=== PATIENT | male | born 1935 | race Caucasian/White ===

== ENCOUNTER 2020-06-08 16:15 | Emergency (ER) | payer MEDICARE, SELFPAY ==
--- NOTE | ~2020-06-08 | XR_ITS ---
EXAMINATION: XR chest 1V portable EXAM DATE: 06/08/2020 17:16 INDICATION: SOB, midsternal CP into right arm and neck . TECHNIQUE: Portable AP frontal chest x-ray was obtained. There is no prior study for comparison. FINDINGS: The lungs are clear. There are no pleural effusions. The cardiomediastinal silhouette is p rominent but magnified on this AP technique. Right shoulder replacement. 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 There is no pneumothorax suspected. The bones and soft tissues are unremarkable. IMPRESSION: No acute cardiopulmonary findings. Reviewed, dictated and finalized at location A. TRY BONER
--- NOTE | 2020-06-08 16:34 | ECG_ITS ---
Measurements Intervals [place] Rate: 69 P: 60 [place]: 290 QRS: 9 QRSD: 97 T: 59 QT: 429 QTc: 460 Interpretive Statements SINUS RHYTHM WITH FIRST DEGREE AV BLOCK VENTRICULAR PREMATURE COMPLEX CANNOT RULE OUT SEPTAL INFARCT, AGE INDETERMINATE BORDERLINE ST-T WAVE ABNORMALITY- HIGH LATERAL LEADS BASELINE WANDER- V4-V6 ABNORMAL ECG Electronically Signed On 06-09-2020 6:18:37 [employer] by Margarito Aviles D.O.
[2020-06-08 16:46] VITALS: BP 184/88; PULSE 68; RESP 18; TEMP 36.8; O2SAT 98
[2020-06-08 17:00] LABS: Basophils Absolute Auto 0.05 K/mm3 (0.00-0.10); Basophils Percent Auto 0.6 % (0.0-1.0); Eosinophils Absolute Auto 0.07 K/mm3 (0.02-0.50); Eosinophils Percent Auto 0.9 % (1.0-6.0); Hematocrit 43.9 % (37.0-46.0); Hemoglobin 13.8 g/dL (12.4-15.3); Immature Granulocyte Absolute 0.03 K/mm3 (0.00-0.00); Immature Granulocyte Percent A 0.4 % (0.0-0.0); Lymphocytes Absolute Auto 1.41 K/mm3 (1.10-4.50); Lymphocytes Percent Auto 17.9 % (18.0-42.0); Mean Corpuscular HGB Conc 31.4 g/dL (32.0-36.0); Mean Corpuscular Hemoglobin 28.9 pg (27.0-31.0); Mean Corpuscular Volume 91.8 fL (78.0-102.0); Mean Platelet Volume 9.4 fl (8.7-11.0); Monocytes Absolute Auto 0.86 K/mm3 (0.10-0.90); Monocytes Percent Auto 10.9 % (2.0-11.0); Neutrophils Absolute Auto 5.5 K/mm3 (1.7-7.2); Neutrophils Percent Auto 69.3 % (50.0-70.0); Platelet Count Result 306 K/mm3 (150-420); Red Blood Count 4.78 M/mm3 (4.70-6.10); Red Cell Distribution Width 12.8 % (11.6-14.4); White Blood Count 7.9 K/mm3 (4.8-10.8)
[2020-06-08 17:13] LABS: Prothrombin Time 10.9 Seconds (9.50-12.10)
[2020-06-08 17:22] LABS: BNP 45 pg/mL (0-100)
[2020-06-08 17:24] LABS: Alanine Aminotransferase 27 U/L (16-63); Albumin Level 3.7 g/dL (3.4-5.0); Alkaline Phosphatase 64 U/L (46-116); Anion Gap 7 mmol/L (8-16); Aspartate Amino Transferase 15 U/L (15-37); Bilirubin,Total 0.4 mg/dL (0.00-1.00); Blood Urea Nitrogen 17 mg/dL (7-18); Calcium 8.9 mg/dL (8.5-10.1); Carbon Dioxide 29 mmol/L (21-32); Chloride 103 mmol/L (98-108); Estimated CRCL calculation 45 ml/min; Estimated Glomerular Filt Rate 53; Glucose 112 mg/dL (70-99); Lipase 102 U/L (73-393); Osmolality Calculated 290 mOsm/kg (285-295); Potassium 3.5 mmol/L (3.5-5.1); Sodium 139 mmol/L (136-145); Total Protein 7.1 g/dL (6.4-8.2)
[2020-06-08 17:25] LABS: Troponin I 8.1 ng/L (0.00-60.4)
[2020-06-08] MEDS: ASPIRIN 81 MG CHEWABLE TABLET 324 MG PO (17:25)
[2020-06-08] MEDS: NITROGLYCERIN SL 0.4 MG TABLET SUBLINGUAL ×2 (17:25→17:50)
--- NOTE | 2020-06-08 18:38 | ED.GENADULT ---
HPI - General Adult General Chief complaint: Chest Pain Stated complaint: Pt said he thinks hes having a heart attack Source: patient and family Mode of arrival: ambulatory Limitations: no limitations History of Present Illness HPI narrative: Wong is an 84M with a PMH of HLD, HTN, and COPD that presented to the ED with chest pain. Earlier today he started to have some squeezing in his chest that went to his throat and had some SOB. No N/V, syncpe or near-syncope. He took a shot of Lexi and that made his throat burn more. He was concerned about these symptoms so he came to the emergency department. Related Data Home Medications Medication Instructions Recorded Confirmed allopurinol 100 mg tablet 100 mg PO DAILY 06/09/19 06/08/20 budesonide-formoterol HFA 160 2 inhalation INHALATION ONCE 06/09/19 06/08/20 mcg-4.5 mcg/actuation aerosol inhaler cholecalciferol (vitamin D3) 1,000 unit PO ONCE 06/09/19 06/08/20 finasteride 5 mg tablet 5 mg PO DAILY 06/09/19 06/08/20 hydrochlorothiazide 12.5 mg capsule 12.5 mg PO DAILY 06/09/19 06/08/20 loratadine 10 mg capsule 10 mg PO DAILY 06/09/19 06/08/20 losartan 25 mg tablet 25 mg PO DAILY 06/09/19 06/08/20 magnesium 250 mg tablet 250 mg PO DAILY 06/09/19 06/08/20 omeprazole 20 mg capsule,delayed 20 mg PO DAILY 06/09/19 06/08/20 release potassium chloride 20 mEq/15 mL 10 meq PO DAILY 06/09/19 06/08/20 oral liquid simvastatin 40 mg tablet 40 mg PO DAILY 06/09/19 06/08/20 tiotropium bromide 2.5 2 inhalation INHALATION DAILY 06/09/19 06/08/20 mcg/actuation mist for inhalation Allergies Allergy/AdvReac Type Severity Reaction Status Date / Time lisinopril Allergy Cough Verified 06/08/20 16:30 Review of Systems Constitutional: Constitutional: Denies chills, Denies fever(s) and Denies weakness Eyes: Eyes: Reports no additional eye complaints ENT: Reports system reviewed and no additional complaints, except as documented Cardiovascular: Cardiovascular: Reports as per HPI Respiratory: Respiratory: Reports as per HPI Gastrointestinal: Gastrointestinal: Reports no additional gastrointestinal complaints Genitourinary: Genitourinary: Reports no additional male genitourinary complaints Musculoskeletal: Musculoskeletal: Reports no additional musculoskeletal complaints Integumentary/Breasts: Skin/Breast: Reports system reviewed and no additional complaints, except as docu Neurologic: Reports system reviewed and no additional complaints, except as documented Psychiatric: Psychiatric: Reports no additional psychiatric complaints Endocrine: Endocrine: Reports no additional endocrine complaints Hematologic/Lymphatic: Hematologic/Lymphatic: Reports no additional hematologic/lymphatic complaints Allergic/Immunologic: Allergic/Immunologic: Reports no additional allergic/immunologic complaints [facility] Past Medical History Medical History (Updated 06/08/20 @ 21:13 by Alexander Bailey DO) Arthritis BMI 32.0-32.9,adult COPD (chronic obstructive pulmonary disease) Gout High cholesterol HTN (hypertension) Surgical History Surgical History 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
[2020-06-08] MEDS: MAG HYDROX/ALUMINUM HYD/SIMETH 30 ML, PHENobarb/HYOSCY/ATROPINE/SCOP 32.4 MG, LIDOCAINE... PO (19:14)
[2020-06-08 20:27] LABS: Troponin I 8.4 ng/L (0.00-60.4)
[2020-06-08 21:40] VITALS: BP 140/91; PULSE 82; RESP 18; TEMP 36.7; O2SAT 98
== END 2020-06-08 21:40 | disposition home or self-care (01) ==
PROVIDERS: Emergency Provider Family Medicine; PCP Internal Medicine
DX: R07.9 Chest pain, unspecified (principal); K21.9 Gastro-esophageal reflux disease without esophagitis; R06.02 Shortness of breath; E78.5 Hyperlipidemia, unspecified; I10 Essential (primary) hypertension; J44.9 Chronic obstructive pulmonary disease, unspecified; Z87.891 Personal history of nicotine dependence
CPT/HCPCS: 36415; 71045; 80053; 83690; 83880; 84484; 85025; 85610; 93005; 99283; 99284; A9270

== ENCOUNTER 2020-07-14 09:50 | Outpatient (CLI) | payer MEDICARE, SELFPAY | END 2020-07-14 09:51 | disposition home or self-care (01) | PROVIDERS: PCP Internal Medicine; Visit Provider Surgery | DX: Z01.812 Encounter for preprocedural laboratory examination (principal); K42.9 Umbilical hernia without obstruction or gangrene | CPT/HCPCS: 36415; 86850; 86900; 86901 ==

== ENCOUNTER 2020-07-16 01:09 | Outpatient (CLI) | payer MEDICARE, SELFPAY ==
[2020-07-17 17:16] LABS: SARS-CoV-2 RNA PCR Negative
== END 2020-07-16 01:10 | disposition home or self-care (01) ==
LOC: ANHCOVIDDT 01:09
PROVIDERS: PCP Internal Medicine; Visit Provider Surgery
DX: Z01.812 Encounter for preprocedural laboratory examination (principal); Z20.822 Contact with and (suspected) exposure to COVID-19
CPT/HCPCS: C9803; U0003; U0005

== ENCOUNTER 2020-07-20 00:35 | Day surgery (SDC) | payer MEDICARE, SELFPAY ==
[2020-07-08 12:31] VITALS: BMI 31.3
[2020-07-20] VITALS (9 sets, daily range): BP systolic 132–161; BP diastolic 50–95; PULSE 56–67; RESP 14–20; TEMP 36.1–36.7; O2SAT 94–99
[2020-07-20] MEDS: ACETAMINOPHEN 500 MG TABLET 1000 MG PO (08:39)
[2020-07-20] MEDS: LACTATED RINGERS 1,000 ML 30 ML IV CONT ×2 (08:48→11:51)
[2020-07-20] MEDS: KETOROLAC 15 MG/ML VIAL (*BKC) IV PUSH (08:50)
--- NOTE | 2020-07-20 09:29 | WPDHPUPDATE1 ---
History and Physical Update Update Date/Time: 07/20/20 09:29 History and Physical has been reviewed, including an updated exam of the patient. There are NO changes in the patient's condition. Risks, benefits, and alternatives have been discussed and questions answered. Patient agrees to proceed with procedure.
--- NOTE | 2020-07-20 09:36 | WPDANESEPPF ---
Anes - Initial Pre Proc Eval Procedure: Operation Date: 07/20/20 10:00 Proposed Procedures p Laparoscopic Umbilical Hernia Repair With Mesh, Davinci Assisted - German Augustin DO Date/Time: 07/20/20 09:36 Surgeon: German Augustin DO Pre Op Diagnosis: Umbilical Hernia Patient Data Age: 84 Gender: M Height: 5 ft 10 in Weight: 100.9 kg Last Vital Signs Temp 98.1 F 07/20/20 08:15 Pulse 63 07/20/20 08:15 Resp 14 07/20/20 08:15 BP 141/50 H 07/20/20 08:15 Pulse Ox 99 07/20/20 08:15 Allergies Allergy/AdvReac Type Severity Reaction Status Date / Time lisinopril Allergy Cough Verified 07/20/20 08:32 Home Medications Medication Instructions Recorded Confirmed Type allopurinol 100 mg tablet 100 mg PO DAILY 06/09/19 07/20/20 History budesonide-formoterol HFA 160 2 inhalation INHALATION BID 06/09/19 07/20/20 History mcg-4.5 mcg/actuation aerosol inhaler cholecalciferol (vitamin D3) 1,000 unit PO ONCE 06/09/19 07/20/20 History finasteride 5 mg tablet 5 mg PO DAILY 06/09/19 07/20/20 History hydrochlorothiazide 12.5 mg capsule 12.5 mg PO DAILY 06/09/19 07/20/20 History loratadine 10 mg capsule 10 mg PO DAILY 06/09/19 07/20/20 History losartan 25 mg tablet 25 mg PO DAILY 06/09/19 07/20/20 History magnesium 250 mg tablet 250 mg PO DAILY 06/09/19 07/20/20 History omeprazole 20 mg capsule,delayed 20 mg PO DAILY 06/09/19 07/20/20 History release potassium chloride 20 mEq/15 mL 20 meq PO DAILY 06/09/19 07/20/20 History oral liquid simvastatin 40 mg tablet 40 mg PO HS 06/09/19 07/20/20 History tiotropium bromide 2.5 2 inhalation INHALATION DAILY 06/09/19 07/20/20 History mcg/actuation mist for inhalation Patient hx anesthesia problems: none Family hx anesthesia problems: none PMFSH Past Medical History Medical History Arthritis BMI 32.0-32.9,adult COPD (chronic obstructive pulmonary disease) Gout High cholesterol HTN (hypertension) Surgical History Surgical History 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 Dr Brower Family History Family History Sibling Hypertension Mother Hypertension Diabetes mellitus Father Leukemia Social History Social History Smoking packs per day: 3 Smoking cigarettes per day: 60.0 Years smoked: 24 Smoking pack-years: 72.00 Smoking status: Former smoker Tobacco type: cigarettes Additional smoking assessment comments: QUIT 1981 Alcohol intake: current Drinks per week: 14 Substance use: never Substance use type: does not use Living arrangements: with family Gender identity (if verbalized by the patient): Male Spiritual care concerns: No Anes - Eval Final PreProcedure Day of Procedure 07/20/20 09:36 Patient weight: obese Heart: regular rate and rhythm Lungs: clear to auscultation Airway: Mallampati scale class III Neurological: alert and oriented Last oral intake: >/= 8 hours ASA classification: III Emergent: no Anesthetic plan: proceed Anesthesia type and monitoring: general ETT and standard monitoring Informed Consent: The patient's anesthetic plan and its attendant risks and benefits were discussed with the patient/family/POA. Questions were solicited and answers provided to the satisfaction of the patient/family/POA.
[2020-07-20] MEDS: ceFAZolin 2 GM/D5W 50 ML 2 GM/50 ML BAG IVPB (09:46)
--- NOTE | 2020-07-20 10:13 | SUR.PREOP ---
0930 pt taken to bathroom to void.
--- NOTE | 2020-07-20 11:42 | PM.PROC ---
Procedure Note - Detailed Date of procedure: 07/20/20 Pre-op diagnosis: Umbilical Hernia Post-op diagnosis: same Procedure performed: Laparoscopic umbilical hernia repair with Symbotex mesh, da Marcos assisted Description of procedure: Procedure as well as risks, benefits, and alternatives were discussed with the patient. Written consent was obtained and placed in chart prior to procedure. Patient was brought back to surgical suite. He was placed supine on operating table. Time-out was done to confirm patient and procedure. He was then intubated by the anesthesia department. A bump was placed under his left hip, and the bed was flexed slightly to extend the space between his costal margin and iliac crest. His abdomen was prepped and draped in sterile fashion using chlorhexidine prep. A 5 millimeter incision was made in the left upper quadrant, and a 5 millimeter Optiview trocar was advanced through the abdominal layers under direct visualization. Once inside the abdominal cavity, carbon dioxide insufflation was used to create a pneumoperitoneum. His abdomen was inspected. An 8 millimeter incision was made in the left lower quadrant, and an 8 millimeter robotic trocar was placed under direct visualization. Another 8 millimeter incision was made in the left lateral abdomen, and an 8 millimeter robotic trocar was placed under direct visualization. Exparel was infiltrated along the lateral abdominal scott to perform a transversus abdominis plane block bilaterally. The 5 millimeter port was removed, the incision was extended to 12 millimeters, and a 12 millimeter air seal port was placed under direct visualization. A Asif-Krueger cone was also used to place an 0-Vicryl simple interrupted suture at this trocar site. The robotic arms were brought up to the patient's bedside and secured to the ports. The camera and instruments were inserted, and I then moved over to the robotic console and took control of the camera and instruments. After careful thorough inspection of the abdominal cavity, I began my dissection at the hernia. A preperitoneal feeling was carefully dissected starting from the left upper quadrant and extending along the left lateral abdomen into the left lower quadrant. A carefully dissected within this preperitoneal plane and reduced the hernia sac and preperitoneal fat from within the hernia. I then also dissected far enough to the right lateral edge to allow for mesh placement. I then measured the hernia size. The hernia measured 2 cm x 2 cm. The fascia was closed using an 0-Stratafix running suture in a vertical fashion. A Symbotex 15cm by 10cm mesh was then placed within the preperitoneal pocket. This was oriented vertically with the mesh centered on the hernia defect. The mesh was then secured at the 4 corners using 3 0 Vicryl simple interrupted sutures. The mesh appeared to be centered on the hernia defect with wide overlap circumferentially. The peritoneum was then closed using 2 0 V lock running absorbable suture. The repair was inspected, and one final inspection was made around the abdominal cavity. The robotic instruments were then removed, and the robotic arms were disengaged from the trocars. The ports were then removed under direct visualization, the camera was removed, and the pneumoperitoneum was released. The 0 Vicryl transfascial suture was tied down. The skin of the incisions was then approximated using 4-0 Monocryl subcuticular suture. Exofin glue was then applied on top. The patient was then awakened from anesthesia, extubated, and transferred to recovery. Implants: Symbotex 15cm by 10cm mesh Anesthesia: GETA and local (Exparel) Surgeon: German Augustin DO Estimated blood loss (mL): 5 Drains: No Pathology: none sent Complications: No immediate complications Condition: stable Disposition: same day Findings: This is an 84-year-old man who presented with an umbilical bulge that had been present for the past 2 y
[2020-07-20] MEDS: fentaNYL CITRATE INJ (*CRX) 100 MCG/2 ML VIAL 25 MCG IV PUSH ×3 (12:18→12:31)
[2020-07-20] MEDS: oxyCODONE HCL (*CRX) 5 MG TAB IR PO (13:14)
== END 2020-07-20 13:55 | disposition home or self-care (01) ==
PROVIDERS: PCP Internal Medicine; Visit Provider Surgery
PROC: (CPT 49652; principal; 2020-07-20 10:00)
DX: K42.9 Umbilical hernia without obstruction or gangrene (principal); I10 Essential (primary) hypertension; E78.00 Pure hypercholesterolemia, unspecified; J44.9 Chronic obstructive pulmonary disease, unspecified; M10.9 Gout, unspecified; M19.90 Unspecified osteoarthritis, unspecified site; Z87.891 Personal history of nicotine dependence; E66.9 Obesity, unspecified; Z68.31 Body mass index [BMI] 31.0-31.9, adult
CPT/HCPCS: 49652; S2900; A9270; C1781; C9290; J0330; J0690; J1100; J1885; J2370; J2405; J2704; J2710; J3010; J7120

== ENCOUNTER 2021-04-17 07:47 | Outpatient (CLI) | payer MEDICARE, SELFPAY ==
[2021-04-17 09:24] LABS: Hematocrit 43.4 % (37.0-46.0); Hemoglobin 14.4 g/dL (12.4-15.3); Immature Platelet Fraction Pct 2.2 % (1.0-7.0); Mean Corpuscular HGB Conc 33.2 g/dL (32.0-36.0); Mean Corpuscular Hemoglobin 28.6 pg (27.0-31.0); Mean Corpuscular Volume 86.3 fL (78.0-102.0); Mean Platelet Volume 9.6 fl (8.7-11.0); Platelet Count Result 546 K/mm3 (150-420); Red Blood Count 5.03 M/mm3 (4.70-6.10); Red Cell Distribution Width 13.3 % (11.6-14.4); White Blood Count 6.1 K/mm3 (4.8-10.8)
[2021-04-17 09:27] LABS: Add Urine Microscopic? YES; Appearance Urine Clear (Clear); Bilirubin Urine Negative (Negative); Blood Urine Negative (Negative); Color Urine Yellow (Yellow); Glucose Urine UA Negative (Negative); Ketones Urine Negative (Negative); Leukocyte Esterase Ur Negative (Negative); Nitrate Urine Negative (Negative); Protein Urine Trace (Negative); Specific Grav Ur 1.015 (1.010-1.020); pH Urine 7.5 (5.0-8.0)
[2021-04-17 09:36] LABS: Bacteria Urine Trace /hpf; RBC Urine None seen /hpf (0-2); WBC Urine None seen /hpf (0-3)
[2021-04-17 09:56] LABS: Total Cells Counted 100
[2021-04-17 09:57] LABS: Band Neutrophils Percent 1 % (0-6); Basophils Absolute Manual 0.12 K/mm3 (0-0.1); Basophils Percent Manual 2 % (0-1); Eosinophils Percent Manual 0 % (1-6); Lymphocytes Absolute Manual 0.91 K/mm3 (1.1-4.5); Lymphocytes Percent Manual 15 % (18-44); Monocytes Absolute Manual 0.48 K/mm3 (0.1-0.90); Monocytes Percent Manual 8 % (3-9); Neutrophils Absolute Manual 4.57 K/mm3 (1.3-6.7); Neutrophils Percent Manual 74 % (46-73); Platelet Estimate Increased (Adequate)
[2021-04-17 10:04] LABS: SARS-CoV-2 RNA PCR Positive (Negative)
[2021-04-17 10:29] LABS: Alanine Aminotransferase 51 U/L (16-63); Albumin Level 2.9 g/dL (3.4-5.0); Alkaline Phosphatase 130 U/L (46-116); Anion Gap 10 mmol/L (8-16); Aspartate Amino Transferase 48 U/L (15-37); Bilirubin,Total 1.2 mg/dL (0.00-1.00); Blood Urea Nitrogen 17 mg/dL (7-18); Calcium 9.1 mg/dL (8.5-10.1); Carbon Dioxide 29 mmol/L (21-32); Chloride 97 mmol/L (98-108); Estimated Glomerular Filt Rate > 60; Glucose 105 mg/dL (70-99); Osmolality Calculated 283 mOsm/kg (285-295); Potassium 4.6 mmol/L (3.5-5.1); Sodium 136 mmol/L (136-145)
== END 2021-04-17 07:48 | disposition home or self-care (01) ==
PROVIDERS: PCP Internal Medicine; Visit Provider Nurse Practitioner Family
DX: U07.1 COVID-19 (principal); D75.839 Thrombocytosis, unspecified; E86.0 Dehydration; N39.0 Urinary tract infection, site not specified
CPT/HCPCS: 36415; 80053; 81001; 85025; 85055; 87086; C9803; U0003; U0005

== ENCOUNTER 2021-04-17 14:29 | Emergency (ER) | payer MEDICARE, SELFPAY ==
--- NOTE | ~2021-04-17 | XR_ITS ---
EXAMINATION: XR chest 1V portable DATE: 04/17/2021 15:32 INDICATION: Dyspnea. COVID-19 positive. TECHNIQUE: A single frontal view of the chest was obtained. COMPARISON: Chest single view 06/08/2020, CT abdomen and pelvis 03/30/2019 FINDINGS: There are patchy airspace opacities in the mid and lower lung zones with a peripheral predo minance. No pleural effusion or pneumothorax. The heart size is normal. There is a right shoulder art hroplasty. IMPRESSION: 1. Patchy airspace opacities in the mid and lower lung zones, consistent with COVID-19 pneumonia. Reviewed, dictated and finalized at location A. IMPRESSION: 1. Patchy airspace opacities in the mid and lower lung zones, consistent with C OVID-19 pneumonia.
[2021-04-17 14:50] VITALS: BP 125/91; PULSE 69; RESP 15; TEMP 37.3; O2SAT 96
--- NOTE | 2021-04-17 15:11 | ED.SOB ---
HPI - SOB/Dyspnea General Chief Complaint: Upper Respiratory Infection Stated Complaint: sent over by doctor Time Seen by Provider: 04/17/21 15:11 Source: patient Mode of arrival: ambulatory Limitations: no limitations History of Present Illness HPI Narrative: 85-year-old man with history of COPD, hypertension and dyslipidemia comes to emergency department for evaluation after he was seen at his primary care doctors today and diagnosed with COVID-19. He states he has had a little more shortness of breath his usual but is most pronounced symptom is his inability to taste food. He states that he has been drinking fluids well and has had no chest pain, vomiting, fever, cough, ankle swelling, abdominal pain or diarrhea. His was recently diagnosed with COVID-19 and treated at home. MD elicited complaint: shortness of breath Pertinent past history: COPD Onset (ago): day(s) Timing: constant Severity: mild Exacerbating factors: exertion Relieving factors: rest Known history of: COPD Associated symptoms: other ( [place]) Related Data Home oxygen amount: none Home Medications Medication Instructions Recorded Confirmed allopurinol 100 mg tablet 100 mg PO DAILY 06/09/19 04/17/21 budesonide-formoterol HFA 160 2 inhalation INHALATION BID 06/09/19 04/17/21 mcg-4.5 mcg/actuation aerosol inhaler cholecalciferol (vitamin D3) 1,000 unit PO ONCE 06/09/19 04/17/21 finasteride 5 mg tablet 5 mg PO DAILY 06/09/19 04/17/21 hydrochlorothiazide 12.5 mg capsule 12.5 mg PO DAILY 06/09/19 04/17/21 loratadine 10 mg capsule 10 mg PO DAILY 06/09/19 04/17/21 losartan 25 mg tablet 25 mg PO DAILY 06/09/19 04/17/21 magnesium 250 mg tablet 250 mg PO DAILY 06/09/19 04/17/21 omeprazole 20 mg capsule,delayed 20 mg PO DAILY 06/09/19 04/17/21 release potassium chloride 20 mEq/15 mL 20 meq PO DAILY 06/09/19 04/17/21 oral liquid simvastatin 40 mg tablet 40 mg PO HS 06/09/19 04/17/21 tiotropium bromide 2.5 2 inhalation INHALATION DAILY 06/09/19 04/17/21 mcg/actuation mist for inhalation Allergies Allergy/AdvReac Type Severity Reaction Status Date / Time lisinopril Allergy Cough Verified 09/22/20 09:33 Review of Systems Review of Systems: All systems reviewed & are unremarkable except as noted in HPI and below Constitutional: Constitutional: Denies chills and Denies fever(s) Eyes: Eyes: Denies change in vision and Denies photophobia ENT: Denies nasal congestion and Denies sore throat Cardiovascular: Cardiovascular: Denies chest pain and Denies radiating jaw, neck or arm pain Respiratory: Respiratory: Denies cough, Reports dyspnea and Denies wheezing Gastrointestinal: Gastrointestinal: Denies nausea and Denies vomiting Genitourinary: Genitourinary: Denies dysuria and Denies urinary frequency Musculoskeletal: Musculoskeletal: Denies arthralgias and Denies joint swelling Integumentary/Breasts: Skin/Breast: Denies pruritus, Denies erythema and Denies rash Neurologic: Denies vertigo, Reports dizziness and Denies syncope Hematologic/Lymphatic: Hematologic/Lymphatic: Denies easy bleeding and Denies easy bruising Allergic/Immunologic: Allergic/Immunologic: Denies lip swelling, Denies throat swelling and Denies tongue swelling PMFSH Past Medical History Medical History Arthritis BMI 32.0-32.9,adult COPD (chronic obstructive pulmonary disease) Gout High cholesterol HTN (hypertension) Surgical History Surgical History 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
[2021-04-17] MEDS: ALBUTEROL SULFATE (*SP) INHALER 4 PUFF INHALATION (15:25)
[2021-04-17] MEDS: DEXAMETHASONE 4 MG TABLET 8 MG PO (15:25)
[2021-04-17 15:55] VITALS: BP 115/78; PULSE 70; RESP 18; O2SAT 95
== END 2021-04-17 16:04 | disposition home or self-care (01) ==
PROVIDERS: Emergency Provider Emergency Medicine; PCP Internal Medicine
DX: U07.1 COVID-19 (principal); J44.0 Chronic obstructive pulmonary disease with (acute) lower respiratory infection; E78.00 Pure hypercholesterolemia, unspecified; I10 Essential (primary) hypertension; Z87.891 Personal history of nicotine dependence
CPT/HCPCS: 36415; 71045; 80053; 81001; 85025; 85055; 87086; 99283; A9270; C9803; J8540; U0003; U0005

== ENCOUNTER 2021-05-12 10:24 | Outpatient (CLI) | payer MEDICARE, SELFPAY ==
--- NOTE | ~2021-05-12 | XR_ITS ---
EXAMINATION: XR ribs RT 2V w CXR 2V DATE: 05/12/2021 11:11 INDICATION: Right chest pain. Fall. TECHNIQUE: Frontal and lateral views of the chest and 2 views on 3 radiographs of the right ribs were obtained. COMPARISON: Chest single view 04/17/2021 FINDINGS: CHEST TWO VIEWS: There are mild airspace opacities in the mid and lower lung zones. No pleural effusi on or pneumothorax. The heart size is normal. There is a right shoulder arthroplasty. RIGHT RIBS: There are fractures of right fifth, sixth, and seventh ribs. IMPRESSION: 1. Age-indeterminate fractures of right 5th-7th ribs. 2. Mild airspace opacities in the mid and lower lung zones, improved from 04/17/2021, consistent with atelectasis/scarring versus pneumonia. Reviewed, dictated and finalized at location A. HYSICS SCIENTIST IMPRESSION: 1. Age-indeterminate fractures of right 5th-7th ribs. 2. Mild airspace opacities in the mid and lower lung zones, improved from 04/17, consistent with atelectasis/scarring versus pneumonia.
--- NOTE | ~2021-05-12 | XR_ITS ---
EXAMINATION: XR hand RT min 3V, XR wrist RT min 3V EXAM DATE: 05/12/2021 11:12 (accession [id number]), 05/12/2021 11:13 (accession [id number]) INDICATION: R wrist pain and swelling after fall yesterday. Initial encounter. TECHNIQUE: Right hand frontal, lateral and oblique projections obtained and reviewed. Right wrist fro ntal, frontal with ulnar deviation, oblique and lateral projections obtained and reviewed. There is no prior study for comparison. FINDINGS: There is acute closed posttraumatic nondisplaced right radial styloid fracture, best identi fied on one of the hand projections. This finding has been indicated, marked on the examination for r wale, clinical correlation. No other acute fractures are identified. There is an old 5th metacarpal fracture. Right wrist scapho lunate joint space is maintained. Scattered polyarticular primary osteoarthritis. Chondral calcinosis . IMPRESSION: 1. Acute right radial styloid intra-articular fracture. 2. Chronic findings. Reviewed, dictated and finalized at location B. R IMPRESSION: 1. Acute right radial styloid intra-articular fracture. 2. Chronic findings.
== END 2021-05-12 10:25 | disposition home or self-care (01) ==
PROVIDERS: PCP Internal Medicine; Visit Provider Internal Medicine
DX: R07.89 Other chest pain (principal); M25.531 Pain in right wrist
CPT/HCPCS: 71046; 71100; 73110; 73130

== ENCOUNTER 2021-05-24 12:08 | Outpatient (CLI) | payer MEDICARE, SELFPAY ==
--- NOTE | ~2021-05-24 | US_ITS ---
EXAMINATION: US venous doppler [facility] EXAM DATE: 05/24/2021 12:29 INDICATION: Left lower extremity swelling. TECHNIQUE: Multiple grayscale, color flow and Doppler images of the left lower extremity deep venous system were obtained and reviewed. There is no prior study for comparison. FINDINGS: The left common femoral, femoral and profunda veins demonstrate normal color flow, respirat ory variation, augmentation and compressibility. Compressibility, color flow confirmed within the le ft popliteal, posterior tibial, peroneal, and greater saphenous veins. IMPRESSION: 1. No left lower extremity deep venous thrombosis. Reviewed, dictated and finalized at location A. ATE LAWYER
== END 2021-05-24 12:09 | disposition home or self-care (01) ==
LOC: CHSIMG 12:11
PROVIDERS: PCP Internal Medicine; Visit Provider Internal Medicine
DX: M79.89 Other specified soft tissue disorders (principal)
CPT/HCPCS: 93971

== ENCOUNTER 2021-07-03 11:59 | Outpatient (CLI) | payer MEDICARE, SELFPAY ==
--- NOTE | ~2021-07-03 | XR_ITS ---
EXAMINATION: XR wrist RT min 3V DATE: 07/03/2021 12:24 INDICATION: Right radial styloid fracture. Follow-up. TECHNIQUE: 4 views of right wrist were obtained. COMPARISON: Right wrist radiographs 05/12/2021 FINDINGS: There is a nondisplaced fracture of radial styloid with sclerosis at the fracture line, con sistent with healing. There is an old healed fracture of diaphysis of fifth metacarpal. There is mode rate osteoarthritis of radioscaphoid joint. There is severe osteoarthritis of scaphoid-capitate joint and triscaphe joint. There is mild osteoarthritis of first carpometacarpal joint. There is chondroca lcinosis involving triangular fibrocartilage. There are dystrophic calcifications about the wrist. IMPRESSION: 1. Healing radial styloid fracture. 2. Polyarticular osteoarthritis. Reviewed, dictated and finalized at location B. BARBER
== END 2021-07-03 12:00 | disposition home or self-care (01) ==
LOC: CHSIMG 12:03
PROVIDERS: PCP Internal Medicine; Visit Provider Internal Medicine
DX: S62.101D Fracture of unspecified carpal bone, right wrist, subsequent encounter for fracture with routine healing (principal)
CPT/HCPCS: 73110

== ENCOUNTER 2021-08-10 09:58 | Outpatient (CLI) | payer MEDICARE, SELFPAY ==
[2021-08-10 10:30] VITALS: PULSE 63; O2SAT 98
[2021-08-10 10:37] VITALS: PULSE 62; O2SAT 92
--- NOTE | 2021-08-10 10:50 | HOMEO2EVAL ---
Evaluation was performed at [facility] Home Oxygen Evaluation RC: Home Oxygen (O2) Evaluation Start: 08/10/21 10:47 Freq: Status: Active Protocol: RPE Activity Type Activity Date Activity User E-Sign Co-Sign Detail Recorded Client Recorded Date Recorded By Document 08/10/21 10:30 SJB [id number] 08/10/21 10:50 SJB Document 08/10/21 10:37 SJB [id number] 08/10/21 10:50 SJB 08/10/21 08/10/21 10:30 10:37 Home O2 Evaluation Test Phase Resting Exercise Oxygen Delivery Room Air Room Air Pulse Oximetry (90-100 %) 98 92 Pulse Rate (60-100 beats/min) 63 62 Activity Tolerance Excellent Rating of Perceived Dyspnea (PD) +1 Mild, Noticeable to the Participant but Not to an Observer Rate of Perceived Exertion (PE) 9 Very light Ambulation Distance (feet) 550 Ambulation Distance (meters) 167.63 Home Oxygen Evaluation Comments Will begin walk Pt walked on room air, approx 550 ft pushing on room air. wheelchair Sp02 remained at 92% and above. Educated on PLB . Treatment Charges O2 Evaluation - Outpatient
--- NOTE | 2021-08-14 12:01 | WPDSIXMINUTE ---
Six Minute Walk Procedure Procedure Performed Pulmonary Stress Test (6 min walk) Six Minute Walk Six Minute Walk: DOS: 08/10/2021 REQUESTING: Dr. Nic Abraham REASON FOR TESTING: Dyspnea SIX MINUTE WALK This study was conducted per ATS guidelines. The patient performed the study walking while breathing room air. The initial saturation was 98% and the pulse was 63. The patient walked for 6 minutes without stopping, completing a distance of 550 ft/ 167.6 meters. He had a decrease in his saturation to 92% which is not normal however this is not low enough to qualify for supplemental oxygen. He had mild shortness of breath. His pulse at the end of the walk was 62 with a saturation of 92%. A decreased of more than 5% with exertion is not normal. Clinical correlation advised. IMPRESSION: This patient does not require supplemental oxygen with exertion.
--- NOTE | 2021-08-14 12:02 | WPDPFTINT ---
PFT Procedure Performed PFT Procedure Performed Spirometry with Pre/Post Bronchodilator Plethysmography (Lung Vol) Diffusing Cap (DLCO) Flow Vol Loop PFT Interpretation DOS: 08/10/2021 REQUESTING: Dr. Nic Abraham REASON FOR TESTING: Dyspnea PULMONARY FUNCTION TESTS Results are reliable and reproducible. The patient reports rib injuries in Apr 2021 from a work injury and having COVID in April 2021. Spirometry: Pre-bronchodilator FVC is 94% predicted, 3.21 L. The pre bronchodilator FEV1 is 86% predicted, 2.21 L. The FEV1/FVC ratio is normal, no airflow obstruction is present. The UAZ80-68% is 46% predicted. There is no change after bronchodilator administration. Lung volumes: Total lung capacity is 85% predicted, normal. Residual volume is 74% predicted, normal. RV/TLC is normal. There is no air trapping or hyperinflation. Airway resistance 192%, increased. Diffusion: DLCO 90%, normal. Flow volume loop: Normal. IMPRESSION: Minimal obstructive ventilatory defect noted with a decrease in the FUV77-85% flows without response to bronchodilator. Normal lung volumes and diffusion. Lack of response to bronchodilator should not preclude use if clinically indicated. Xin Teran MD
== END 2021-08-10 09:59 | disposition home or self-care (01) ==
LOC: CHSCARD 10:00
PROVIDERS: PCP Internal Medicine; Visit Provider Internal Medicine Pulmonary Disease
DX: R06.00 Dyspnea, unspecified (principal); J40 Bronchitis, not specified as acute or chronic; Z72.0 Tobacco use
CPT/HCPCS: 94060; 94618; 94726; 94729

== ENCOUNTER 2022-02-27 09:40 | Outpatient (CLI) | payer MEDICARE, SELFPAY ==
--- NOTE | ~2022-02-27 | XR_ITS ---
EXAMINATION: XR knee RT 3V DATE: 02/27/2022 10:20 INDICATION: Right knee pain TECHNIQUE: Three views of the right knee were obtained. COMPARISON: 10/12/2021 FINDINGS: Alignment is normal. No fracture or osteochondral lesion. Joint spaces are normal with no e rosions. There is tricompartmental osteoarthritis, moderate in the medial compartment and medial pat ellofemoral compartment. Chondrocalcinosis is noted. Soft tissues are unremarkable. IMPRESSION: 1. Tricompartmental osteoarthritis, moderate in the medial and patellofemoral compartments. Reviewed, dictated and finalized at location B. IMPRESSION: 1. Tricompartmental osteoarthritis, moderate in the medial and patellofemoral c ompartments.
--- NOTE | ~2022-02-27 | XR_ITS ---
EXAMINATION: XR hand RT min 3V DATE: 02/27/2022 10:20 INDICATION: Right hand pain to the second digit. Arthritis. TECHNIQUE: Posteroanterior, oblique and lateral views of the right hand were obtained. COMPARISON: 05/12/2021 FINDINGS: Diffuse osteopenia. Alignment is normal. Interval healing of the previous right radial styloid fractu re. Additional old healed fracture deformity at the fifth metacarpal diaphysis. No acute fractures id entified. Polyarticular osteoarthritis, severe at the triscaphe, midcarpal and second and third metac arpophalangeal joints, moderate severity at the distal radioulnar, first carpal metacarpal, second an d third proximal interphalangeal and remaining second and third distal interphalangeal joints and mil d at the majority the remaining joints at the right hand and wrist. Reticular cystic changes at the s caphoid, proximal pole of the capitate and at the base of the third proximal phalanx. Chondrocalcinos is in the region of the triangular fibrocartilage complex. Periarticular soft tissue swelling about s everal of the interphalangeal joints most prominent in the second and third digits. IMPRESSION: 1. Moderate to severe polyarticular osteoarthritis Reviewed, dictated and finalized at location A.
== END 2022-02-27 09:41 | disposition home or self-care (01) ==
LOC: CHSIMG 09:44
PROVIDERS: PCP Internal Medicine; Visit Provider Internal Medicine
DX: M25.561 Pain in right knee (principal); M79.641 Pain in right hand
CPT/HCPCS: 73130; 73562

== ENCOUNTER 2022-04-09 14:12 | Outpatient (RCR) | payer MEDICARE, SELFPAY ==
--- NOTE | 2022-04-09 13:59 | PTOPEVAL1 ---
Assessment and note entered by Nic More Evaluation Information Assessment Status Evaluation Diagnosis right knee pain Onset 03/16/22 Subjective Information Pt. reports that he has been having on and off knee pain for several months. He reports that the worst pain is on the inside of the right knee. He reports that pain is worst with walking. He reports that he has had xray that revealed arthritis. Pt. reports that he is very active and cares for his own home. He states that pain limits his ability to stand and the right leg will feel as if it will give out every so often. Reported Pain Level Pain Score 4: Self Report Assessment PT Clinical Summary Pt. is an 86 year old male who enters the clinic with right knee pain secondary to OA. He presents with impaired ROM, impaired strength, impaired gait and pain. Continued treatment is recommended in order to improve these areas to allow the pt. improved comfort with all IADL's. Plan of Care Interventions Electrical Stimulation,Gait Training,Hot Pack/Cold Pack,Manual Therapy,Neuro Re-education, Therapeutic Activities,Therapeutic Exercise PT Services Indicated Yes Treatment Frequency and 3x/week x 9 visits Duration These treatments will address the objective and functional deficits as defined above. The patient will be advanced safely and appropriately in order for the patient to progress towards his/her prior level of function. Additional exercises will be introduced and as well as a comprehensive home exercise program upon discharge, if needed, ?to ensure carryover of functional gains achieved in the clinic. This treatment plan has been reviewed and agreement upon by the patient.
== END 2022-05-14 15:27 | disposition home or self-care (01) ==
LOC: CHSPT 14:12
PROVIDERS: PCP Internal Medicine; Visit Provider Internal Medicine
DX: M25.561 Pain in right knee (principal); M17.9 Osteoarthritis of knee, unspecified
CPT/HCPCS: 97014; 97110; 97161; G0283

== ENCOUNTER 2022-04-20 09:04 | Outpatient (CLI) | payer MEDICARE, SELFPAY ==
[2022-04-20 09:30] LABS: Basophils Absolute Auto 0.06 K/mm3 (0.00-0.10); Basophils Percent Auto 1.1 % (0.0-1.0); Eosinophils Absolute Auto 0.13 K/mm3 (0.02-0.50); Eosinophils Percent Auto 2.4 % (1.0-6.0); Hematocrit 43.8 % (37.0-46.0); Hemoglobin 14.3 g/dL (12.4-15.3); Immature Granulocyte Absolute 0.03 K/mm3 (0.00-0.00); Immature Granulocyte Percent A 0.6 % (0.0-0.0); Lymphocytes Percent Auto 31.3 % (18.0-42.0); Mean Corpuscular HGB Conc 32.6 g/dL (32.0-36.0); Mean Corpuscular Hemoglobin 29.1 pg (27.0-31.0); Mean Corpuscular Volume 89.2 fL (78.0-102.0); Mean Platelet Volume 9.4 fl (8.7-11.0); Monocytes Absolute Auto 0.66 K/mm3 (0.10-0.90); Monocytes Percent Auto 12.1 % (2.0-11.0); Neutrophils Absolute Auto 2.9 K/mm3 (1.7-7.2); Neutrophils Percent Auto 52.5 % (50.0-70.0); Platelet Count Result 422 K/mm3 (150-420); Red Blood Count 4.91 M/mm3 (4.70-6.10); Red Cell Distribution Width 13.6 % (11.6-14.4); White Blood Count 5.4 K/mm3 (4.8-10.8)
[2022-04-20 09:34] LABS: Appearance Urine Clear (Clear); Bilirubin Urine Negative (Negative); Blood Urine Negative (Negative); Glucose Urine UA Negative (Negative); Ketones Urine Negative (Negative); Leukocyte Esterase Ur Negative (Negative); Nitrate Urine Negative (Negative); Protein Urine Negative (Negative); Urobilinogen Urine 0.2 mg/dL (0.2-1.0)
[2022-04-20 09:48] LABS: Add Urine Microscopic? NO; Color Urine Light Yellow (Yellow)
[2022-04-20 10:09] LABS: Influenza A QL RT-PCR Negative (Negative); Influenza B QL RT-PCR Negative (Negative); SARS-CoV-2 RNA PCR Negative (Negative)
[2022-04-20 10:24] LABS: Alanine Aminotransferase 37 U/L (16-63); Alkaline Phosphatase 74 U/L (46-116); Anion Gap 5 mmol/L (8-16); Aspartate Amino Transferase 27 U/L (15-37); Bilirubin,Total 0.6 mg/dL (0.00-1.00); Blood Urea Nitrogen 14 mg/dL (7-18); Calcium 9.6 mg/dL (8.5-10.1); Carbon Dioxide 30 mmol/L (21-32); Chloride 104 mmol/L (98-108); Estimated Glomerular Filt Rate 48; Glucose 100 mg/dL (70-99); Osmolality Calculated 288 mOsm/kg (285-295); Potassium 5.1 mmol/L (3.5-5.1); Sodium 139 mmol/L (136-145); Thyroid Stimulating Hormone 2.27 uIU/mL (0.36-3.74); Total Protein 7.1 g/dL (6.4-8.2); Uric Acid 6.7 mg/dL (3.5-7.2)
[2022-04-20 10:25] LABS: CRP < 0.2 mg/dL (0.0-0.9)
== END 2022-04-20 09:05 | disposition home or self-care (01) ==
LOC: CHSLAB 09:07
PROVIDERS: PCP Internal Medicine; Visit Provider Internal Medicine
DX: R53.83 Other fatigue (principal); R05.9 Cough, unspecified; R10.9 Unspecified abdominal pain; M10.9 Gout, unspecified; Z20.822 Contact with and (suspected) exposure to COVID-19
CPT/HCPCS: 36415; 80053; 81003; 84443; 84550; 85025; 86140; 87502; U0003; U0005

== ENCOUNTER 2022-07-17 09:27 | Outpatient (CLI) | payer MEDICARE, SELFPAY ==
--- NOTE | ~2022-07-17 | XR_ITS ---
Clinical Indication: Chest pain PA and lateral views of the chest: Comparison: 05/12/2021 Findings: The lungs are clear, without evidence of focal consolidation or pleural effusion. Cardiome diastinal silhouette is stable. Right shoulder arthroplasty noted. Impression: Clear lungs. Reviewed, dictated and finalized at location . END JAVA DEVELOPER Impression: Clear lungs.
[2022-07-17 09:45] LABS: Basophils Absolute Auto 0.05 K/mm3 (0.00-0.10); Basophils Percent Auto 1.1 % (0.0-1.0); Eosinophils Absolute Auto 0.08 K/mm3 (0.02-0.50); Eosinophils Percent Auto 1.7 % (1.0-6.0); Hematocrit 45.6 % (37.0-46.0); Hemoglobin 14.6 g/dL (12.4-15.3); Immature Granulocyte Absolute 0.02 K/mm3 (0.00-0.00); Immature Granulocyte Percent A 0.4 % (0.0-0.0); Lymphocytes Absolute Auto 1.51 K/mm3 (1.10-4.50); Lymphocytes Percent Auto 31.7 % (18.0-42.0); Mean Corpuscular Hemoglobin 28.7 pg (27.0-31.0); Mean Corpuscular Volume 89.8 fL (78.0-102.0); Mean Platelet Volume 9.7 fl (8.7-11.0); Monocytes Absolute Auto 0.57 K/mm3 (0.10-0.90); Neutrophils Absolute Auto 2.5 K/mm3 (1.7-7.2); Neutrophils Percent Auto 53.1 % (50.0-70.0); Platelet Count Result 451 K/mm3 (150-420); Red Blood Count 5.08 M/mm3 (4.70-6.10); Red Cell Distribution Width 13.3 % (11.6-14.4); White Blood Count 4.8 K/mm3 (4.8-10.8)
--- NOTE | 2022-07-17 09:56 | ECG_ITS ---
Measurements Intervals [place] Rate: 61 P: 59 GA: 328 QRS: 37 QRSD: 100 T: 16 QT: 407 QTc: 411 Interpretive Statements SINUS RHYTHM WITH MARKED FIRST DEGREE AV BLOCK CANNOT RULE OUT SEPTAL INFARCT, AGE INDETERMINATE BORDERLINE ST-T WAVE ABNORMALITY- ANTEROLAT/INF LEADS BASELINE WANDER- II, III, AVF, V4-V6 ABNORMAL ECG NO PREVIOUS ECG AVAILABLE FOR COMPARISON Electronically Signed On 07-17-2022 12:19:23 SCALE INSTALLER by Margarito Aviles D.O.
[2022-07-17 10:15] LABS: Alanine Aminotransferase 49 U/L (16-63); Alkaline Phosphatase 79 U/L (46-116); Anion Gap 8 mmol/L (8-16); Aspartate Amino Transferase 34 U/L (15-37); Bilirubin,Total 0.5 mg/dL (0.00-1.00); Blood Urea Nitrogen 14 mg/dL (7-18); Calcium 9.3 mg/dL (8.5-10.1); Carbon Dioxide 30 mmol/L (21-32); Chloride 102 mmol/L (98-108); Cholesterol 142 mg/dL (0-200); Estimated Glomerular Filt Rate 48; Glucose 95 mg/dL (70-99); HDL Direct 35 mg/dL (40-60); LDL Cholesterol Calculated 80 mg/dL (<130); Osmolality Calculated 290 mOsm/kg (285-295); Potassium 4.9 mmol/L (3.5-5.1); Sodium 140 mmol/L (136-145); Total Protein 7.1 g/dL (6.4-8.2); Triglycerides 136 mg/dL (0-150)
[2022-07-17 10:21] LABS: CRP < 0.5 mg/dL (0.0-0.9)
[2022-07-19 09:51] LABS: Creatine Kinase 183 U/L (39-308); Troponin I 8.7 ng/L (0.00-60.4)
== END 2022-07-17 09:28 | disposition home or self-care (01) ==
LOC: CHSLAB 09:30
PROVIDERS: PCP Internal Medicine; Visit Provider Internal Medicine
DX: R51.9 Headache, unspecified (principal); R07.9 Chest pain, unspecified; R94.31 Abnormal electrocardiogram [ECG] [EKG]
CPT/HCPCS: 36415; 71046; 80053; 80061; 82550; 82553; 84484; 85025; 86140; 93005

== ENCOUNTER 2022-07-19 09:40 | Outpatient (CLI) | payer MEDICARE, SELFPAY ==
--- NOTE | ~2022-07-19 | MR_ITS ---
EXAMINATION: MR brain/brain stem wo con DATE: 07/19/2022 10:36 INDICATION: Headache. Vertigo. TECHNIQUE: Magnetic resonance imaging (MRI) of the brain and brainstem was performed without intraven ous contrast. COMPARISON: Brain MRI 10/01/2018 FINDINGS: There are scattered areas of nonspecific increased T2-weighted signal intensity in the cere bral white matter. There is no intracranial hemorrhage, acute infarction, or abnormal intracranial ma ss lesion. The ventricles are normal in size. There is mild mucosal thickening in left maxillary sinu s. The orbits are normal. The mastoid air cells are normal. IMPRESSION: 1. Stable mild nonspecific cerebral white matter disease, which likely represents chronic small vesse l ischemic disease. Reviewed, dictated and finalized at location A. BINNER IMPRESSION: 1. Stable mild nonspecific cerebral white matter disease, which likely represen ts chronic small vessel ischemic disease.
== END 2022-07-19 09:41 | disposition home or self-care (01) ==
LOC: CHSIMG 09:41
PROVIDERS: PCP Internal Medicine; Visit Provider Internal Medicine
DX: R07.9 Chest pain, unspecified (principal); R51.9 Headache, unspecified; R90.82 White matter disease, unspecified
CPT/HCPCS: 70551

== ENCOUNTER 2022-08-06 14:31 | Emergency (ER) | payer MEDICARE, SELFPAY ==
--- NOTE | ~2022-08-06 | XR_ITS ---
EXAMINATION: XR chest 1V portable DATE: 08/06/2022 15:00 INDICATION: Chest pain. TECHNIQUE: A single frontal view of the chest was obtained. COMPARISON: Chest 2 views 07/17/2022 FINDINGS: The chest demonstrates clear lungs without pneumonia, pleural effusion, or pneumothorax. Th e heart size is normal. There is a total right shoulder arthroplasty. IMPRESSION: 1. No acute cardiopulmonary disease. Reviewed, dictated and finalized at location A. S AND MARKETING REPRESENTATIVE
[2022-08-06 14:37] VITALS: BP 193/101; PULSE 60; RESP 20; TEMP 36.2; O2SAT 100
[2022-08-06 14:42] VITALS: O2SAT 100
--- NOTE | 2022-08-06 14:43 | ECG_ITS ---
Measurements Intervals [place] Rate: 53 P: 24 MT: 341 QRS: -18 QRSD: 99 T: 29 QT: 447 QTc: 421 Interpretive Statements SINUS BRADYCARDIA WITH FIRST DEGREE AV BLOCK MINIMAL ST DEPRESSION [0.025+ mV ST DEPRESSION] COMPARED TO ECG 07/17/2022 09:56:14 SINUS BRADYCARDIA NOW PRESENT ST (T WAVE) DEVIATION NOW PRESENT Electronically Signed On 08-07-2022 16:31:04 COORDINATE MEASURING MACHINE TECHNICIAN by Yolanda Almeida M.D.
--- NOTE | 2022-08-06 14:48 | ED.GENADULT ---
HPI - General Adult General Chief complaint: Chest Pain Stated complaint: chest pain Time Seen by Provider: 08/06/22 14:33 History of Present Illness HPI narrative: The patient is an 86 year old male patient with a history of hypertension, obesity, COPD, and hyperlipidemia. He has had dizziness since 06/24/2022, and has seen his PCP for this. He has been prescribed meclizine (doesn't think it helped), and had a brain MRI. He is now referred to a masonry inspector for further dizziness workup. He continued to have dizziness. This morning, in addition to dizziness, he had a 3 minute episode of chest discomfort that was in the left substernal area, and resolved spontaneously. His BP was checked at the time, highest was 180/89. He comes here for evaluation. Does have some pedal edema that has been there for some time. No chest pain now. No cough. No dyspnea. No nausea or emesis. No other complaints. Related Data Home Medications Medication Instructions Recorded Confirmed allopurinol 100 mg tablet 100 mg PO DAILY 06/09/19 08/06/22 cholecalciferol (vitamin D3) 25 1,000 unit PO ONCE 06/09/19 08/06/22 mcg/drop (1,000 unit/drop) oral drops finasteride 5 mg tablet 5 mg PO DAILY 06/09/19 08/06/22 hydrochlorothiazide 12.5 mg capsule 12.5 mg PO DAILY 06/09/19 08/06/22 loratadine 10 mg capsule 10 mg PO DAILY 06/09/19 08/06/22 losartan 25 mg tablet 25 mg PO DAILY 06/09/19 08/06/22 magnesium 250 mg tablet 250 mg PO DAILY 06/09/19 08/06/22 omeprazole 20 mg capsule,delayed 20 mg PO DAILY 06/09/19 08/06/22 release potassium chloride 20 mEq/15 mL 20 meq PO DAILY 06/09/19 08/06/22 oral liquid tiotropium bromide 2.5 2 inh inhalation QAM 10/12/21 08/06/22 mcg/actuation mist for inhalation (Spiriva Respimat) Allergies Allergy/AdvReac Type Severity Reaction Status Date / Time lisinopril Allergy Cough Verified 08/06/22 14:34 Review of Systems Review of Systems: All systems reviewed & are unremarkable except as noted in HPI and below Constitutional: Constitutional: Reports as per HPI, Reports no additional constitutional complaints, Denies chills, Denies fatigue and Denies fever(s) Eyes: Eyes: Reports as per HPI, Reports no additional eye complaints, Denies change in vision and Denies photophobia ENT: Reports system reviewed and no additional complaints, except as documented, Reports as per HPI, Denies dysphagia, Denies nasal congestion and Denies sore throat Cardiovascular: Cardiovascular: Reports as per HPI, Reports no additional cardiovascular complaints, Denies chest pain and Denies rapid heart rate Respiratory: Respiratory: Reports as per HPI, Reports no additional respiratory complaints, Denies chest congestion, Denies cough, Denies dyspnea and Denies wheezing Gastrointestinal: Gastrointestinal: Reports as per HPI, Reports no additional gastrointestinal complaints, Denies abdominal pain, Denies constipation, Denies diarrhea, Denies nausea and Denies vomiting Genitourinary: Genitourinary: Reports as per HPI, Denies hematuria, Denies oliguria, Denies dysuria, Denies urinary frequency, Denies urinary incontinence and Denies urinary urgency Musculoskeletal: Musculoskeletal: Reports no additional musculoskeletal complaints, Denies back pain, Denies myalgias, Denies arthralgias and Denies joint swelling Integumentary/Breasts: Skin/Breast: Reports system reviewed and no additional complaints, except as docu, Denies pruritus, Denies erythema, Denies rash and Denies skin ulcer Neurologic: Reports system reviewed and no additional complaints, except as documented, Reports as per HPI, Denies confusion, Denies vertigo, Denies dizziness, Denies syncope, Denies headache(s), Denies focal weakness, Denies numbness and Denies weakness Psychiatric: Psychiatric: Reports as per HPI, Denies anxiety, Denies depression, Denies homicidal ideation and Denies suicidal ideation Endocrine: Endocrine: Reports no additional endocrine complaints, Denies excessive swea
[2022-08-06 15:08] LABS: Basophils Absolute Auto 0.06 K/mm3 (0.00-0.10); Eosinophils Percent Auto 1.7 % (1.0-6.0); Hematocrit 44.4 % (37.0-46.0); Hemoglobin 14.4 g/dL (12.4-15.3); Immature Granulocyte Absolute 0.02 K/mm3 (0.00-0.00); Immature Granulocyte Percent A 0.3 % (0.0-0.0); Lymphocytes Absolute Auto 1.73 K/mm3 (1.10-4.50); Lymphocytes Percent Auto 29.3 % (18.0-42.0); Mean Corpuscular HGB Conc 32.4 g/dL (32.0-36.0); Mean Corpuscular Volume 89.3 fL (78.0-102.0); Mean Platelet Volume 9.6 fl (8.7-11.0); Monocytes Absolute Auto 0.61 K/mm3 (0.10-0.90); Monocytes Percent Auto 10.3 % (2.0-11.0); Neutrophils Absolute Auto 3.4 K/mm3 (1.7-7.2); Neutrophils Percent Auto 57.4 % (50.0-70.0); Platelet Count Result 435 K/mm3 (150-420); Red Blood Count 4.97 M/mm3 (4.70-6.10); Red Cell Distribution Width 13.2 % (11.6-14.4); White Blood Count 5.9 K/mm3 (4.8-10.8)
[2022-08-06] MEDS: MECLIZINE HCL 25 MG TABLET 50 MG PO (15:09)
[2022-08-06] MEDS: hydrALAZINE HCL 20 MG/ML VIAL IV PUSH (15:10)
[2022-08-06 15:22] LABS: Alanine Aminotransferase 48 U/L (16-63); Albumin Level 3.9 g/dL (3.4-5.0); Alkaline Phosphatase 74 U/L (46-116); Anion Gap 4 mmol/L (8-16); Aspartate Amino Transferase 34 U/L (15-37); Bilirubin,Total 0.5 mg/dL (0.00-1.00); Blood Urea Nitrogen 14 mg/dL (7-18); Calcium 9.5 mg/dL (8.5-10.1); Carbon Dioxide 32 mmol/L (21-32); Chloride 99 mmol/L (98-108); Estimated CRCL calculation 45 ml/min; Estimated Glomerular Filt Rate 53; Glucose 94 mg/dL (70-99); Osmolality Calculated 280 mOsm/kg (285-295); Potassium 3.6 mmol/L (3.5-5.1); Sodium 135 mmol/L (136-145); Total Protein 7.5 g/dL (6.4-8.2)
[2022-08-06 15:29] LABS: D Dimer 0.56 mg/L (0.19-0.50)
--- NOTE | 2022-08-06 15:29 | PC.NURSE ---
ddimer 0.56, erp is notified.
[2022-08-06 15:31] LABS: NT Pro B Type Natriuretic Pept 239 pg/mL (0-450); Troponin I 8.8 ng/L (0.00-60.4)
[2022-08-06 16:29] VITALS: BP 137/67; PULSE 64; RESP 16; O2SAT 97
--- NOTE | 2022-08-06 16:33 | PC.NURSE ---
On 08/06/22, the student, [alessandro perea ], provided care and completed [facility] documentation on this patient. I have reviewed the student's documentation and agree with the findings.
== END 2022-08-06 16:32 | disposition home or self-care (01) ==
PROVIDERS: Emergency Provider Emergency Medicine; PCP Internal Medicine
DX: I16.9 Hypertensive crisis, unspecified (principal); I11.0 Hypertensive heart disease with heart failure; I50.9 Heart failure, unspecified; R07.9 Chest pain, unspecified; R42 Dizziness and giddiness; J44.9 Chronic obstructive pulmonary disease, unspecified; E78.5 Hyperlipidemia, unspecified; Z87.891 Personal history of nicotine dependence
CPT/HCPCS: 36415; 71045; 80053; 83880; 84484; 85025; 85380; 93005; 96374; 99284; A9270; J0360

== ENCOUNTER 2022-10-11 10:52 | Outpatient (CLI) | payer MEDICARE, SELFPAY | END 2022-10-11 10:53 | disposition home or self-care (01) | LOC: ANHAUDIO 10:53 | PROVIDERS: PCP Internal Medicine; Visit Provider Otolaryngology | DX: H91.8X3 Other specified hearing loss, bilateral (principal) | CPT/HCPCS: 92557; 92567 ==

== ENCOUNTER 2023-01-15 15:02 | Emergency (ER) | payer MEDICARE, SELFPAY ==
[2023-01-15 15:03] VITALS: BP 151/83; PULSE 73; RESP 18; TEMP 36.4; O2SAT 98
--- NOTE | 2023-01-15 15:03 | ED.EPISTAXIS ---
HPI - Epistaxis General Chief complaint: Epistaxis Stated complaint: nose bleed Time Seen by Provider: 01/15/23 15:03 History of Present Illness HPI Narrative: Pt presents with nosebleed right nostril for 30 minutes. Pt had nosebleed yesterday and got it to stop. today pt blew nose and it started bleeding again and they could not get it stopped. Pt is not on blood thinners. Pt has no other complaints. Related Data Home Medications Medication Instructions Recorded Confirmed allopurinol 100 mg tablet 100 mg PO DAILY 06/09/19 01/15/23 cholecalciferol (vitamin D3) 25 1,000 unit PO ONCE 06/09/19 01/15/23 mcg/drop (1,000 unit/drop) oral drops finasteride 5 mg tablet 5 mg PO DAILY 06/09/19 01/15/23 hydrochlorothiazide 12.5 mg capsule 12.5 mg PO DAILY 06/09/19 01/15/23 loratadine 10 mg capsule 10 mg PO DAILY 06/09/19 01/15/23 losartan 25 mg tablet 25 mg PO DAILY 06/09/19 01/15/23 magnesium 250 mg tablet 250 mg PO DAILY 06/09/19 01/15/23 omeprazole 20 mg capsule,delayed 20 mg PO DAILY 06/09/19 01/15/23 release potassium chloride 20 mEq/15 mL 20 meq PO DAILY 06/09/19 01/15/23 oral liquid simvastatin 40 mg tablet 40 mg PO DAILY 08/16/22 01/15/23 tamsulosin 0.4 mg capsule 0.4 mg PO DAILY 01/04/23 01/15/23 tiotropium 2.5 mcg-olodaterol 2.5 2 puff inhalation Q24H 01/04/23 01/15/23 mcg/actuation mist for inhalation (Stiolto Respimat) Allergies Allergy/AdvReac Type Severity Reaction Status Date / Time lisinopril Allergy Cough Verified 01/15/23 15:03 Review of Systems Review of Systems: All systems reviewed & are unremarkable except as noted in HPI and below PMFSH Past Medical History Medical History Arthritis BMI 32.0-32.9,adult COPD (chronic obstructive pulmonary disease) Gout High cholesterol HTN (hypertension) Osteoarthritis of knee right knee Surgical History Surgical History 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 Dr rBower History of umbilical hernia repair 07/20/20 Laparoscopic umbilical hernia repair with Symbotex mesh, da Marcos assisted Family History Family History Sibling Hypertension Mother Hypertension Diabetes mellitus Father Leukemia Social History Social History Smoking packs per day: 3 Smoking cigarettes per day: 60.0 Years smoked: 24 Smoking pack-years: 72.00 Smoking status: Former smoker Tobacco type: cigarettes Additional smoking assessment comments: QUIT 1980 Alcohol intake: current Drinks per week: 14 Alcohol use details: Daily use Substance use: never Substance use type: does not use Lack of Transportation: No Lack of Food: Never True Current Housing: I Have Housing Concerned About Future Housing: No Difficulty Paying Gas/Electric Bills: No Difficulty Paying for Meds: No Currently Unemployed: No Education: Trade/Vocational Certificate Difficulty w/ Childcare or Family Care: No Living arrangements: with family Gender identity (if verbalized by the patient): Male Spiritual care concerns: No Exam Const: General: healthy appearing Nutritional Appearance: well nourished Orientation/consciousness: patient oriented x3 Limitations: no limitations HENMT: Face/Nose/Sinus: Epistaxis present on the right Face and sinus: sinuses nontender Mouth: Yes Normal oral and palatal mucosa present Throat: posterior oropharynx normal Resp: Effort & Inspection: normal respiratory effort Cardio: Rate: regular rate Rhythm: regular rhythm Skin: General skin exam: normal color Neuro: General: patient oriented x3, moves all extremities and no focal motor deficits Speech: normal speech Extrem: General: normal to inspection and no clubbing, cyanosis or edema Psych:
[2023-01-15] MEDS: OXYMETAZOLINE HCL 0.05% NAS 15 ML BTL (*BKC) 1 SPRAY NASAL (15:39)
[2023-01-15] MEDS: SILVER NITRATE (*SP) STICK 1 EACH TOPICAL (15:57)
--- NOTE | 2023-01-15 15:58 | PC.NURSE ---
PT HAS HAD CAUTERY TO RT NARE PER ERP, BLEEDING CONTROLLED AT THIS TIME. WILL CONTINUE TO MONITOR.
[2023-01-15 16:35] VITALS: BP 148/74; PULSE 60; RESP 16; O2SAT 98
== END 2023-01-15 16:35 | disposition home or self-care (01) ==
LOC: CHSED 16:32
PROVIDERS: Emergency Provider Emergency Medicine; PCP Internal Medicine
DX: R04.0 Epistaxis (principal); J44.9 Chronic obstructive pulmonary disease, unspecified; I10 Essential (primary) hypertension; Z87.891 Personal history of nicotine dependence
CPT/HCPCS: 30901; 99283; A9270

== ENCOUNTER 2023-01-24 08:35 | Outpatient (CLI) | payer MEDICARE, SELFPAY ==
[2023-01-24 08:49] LABS: Basophils Absolute Auto 0.05 K/mm3 (0.00-0.10); Eosinophils Percent Auto 1.9 % (1.0-6.0); Hematocrit 46.9 % (37.0-46.0); Immature Granulocyte Absolute 0.03 K/mm3 (0.00-0.00); Immature Granulocyte Percent A 0.6 % (0.0-0.0); Lymphocytes Absolute Auto 1.49 K/mm3 (1.10-4.50); Lymphocytes Percent Auto 28.5 % (18.0-42.0); Mean Corpuscular Hemoglobin 29.2 pg (27.0-31.0); Mean Corpuscular Volume 91.2 fL (78.0-102.0); Mean Platelet Volume 9.3 fl (8.7-11.0); Monocytes Absolute Auto 0.54 K/mm3 (0.10-0.90); Monocytes Percent Auto 10.3 % (2.0-11.0); Neutrophils Percent Auto 57.7 % (50.0-70.0); Platelet Count Result 622 K/mm3 (150-420); Red Blood Count 5.14 M/mm3 (4.70-6.10); Red Cell Distribution Width 13.8 % (11.6-14.4); White Blood Count 5.2 K/mm3 (4.8-10.8)
== END 2023-01-24 08:36 | disposition home or self-care (01) ==
LOC: CHSLAB 08:37
PROVIDERS: PCP Internal Medicine; Visit Provider Internal Medicine
DX: D75.839 Thrombocytosis, unspecified (principal)
CPT/HCPCS: 36415; 85025; 85055

== ENCOUNTER 2023-02-08 09:19 | Outpatient (CLI) | payer MEDICARE, SELFPAY ==
--- NOTE | ~2023-02-08 | XR_ITS ---
EXAMINATION: XR knee RT 3V DATE: 02/08/2023 09:40 INDICATION: Chronic right knee pain TECHNIQUE: Three views of the right knee were obtained. COMPARISON: 02/27/2022 FINDINGS: There is no fracture. There is tricompartmental osteoarthritis, moderate in the medial and patellofemoral compartments. Chondrocalcinosis is noted. There is a tiny knee joint effusion. Soft ti ssues are unremarkable. IMPRESSION: 1. Stable tricompartmental osteoarthritis without acute findings or significant interval change. Reviewed, dictated and finalized at location B.
== END 2023-02-08 09:20 | disposition home or self-care (01) ==
LOC: CHSIMG 09:22
PROVIDERS: PCP Internal Medicine; Visit Provider Internal Medicine
DX: M25.561 Pain in right knee (principal); M17.11 Unilateral primary osteoarthritis, right knee
CPT/HCPCS: 73562

== ENCOUNTER 2023-08-14 11:43 | Outpatient (CLI) | payer MEDICARE, SELFPAY ==
[2023-08-14 12:09] LABS: Basophils Absolute Auto 0.07 K/mm3 (0.00-0.10); Basophils Percent Auto 0.9 % (0.0-1.0); Eosinophils Absolute Auto 0.17 K/mm3 (0.02-0.50); Eosinophils Percent Auto 2.3 % (1.0-6.0); Hematocrit 44.1 % (37.0-46.0); Hemoglobin 14.2 g/dL (12.4-15.3); Immature Granulocyte Absolute 0.04 K/mm3 (0.00-0.00); Immature Granulocyte Percent A 0.5 % (0.0-0.0); Immature Platelet Fraction Pct 3.2 % (1.0-7.0); Lymphocytes Absolute Auto 1.69 K/mm3 (1.10-4.50); Lymphocytes Percent Auto 22.9 % (18.0-42.0); Mean Corpuscular HGB Conc 32.2 g/dL (32.0-36.0); Mean Corpuscular Hemoglobin 28.6 pg (27.0-31.0); Mean Corpuscular Volume 88.9 fL (78.0-102.0); Mean Platelet Volume 9.3 fl (8.7-11.0); Monocytes Absolute Auto 0.82 K/mm3 (0.10-0.90); Monocytes Percent Auto 11.1 % (2.0-11.0); Neutrophils Absolute Auto 4.6 K/mm3 (1.7-7.2); Neutrophils Percent Auto 62.3 % (50.0-70.0); Platelet Count Result 826 K/mm3 (150-420); Red Blood Count 4.96 M/mm3 (4.70-6.10); Red Cell Distribution Width 14.2 % (11.6-14.4); White Blood Count 7.4 K/mm3 (4.8-10.8)
[2023-08-14 13:03] LABS: Alanine Aminotransferase 51 U/L (16-63); Albumin Level 3.9 g/dL (3.4-5.0); Alkaline Phosphatase 75 U/L (46-116); Anion Gap 8 mmol/L (8-16); Aspartate Amino Transferase 36 U/L (15-37); Bilirubin,Total 0.8 mg/dL (0.00-1.00); Blood Urea Nitrogen 13 mg/dL (7-18); CRP 0.6 mg/dL (0.0-0.9); Calcium 9.7 mg/dL (8.5-10.1); Carbon Dioxide 30 mmol/L (21-32); Chloride 100 mmol/L (98-108); Estimated Glomerular Filt Rate 51; Ferritin 175 ng/mL (26-388); Glucose 96 mg/dL (70-99); Iron 89 ug/dL (65-175); Lactate Dehydrogenase 253 U/L (85-227); Osmolality Calculated 286 mOsm/kg (285-295); Percent Iron Saturation 28 % (12-57); Sodium 138 mmol/L (136-145); Total Protein 7.3 g/dL (6.4-8.2)
[2023-08-14 13:07] LABS: Erythrocyte Sedimentation Rate 15 mm/hr (0-30)
== END 2023-08-14 11:44 | disposition home or self-care (01) ==
LOC: CHSLAB 11:45
PROVIDERS: PCP Internal Medicine; Visit Provider Internal Medicine Hematology
DX: D69.6 Thrombocytopenia, unspecified (principal)
CPT/HCPCS: 36415; 80053; 82728; 83540; 83550; 83615; 85025; 85055; 85652; 86140

== ENCOUNTER 2023-08-20 09:55 | Outpatient (CLI) | payer MEDICARE, SELFPAY ==
--- NOTE | ~2023-08-20 | CT_ITS ---
CT of the Abdomen and Pelvis: Indication: Abnormal labs Technique: 2.5 mm axial scans were obtained through the abdomen and pelvis following intravenous adm inistration of 100 cc of Omnipaque 350. Dose reduction technique was used on this scan by utilizing a utomated exposure control and iterative reconstruction technique. The dose-length product (DLP) was 1 159.27 mGy-cm. Findings: Scans through the lung bases are unremarkable. The liver, spleen, pancreas, gallbladder, adrenals and kidneys are within normal limits. No evidence of aortic aneurysm. No lymphadenopathy. No bowel obstruction or bowel wall thickening. There is no evidence to suggest acute appendicitis. Images through the pelvis were performed. Additional cystitis. Prostate gland is significantly enlarg ed. Fat-containing bilateral inguinal hernias are present, left larger than right. No ascites. Extens tai degenerative spondylosis of lumbar spine. Impression: Possible cystitis. Correlate with urinalysis. Enlarged prostate gland. Bilateral fat-containing inguinal hernias, left larger than right. Reviewed, dictated and finalized at location . OR PATIENT ACCOUNT REPRESENTATIVE Impression: Possible cystitis. Correlate with urinalysis. Enlarged prostate gland. Bilateral fat-containing inguinal hernias, left larger than right.
== END 2023-08-20 09:56 | disposition home or self-care (01) ==
LOC: CHSIMG 09:57
PROVIDERS: PCP Internal Medicine; Visit Provider Internal Medicine Hematology
DX: R10.9 Unspecified abdominal pain (principal); N40.0 Benign prostatic hyperplasia without lower urinary tract symptoms; K40.20 Bilateral inguinal hernia, without obstruction or gangrene, not specified as recurrent
CPT/HCPCS: 74177; Q9967

== ENCOUNTER 2023-08-31 21:38 | Emergency (ER) | payer MEDICARE, SELFPAY ==
[2023-08-31] VITALS (10 sets, daily range): BP systolic 122–198; BP diastolic 65–99; PULSE 61–78; RESP 12–28; TEMP 36.4; O2SAT 95–99
--- NOTE | ~2023-08-31 | CT_ITS ---
EXAMINATION: CT chest abdomen pelvis w con DATE: 08/31/2023 23:28 INDICATION: Shortness of breath. Abdominal pain. TECHNIQUE: Computed tomography (CT) of the chest, abdomen, and pelvis was performed with 100 CC Omnip aque 350 intravenous contrast. Automated exposure control and iterative reconstruction technique were employed. Exam dose: 1448.23 mGy-cm total exam DLP. COMPARISON: August 20, 2023 CT abdomen pelvis August 06, 2022 portable AP chest FINDINGS: CHEST CT: Mild primarily dependent left upper lobe, lingular and bilateral lower lobe atelectasis, left greater than right. Cardiomegaly. There is thoracic aortic and great vessel calcification. No thoracic aortic aneurysm or dissection is detected. No hilar or mediastinal mass lesion or lymphadenopathy. No pericardial or pleural effusion. ABDOMEN/PELVIS CT: There is diffuse hepatic steatosis. There is enhancement of the gallbladder wall and mild pericholecystic fat stranding, suggesting acute cholecystitis. Consider gallbladder ultrasound, with radionuclide hepatobiliary scan if clinically a ppropriate. No bile duct or pancreatic duct dilatation. No pancreatic mass lesion or calcification. No adrenal mass lesion. No renal mass lesion other than left parapelvic renal cysts. There is prostate enlargement is moderate diffuse thickening of the right buttock, likely due to blad vika outlet obstruction. Differential diagnosis includes cystitis. There is calcification but normal caliber of the abdominal aorta. No intraperitoneal or retroperitone al or pelvic mass lesion or adenopathy or ascites. Bilateral fat-containing inguinal hernias. Normal appendix. There is a narrowed segment of ileum in the right lower quadrant, with proximal fecal-like content in some fluid distention of small bowel proximal to this area, with luminal diameter up to 2.8 cm. The findings suggest mild partial small bowel obstruction at this location. Diverticulosis of the colon; no CT evidence of diverticulitis. No pneumatosis or intraperitoneal free air. Right shoulder arthroplasty. Degenerative changes of the lower cervical, thoracic and lumbar spine. IMPRESSION: Short segment distal small bowel narrowing with proximal borderline small bowel dilatati on, fecal-like content and fluid, suggesting stricture or adhesion with partial small bowel obstructi on. Normal appendix Diverticulosis of the colon; no evidence of diverticulitis Enhancement of the gallbladder wall, mild pericholecystic fat stranding, suggesting possible acute ch olecystitis Dr. Calhoun telephoned the report to emergency room nurse Pooja on 09/01/2023 at 0740 hours, including poss ible acute cholecystitis in the suspected small bowel stricture. Reviewed, dictated and finalized at Location A. Reviewed, dictated and finalized at location A. IMPRESSION: Short segment distal small bowel narrowing with proximal borderlin e small bowel dilatation, fecal-like content and fluid, suggesting stricture or adhesion with partial small bowel obstruction. Normal appendix Diverticulosis of the colon; no evidence of diverticulitis Enhancement of the gallbladder wall, mild pericholecystic fat stranding, sugges ting possible acute cholecystitis Dr. Calhoun telephoned the report to emergency room nurse Pooja on 09/01/2023 at 0740 hours, including possible acute cholecystitis in the suspected small bowel str icture.
--- NOTE | 2023-08-31 22:03 | ECG_ITS ---
Measurements Intervals [place] Rate: 62 P: 42 VT: 338 QRS: -19 QRSD: 101 T: 31 QT: 423 QTc: 431 Interpretive Statements SINUS RHYTHM WITH MARKED FIRST DEGREE AV BLOCK AND NON-CONDUCTED ATRIAL PREMATURE COMPLEX CANNOT RULE OUT SEPTAL INFARCT, AGE INDETERMINATE CONSIDER INFERIOR INFARCT, AGE INDETERMINATE BASELINE ARTIFACT- I, II, III, AVR, AVL, AVF, V4-V6 ABNORMAL ECG COMPARED TO ECG 08/06/2022 14:43:54 SINUS RHYTHM NOW PRESENT NON-CONDUCTED ATRIAL PREMATURE COMPLEX NOW PRESENT Electronically Signed On 09-01-2023 10:00:34 CDT by Margarito Aviles D.O.
[2023-08-31] MEDS: ONDANSETRON INJ 4 MG/2 ML VIAL IV PUSH (22:08)
[2023-08-31] MEDS: KETOROLAC 30 MG/ML VIAL (*BKC) IV PUSH (22:10)
[2023-08-31] MEDS: PANTOPRAZOLE SODIUM IV 40 MG VIAL IV PUSH (22:11)
[2023-08-31] MEDS: SODIUM CHLORIDE 0.9% IV 500 ML 999 ML IV CONT (22:15)
[2023-08-31 22:36] LABS: Basophils Absolute Auto 0.04 K/mm3 (0.00-0.10); Basophils Percent Auto 0.8 % (0.0-1.0); Eosinophils Absolute Auto 0.02 K/mm3 (0.02-0.50); Eosinophils Percent Auto 0.4 % (1.0-6.0); Hematocrit 41.9 % (37.0-46.0); Immature Granulocyte Absolute 0.01 K/mm3 (0.00-0.00); Immature Granulocyte Percent A 0.2 % (0.0-0.0); Lymphocytes Absolute Auto 1.01 K/mm3 (1.10-4.50); Lymphocytes Percent Auto 19.1 % (18.0-42.0); Mean Corpuscular HGB Conc 33.4 g/dL (32.0-36.0); Mean Corpuscular Hemoglobin 30.1 pg (27.0-31.0); Mean Corpuscular Volume 90.1 fL (78.0-102.0); Mean Platelet Volume 9.1 fl (8.7-11.0); Monocytes Absolute Auto 0.27 K/mm3 (0.10-0.90); Monocytes Percent Auto 5.1 % (2.0-11.0); Neutrophils Absolute Auto 3.9 K/mm3 (1.7-7.2); Neutrophils Percent Auto 74.4 % (50.0-70.0); Platelet Count Result 450 K/mm3 (150-420); Red Blood Count 4.65 M/mm3 (4.70-6.10); Red Cell Distribution Width 15.9 % (11.6-14.4); White Blood Count 5.3 K/mm3 (4.8-10.8)
[2023-08-31 22:50] LABS: Prothrombin Time 10.9 Seconds (9.50-12.10)
[2023-08-31 22:57] LABS: Lactic Acid Reflex 1.8 mmol/L (0.4-2.0)
[2023-08-31 22:58] LABS: Alanine Aminotransferase 83 U/L (16-63); Albumin Level 3.6 g/dL (3.4-5.0); Alkaline Phosphatase 105 U/L (46-116); Anion Gap 5 mmol/L (8-16); Aspartate Amino Transferase 113 U/L (15-37); Bilirubin Direct 0.9 mg/dL (0-0.2); Bilirubin,Total 1.3 mg/dL (0.00-1.00); Blood Urea Nitrogen 17 mg/dL (7-18); Carbon Dioxide 30 mmol/L (21-32); Chloride 99 mmol/L (98-108); Estimated CRCL calculation 43 ml/min; Estimated Glomerular Filt Rate 53; Glucose 123 mg/dL (70-99); Lipase 48 U/L (16-77); NT Pro B Type Natriuretic Pept 243 pg/mL (0-450); Osmolality Calculated 280 mOsm/kg (285-295); Potassium 3.6 mmol/L (3.5-5.1); Sodium 134 mmol/L (136-145); Total Protein 7.5 g/dL (6.4-8.2); Troponin I 11.4 ng/L (0.00-60.4)
[2023-08-31 23:08] LABS: Appearance Urine Clear (Clear); Bilirubin Urine Negative (Negative); Blood Urine Trace-Intact (Negative); Color Urine Yellow (Yellow); Glucose Urine UA Negative (Negative); Ketones Urine Negative (Negative); Leukocyte Esterase Ur Negative LEU/UL (Negative); Nitrate Urine Negative (Negative); Protein Urine Negative (Negative); Specific Grav Ur 1.025 (1.010-1.020)
[2023-08-31 23:12] LABS: Add Urine Microscopic? YES
[2023-08-31 23:13] LABS: Amorphous Sediment Urine Few; Mucus Urine Moderate /lpf
[2023-09-01 00:18] VITALS: BP 118/58; PULSE 80; RESP 20; O2SAT 97
[2023-09-01 00:47] VITALS: BP 139/71; PULSE 66; RESP 20; O2SAT 97
--- NOTE | 2023-09-01 00:54 | ED.ABDPAIN ---
HPI - Abdominal Pain General Chief Complaint: Abdominal Pain Stated Complaint: High Bp Time Seen by Provider: 08/31/23 21:45 Source: patient Mode of arrival: ambulatory Limitations: no limitations History of Present Illness HPI narrative: this is an 88-year-old male that presents with some abdominal pain that started earlier this afternoon epigastric and right upper quadrant rates it about a 7/10 with some nausea had an episode of vomiting earlier in the day with no diarrhea or constipation no fever chills no chest pain no shortness of breath no flank pain no dysuria. MD elicited complaint: abdominal pain Onset (ago): hour(s) Pain Consistency: intermittent Location: epigastric and RUQ Severity: moderate Pain scale (0-10): 6 Quality: aching and fullness Related Data Home Medications Medication Instructions Recorded Confirmed allopurinol 100 mg tablet 100 mg PO DAILY 06/09/19 08/31/23 cholecalciferol (vitamin D3) 25 1,000 unit PO ONCE 06/09/19 08/31/23 mcg/drop (1,000 unit/drop) oral drops finasteride 5 mg tablet 5 mg PO QPM 06/09/19 08/31/23 hydrochlorothiazide 12.5 mg capsule 12.5 mg PO DAILY 06/09/19 08/31/23 loratadine 10 mg capsule 10 mg PO DAILY 06/09/19 08/31/23 losartan 25 mg tablet 25 mg PO DAILY 06/09/19 08/31/23 omeprazole 20 mg capsule,delayed 20 mg PO DAILY 06/09/19 08/31/23 release simvastatin 40 mg tablet 40 mg PO QPM 08/16/22 08/31/23 tamsulosin 0.4 mg capsule 0.4 mg PO DAILY 01/04/23 08/31/23 tiotropium 2.5 mcg-olodaterol 2.5 2 puff inhalation BID 01/04/23 08/31/23 mcg/actuation mist for inhalation (Stiolto Respimat) magnesium 250 mg tablet 250 mg PO DAILY 08/31/23 08/31/23 potassium chloride 20 mEq 20 meq PO DAILY 08/31/23 08/31/23 tablet,extended release Allergies Allergy/AdvReac Type Severity Reaction Status Date / Time lisinopril Allergy Cough Verified 08/31/23 21:51 Review of Systems Review of Systems: All systems reviewed & are unremarkable except as noted in HPI and below PMFSH Past Medical History Medical History Arthritis BMI 32.0-32.9,adult COPD (chronic obstructive pulmonary disease) Gout High cholesterol HTN (hypertension) Osteoarthritis of knee right knee Surgical History Surgical History 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cial History Smoking packs per day: 3 Smoking cigarettes per day: 60.0 Years smoked: 24 Smoking pack-years: 72.00 Smoking status: Former smoker Tobacco type: cigarettes Additional smoking assessment comments: QUIT 1980 Alcohol intake: current Drinks per week: 14 Alcohol use details: Daily use Substance use: never Substance use type: does not use Lack of Transportation: No Lack of Food: Never True Current Housing: I Have Housing Concerned About Future Housing: No Difficulty Paying Gas/Electric Bills: No Difficulty Paying for Meds: No Currently Unemployed: No Education: Trade/Vocational Certificate Difficulty w/ Childcare or Family Care: No Living arrangements: with family Gender identity (if verbalized by the patient): Male Spiritual care concerns: No Exam Const: General: healthy appearing and no acute distress Nutritional Appearance: obese Orientation/consciousness: patient oriented x3 Limitations: no limitations HENMT: Head: normal to inspection Neck: Neck: normal visual inspection Chest: Chest palpation & inspection: normal inspection of the ches
[2023-09-01 01:15] VITALS: BP 127/82; PULSE 68; RESP 20; TEMP 36.6; O2SAT 97
--- NOTE | 2023-09-01 07:56 | PC.NURSE ---
radiologist called with an addendum to abd ct done yesterday evening. small bowel stricture with obstruction reported. erp notified of new findings. recommended to be notified and instructed to return to this er or go to an er at a hospital with surgical services. pt contacted via phone. new ct information provided. pt and verbalized understanding and states they will be going to [facility] for further treatment. [facility]. er charge nurse, leonie, notified of pt case and immanent arrival.
== END 2023-09-01 01:15 | disposition home or self-care (01) ==
PROVIDERS: Emergency Provider Emergency Medicine; PCP Internal Medicine
DX: K82.8 Other specified diseases of gallbladder (principal); J44.9 Chronic obstructive pulmonary disease, unspecified; I10 Essential (primary) hypertension; Z79.899 Other long term (current) drug therapy; Z87.891 Personal history of nicotine dependence
CPT/HCPCS: 36415; 71260; 74177; 80048; 80076; 81001; 83605; 83690; 83880; 84484; 85025; 85610; 85730; 87040; 93005; 96361; 96374; 96375; 99284; C9113; J1885; J2405; J7040; Q9967

== ENCOUNTER 2023-09-01 09:10 | Inpatient (IN) | payer MEDICARE, SELFPAY ==
--- NOTE | ~2023-09-01 | US_ITS ---
EXAMINATION: US abdomen limited DATE: 09/01/2023 18:38 INDICATION: Right upper quadrant abdominal pain. TECHNIQUE: Multiple grayscale and Doppler ultrasound images of the abdomen were obtained. COMPARISON: CT abdomen and pelvis 08/31/2023 FINDINGS: The visualized portions of the head and body of the pancreas are normal. The liver demonstr ates diffuse steatosis. There is normal flow in main portal vein. The gallbladder is normal in size a nd contains gallstones. No gallbladder wall thickening or sonographic John sign. The common duct is normal and measures 4 mm. IMPRESSION: 1. Diffuse hepatic steatosis. 2. Cholelithiasis. No evidence of acute cholecystitis. Reviewed, dictated and finalized at location E.
--- NOTE | ~2023-09-01 | XR_ITS ---
EXAMINATION: XR sm bowel follow through WS DATE: 09/02/2023 12:03 INDICATION: Small bowel stricture. TECHNIQUE: Oral contrast was administered, and a time course of radiographs of the abdomen was obtain ed. Fluoroscopy of the small bowel was performed. Fluoroscopy exposure time was 0.1 minutes. The tota l number of images was 16. COMPARISON: CT abdomen and pelvis 08/31/2023 FINDINGS: There are mildly dilated loops of small bowel. No focal transition point identified. Transit time fro m the stomach to proximal colon was approximately 1.5 hours. IMPRESSION: 1. Mildly dilated small bowel, consistent with adynamic ileus versus partial small bowel obstruction. Reviewed, dictated and finalized at location A. IMPRESSION: 1. Mildly dilated small bowel, consistent with adynamic ileus versus partial sm all bowel obstruction.
--- NOTE | ~2023-09-01 | MR_ITS ---
MRI of the abdomen: Clinical indication: Hyperbilirubinemia, gallstones. Technique: Coronal SSFSE ARC, WATER:coronal LAVA-FLEX, Coronal 2D FIESTA FatSat, Axial SSFSE BH ARC, Axial 3D DualEcho BH, Axial SSFSE-IR, Axial DWI b=500, Axial 2D FIESTA FatSat, pre and dynamic postco ntrast Axial LAVA ARC, postcontrast Coronal In and Opposed phase LAVA FLEX. Following intravenous adm inistration of 20 cc MultiHance gadolinium, T1-weighted fat-sat imaging was performed in the axial an d coronal planes. COMPARISON: CT scan dated 08/31/2023 Findings: Multiple small layering gallstones are noted. The common bile duct is normal in course and caliber. No filling defects are seen within the CBD. No evidence of intrahepatic biliary ductal dila tation. The pancreatic duct is normal in size. There is diffuse signal drop off in the liver on out of phase images relative to in phase images, con sistent with diffuse fatty infiltration. Spleen, pancreas, adrenals, kidneys appear normal. The aorta and the paraaortic regions appear normal. Impression: Cholelithiasis. Diffuse fatty infiltration of liver. Reviewed, dictated and finalized at location M. Impression: Cholelithiasis. Diffuse fatty infiltration of liver.
[2023-09-01 09:17] VITALS: BP 141/75; PULSE 61; RESP 13; TEMP 36.4; O2SAT 98
--- NOTE | 2023-09-01 09:25 | ED.ABDPAIN ---
HPI - Abdominal Pain General Chief Complaint: Abdominal Pain Stated Complaint: abd pain Time Seen by Provider: 09/01/23 09:20 Source: patient Mode of arrival: ambulatory Limitations: no limitations History of Present Illness HPI narrative: Wong is a 88-year-old male patient presenting to the ER today with complaints of abdominal pain that started around 4:00 yesterday afternoon. He went to the [place] [facility] and had a EKG, blood work, and CT of the chest, abdomen, and pelvis performed. He was discharged from the ER last night and sent home. Patient reports that the ER called him this morning and told him to come to the ER here and be seen by a general surgeon as the patient has acute cholecystitis with a small-bowel stricture/obstruction. Patient is currently rating his pain a 4-5 out of 10 on the right side of his abdomen. He does feel bloated. Last bowel movement was prior to arrival. No blood in his stool. He denies any fever, chills, or body aches. Related Data Home Medications Medication Instructions Recorded Confirmed allopurinol 100 mg tablet mg 09/01/23 cholecalciferol (vitamin D3) 25 25 mcg PO DAILY 09/01/23 09/01/23 mcg/drop (1,000 unit/drop) oral drops finasteride 5 mg tablet mg 09/01/23 guaifenesin 400 mg tablet 400 mg PO Q4H PRN Cough 09/01/23 09/01/23 hydrochlorothiazide 12.5 mg capsule 12.5 mg PO DAILY 09/01/23 09/01/23 hydroxyurea 500 mg capsule 09/01/23 loratadine 10 mg capsule 10 mg PO DAILY 09/01/23 09/01/23 losartan 25 mg tablet 25 mg PO DAILY 09/01/23 09/01/23 magnesium 250 mg tablet 250 mg PO DAILY 09/01/23 09/01/23 omeprazole 20 mg capsule,delayed 20 mg PO DAILY 09/01/23 09/01/23 release potassium chloride 20 mEq/15 mL 20 meq PO DAILY 09/01/23 09/01/23 oral liquid simvastatin 40 mg tablet 40 mg PO DAILY 09/01/23 09/01/23 tamsulosin 0.4 mg capsule mg PO 09/01/23 tiotropium 2.5 mcg-olodaterol 2.5 inhalation 09/01/23 09/01/23 mcg/actuation mist for inhalation tiotropium 2.5 mcg-olodaterol 2.5 2 puff inhalation DAILY 09/01/23 09/01/23 mcg/actuation mist for inhalation (Stiolto Respimat) Allergies Allergy/AdvReac Type Severity Reaction Status Date / Time ibuprofen AdvReac Unknown Verified 09/01/23 11:22 Review of Systems Review of Systems: Pertinent positives per HPI. Patient denies any fever, chills, rash, headache, visual changes, dizziness, cough, runny nose, sore throat, shortness of breath, chest pain, palpitations, nausea, vomiting, diarrhea, constipation, or any urinary issues. PMFSH Comments At the time of my signature, I reviewed and agree with the nursing past medical, surgical, social, and family history. There is no relevant family history pertinent to the patient complaint. Exam Narrative: General: Well-developed, well nourished, in no apparent distress. Head: Normocephalic, atraumatic. Cardio: Regular rate and rhythm, s1 and s2 normal, no murmur appreciated. Resp: Clear to auscultation bilaterally, no rhonchi, rales, wheezing or rubs. Abdomen: Soft, distended, pliable, bowel sounds present in all quadrants, generalized abdomen tender to palpation but worse to the right upper and right lower abdomen, positive John sign, no organomegly, no CVAT tenderness. Course Course Emergency Course: Portions of this record may have been created with voice recognition software. Vital Signs Vital signs: Vital Signs Temperature 36.4 C L 09/01/23 09:17 Pulse Rate 61 09/01/23 09:17 Respiratory Rate 13 09/01/23 09:17 Blood Pressure 141/75 H 09/01/23 09:17 Pulse Oximetry 98 09/01/23 09:17 Oxygen Delivery Room Air 09/01/23 09:17 Temperature 36.4 C L 09/01/23 09:17 Pulse Rate 59 L 09/01/23 10:01 Respiratory Rate 18 09/01/23 10:01 Blood Pressure 140/73 09/01/23 10:01 Pulse Oximetry 96 09/01/23 10:01 Oxygen Delivery Room Air 09/01/23 09:17 Vital signs reviewed MDM - Abdominal Pain MDM Narrative Medical decision
[2023-09-01 09:50] LABS: Basophils Percent Auto 0.7 % (0.2-1.2); Eosinophils Percent Auto 1.1 % (0-4.4); Hematocrit 40.5 % (42.0-52.0); Hemoglobin 13.1 g/dL (14.0-18.0); Lymphocytes Absolute Auto 0.79 K/mm3 (0.9-3.2); Lymphocytes Percent Auto 27.9 % (18.3-44.2); Mean Corpuscular HGB Conc 32.3 g/dl (32-36); Mean Corpuscular Hemoglobin 29.9 pg (26-34); Mean Corpuscular Volume 92.5 fl (80-100); Mean Platelet Volume 9.5 fl (7.4-10.4); Monocytes Absolute Auto 0.3 K/mm3 (0.1-0.6); Monocytes Percent Auto 8.8 % (2.6-8.5); Neutrophils Absolute Auto 1.7 K/mm3 (1.3-6.7); Neutrophils Percent Auto 61.5 % (45.5-73.1); Platelet Count Result 431 k/mm3 (150-375); Red Blood Count 4.38 M/mm3 (4.6-6.20); White Blood Count 2.8 K/mm3 (4.5-10.0)
[2023-09-01] MEDS: SODIUM CHLORIDE 0.9% IV 1,000 ML 150 ML IV CONT (09:50)
[2023-09-01 09:55] VITALS: PULSE 59; RESP 21; O2SAT 98
[2023-09-01 10:00] VITALS: PULSE 57; RESP 15; O2SAT 99
[2023-09-01 10:00] LABS: Alanine Aminotransferase 174 U/L (6-50); Alkaline Phosphatase 106 U/L (38-126); Anion Gap 5 mmol/L (8-16); Aspartate Amino Transferase 243 U/L (17-59); Bilirubin,Total 2.1 mg/dL (0.2-1.3); Blood Urea Nitrogen 16 mg/dL (9-20); Calcium 9.5 mg/dL (8.4-10.2); Carbon Dioxide 29 mmol/L (22-30); Chloride 102 mmol/L (98-107); Estimated CRCL calculation 42 ml/min; Estimated Glomerular Filt Rate 52; Glucose 105 mg/dL (65-110); Lipase 87 U/L (23-300); Potassium 3.9 mmol/L (3.4-5.0); Sodium 136 mmol/L (137-145)
[2023-09-01 10:01] VITALS: BP 140/73; PULSE 59; RESP 18; O2SAT 96
[2023-09-01 10:09] LABS: Appearance Urine Clear (Clear); Bacteria Urine None Seen /hpf; Bilirubin Urine 2+ (Negative); Blood Urine Negative (Negative); Color Urine Dark Yellow (Yellow); Glucose Urine UA Negative (Negative); Ketones Urine Trace mg/dL (Negative); Leukocyte Esterase Ur Trace LEU/UL (Negative); Need Manual Microscopic Reviewed; Nitrate Urine Positive (Negative); Non Pathogenic Casts 0-2; Protein Urine 1+ mg/dL (Negative); Squamous Epithelial Cell Urine None seen /hpf (Few); WBC Urine 0-5 /hpf; pH Urine 6.5 (5.0-9.0)
[2023-09-01 10:10] LABS: Add Urine Microscopic? YES; Specific Grav Ur 1.068 (1.001-1.035)
[2023-09-01] MEDS: PIPERACILLN/TAZ 3.375GM/NS50ML 3.375 GM/50 ML BAG IVPB ×3 (11:10→23:50)
--- NOTE | 2023-09-01 13:20 | PC.NURSE ---
patient arrived to room 250, with at the bedside. VSS, Denies pain. patient ambulates without assistance. patient is alert and oriented x4 and currently sitting in the bed with side rails up and call light in hand. will continue to monitor and treat
[2023-09-01 13:31] VITALS: BP 147/74; PULSE 62; RESP 18; TEMP 36.3; O2SAT 100
[2023-09-01] MEDS: SODIUM CHLORIDE 0.9% IV 1,000 ML 125 ML IV CONT (13:50)
--- NOTE | 2023-09-01 13:55 | PM.IMHP ---
H&P: HPI History of Present Illness Date/Time: 09/01/23 13:55 Chief Complaint: Abdominal pain Narrative: This is an 88-year-old man with a past medical history of COPD not on oxygen, hyperlipidemia, BPH, hypertension, gout, and thrombocythemia. He initially presented to [place] emergency room yesterday with complaints of right-sided abdominal pain which traveled to his right shoulder as well as nausea. He was seen and worked up with EKG, blood work and CT of the chest abdomen and pelvis. He was discharged from the ER and sent home. The patient says that the ER called him this morning and told him to come to [facility] and be seen by general surgeon has his CT was concerning for acute cholecystitis with small-bowel stricture versus obstruction. He is seen resting in bed with his at bedside. He and his provide the medical history. He says that yesterday he started having 7 abdominal pain on his right upper quadrant and had travel to [facility]. He reports a small episode of vomiting but states that it was mostly phlegm. He was going to go to the hospital for the pain however he and his decided check his blood pressure and found it was elevated at 211/95. The pain when he initially presented to [place] [facility] was 10/10. He denies pain during my assessment but states the stomach feels ?woozy?. He reports that he did have a bowel movement this morning that he was constipated. He states that he had to try going 3 times. He normally takes daily fiber. He states the stool was brown in color. Denies black tarry or bloody stools. He denies fever, chills, headache, dizziness, chest pain, shortness a breath, abdominal pain, and diarrhea. He states that he is urinating without difficulty. ROS is positive for nausea and 1 episode of vomiting yesterday. He is being admitted for general surgery consult with a diagnosis of acute cholecystitis and possible small-bowel obstruction. I reviewed the plan of care with him and his who are agreeable. All questions answered to the best my ability. Review of Systems Review of Systems: All systems reviewed & are unremarkable except as noted in HPI and below PMFSH Past Medical History Medical History (Updated 09/01/23 @ 14:34 by Katie Bains APRN) COPD (chronic obstructive pulmonary disease) Hypertension Postoperative abdominal hernia Surgical History Surgical History (Updated 09/01/23 @ 14:16 by Katie Bains APRN) H/O shoulder surgery Total knee replacement status Social History Social History (Updated 09/01/23 @ 14:18 by Katie Bains APRN) Social History: Retired [employer]. Served in the [employer]. Smoking status: Former smoker Tobacco type: cigarettes Smoking end date: 07/27/81 Alcohol intake: current Drinks per week: 6 Alcohol use details: Drinks 6 mixed drinks of whiskey Substance use: never Substance use type: does not use Do You Feel Safe in your Home?: Yes Lack of Transportation: No Lack of Food: Never True Current Housing: I Have Housing Concerned About Future Housing: No Difficulty Paying Gas/Electric Bills: No Difficulty Paying for Meds: No Currently Unemployed: No Living arrangements: with family Occupation/Education: retired Gender identity (if verbalized by the patient): Male Meds Home Medications and Allergies Home Medications Medication Instructions Recorded Confirmed Type allopurinol 100 mg tablet mg 09/01/23 History cholecalciferol (vitamin D3) 25 25 mcg PO DAILY 09/01/23 09/01/23 History mcg/drop (1,000 unit/drop) oral drops finasteride 5 mg tablet mg 09/01/23 History guaifenesin 400 mg tablet 400 mg PO Q4H PRN Cough 09/01/23 09/01/23 History hydrochlorothiazide 12.5 mg capsule 12.5 mg PO DAILY 09/01/23 09/01/23 History hydroxyurea 500 mg capsule 09/01/23 History loratadine 10 mg capsule 10 mg PO DAILY 09/01/23 09/01/23 History losartan 25 mg tablet 25 mg PO DAILY 09/01/23 09/01/23
[2023-09-01 14:53] VITALS: BMI 33.7
[2023-09-01] MEDS: DEXTROSE 5%/0.9% SOD CHL 1,000 ML 100 ML IV CONT (16:40)
--- NOTE | 2023-09-01 17:30 | WPDCN ---
Assessment and Plan Assessment and plan (1) Acute cholecystitis: Code(s): K81.0 - Acute cholecystitis Status: Acute Assessment and Plan: By report the patient has acute inflammatory changes around the gallbladder suggestive of acute cholecystitis due to gallstones. The CT scan is not available for my personal review today. Abdominal ultrasound has been ordered but not been performed yet. Now has been started on IV antibiotics. Been kept NPO for now. However clinically he does not appear to have a severe acute cholecystitis that needs emergent decompression of gallbladder or cholecystectomy. (2) Partial obstruction of small intestine: Code(s): K56.600 - Partial intestinal obstruction, unspecified as to cause Status: Acute Assessment and Plan: Possible partial small-bowel obstruction seen on CT scan. Again the CT scan is not available for my review at the present time. Never had a bowel movement this morning and so surgical grade bowel obstruction is not likely. Continues supportive management. He is not nauseated is not having emesis so there is no need for a nasogastric tube at this time. Continue supportive management at this time. HPI Data of Consult Date/Time: 09/01/23 17:30 Requesting Physician: Beto Bruno DO Primary Care Provider: Vini Woods MD Consult Narrative Reason for consult: Abdominal pain, possible cholecystitis, possible partial small-bowel obst Narrative: Wong Sethi is a 88 year old male who presented [facility] Emergency Room yesterday complaining of some right upper quadrant abdominal pain which radiated to his right shoulder region. He stated that he felt a bit better around 2:00 a.m. he was discharged home. He was contacted by the emergency room this morning and was told to come to [facility] Emergency Room after the CT scan which was obtained in [place] was read and showed the patient possibly had acute cholecystitis and possible partial small-bowel obstruction secondary to a small bowel stricture. The patient was admitted to the hospital here and at this time states that he does feel somewhat bloated but he does not have a lot of right upper quadrant pain at this point. He is not nauseated. He did have a bowel movement this morning which was smaller than usual but was performed. He has a prior history of COPD and sleep apnea. Had a prior laparoscopic umbilical hernia repair urinalysis Hospital 3 years ago. Review of Systems Review of Systems: The remainder of the review of systems to include constitutional, HEENT, cardiovascular, respiratory, GI, , integumentary, musculoskeletal, endocrine, immunologic, hematologic, psychiatric, and neurologic are all negative except for which is mentioned above in the HPI. [facility] Past Medical History Medical History COPD (chronic obstructive pulmonary disease) Hypertension Postoperative abdominal hernia Surgical History Surgical History H/O shoulder surgery Total knee replacement status Social History Social History Social History: Retired [employer]. Served in the [employer]. Smoking status: Never smoker Tobacco type: cigarettes Second hand tobacco smoke exposure: No Smoking end date: 07/27/81 Alcohol intake: never Drinks per week: 6 Alcohol use details: Drinks 6 mixed drinks of whiskey Substance use: never Substance use type: does not use Do You Feel Safe in your Home?: Yes Lack of Transportation: No Lack of Food: Never True Current Housing: I Have Housing Concerned About Future Housing: No Difficulty Paying Gas/Electric Bills: No Difficulty Paying for Meds: No Currently Unemployed: No Education: High School Diploma/GED Difficulty w/ Childcare or Family Care: No Living
[2023-09-01 20:00] VITALS: BP 160/80; PULSE 59; RESP 20; TEMP 36.6; O2SAT 100
[2023-09-02 03:29] VITALS: BP 135/70; PULSE 60; RESP 20; TEMP 36.7; O2SAT 96
[2023-09-02] MEDS: PIPERACILLN/TAZ 3.375GM/NS50ML 3.375 GM/50 ML BAG IVPB (06:33)
[2023-09-02] MEDS: DEXTROSE 5%/0.9% SOD CHL 1,000 ML 100 ML IV CONT (06:39)
--- NOTE | 2023-09-02 08:02 | PM.IMPN ---
Progress Note: A&P Assessment and Plan (1) Acute cholecystitis: Code(s): K81.0 - Acute cholecystitis Status: Acute Assessment and Plan: CT at outside hospital concerning for acute cholecystitis -abdominal pain is resolved at this time but he is nauseous. -p.r.n. morphine for pain, Zofran for nausea -abdomen is round, soft, and distended -T bili 2.1, AST 243, ALT 174. -right upper quadrant ultrasound ordered. May need HIDA scan. -consult general surgery recommendations are appreciated -NPO for now -IV fluids with D5 NS at 100 per hour -continue Zosyn (2) Partial obstruction of small intestine: Code(s): K56.600 - Partial intestinal obstruction, unspecified as to cause Status: Acute Assessment and Plan: CT from outside hospital with concerns for partial small-bowel obstruction -patient had a bowel movement this morning and is passing gas -bowel sounds are present. No tingling or hyper active sounds noted on assessment. -NPO -IV fluids -IV antibiotics with Zosyn -daily BMP with electrolytes replacement as needed -may need small-bowel follow-through. -general surgery consulted and recommendations are appreciated. 3: RUQ ultrasound shows gall stones but no inflammation. White count is normal, patient is without abdominal pain, and no fevers. Will d/c antibiotics. Stopping IVF. Okay for clear liquid diet after MRCP (3) Elevated liver function tests: Code(s): R79.89 - Other specified abnormal findings of blood chemistry Status: Acute Assessment and Plan: T bili 2 point now, AST 243, ALT 174 -patient is a known drinker. Drinks 6 shots a week of with gave. -elevation likely due to inflammatory process versus alcohol use 09/01: Downtrending. MRCP ordered. (4) COPD (chronic obstructive pulmonary disease): Code(s): J44.9 - Chronic obstructive pulmonary disease, unspecified Status: Acute Assessment and Plan: History of COPD not on oxygen -continue home inhaler (5) Hypertension: Code(s): I10 - Essential (primary) hypertension Status: Acute Assessment and Plan: Blood pressure is currently 147/74 -holding home agents as patient is NPO -monitor blood pressures -p.r.n. hydralazine for systolic blood pressure greater than 180 mmHg 3: restarting home medications Plan Feeding: NPO, IV fluids with D5 NS Analgesia: Tylenol suppository for fever, IV morphine for pain Thromboembolic prophylaxis: SCDs Ulcer prophylaxis: IV Protonix Glycemic control: Bowel regimen: Lines: PIV Antibiotics: Zosyn Disposition: Await General surgery recommendations. Subjective Date/time seen: 09/02/23 08:02 Interval history: This is an 88-year-old man with a past medical history of COPD not on oxygen, hyperlipidemia, BPH, hypertension, gout, and thrombocythemia.? He initially presented to [facility] yesterday with complaints of right-sided abdominal pain which traveled to his right shoulder as well as nausea.? He was seen and worked up with EKG, blood work and CT of the chest abdomen and pelvis.? He was discharged from the ER and sent home.? The patient says that the ER called him this morning and told him to come to [facility] and be seen by general surgeon has his CT was concerning for acute cholecystitis with small-bowel stricture versus obstruction. He is seen resting in bed with his at bedside.? He and his provide the medical history.? He says that yesterday he started having 7 abdominal pain on his right upper quadrant and had travel to shoulder.? He reports a small episode of vomiting but states that it was mostly phlegm.? He was going to go to the hospital for the pain however he and his decided check his blood pressure and found it was elevated at 211/95.? The pain when he initially presented to [place] ER was 10/10.? He denies pain during my assessment but states the stomach feels ?woozy?.? He reports that he did
[2023-09-02 08:35] VITALS: O2SAT 95
[2023-09-02] MEDS: UMECLIDINIUM/VILANTEROL 62.5-25 MCG ELLIPTA 1 PUFF INHALATION (08:35)
[2023-09-02] MEDS: PANTOPRAZOLE SODIUM IV 40 MG VIAL IV PUSH (08:55)
--- NOTE | 2023-09-02 09:04 | PM.PNGS ---
Progress Note: A&P Assessment and Plan (1) Acute cholecystitis: Code(s): K81.0 - Acute cholecystitis Status: Acute Assessment and Plan: RUQ US showed cholelithiasis and hepatic steatosis, but no findings of cholecystitis. Zosyn was stopped after this morning's dose. Labs were pending when seeing the patient, but have since come back and showed his total bilirubin is up to 2.5 today. Will order an MRCP today if possible. (2) Partial obstruction of small intestine: Code(s): K56.600 - Partial intestinal obstruction, unspecified as to cause Status: Acute Assessment and Plan: By report the CT scan from [place] suggested possible partial SBO. Unable to review the CT scan. SBFT ordered by Hospitalist today. He is not having any abdominal pain, nausea, or vomiting this morning. No clinical evidence of a high-grade small bowel obstruction. I expect the contrast will go through on the SBFT, and if so then we could start advancing his diet. Plan I have discussed the patient's case and plan of care with Dr. Gatica. Subjective Subjective Date/Time Seen: 09/02/23 09:04 Patient reports: no new complaints, feels better, voiding w/o difficulty, no bowel movement and afebrile Interval history: This is an 88 year old admitted to the hospital for possible PSBO and possible acute calculous cholecystitis. Unable to review CT scan in electronic or paper chart from [place] ER two nights ago. RUQ US done here at our hospital showed cholelithiasis and hepatic steatosis. Chart reviewed. No labs to review this morning, but they are ordered. Patient denies any abdominal pain. He reports that his pain resolved in [place] ER two nights ago. He denies nausea, vomiting, or bloating. Last BM was yesterday morning and normal for him. He is NPO and has a SBFT ordered for this morning. Exam Const: General: comfortable and no acute distress GI: Inspection: obesity (large protuberant abdomen) GI Palp: Yes Soft to palpation, No Tenderness to palpation present (GI), No Guarding due to palpation present (GI), Yes No hepatosplenomegaly present and No Rebound tenderness present Auscultation: normal bowel sounds Objective Data Vital Signs Vital Signs: Vital Signs - 24 hr 09/01/23 09:17 09/01/23 09:55 09/01/23 10:00 Temperature 97.5 F L Pulse Rate 61 59 L 57 L Respiratory Rate 13 21 H 15 Blood Pressure 141/75 H Pulse Oximetry 98 98 99 Oxygen Delivery Room Air 09/01/23 10:01 09/01/23 13:31 09/01/23 20:00 Temperature 97.4 F L 97.9 F Pulse Rate 59 L 62 59 L Respiratory Rate 18 18 20 Blood Pressure 140/73 147/74 H 160/80 H Pulse Oximetry 96 100 100 Oxygen Delivery 09/01/23 20:00 09/02/23 03:29 09/02/23 08:35 Temperature 98.0 F Pulse Rate 60 Respiratory Rate 20 Blood Pressure 135/70 Pulse Oximetry 96 95 Oxygen Delivery Room Air Room Air Intake/Output Intake/Output: Intake & Output 08/30/23 08/31/23 09/01/23 09/02/23 22:59 22:59 23:59 23:59 Intake Total 1050 Balance 1050 Meds/Results Medications: Active Medications Generic Name Dose Route Start Last Admin Trade Name Freq PRN Reason Stop Dose Admin Acetaminophen 120 mg 09/01/23 14:09 Acetaminophen 120 Mg Suppository RECTAL Q4H PRN Mild Pain (1-3) or Fever Hydralazine HCl 10 mg 09/01/23 14:11 Hydralazine Hcl 20 Mg/Ml Vial IV PUSH Q6HR PRN Blood Pressure - High Dextrose/Sodium Chloride 1,000 mls @ 100 mls/hr 09/01/23 14:05 09/02/23 06:39 Dextrose 5% Sodium Chloride 0.9% IV CONT 100 mls/hr .Q10H CELE Administration Losartan Potassium 25 mg 09/02/23 09:00 Losartan Potassium 25 Mg Tablet PO DAILY CELE Morphine Sulfate 2 mg 09/01/23 14:08 Morphine Sulfate (*Crx) 2 Mg/Ml Inj IV PUSH Q4H PRN Pain Rated 7-10 Ondansetron HCl 4 mg 09/01/23 14:08 Ondansetron Inj 4 Mg/2 Ml Vial IV PUSH Q4H PRN Nausea And Vomiting Pantoprazole Sodium 40 mg
[2023-09-02 09:26] LABS: Basophils Percent Auto 0.9 % (0.2-1.2); Eosinophils Percent Auto 0.9 % (0-4.4); Hemoglobin 13.9 g/dL (14.0-18.0); Immature Granulocyte Absolute 0.02 K/mm3 (0.00-0.031); Immature Granulocyte Percent A 0.6 % (0-0.5); Lymphocytes Absolute Auto 0.78 K/mm3 (0.9-3.2); Lymphocytes Percent Auto 22.9 % (18.3-44.2); Mean Corpuscular HGB Conc 31.6 g/dl (32-36); Mean Corpuscular Hemoglobin 29.4 pg (26-34); Mean Platelet Volume 9.2 fl (7.4-10.4); Monocytes Absolute Auto 0.2 K/mm3 (0.1-0.6); Monocytes Percent Auto 5.9 % (2.6-8.5); Neutrophils Absolute Auto 2.4 K/mm3 (1.3-6.7); Neutrophils Percent Auto 68.8 % (45.5-73.1); Platelet Count Result 436 k/mm3 (150-375); Red Blood Count 4.73 M/mm3 (4.6-6.20); Red Cell Distribution Width 16.6 % (11.5-14.5); White Blood Count 3.4 K/mm3 (4.5-10.0)
[2023-09-02 09:33] LABS: Alanine Aminotransferase 178 U/L (6-50); Albumin Level 4.3 g/dL (3.5-5.1); Alkaline Phosphatase 114 U/L (38-126); Anion Gap 6 mmol/L (8-16); Aspartate Amino Transferase 148 U/L (17-59); Bilirubin,Total 2.5 mg/dL (0.2-1.3); Blood Urea Nitrogen 13 mg/dL (9-20); Calcium 9.7 mg/dL (8.4-10.2); Carbon Dioxide 29 mmol/L (22-30); Chloride 102 mmol/L (98-107); Estimated CRCL calculation 43 ml/min; Estimated Glomerular Filt Rate 52; Glucose 106 mg/dL (65-110); Magnesium 2.2 mg/dL (1.6-2.3); Sodium 137 mmol/L (137-145)
[2023-09-02 14:00] VITALS: BP 124/65; PULSE 62; RESP 19; TEMP 36.5; O2SAT 96
[2023-09-02] MEDS: HYDROXYUREA (*CHEMO) 500 MG CAPSULE PO (17:40)
[2023-09-02 20:55] VITALS: BP 150/78; PULSE 66; RESP 18; TEMP 36.7; O2SAT 98
[2023-09-03 05:31] VITALS: BP 135/82; PULSE 65; RESP 18; TEMP 36.7; O2SAT 95
[2023-09-03 05:33] LABS: Basophils Percent Auto 0.7 % (0.2-1.2); Eosinophils Absolute Auto 0.1 K/mm3 (0-0.3); Eosinophils Percent Auto 1.2 % (0-4.4); Hematocrit 45.8 % (42.0-52.0); Hemoglobin 14.9 g/dL (14.0-18.0); Immature Granulocyte Absolute 0.01 K/mm3 (0.00-0.031); Immature Granulocyte Percent A 0.2 % (0-0.5); Lymphocytes Absolute Auto 1.07 K/mm3 (0.9-3.2); Lymphocytes Percent Auto 25.4 % (18.3-44.2); Mean Corpuscular HGB Conc 32.5 g/dl (32-36); Mean Corpuscular Hemoglobin 30.2 pg (26-34); Mean Corpuscular Volume 92.7 fl (80-100); Mean Platelet Volume 9.3 fl (7.4-10.4); Monocytes Absolute Auto 0.4 K/mm3 (0.1-0.6); Monocytes Percent Auto 10.2 % (2.6-8.5); Neutrophils Absolute Auto 2.6 K/mm3 (1.3-6.7); Neutrophils Percent Auto 62.3 % (45.5-73.1); Platelet Count Result 485 k/mm3 (150-375); Red Blood Count 4.94 M/mm3 (4.6-6.20); Red Cell Distribution Width 17.2 % (11.5-14.5); White Blood Count 4.2 K/mm3 (4.5-10.0)
[2023-09-03 05:53] LABS: Alanine Aminotransferase 144 U/L (6-50); Albumin Level 4.7 g/dL (3.5-5.1); Alkaline Phosphatase 133 U/L (38-126); Anion Gap 9 mmol/L (8-16); Aspartate Amino Transferase 117 U/L (17-59); Bilirubin,Total 1.6 mg/dL (0.2-1.3); Blood Urea Nitrogen 16 mg/dL (9-20); Calcium 10.5 mg/dL (8.4-10.2); Carbon Dioxide 25 mmol/L (22-30); Chloride 105 mmol/L (98-107); Estimated CRCL calculation 43 ml/min; Estimated Glomerular Filt Rate 52; Glucose 105 mg/dL (65-110); Magnesium 2.4 mg/dL (1.6-2.3); Potassium 3.8 mmol/L (3.4-5.0); Sodium 139 mmol/L (137-145)
[2023-09-03] MEDS: UMECLIDINIUM/VILANTEROL 62.5-25 MCG ELLIPTA 1 PUFF INHALATION (08:46)
[2023-09-03 08:47] VITALS: PULSE 72; RESP 20; O2SAT 94
[2023-09-03] MEDS: SIMVASTATIN 20 MG TABLET 40 MG PO (09:12)
[2023-09-03] MEDS: MAGNESIUM OXIDE 200 MG TABLET PO (09:13)
[2023-09-03] MEDS: TAMSULOSIN HCL 0.4 MG CAPSULE PO (09:13)
[2023-09-03] MEDS: FINASTERIDE 5 MG TABLET PO (09:14)
[2023-09-03] MEDS: LORATADINE 10 MG TABLET PO (09:14)
[2023-09-03] MEDS: HYDROXYUREA (*CHEMO) 500 MG CAPSULE PO (09:14)
[2023-09-03] MEDS: hydroCHLOROthiazide 12.5 MG CAPSULE PO (09:14)
[2023-09-03] MEDS: PANTOPRAZOLE 40 MG TABLET PO (09:14)
[2023-09-03] MEDS: allopurinoL 100 MG TABLET PO (09:14)
[2023-09-03] MEDS: POTASSIUM CHLORIDE 20 MEQ PACKET (FOR LIQUID) PO (09:20)
--- NOTE | 2023-09-03 12:00 | PM.PNGS ---
Progress Note: A&P Assessment and Plan (1) Acute cholecystitis: Code(s): K81.0 - Acute cholecystitis Status: Acute Assessment and Plan: RUQ US showed cholelithiasis and hepatic steatosis, but no findings of cholecystitis. LFTs elevated with total bilirubin up yesterday prompting an MRCP that showed only cholelithiasis. No choledocholithiasis. LFTs trending down and bilirubin 1.6 today. He likely had biliary colic. He is not having any abdominal pain and there is no tenderness on exam as of today. Dr. Gatica will discuss options with the patient today for planning a laparoscopic cholecystectomy if he wishes to have surgery. (2) Partial obstruction of small intestine: Code(s): K56.600 - Partial intestinal obstruction, unspecified as to cause Status: Acute Assessment and Plan: Resolving. SBFT suggested ileus vs partial SBO with mildly dilated small bowel and transit time to the colon at 1.5 hours. He is now having multiple bowel movements. No evidence of a mechanical obstruction. Advance diet as tolerated. Plan I have discussed the patient's case and plan of care with Dr. Gatica. Subjective Subjective Date/Time Seen: 09/03/23 10:00 Patient reports: no new complaints and afebrile Interval history: Patient doing well today. His only complaint is some irritation from the diarrhea following the contrast study yesterday. No abdominal pain, nausea, or vomiting. Multiple bowel movements since yesterday. No other complaints at this time. Exam Const: General: comfortable and no acute distress GI: Inspection: obesity (large protuberant abdomen) GI Palp: Yes Soft to palpation, No Tenderness to palpation present (GI) and No Guarding due to palpation present (GI) Auscultation: normal bowel sounds Objective Data Vital Signs Vital Signs: Vital Signs - 24 hr 09/02/23 14:00 09/02/23 19:51 09/02/23 20:55 Temperature 97.7 F 98.0 F Pulse Rate 62 66 Respiratory Rate 19 18 Blood Pressure 124/65 150/78 H Pulse Oximetry 96 98 Oxygen Delivery Room Air 09/03/23 05:31 09/03/23 08:47 09/03/23 08:47 Temperature 98.1 F Pulse Rate 65 72 Respiratory Rate 18 20 Blood Pressure 135/82 Pulse Oximetry 95 94 Oxygen Delivery Room Air 09/03/23 09:14 Temperature Pulse Rate Respiratory Rate Blood Pressure Pulse Oximetry Oxygen Delivery Room Air Intake/Output Intake/Output: Intake & Output 08/31/23 09/01/23 09/02/23 09/03/23 22:59 23:59 23:59 23:59 Intake Total 1340 500 Balance 1340 500 Meds/Results Medications: Active Medications Generic Name Dose Route Start Last Admin Trade Name Freq PRN Reason Stop Dose Admin Acetaminophen 120 mg 09/01/23 14:09 Acetaminophen 120 Mg Suppository RECTAL Q4H PRN Mild Pain (1-3) or Fever Allopurinol 100 mg 09/03/23 08:00 09/03/23 09:14 Allopurinol 100 Mg Tablet PO 100 mg DAILY@0800 CELE Administration Finasteride 5 mg 09/03/23 09:00 09/03/23 09:14 Finasteride 5 Mg Tablet PO 5 mg QAM CELE Administration Guaifenesin 1,200 mg 09/02/23 15:17 Guaifenesin 12 Hr 600 Mg Tabcr PO Q12HR PRN Cough Hydralazine HCl 10 mg 09/01/23 14:11 Hydralazine Hcl 20 Mg/Ml Vial IV PUSH Q6HR PRN Blood Pressure - High Hydrochlorothiazide 12.5 mg 09/03/23 09:00 09/03/23 09:14 Hydrochlorothiazide 12.5 Mg Capsule PO 12.5 mg DAILY CELE Administration Hydroxyurea 500 mg 09/02/23 17:00 09/03/23 09:14 Hydroxyurea (*Chemo) 500 Mg Capsule PO 500 mg BID CELE Administration Loratadine 10 mg 09/03/23 09:00 09/03/23 09:14 Loratadine 10 Mg Tablet PO 10 mg DAILY CELE Administration Losartan Potassium 25 mg 09/02/23 09:00 Losartan Potassium 25 Mg Tablet PO DAILY CELE Magnesium Oxide 200 mg 09/03/23 09:00 09/03/23 09:13 Magnesium Oxide 200 Mg Tablet PO 200 mg DAILY CELE Administration Morphine Sulfate 2 mg 09/01/23 14:08 Morphine Sulfate (*C
--- NOTE | 2023-09-03 14:46 | PM.DS ---
DS: Admitting Diagnosis Discharge Date 09/03/2023 Admitting Diagnosis Abdominal pain DS: Discharge Diagnosis Discharge Diagnosis (1) Acute cholecystitis: Code(s): K81.0 - Acute cholecystitis Status: Acute Assessment and Plan: CT at outside hospital concerning for acute cholecystitis -abdominal pain is resolved at this time but he is nauseous. -p.r.n. morphine for pain, Zofran for nausea -abdomen is round, soft, and distended -T bili 2.1, AST 243, ALT 174. -right upper quadrant ultrasound ordered. May need HIDA scan. -consult general surgery recommendations are appreciated -NPO for now -IV fluids with D5 NS at 100 per hour -continue Zosyn (2) Partial obstruction of small intestine: Code(s): K56.600 - Partial intestinal obstruction, unspecified as to cause Status: Acute Assessment and Plan: CT from outside hospital with concerns for partial small-bowel obstruction -patient had a bowel movement this morning and is passing gas -bowel sounds are present. No tingling or hyper active sounds noted on assessment. -NPO -IV fluids -IV antibiotics with Zosyn -daily BMP with electrolytes replacement as needed -may need small-bowel follow-through. -general surgery consulted and recommendations are appreciated. 09/01: RUQ ultrasound shows gall stones but no inflammation. White count is normal, patient is without abdominal pain, and no fevers. Will d/c antibiotics. Stopping IVF. Okay for clear liquid diet after MRCP (3) Elevated liver function tests: Code(s): R79.89 - Other specified abnormal findings of blood chemistry Status: Acute Assessment and Plan: T bili 2 point now, AST 243, ALT 174 -patient is a known drinker. Drinks 6 shots a week of with gave. -elevation likely due to inflammatory process versus alcohol use 09/01: Downtrending. MRCP ordered. (4) COPD (chronic obstructive pulmonary disease): Code(s): J44.9 - Chronic obstructive pulmonary disease, unspecified Status: Acute Assessment and Plan: History of COPD not on oxygen -continue home inhaler (5) Hypertension: Code(s): I10 - Essential (primary) hypertension Status: Acute Assessment and Plan: Blood pressure is currently 147/74 -holding home agents as patient is NPO -monitor blood pressures -p.r.n. hydralazine for systolic blood pressure greater than 180 mmHg 09/01: restarting home medications Plan Feeding: NPO, IV fluids with D5 NS Analgesia: Tylenol suppository for fever, IV morphine for pain Thromboembolic prophylaxis: SCDs Ulcer prophylaxis: IV Protonix Glycemic control: Bowel regimen: Lines: PIV Antibiotics: Zosyn Disposition: Await General surgery recommendations. DS: Summary Hospital Course Reason for hospitalization: Abdominal pain Hospital Course: This is an 88-year-old man with a past medical history of COPD not on oxygen, hyperlipidemia, BPH, hypertension, gout, and thrombocythemia.? [facility] with complaints of right-sided abdominal pain which traveled to his right shoulder as well as nausea.? He was seen and worked up with EKG, blood work and CT of the chest abdomen and pelvis.? He was discharged from the ER and sent home.? The patient says that the ER called him this morning and told him to come to [facility] and be seen by general surgeon has his CT was concerning for acute cholecystitis with small-bowel stricture versus obstruction. He is seen resting in bed with his at bedside.? He and his provide the medical history.? He says that yesterday he started having 7 abdominal pain on his right upper quadrant and had travel to shoulder.? He reports a small episode of vomiting but states that it was mostly phlegm.? He was going to go to the hospital for the pain however he and his decided check his blood pressure and found it was elevated at 211/95.? The pain when he initially presented to S
== END 2023-09-03 14:30 | disposition home or self-care (01) | DRG 445 ==
LOC: ANHED 11:05 → ANH2MED 12:05
PROVIDERS: Nurse Practitioner Family; Admitting Provider Student in an Organized Health Care Education/Training Program; Emergency Provider Nurse Practitioner Family; PCP Internal Medicine; Visit Provider Nurse Practitioner Acute Care
DX: K80.00 Calculus of gallbladder with acute cholecystitis without obstruction (principal); K56.600 Partial intestinal obstruction, unspecified as to cause; J44.9 Chronic obstructive pulmonary disease, unspecified; K76.0 Fatty (change of) liver, not elsewhere classified; I10 Essential (primary) hypertension; E78.5 Hyperlipidemia, unspecified; N40.0 Benign prostatic hyperplasia without lower urinary tract symptoms; D75.839 Thrombocytosis, unspecified; M10.9 Gout, unspecified; Z87.891 Personal history of nicotine dependence
CPT/HCPCS: 36415; 74183; 74250; 76376; 76705; 80053; 81001; 83690; 83735; 85025; 94640; 99285; A9270; A9577; C9113; J2543; J7030; J7042

== ENCOUNTER 2023-09-19 16:35 | Emergency (ER) | payer MEDICARE, SELFPAY ==
[2023-09-19] VITALS (28 sets, daily range): BP systolic 67–186; BP diastolic 40–99; PULSE 14–113; RESP 16–74; TEMP 36.8–36.9; O2SAT 89–100
--- NOTE | ~2023-09-19 | CT_ITS ---
EXAMINATION: CT brain wo con DATE: 09/19/2023 17:14 INDICATION: head injury . TECHNIQUE: Computed tomography (CT) of the head was performed without intravenous contrast. The mA wa s adjusted according to patient size. Iterative reconstruction technique was employed. The dose-lengt h product was 681.00 mGy-cm. COMPARISON: MRI brain 09/19/2023. FINDINGS: No acute intracranial hemorrhage or extra-axial fluid collection. No hydrocephalus, mass, or herniation. No acute ischemic infarct. Unremarkable dural venous sinus attenuation. No acute calvarial abnormality. Large left frontal laceration and contusion. Moderate right frontal l aceration and contusion. Mild atrophy and chronic white matter change. Atherosclerotic intracranial calcification. Dural-based hemispheric partially calcified right convexity mass, likely meningioma. IMPRESSION: No acute intracranial process. Reviewed, dictated and finalized at location K.
--- NOTE | ~2023-09-19 | CT_ITS ---
EXAMINATION: CT facial & cervical spine wo DATE: 09/19/2023 17:14 INDICATION: neck and facial bone injury TECHNIQUE: Computed tomography (CT) of the maxillofacial region and cervical spine was performed with out intravenous contrast. Automated exposure control and iterative reconstruction technique were empl oyed. The dose-length product was 465.07 mGy-cm. COMPARISON: MRI C-spine 06/01/2008; CT maxillofacial 02/14/2005. FINDINGS: CERVICAL: Vertebral Body Alignment: 3 mm anterolisthesis at C3-4, increased since the prior study, likely secon fran to progressive degenerative change. Craniocervical and atlantoaxial alignment: Moderate degenerative change. Alignment intact. Osseous structures/fracture: No evidence of a lytic or blastic process in the visualized spine. Acut e oblique fracture of the dens in the coronal plane, fracture line involves a small portion of the po sterior aspect of the C2 vertebral body, 5 mm anterior and 3 mm leftward displacement of the distal p ortions of the cervical spine relative to C1 and the proximal odontoid fragment. Cervical soft tissues: Upper cervical paraspinal soft tissue swelling. Degenerative changes: Multilevel severe degenerative disc disease and facet arthropathy. Multilevel s evere neural foraminal narrowing secondary to degenerative changes. No severe central canal narrowing . FACE: Soft Tissues: Large left frontal and periorbital laceration/contusion. Moderate right frontal lacera tion and contusion. Facial bones: Left orbital floor fracture. No lytic or blastic process. Eyes: The globes are intact. Hemorrhage in the superior portion of the left orbit. Moderate left pro ptosis. There is partial herniation of the inferior rectus muscle on the left into the orbital floor defect. Paranasal Sinuses: Herniation of fat and hemorrhage into the superior portion of the left maxillary sinus. Right sphenoid mucosal thickening. The remaining aerated spaces are clear. Foreign Bodies: No radiopaque foreign bodies. Other Findings: Periodontal disease. IMPRESSION: Type III odontoid fracture with mild displacement of the distal portions of the cervical spine relati ve to C1 and the proximal odontoid fragment. No significant central canal stenosis. Left orbital floor fracture, with extraocular muscle entrapment, intraorbital hemorrhage, and proptos is. Reviewed, dictated and finalized at location K. IMPRESSION: Type III odontoid fracture with mild displacement of the distal portions of the cervical spine relative to C1 and the proximal odontoid fragment. No significa nt central canal stenosis. Left orbital floor fracture, with extraocular muscle entrapment, intraorbital h emorrhage, and proptosis.
--- NOTE | 2023-09-19 17:03 | ECG_ITS ---
Measurements Intervals Electra Rate: 67 P: SC: 0 QRS: -15 QRSD: 98 T: 46 QT: 403 QTc: 426 Interpretive Statements SINUS RHYTHM WITH MARKED FIRST DEGREE AV BLOCK CANNOT RULE OUT SEPTAL INFARCT, AGE INDETERMINATE BASELINE ARTIFACT- I, II, AVR, AVL, AVF, V5-V6 ABNORMAL ECG NO PREVIOUS ECG AVAILABLE FOR COMPARISON Electronically Signed On 09-19-2023 20:28:30 CDT by Margarito Aviles D.O.
[2023-09-19] MEDS: SODIUM CHLORIDE 0.9% IV 1,000 ML 999 ML IV CONT ×2 (17:16→18:20)
[2023-09-19 17:37] LABS: Basophils Absolute Auto 0.06 K/mm3 (0.00-0.10); Basophils Percent Auto 0.7 % (0.0-1.0); Eosinophils Absolute Auto 0.07 K/mm3 (0.02-0.50); Eosinophils Percent Auto 0.8 % (1.0-6.0); Hematocrit 37.5 % (37.0-46.0); Hemoglobin 12.3 g/dL (12.4-15.3); Immature Granulocyte Absolute 0.03 K/mm3 (0.00-0.00); Immature Granulocyte Percent A 0.3 % (0.0-0.0); Immature Platelet Fraction Pct 2.3 % (1.0-7.0); Lymphocytes Absolute Auto 1.41 K/mm3 (1.10-4.50); Lymphocytes Percent Auto 16.3 % (18.0-42.0); Mean Corpuscular HGB Conc 32.8 g/dL (32-36); Mean Corpuscular Hemoglobin 30.8 pg (27.0-31.0); Mean Platelet Volume 9.2 fl (8.7-11.0); Monocytes Absolute Auto 0.51 K/mm3 (0.10-0.90); Monocytes Percent Auto 5.9 % (2.0-11.0); Neutrophils Absolute Auto 6.56 K/mm3 (1.70-7.20); Platelet Count Result 620 K/mm3 (150-420); Red Blood Count 3.99 M/mm3 (4.70-6.10); Red Cell Distribution Width 18.5 % (11.6-14.4); White Blood Count 8.6 K/mm3 (4.8-10.8)
[2023-09-19 17:49] LABS: INR 1.1; Partial Thromboplastin Time 30.4 Sec (23.9-30.70); Prothrombin Time 11.5 Seconds (9.50-12.1)
[2023-09-19 18:04] LABS: Lactic Acid Reflex 1.3 mmol/L (0.4-2.0)
[2023-09-19] MEDS: LIDOCAINE HCL 1% LOCAL INJ 10 ML VIAL 20 ML (18:10)
[2023-09-19 18:15] LABS: Alanine Aminotransferase 26 U/L (16-63); Albumin Level 3.5 g/dL (3.4-5.0); Alkaline Phosphatase 87 U/L (46-116); Anion Gap 10 mmol/L (4-12); Aspartate Amino Transferase 25 U/L (15-37); Bilirubin,Total 0.5 mg/dL (0.00-1.00); Blood Urea Nitrogen 17 mg/dL (7-18); Calcium 9.3 mg/dL (8.5-10.1); Carbon Dioxide 27 mmol/L (21-32); Chloride 102 mmol/L (98-108); Estimated CRCL calculation 41 ml/min; Estimated Glomerular Filt Rate 51; Glucose 113 mg/dL (70-99); Osmolality Calculated 290 mOsm/kg (285-295); Potassium 3.5 mmol/L (3.5-5.1); Sodium 139 mmol/L (136-145); Total Protein 6.9 g/dL (6.4-8.2)
[2023-09-19] MEDS: DOPamine 400 MG/D5W 250 ML 400 MG/250 ML BAG 7.48 MG IV CONT (18:25)
--- NOTE | 2023-09-19 19:01 | ED.HEATRA ---
HPI - Head Injury General Chief complaint: Head Injury Stated complaint: fall, scalp lac Source: patient, family and EMS Mode of arrival: EMS Limitations: physical limitation History of Present Illness HPI Narrative: this is an 88-year-old male that had a ground level fall earlier this afternoon and hit his head on some rocks while he was outdoors patient did not lose consciousness but has a large laceration of the left-sided scalp and has swollen left orbit, and head injury. Patient arrived via EMS patient vitals have been stable no nausea vomiting does have some difficulty with movement of the left eye. MD Complaint: head injury and fall Onset (ago): hour(s) Arrival Conditions: C-spine immobilization present Mechanism of Injury: other Place: outdoors Loss of Consciousness: no Location of injury: frontal and face Severity: severe Severity scale (1-10): 10 Related Data Home Medications Medication Instructions Recorded Confirmed allopurinol 100 mg tablet 100 mg PO DAILY 09/01/23 09/19/23 cholecalciferol (vitamin D3) 25 25 mcg PO DAILY 09/01/23 09/19/23 mcg/drop (1,000 unit/drop) oral drops finasteride 5 mg tablet 5 mg PO DAILY 09/01/23 09/19/23 guaifenesin 400 mg tablet 400 mg PO Q4H PRN Cough 09/01/23 09/19/23 hydrochlorothiazide 12.5 mg capsule 12.5 mg PO DAILY 09/01/23 09/19/23 hydroxyurea 500 mg capsule 500 mg PO DAILY 09/01/23 09/19/23 loratadine 10 mg capsule 10 mg PO DAILY 09/01/23 09/19/23 losartan 25 mg tablet 25 mg PO DAILY 09/01/23 09/19/23 magnesium 250 mg tablet 250 mg PO DAILY 09/01/23 09/19/23 omeprazole 20 mg capsule,delayed 20 mg PO DAILY 09/01/23 09/19/23 release potassium chloride 20 mEq/15 mL 20 meq PO DAILY 09/01/23 09/19/23 oral liquid simvastatin 40 mg tablet 40 mg PO DAILY 09/01/23 09/19/23 tamsulosin 0.4 mg capsule 0.4 mg PO DAILY 09/01/23 09/19/23 tiotropium 2.5 mcg-olodaterol 2.5 1 puff inhalation DAILY 09/01/23 09/19/23 mcg/actuation mist for inhalation tiotropium 2.5 mcg-olodaterol 2.5 2 puff inhalation DAILY 09/01/23 09/19/23 mcg/actuation mist for inhalation (Stiolto Respimat) Allergies Allergy/AdvReac Type Severity Reaction Status Date / Time ibuprofen AdvReac Unknown Verified 09/19/23 17:25 Review of Systems Review of Systems: All systems reviewed & are unremarkable except as noted in HPI and below PMFSH Past Medical History Medical History COPD (chronic obstructive pulmonary disease) Hypertension Postoperative abdominal hernia Surgical History Surgical History H/O shoulder surgery Total knee replacement status Social History Social History Social History: Retired [employer]. Served in the [employer]. Smoking status: Never smoker Tobacco type: cigarettes Second hand tobacco smoke exposure: No Smoking end date: 07/27/81 Alcohol intake: never Drinks per week: 6 Alcohol use details: Drinks 6 mixed drinks of whiskey Substance use: never Substance use type: does not use Do You Feel Safe in your Home?: Yes Lack of Transportation: No Lack of Food: Never True Current Housing: I Have Housing Concerned About Future Housing: No Difficulty Paying Gas/Electric Bills: No Difficulty Paying for Meds: No Currently Unemployed: No Education: High School Diploma/GED Difficulty w/ Childcare or Family Care: No Living arrangements: with family Occupation/Education: retired Gender identity (if verbalized by the patient): Male Spiritual care concerns: No Exam Const: General: ill appearing Nutritional Appearance: obese Limitations: physical limitations HENMT: Other: Lacerations to the left thumb scalp and above the right eye and swollen left orbit with step-off at the 5th base of his left eye socket with contusions and hematomas. Eyes: Other: As ab
== END 2023-09-19 19:40 | disposition short-term general hospital (02) ==
PROVIDERS: Emergency Provider Emergency Medicine; PCP Internal Medicine
DX: S02.85XA Fracture of orbit, unspecified, initial encounter for closed fracture (principal); S12.120A Other displaced dens fracture, initial encounter for closed fracture; S01.01XA Laceration without foreign body of scalp, initial encounter; H05.20 Unspecified exophthalmos; W01.198A Fall on same level from slipping, tripping and stumbling with subsequent striking against other object, initial encounter; J44.9 Chronic obstructive pulmonary disease, unspecified; I10 Essential (primary) hypertension; Z79.51 Long term (current) use of inhaled steroids; Z87.891 Personal history of nicotine dependence
CPT/HCPCS: 12001; 36415; 70450; 70486; 72125; 80053; 83605; 85025; 85055; 85610; 85730; 93005; 96361; 96365; 99285; J1265; J7030; L0150

== ENCOUNTER 2023-12-25 14:57 | Outpatient (CLI) | payer MEDICARE, SELFPAY ==
[2023-12-25 15:17] LABS: Basophils Absolute Auto 0.05 K/mm3 (0.00-0.10); Basophils Percent Auto 0.9 % (0.0-1.0); Eosinophils Percent Auto 1.8 % (1.0-6.0); Hematocrit 40.5 % (37.0-46.0); Immature Granulocyte Absolute 0.02 K/mm3 (0.00-0.00); Immature Granulocyte Percent A 0.4 % (0.0-0.0); Lymphocytes Absolute Auto 1.36 K/mm3 (1.10-4.50); Lymphocytes Percent Auto 24.3 % (18.0-42.0); Mean Corpuscular HGB Conc 32.1 g/dL (32-36); Mean Corpuscular Hemoglobin 31.4 pg (27.0-31.0); Mean Corpuscular Volume 97.8 fL (78.0-102.0); Mean Platelet Volume 9.2 fl (8.7-11.0); Monocytes Absolute Auto 0.57 K/mm3 (0.10-0.90); Monocytes Percent Auto 10.2 % (2.0-11.0); Neutrophils Absolute Auto 3.49 K/mm3 (1.70-7.20); Neutrophils Percent Auto 62.4 % (50.0-70.0); Platelet Count Result 441 K/mm3 (150-420); Red Blood Count 4.14 M/mm3 (4.70-6.10); Red Cell Distribution Width 13.7 % (11.6-14.4); White Blood Count 5.6 K/mm3 (4.8-10.8)
[2023-12-25 15:47] LABS: Alanine Aminotransferase 23 U/L (16-63); Albumin Level 3.9 g/dL (3.4-5.0); Alkaline Phosphatase 81 U/L (46-116); Anion Gap 7 mmol/L (4-12); Aspartate Amino Transferase 26 U/L (15-37); Bilirubin,Total 0.5 mg/dL (0.00-1.00); Blood Urea Nitrogen 12 mg/dL (7-18); Calcium 9.6 mg/dL (8.5-10.1); Carbon Dioxide 30 mmol/L (21-32); Chloride 101 mmol/L (98-108); Estimated Glomerular Filt Rate 52; Glucose 100 mg/dL (70-99); Iron 52 ug/dL (65-175); Osmolality Calculated 285 mOsm/kg (285-295); Percent Iron Saturation 13 % (12-57); Sodium 138 mmol/L (136-145); Total Protein 7.4 g/dL (6.4-8.2)
[2024-01-01 19:08] LABS: Block/Specimen ID NG; Clinical Indication THROMBOCYTOPENIA; JAK2 V617F Mutation NOT DETECTED (NOT DETECTED); Specimen Source BLOOD
== END 2023-12-25 14:58 | disposition home or self-care (01) ==
LOC: CHSLAB 15:00
PROVIDERS: PCP Internal Medicine; Visit Provider Internal Medicine Hematology
DX: D47.3 Essential (hemorrhagic) thrombocythemia (principal)
CPT/HCPCS: 36415; 80053; 81270; 83540; 83550; 85025

== ENCOUNTER 2024-02-03 09:00 | Outpatient (CLI) | payer MEDICARE, SELFPAY ==
[2024-02-03 10:30] LABS: Basophils Absolute Auto 0.05 K/mm3 (0.00-0.10); Basophils Percent Auto 1.1 % (0.0-1.0); Eosinophils Absolute Auto 0.09 K/mm3 (0.02-0.50); Eosinophils Percent Auto 2.1 % (1.0-6.0); Hematocrit 41.2 % (37.0-46.0); Hemoglobin 13.2 g/dL (12.4-15.3); Immature Granulocyte Absolute 0.02 K/mm3 (0.00-0.00); Immature Granulocyte Percent A 0.5 % (0.0-0.0); Lymphocytes Absolute Auto 1.15 K/mm3 (1.10-4.50); Lymphocytes Percent Auto 26.3 % (18.0-42.0); Mean Corpuscular Hemoglobin 31.1 pg (27.0-31.0); Mean Corpuscular Volume 97.2 fL (78.0-102.0); Mean Platelet Volume 9.2 fl (8.7-11.0); Monocytes Absolute Auto 0.47 K/mm3 (0.10-0.90); Monocytes Percent Auto 10.7 % (2.0-11.0); Neutrophils Percent Auto 59.3 % (50.0-70.0); Platelet Count Result 497 K/mm3 (150-420); Red Blood Count 4.24 M/mm3 (4.70-6.10); Red Cell Distribution Width 15.5 % (11.6-14.4); White Blood Count 4.4 K/mm3 (4.8-10.8)
== END 2024-02-03 09:01 | disposition home or self-care (01) ==
LOC: CHSLAB 09:03
PROVIDERS: PCP Internal Medicine; Visit Provider Internal Medicine Hematology
DX: D69.6 Thrombocytopenia, unspecified (principal)
CPT/HCPCS: 36415; 85025

== ENCOUNTER 2024-03-26 09:40 | Outpatient (CLI) | payer MEDICARE, SELFPAY ==
[2024-03-26 09:54] LABS: Basophils Absolute Auto 0.05 K/mm3 (0.00-0.10); Basophils Percent Auto 0.7 % (0.0-1.0); Eosinophils Absolute Auto 0.14 K/mm3 (0.02-0.50); Eosinophils Percent Auto 1.9 % (1.0-6.0); Hematocrit 41.9 % (37.0-46.0); Hemoglobin 13.7 g/dL (12.4-15.3); Immature Granulocyte Absolute 0.03 K/mm3 (0.00-0.00); Immature Granulocyte Percent A 0.4 % (0.0-0.0); Immature Platelet Fraction Pct 2.7 % (1.0-7.0); Lymphocytes Absolute Auto 1.42 K/mm3 (1.10-4.50); Lymphocytes Percent Auto 18.9 % (18.0-42.0); Mean Corpuscular HGB Conc 32.7 g/dL (32-36); Mean Corpuscular Hemoglobin 32.1 pg (27.0-31.0); Mean Corpuscular Volume 98.1 fL (78.0-102.0); Mean Platelet Volume 9.1 fl (8.7-11.0); Monocytes Percent Auto 9.3 % (2.0-11.0); Neutrophils Absolute Auto 5.16 K/mm3 (1.70-7.20); Neutrophils Percent Auto 68.8 % (50.0-70.0); Platelet Count Result 746 K/mm3 (150-420); Red Blood Count 4.27 M/mm3 (4.70-6.10); Red Cell Distribution Width 14.9 % (11.6-14.4); White Blood Count 7.5 K/mm3 (4.8-10.8)
[2024-03-26 11:41] LABS: Ferritin 35 ng/mL (26-388); Iron 107 ug/dL (65-175); Percent Iron Saturation 27 % (12-57)
[2024-04-06 11:35] LABS: Reference Lab Test Name CALR MUTATION ANALYS
[2024-04-10 21:44] LABS: Reference Lab Test Name MPL MUTATION
== END 2024-03-26 09:41 | disposition home or self-care (01) ==
LOC: CHSLAB 09:42
PROVIDERS: PCP Internal Medicine; Visit Provider Internal Medicine Hematology
DX: D47.3 Essential (hemorrhagic) thrombocythemia (principal)
CPT/HCPCS: 36415; 81219; 81339; 82728; 83540; 83550; 85025; 85055

== ENCOUNTER 2024-04-27 09:42 | Outpatient (CLI) | payer MEDICARE, SELFPAY ==
[2024-04-27 10:11] LABS: Basophils Absolute Auto 0.03 K/mm3 (0.00-0.10); Basophils Percent Auto 0.6 % (0.0-1.0); Eosinophils Absolute Auto 0.06 K/mm3 (0.02-0.50); Eosinophils Percent Auto 1.2 % (1.0-6.0); Hemoglobin 13.6 g/dL (12.4-15.3); Immature Granulocyte Absolute 0.02 K/mm3 (0.00-0.00); Immature Granulocyte Percent A 0.4 % (0.0-0.0); Lymphocytes Percent Auto 22.2 % (18.0-42.0); Mean Corpuscular HGB Conc 33.2 g/dL (32-36); Mean Corpuscular Hemoglobin 33.5 pg (27.0-31.0); Mean Platelet Volume 9.2 fl (8.7-11.0); Monocytes Absolute Auto 0.45 K/mm3 (0.10-0.90); Monocytes Percent Auto 9.1 % (2.0-11.0); Neutrophils Percent Auto 66.5 % (50.0-70.0); Platelet Count Result 352 K/mm3 (150-420); Red Blood Count 4.06 M/mm3 (4.70-6.10); Red Cell Distribution Width 17.1 % (11.6-14.4)
[2024-05-02 21:53] LABS: Block/Specimen ID NG; Clinical Indication THROMBOCYTOPENIA; JAK2 V617F Mutation NOT DETECTED (NOT DETECTED); Specimen Source BLOOD
[2024-05-06 07:51] LABS: Reference Lab Test Name CALR MUTATION
[2024-05-06 07:55] LABS: Reference Lab Test Name MPL MUTATION
== END 2024-04-27 09:43 | disposition home or self-care (01) ==
LOC: CHSLAB 09:45
PROVIDERS: PCP Internal Medicine; Visit Provider Internal Medicine Hematology
DX: D47.3 Essential (hemorrhagic) thrombocythemia (principal)
CPT/HCPCS: 36415; 81219; 81270; 81339; 85025

== ENCOUNTER 2024-07-22 13:29 | Outpatient (CLI) | payer MEDICARE, SELFPAY ==
--- NOTE | 2024-07-22 13:33 | ECHO_ITS ---
Patient Info Name: Wong Sethi Age: 88 years : 1935 Gender: Male Ht: 70 in Wt: 260 lbs BSA: 2.46 m2 HR: 64 bpm BP: 153 / 90 mmHg Heart Rhythm: Atrial Fibrillation Technical Quality: Fair Exam Date: 07/22/2024 1:40 PM Exam Location: Echo Lab Patient Status: Outpatient Admit Date: 07/22/2024 Staff Ordering Physician: Margarito Aviles DO Bartenders: Joann Lee RDCS Attending Provider: Margarito Aviles DO Referring Physician: Stefan WADSWORTH; Exam Type: CA echo dop color flow w con Study Info Indications - ventricular tachycardia Complete two-dimensional, color flow and Doppler transthoracic echocardiogram is performed with contrast to opacify the left ventricle and to improve the deliniation of the left ventricle endocardial borders. Contrast/Agitated Saline Contrast/Ag. Saline: Definity Amount: 2.00 ml Administered By: Joann Lee RDCS Existing IV Access: Yes New IV Access: Left Site Condition: IV removed Summary 1. Definity contrast administered improved wall motion interpretation. 2. Left ventricular chamber dimension is normal. 3. Left ventricular systolic function is normal, estimated at 60-65%. 4. There is mild concentric increased left ventricular wall thickness. 5. The left ventricular diastolic function is normal. 6. E/e' 9 is minimally elevated. 7. Atrial fibrillation. 8. Left atrial chamber dimension is mildly enlarged. 9. Right atrial chamber dimension is mildly enlarged. 10. There is mild aortic valve sclerosis. 11. There is mild tricuspid valve regurgitation. 12. No pulmonary hypertension, estimated pulmonary arterial systolic pressure is 33 mmHg. Left Ventricle Atrial fibrillation. E/e' 9 is minimally elevated. Definity contrast administered improved wall motion interpretation. Left ventricular chamber dimension is normal. Left ventricular systolic function is normal, estimated at 60-65%. There is mild concentric increased left ventricular wall thickness. The left ventricular diastolic function is normal. Right Ventricle Right ventricular systolic function is normal and with normal TAPSE 2.0 cm. Right ventricular chamber dimension is normal. Left Atria Left atrial chamber dimension is mildly enlarged. Right Atria Right atrial chamber dimension is mildly enlarged. Aortic Valve The aortic valve is trileaflet. There is mild aortic valve sclerosis. There is no aortic valve stenosis. There is no aortic valve regurgitation. Pulmonic Valve There is no pulmonic regurgitation. Mitral Valve There is no mitral valve stenosis. There is no mitral valve regurgitation. Tricuspid Valve There is mild tricuspid valve regurgitation. No pulmonary hypertension, estimated pulmonary arterial systolic pressure is 33 mmHg. Pericardium/Pleural There is no pericardial effusion. Inferior Vena Cava Normal inferior vena cava with >50% collapse upon inspiration consistent with normal right atrial pressure, 5 mmHg. Aorta The aortic root size at the sinus of Valsalva is normal. Left Ventricular Outflow Tract Name Value Normal LVOT 2D LVOT Diameter 2.13 cm LVOT Doppler LVOT Peak Gradient 3 mmHg LVOT Mean Gradient 2 mmHg LVOT VTI 16.03 cm LVOT VTI/AV VTI Ratio 0.41 LVOT Stroke Volume 57.09 ml LVOT CO 4.30 l/min LVOT CI 1.75 L/min/m2 Pulmonic Valve Name Value Normal RVOT Doppler RVOT Peak Gradient 4 mmHg PV Doppler PV Peak Gradient 10 mmHg Mitral Valve Name Value Normal MV Doppler MV Peak Gradient 9 mmHg MV Mean Gradient 3 mmHg MV Decel Jackson 873.87 cm/s2 MV PHT 0 s MV Area (PHT) 4.45 cm2 4.00-5.00 MV Area (Cont Eq VTI) 2.03 cm2 MV Diastolic Function MV E Peak Velocity 148.86 cm/s MV A Peak Velocity 2.63 cm/s MV E/A 56.70 MV Decel Time 0 s MV Annular TDI MV E/e' (Septal) 9.45 <=8.00 MV E/e' (Lateral) 8.99 <=8.00 MV E/e' (Average) 9.22 Tricuspid Valve Name Value Normal TV Regurgitation Doppler TR Peak Velocity 265.94 cm/s TR Peak Gradient 27 mmHg Estimated PAP/RSVP RA Pressure 5 mmHg <=5 PA Systolic Pressure 33 mmHg <36 RV Systolic Pressure 33 mmHg <36 Aorta Name Value Normal Ascending Aorta Ao Root Diameter (MM) 3.05 cm Ao Root Diam Index (MM) 1.24 cm/m2 Aortic Valve Name Value Normal AV Doppler AV Peak Velocity 215.58 cm/s AV Peak Gradient 19 mmHg AV Mean Gradient 9 mmHg AV VTI 38.95 cm AV Area (Cont Eq VTI) 1.47 cm2 >=3.00 AV Area (Cont Eq Denton) 1.44 cm2 AV Regurgitation 2D LVOT Area 3.56 cm2 Ventricles Name Value Normal LV Dimensions 2D/MM IVS Diastolic Thickness (2D) 1.21 cm 0.60-1.00 LVID Diastole (2D) 5.79 cm 4.20-5.80 LVIW Diastolic Thickness (2D) 1.23 cm 0.60-1.00 LVID Systole (2D) 3.05 cm 2.50-4.00 LVOT Diameter 2.13 cm LV Mass (2D Cubed) 303.11 g 88.00-224.00 LV Mass Index (2D Cubed) 0.01 g/cm2 0.00-0.01 Relative Wall Thickness (2D) 0.43 LV Fractional Shortening/Ejection Fraction 2D/MM LV Fractional Shortening (2D) 47 % 25-43 LV EF (2D Teicholz) 78 % 52-72 LV Diastolic Volume (4C MOD) 65.26 ml LV EF (4C MOD) 77 % LV Diastolic Volume (2C MOD) 59.76 ml LV EF (2C MOD) 63 % LV Diastolic Volume (BP MOD) 62.33 ml 62.00-150.00 LV Diastolic Volume Index (BP MOD) 0.03 l/m2 0.03-0.07 LV Systolic Volume (BP MOD) 19.49 ml 21.00-61.00 LV Systolic Volume Index (BP MOD) 0.01 l/m2 0.01-0.03 LV EF (BP MOD) 69 % 52-72 LV Diastolic Length (4C) 7.92 cm LV Systolic Length (4C) 6.06 cm LV Stroke Volume (4C MOD) 50.06 ml Atria Name Value Normal LA Dimensions LA Dimension (MM) 4.52 cm 3.00-4.10 LA Volume (4C A-L) 46.36 ml LA Volume (BP A-L) 49.08 ml RA Dimensions RA Area (4C) 22.17 cm2 <=18.00 Report Signatures
--- OUTSIDE RECORDS SUMMARY | 2024-07-22 14:23 | XMS_ITS | Clinical Summary ---
Author Organization [facility] Address [address] [place] [address]. [place], [place] [id number] [place] [id number] Care Team Providers Care Nurse Infection Control Name Role Phone Unavailable Primary Care Provider Unavailabl e Social History Tobacco Use Types Packs/Day Years Used Date Smoking Tobacco: Never Assessed Sex and Gender Information Value Date Recorded Sex Assigned at Not on file Legal Sex Male 5:13 PM CDT Gender Identity Not on file Sexual Orientation Not on file Plan of Treatment Health Maintenance Due Date Last Done Comments DTaP, Tdap and Td Vaccines ( 1 - Tdap) 1954 Zoster Vaccines (1 of 2) 1985 Pneumococcal Vaccine: 65+ Ye ars (1 of 1 - PCV) 2000 RSV Immunization or 60+ Years (1 - 1-dose 75+ series) 2010 COVID-19 Vaccine (2023-2 5 season) 2024 Influenza Adult (#1) 2024 Meningococcal B Vaccine Aged Out No l onger eligible based on patient's age to complete this topic Meningococcal Vaccine Aged Out No abdulkadir kvng eligible based on patient's age to complete this topic RSV Immunizations Under 20 Months Aged Out No longer eligible based on patient's age to complete this topic
--- OUTSIDE RECORDS SUMMARY | 2024-07-22 14:23 | XMS_ITS | Continuity of Care Document ---
Author Organization [facility] Address [id number] [place] [address] [address] [place] [address] Phone Care Team Providers Care Campaign Marketing Specialist Name Role Phone Gonzalo Gonzales Unavailable [...] Providers Copied on Encounter Office/outpat ient Visit, [facility], [address], [place], [place], [id number], [place] tel:[phone] [facility] [place] No Information 0-201 0 Janet Sánchez. [address] [facility] [address], [place], [address], [place]. tel:[phone] Office/outpat ient Visit, [facility], [address], [place], [place], [id number], [place] tel:[phone] [facility] No Information Dec-0 6-201 0 Venice Hillman. [address], [place], [address], [place]. tel:[phone] [facility], [address], [place], [place], [id number], [place] tel:[phone] [facility] No Information King-3 0-201 0 Krishnasamy Gonzalo. [address] [facility] [address], [place], [address], [place]. tel:[phone] Office/outpat ient Visit, [facility], [address] [place] [address] [address], [place], [place], [id number], [place] tel:[phone] [facility] No Information King-1 5-201 0 Krishnasamy Gonzalo. [address] [address], [place], [place], [facility], [place]. tel:[phone] Office/outpat ient Visit, [facility], [address] [place] [address] [address], [place], [place], [id number], [place] tel:[phone] [facility] No Information King-0 9-201 0 Krishnasamy Gonzalo. [address] [facility] [address], [place], [address], [place]. tel:[phone] [facility], [address], [place], [place], [id number], [place] tel:[phone] [facility] No Information Apr-2 1-201 0 Krishnasamy Gonzalo. [address] [facility] [address], [place], [address], [place]. tel:[phone] [facility], [address], [place], [place], [id number], [place] tel:[phone] [facility] No Information Apr-0 8-200 9 Krishnasamy Gonzalo. [address], [place], [address], [place]. tel:[phone] [facility], [address] [facility] [address], [place], [place], [id number], [place] tel:[phone] [facility] No Information Mar-2 6-200 8 Janet Sánchez. [address] [facility] [address], [place], [address], [place]. tel:[phone] [facility], [address], [place], [place], [id number], [place] tel:[phone] [facility] No Information Mar-2 6-200 7 Wild Rios. [address] [facility], [address], [place], [place], [id number], [place]. tel:[phone] Family History Family Member Type Diagnosis Age At Onset No Information Payers Payer name Insurance type Covered democrat ID Authoriza [email or web address](s) [place] [id number] Social History Type Description Quantity Date Captured [...]
--- OUTSIDE RECORDS SUMMARY | 2024-07-22 14:23 | XMS_ITS | Clinical Summary ---
Author Organization [facility] Address [address] [place] [address] Care Team Providers Care Business Information Manager Name Role Phone Vini Woods MD Primary Care Provider Allergies Active Allergy Reactions Criticality Noted Date Comments Diltiazem Swelling Medium 01/19/2008 Felodipine Swelling Medium 12/08/2002 Lisinopril Cough Low 01/19/2008 Medications allopurinoL (ZYLOPRIM) 100 mg tablet Take 1 tablet (100 mg total) by mouth daily 07/03/2023 Active finasteride (PROSCAR) 5 mg tablet Take 1 tablet (5 mg total) by mouth daily 07/04/2023 Active hydroxyurea (HYDREA) 500 mg capsule Take 1 capsule (500 mg total) by mouth 2 (two) times a day 08/15/2023 Active tamsulosin (FLOMAX) 0.4 mg extended release capsule Take 1 capsule (0.4 mg total) by mouth nightly 07/03/2023 Active acetaminophen (TYLENOL) 325 mg tabletIndicatio ns:Pain Take 2 tablets (650 mg total) by mouth every 6 (six) hours as needed for pain 30 tablet 09/24/2023 Active methocarbamoL (ROBAXIN) 500 mg tablet Take 1 tablet (500 mg total) by mouth 3 (three) times a day as needed for muscle spasms 42 tablet 09/24/2023 Active simvastatin (ZOCOR) 40 mg tablet Take 1 tablet (40 mg total) by mouth daily 30 tablet 09/25/2023 Active magnesium oxide (MAG-OX) 415 mg (250 mg elemental) tablet Take by mouth 10/01/2023 Active cholecalciferol (VITAMIN D-3) 25 mcg (1,000 unit) tablet Take 1 tablet (1,000 Units total) by mouth daily 10/01/2023 Active loratadine (CLARITIN) 10 mg tablet Take 1 tablet (10 mg total) by mouth 04/06/2023 Active losartan (COZAAR) 50 mg tablet Take 0.5 tablets (25 mg total) by mouth 04/10/2023 Active hydroCHLOROthia zide (HYDRODIURIL) 25 mg tablet Take 0.5 tablets (12.5 mg total) by mouth 04/14/2023 Active guaiFENesin (ROBITUSSIN) 400 mg tablet Take 1 tablet (400 mg total) by mouth 11/02/2023 Active potassium chloride ER 20 mEq CR tablet Take 1 tablet (20 mEq total) by mouth daily 09/10/2023 Active tiotropium-olod ateroL (STIOLTO) 2.5-2.5 mcg/actuation inhaler Inhale 07/03/2023 Active Active Problems Problem Noted Date Diagnosed Date Essential (primary) hypertension 12/05/2023 Benign essential hypertension 12/05/2023 Gout 12/05/2023 Gastroesophageal reflux disease 12/05/2023 Chronic obstructive pulmonary disease 12/05/2023 Vitamin D deficiency 12/05/2023 Vertigo 12/05/2023 Thrombocytosis 12/05/2023 Stage 3a chronic kidney disease 12/05/2023 Right knee pain 12/05/2023 Prediabetes 12/05/2023 Low back pain 12/05/2023 Hypomagnesemia 12/05/2023 Hypokalemia 12/05/2023 Hypertensive chronic kidney disease with stage 1 through stage 4 chronic kidney disease, or unspecified chronic kidney disease 12/05/2023 Hyperlipidemia 12/05/2023 Hearing loss 12/05/2023 Acute traumatic pain 09/21/2023 Assessment & Plan (09/24/2023 12:24 PM CDT): - Tylenol 650mg q6h PRN - Robaxin 500mg TID PRN - Oxycodone 5mg q4h PRN Discharge planning issues 09/21/2023 Assessment & Plan (09/24/2023 12:24 PM CDT): - 09/20: awaiting PT/OT evaluation, likely need placement - 09/21: case management initial assessment completed - PT rec rehab, awaiting OT recs - 09/22: Medically stable for discharge - 09/23: Discharged home with outpatient PT/OT Fall, initial encounter 09/20/2023 Assessment & Plan (09/23/2023 2:13 PM CDT): MGLF, hitting head against rocks, no loss of consciousness, no syncope. Found to have left scalp laceration, C1 fracture, left orbital floor fracture with entrapment. GCS15. Secondary notable for 10cm laceration to L forehead, 4cm laceration to R forehead, L orbital entrapment. CXR stable. CT h/cspine/face with L frontal hematoma and laceration, left inferior orbital blowout fracture with c/f entrapment, Type III odontoid fracture. CTA H/N without evidence of arterial injury. CT CAP without injury. - NPO overnight hospital day 0 given aspiration risk, consider advancing in the morning - 09/22: Tolerating regular diet Fracture of orbit ([facility]) 09/20/2023 Assessment & Plan (09/24/2023 12:21 PM CDT): Patient endorses some mild blurriness in left eye. Left eye mobility restriction with abduction, presumably to chemosis and orbital swelling. - Seen by Ophtho c/s - No c/f entrapment - HOB elevation, open-mouth sneezing, no nose-blowing, cool compresses for comfort - Outpatient Ophthalmology follow-up in 2 weeks at [facility] - seen by ENT consult, plan to delay repair facial fractures pending cervical spine precautions, plan to follow-up in 1 week ENT facial plastics clinic Odontoid fracture ([facility]) 09/20/2023 Assessment & Plan (09/24/2023 12:21 PM CDT): - Ortho Spine consult - CTA Head/neck (09/19): Type III odontoid fracture with mild anterior subluxation of C2 with respect to C1, concerning for ligamentous injury. Possible associated epidural hematoma. Recommend further evaluation with cervical spine MRI. No evidence of acute arterial injury in the head and neck. - MRI C spine (09/19): Type III odontoid fracture with thin ventral and dorsal epidural hematomas extending from the craniocervical junction to C3-C4, normal spinal cord signal, advanced multilevel cervical spondylosis with [id number] neuroforaminal stenosis and no high-grade spinal canal stenosis. - C-spine precautions. C-collar at all times. HOB<30. Log roll - upright x-rays including odontoid view (09/20): No significant interval change in mildly displaced odontoid fracture with anterior subluxation of C2 on C1. Unchanged mild anterolisthesis of C3 on C4. Unchanged multilevel severe degenerative changes throughout the cervical spine, mild prevertebral soft tissue swelling - [place] cervical collar with occipital extension - non-operative management - Upright Cspine xr in brace (09/20): Interval improvement in the alignment of the known odontoid fracture. Severe lower cervical degenerative disc disease - Serial neuro checks - HOLD dvt ppx r/t epidural hematoma, continue mechanical ppx - PT/OT- cleared for home with assist - F/U in 2 weeks with Ortho Spine with repeat C-spine XRs Laceration of head 09/20/2023 Assessment & Plan (09/24/2023 12:22 PM CDT): Right vertical 3 cm forehead laceration and horizontal 6 cm forehead laceration on the left status post closure with ENT in the ED (closed with absorbable sutures) - nasal precautions, no nose blowing. Open mouth sneezing. - Wound care: bacitracin TID x 3 days followed by aquafor TID x 11 days - F/U in 1 weeks with ENT Facial Plastics Clinic Hypertension 09/20/2023 Assessment & Plan (09/24/2023 12:23 PM CDT): - Home meds: HCTZ 12.5mg, Losartan 25mg- resume on discharge - Further management per PCP Gout 09/20/2023 Assessment & Plan (09/20/2023 10:24 PM CDT): - Home meds: Allopurinol 100mg daily, hydroxyurea 500mg daily GERD (gastroesophageal reflux disease) Assessment & Plan (09/24/2023 12:24 PM CDT): - Home med: omeprazole 20mg daily - Further management per PCP COPD (chronic obstructive pulmonary disease) Assessment & Plan (09/20/2023 10:25 PM CDT): - Home med: tiotroprium 2.5mcg- olodaterol 2.5mcg daily Immunizations Name Administration Dates Next Due Tdap 09/20/2023 Medical History Medical History Date Comments Hypertension Gastric reflux Gout COPD (chronic obstructive pulmonary disease) (HC C) Social History Tobacco Use Types Packs/Day Years Used Date Smoking Tobacco: Former Cigarettes Smokeless Tobacco: Never Tobacco Cessation:Counseling Given: Not Answered Alcohol Use Standard Drinks/Week Comments Not Currently 0 (1 standard drink = 0.6 oz pur e alcohol) Personal Safety Answer Date Recorded Have you ever been in or are you currently in a harmful physical or emotional relationship or is someone making you feel afraid or unsafe? Denies 09/19/2023 Sex and Gender Information Value Date Recorded Sex Assigned at Not on file Legal Sex Male 7:23 PM [employer] Gender Identity Not on file Sexual Orientation Not on file Obstetrics History Last Filed Vital Signs Vital Sign Reading Time Taken Comments Blood Pressure 133/72 09/24/2023 11:30 AM CDT Pulse 73 09/24/2023 11:30 AM CDT Temperature 36.8 ??C (98.2 ??F) 09/24/2023 1 1:30 AM CDT Respiratory Rate 18 09/24/2023 11:3 0 AM CDT Oxygen Saturation 97% 09/24/2023 11: 30 AM CDT Inhaled Oxygen Concentration - - Weight 101.9 kg (224 lb 10.4 oz) 09/20/2023 8:07 PM CDT Height 177.8 cm (5' 10 ) 09/20/2023 8:07 PM CDT Body Mass Index 32.23 09/20/2023 8:07 PM CDT Plan of Treatment Health Maintenance Due Date Last Done Comments Depression Screening 1935 Hepatitis B Screening 1953 Well Visit 65+ 2000 Zoster Vaccine (2 of 2) 05/04/2020 03/09/2020, 02/27 Influenza Vaccine (#1) 2024 3, 02/22/2022, 03/24/2020, Additional history exists Fall Risk Assessment 09/23/2024 09/24/2023 DTaP/Tdap/Td Vaccine (3 - Td or Tdap) 09/19/2033 09/20/2023, 02/27/2019, 02/09/2009 Pneumococcal vaccine 65+ Completed 016, 11/22/2014, 04/24/2011, Additional history exists Insurance MEDICARE [facility] MEDICARE [facility] MEDICARE Advance Directives For more information, please contact: [phone] * Full Code (Latest Code Status on File) Date Activated Date Inactivated Comments 09/20/2023 7:54 PM 09/24/2023 5:56 PM Care Teams Business Information Manager Relationship Specialty Start Date End Date Vini Woods MD PCP - General 08/15/11
--- OUTSIDE RECORDS SUMMARY | 2024-07-22 14:23 | XMS_ITS | Referral Summary ---
Author Organization [facility] Address [address] [place] [address] Care Team Providers Care Wall Cleaner Name Role Phone Vini Woods MD Primary Care Provider [phone] Allergies Active Allergy Reactions Criticality Noted Date [...] 09/22: Tolerating regular diet Fracture of orbit ([facility]) 09/20/2023 Assessment & Plan (09/24/2023 12:21 PM CDT): Patient endorses some mild blurriness in left eye. Left eye mobility restriction with abduction, presumably to chemosis and orbital swelling. - Seen by Ophtho c/s - No c/f entrapment - HOB elevation, open-mouth sneezing, no nose-blowing, cool compresses for comfort - Outpatient Ophthalmology follow-up in 2 weeks at [facility] - seen by ENT consult, plan to delay repair facial fractures pending cervical spine precautions, plan to follow-up in 1 week ENT facial plastics clinic Odontoid fracture ([facility]) 09/20/2023 Assessment & Plan (09/24/2023 12:21 PM [...] cord signal, advanced multilevel cervical spondylosis with [id number] neuroforaminal stenosis and no high-grade spinal canal stenosis. - C-spine precautions. C-collar at all times. HOB<30. Log roll - upright x-rays including odontoid view (09/20): No significant interval change in mildly displaced odontoid fracture with anterior subluxation of C2 on C1. Unchanged mild anterolisthesis of C3 on C4. Unchanged multilevel severe degenerative changes throughout the cervical spine, mild prevertebral soft tissue swelling - [place] J cervical collar with occipital extension - [...] Name Administration Dates Next Due Tdap 09/20/2023 Social History Tobacco Use Types Packs/Day Years [...] on file Legal Sex Male 7:23 PM [employer] Gender Identity Not on file Sexual Orientation Not on file Last Filed Vital Signs Vital Sign Reading [...] 09/20/2023 8:07 PM CDT Plan of Treatment Not on file Insurance MEDICARE [facility] MEDICARE [facility]IC[facility] Advance Directives For more information, please contact: [phone] * Full Code (Latest Code Status on File) Date Activated Date Inactivated Comments 09/20/2023 7:54 PM 09/24/2023 5:56 PM Care Teams Wall Cleaner Relationship Specialty Start Date End Date Vini Woods MD PCP - General 08/15/11
--- OUTSIDE RECORDS SUMMARY | 2024-07-22 14:23 | XMS_ITS | Continuity of Care Document ---
Author Name [facility] Organization [facility] Care Team Providers Care Animal Therapist Name Role Phone [facility] Unavailable Unavailable Problems Combined list of problems from Department of Defense and [facility] Affairs facilities. It does not include entries that were removed or entered in error. Problem Status Onset Date Problem Type Date of Resolution Comments Source Allergic rhinitis Active Condition [facility] Benign essential hypertension Active Condition [facility] Benign prostatic hyperplasia Active Condition [facility] Chronic kidney disease stage 3A Active Condition [facility] Chronic obstructive lung disease (SNOMED CT 24743593) Active Condition [facility] Elevated PSA Active Condition [facility] Fracture of cervical spine Active Condition [facility] Gastroesophageal reflux disease Active Condition [facility] Gout (SNOMED CT 09410397) Active Condition [facility] Hearing loss Active Condition [facility] Hyperlipidemia Active Condition [facility] Hypokalemia Active Condition [facility] Hypomagnesemia Active Condition [facility] Liver function tests outside reference range Active Condition [facility] Low back pain Active Condition [facility] Prediabetes Active Condition [facility] Right knee pain Active Condition [facility] Thrombocytosis Active Condition [facility] Vertigo Active Condition [facility] Vitamin D deficiency Active Condition [facility] Actinic Keratosis Inactive Condition 04/14/2023 [facility] Diverticulosis, Colonic Inactive Condition 04/14/2023 [facility] Impotence of organic origin Inactive Condition 04/14/2023 [facility] Osteoarthritis Inactive Condition 04/14/2023 [facility] Sleep Apnea (ICD-9-CM 780.57) Inactive Condition 04/14/2023 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 Medications Combined list of outpatient medications from Department of Defense and Veterans Affairs facilities.Medications provided include 1) outpatient medications from the last 15 months, and 2) patient-reported medications. Medication Details Route Status Patient Instructions Prescription Expires Prescription Number Last Dispense Date Ordering Provider Order Date Order Qty Source ALLOPURINOL 100MG TAB TAKE ONE TABLET BY MOUTH ONCE A DAY ORAL ACTIVE MOHINI HOOVER R 2023 [facility] CHOLECALCIF LIONEL 25MCG (1,000UNIT) TAB TAKE ONE TABLET BY MOUTH ONCE A DAY ORAL ACTIVE MOHINI HOOVER R 2023 [facility] DICLOFENAC NA 1% GEL,TOP APPLY 4 GM TO AFFECTED AREA(S) FOUR TIMES A DAY NEEDED FOR PAIN/INF LAMMATIO N; NOT MORE THAN 16 GRAMS DAILY TO ANY LOWER EXTREMIT Y JOINT. NOT MORE THAN 8 GRAMS DAILY TO ANY UPPER EXTREMIT Y JOINT. MAX 32GM/DAY OVER ALL JOINTS. (MEASURE DOSE WITH RULER ATTACHED INSIDE BOX) TOPICA L ACTIVE 03/17/2025 [id number] 4 MOHINI HOOVER R 2023 100 [facility] DICLOFENAC NA 1% GEL,TOP APPLY 4 GM TO AFFECTED AREA(S) FOUR TIMES A DAY NEEDED FOR PAIN/INF LAMMATIO N; NOT MORE THAN 16 GRAMS DAILY TO ANY LOWER EXTREMIT Y JOINT. NOT MORE THAN 8 GRAMS DAILY TO ANY UPPER EXTREMIT Y JOINT. MAX 32GM/DAY OVER ALL JOINTS. (MEASURE DOSE WITH RULER ATTACHED INSIDE BOX) TOPICA L DISCONT INUED 10/01/2024 [id number] 4 MOHINI HOOVER R 2023 100 [facility] DICLOFENAC NA 1% GEL,TOP APPLY 4 GM TO AFFECTED AREA(S) FOUR TIMES A DAY NEEDED FOR PAIN/INF LAMMATIO N; NOT MORE THAN 16 GRAMS DAILY TO ANY LOWER EXTREMIT Y JOINT. NOT MORE THAN 8 GRAMS DAILY TO ANY UPPER EXTREMIT Y JOINT. MAX 32GM/DAY OVER ALL JOINTS. (MEASURE DOSE WITH RULER ATTACHED INSIDE BOX) LORENZO Crowder DISCONT INUED 04/08/2024 [id number] 4 ADDI PACE MD 2022 100 [facility] FINASTERIDE 5MG TAB TAKE ONE TABLET BY MOUTH ONCE A DAY ORAL ACTIVE ADDI PACE MD 2018 [facility] GUAIFENESIN 400MG TAB TAKE ONE TABLET BY MOUTH EVERY 6 HOURS NEEDED TO THIN MUCUS. TAKE WITH 8 OUNCE GLASS OF WATER. ORAL ACTIVE 03/28/2025 [id number] 4 MOHINI HOOVER R 2023 360 [facility] GUAIFENESIN 400MG TAB TAKE ONE TABLET BY MOUTH EVERY 6 HOURS NEEDED TO THIN MUCUS. TAKE WITH 8 OUNCE GLASS OF WATER. ORAL DISCONT INUED 11/04/2024 [id number] 4 MOHINI HOOVER R 2023 360 [facility] HYDROCHLORO THIAZIDE 25MG TAB TAKE ONE-HALF TABLET BY MOUTH EVERY MORNING ORAL ACTIVE 03/28/2025 [id number] 4 MOHINI HOOVERY R 2023 45 [facility] HYDROCHLORO THIAZIDE 25MG TAB TAKE ONE-HALF TABLET BY MOUTH EVERY MORNING ORAL DISCONT INUED 04/14/2024 [id number] 4 MOHINI HOOVER R 2022 45 [facility] HYDROXYUREA 500MG CAP TAKE 1 CAPSULE BY MOUTH TWICE A DAY ORAL ACTIVE MOHINI HOOVER R 2023 [facility] LORATADINE 10MG TAB TAKE ONE TABLET BY MOUTH ONCE A DAY ON EMPTY STOMACH FOR ALLERGIE S ORAL ACTIVE 03/28/2025 [id number] 4 MOHINI HOOVER R 2023 90 [facility] LORATADINE 10MG TAB TAKE ONE TABLET BY MOUTH ONCE A DAY ON EMPTY STOMACH FOR ALLERGIE S ORAL DISCONT INUED 04/08/2024 [id number] 4 ADDI PACE MD 2022 90 [facility] LOSARTAN 50MG TAB TAKE ONE-HALF TABLET BY MOUTH ONCE A DAY TO LOWER BLOOD PRESSURE ORAL ACTIVE 03/28/2025 [id number] 4 KIKO,MOHINI LOONEY R 2023 45 [facility] LOSARTAN 50MG TAB TAKE ONE-HALF TABLET BY MOUTH ONCE A DAY TO LOWER BLOOD PRESSURE ORAL DISCONT INUED 04/10/2024 [id number] 4 KIKO,MOHINI LOONEY R 2022 45 [facility] MAGNESIUM OXIDE TAB TAKE 250 MG BY MOUTH ONCE A DAY ORAL ACTIVE MOHINI HOOVER R 2023 [facility] OLODATEROL 2.5MCG/TIOT ROPIUM 2.5MCG/ACTU AT INHL,ORAL,6 0D,4GM INHALE 1 PUFF BY ORAL INHALATI ON TWICE A DAY ADMINIST ER AT SAME TIME EACH DAY FOR BREATHIN G RESPIR ATORY (INHAL ATION) ACTIVE 03/28/2025 [id number] 4 MOHINI HOOVER R 2023 3 [facility] OLODATEROL 2.5MCG/TIOT ROPIUM 2.5MCG/ACTU AT [facility],ORAL,6 0D,4GM INHALE 1 PUFF BY ORAL INHALATI ON TWICE A DAY ADMINIST ER AT SAME TIME EACH DAY FOR BREATHIN G RESPIR ATORY (INHAL ATION) DISCONT INUED 07/04/2024 [id number] 4 MOHINI HOOVER R 2023 3 [facility] OLODATEROL 2.5MCG/TIOT ROPIUM 2.5MCG/ACTU AT [facility],ORAL,6 0D,4GM INHALE 1 PUFF BY ORAL INHALATI ON TWICE A DAY ADMINIST ER AT SAME TIME EACH DAY FOR KAREN PAGAN (INHAL ATION) DISCONT INUED 12/04/2023 [id number] 3 KIKO,MOHINI LOONEY R 2022 3 [facility] OMEPRAZOLE 20MG CAP,EC TAKE ONE CAPSULE BY MOUTH EVERY MORNING BEFORE A MEAL ORAL ACTIVE 09/11/2024 [id number] 4 MOHINI HOOVER R 2023 90 [facility] OMEPRAZOLE 20MG CAP,EC TAKE ONE CAPSULE BY MOUTH EVERY MORNING BEFORE A MEAL ORAL DISCONT INUED 12/04/2023 [id number] 3 KIKO,MOHINI LOONEY R 2022 90 [facility] POTASSIUM CHLORIDE 20MEQ TAB,SA (DISPERSIBL E) TAKE ONE TABLET BY MOUTH ONCE A DAY ORAL SUSPEND ED 03/28/2025 [id number] 5 MOHINI HOOVER R 2023 90 [facility] POTASSIUM CHLORIDE 20MEQ TAB,SA (DISPERSIBL E) TAKE ONE TABLET BY MOUTH ONCE A DAY ORAL DISCONT INUED 09/11/2024 [id number] 4 KIKO,MOHINI LONOEY R 2023 90 [facility] POTASSIUM CHLORIDE 20MEQ TAB,SA (DISPERSIBL E) TAKE ONE TABLET BY MOUTH ONCE A DAY ORAL DISCONT INUED 12/04/2023 [id number] 3 MOHINI HOOVER R 2022 90 [facility] SIMVASTATIN 80MG TAB TAKE ONE-HALF TABLET BY MOUTH EVERY EVENING TO LOWER CHOLESTE ROL (REPORT ANY UNEXPLAI RUFINO MUSCLE PAIN, TENDERNE SS OR WEAKNESS TO YOUR PRIMARY CARE PROVIDER ) ORAL ACTIVE 03/28/2025 [id number] 5 KIKO,MOHINI LOONEY R 2023 45 [facility] SIMVASTATIN 80MG TAB TAKE ONE-HALF TABLET BY MOUTH EVERY EVENING TO LOWER CHOLESTE ROL (REPORT ANY UNEXPLAI RUFINO MUSCLE PAIN, TENDERNE SS OR WEAKNESS TO YOUR PRIMARY CARE PROVIDER ) ORAL DISCONT INUED 04/08/2024 [id number] 4 ADDI PACE MD 2022 45 [facility] TAMSULOSIN HCL 0.4MG CAP TAKE 1 CAPSULE BY MOUTH EVERY EVENING ORAL ACTIVE MOHINI HOOVER LBNadia R 2023 [facility] Allergies, Adverse Reactions, Alerts Combined list of allergies from Department of [facility] and Veterans Affairs facilities. It does not include entries that were removed or entered in error. Substance Category Reaction Severity Reaction type Status Date Reported Comments Source DILTIAZEM Propensity to adverse reactions to drug (finding) Swelling active 8 [facility] FELODIPINE Propensity to adverse reactions to drug (finding) SWELLING (NON-SPECI FIC) active 3 [facility] LISINOPRIL Propensity to adverse reactions to drug (finding) Cough active 8 [facility] Immunizations Combined list of available immunizations from the Department of [facility] and Veterans Affairs facilities. Immunization Series Date Given Administered By Site Reaction Lot Number CVX Code Drug Vp Organizational Development Status Comments Source INFLUENZA, HIGH-DOSE, TRIVALENT, PF 2023 FARZANA NUNEZ RIGHT DELTO ID [id number] 135 complet ed [facility] TDAP 2023 115 complet ed [facility] INFLUENZA, HIGH-DOSE, QUADRIVALENT 2022 GARTH AGUILAR A RIGHT DELTO ID [id number] A 197 complet ed [facility] INFLUENZA, UNSPECIFIED FORMULATION 2021 88 complet ed [facility] INFLUENZA, UNSPECIFIED FORMULATION 2019 88 complet ed [facility] ZOSTER RECOMBINANT 2 2019 187 complet [facility] INFLUENZA, INJECTABLE, QUADRIVALENT, PRESERVATIVE FREE 1 2018 150 complet ed [facility] INFLUENZA, UNSPECIFIED FORMULATION 2018 88 complet ed [facility] [facility] TDAP 2018 115 complet ed Left Deltoid [facility] ZOSTER RECOMBINANT 1 2018 187 complet ed [facility] ZOSTER, UNSPECIFIED FORMULATION 1 2018 188 complet ed [facility] INFLUENZA, INJECTABLE, QUADRIVALENT, PRESERVATIVE FREE 1 2017 150 complet ed [facility] INFLUENZA, INJECTABLE, QUADRIVALENT 1 2016 158 complet ed [facility] INFLUENZA, UNSPECIFIED FORMULATION 2016 88 complet ed [place] [facility] INFLUENZA, INJECTABLE, QUADRIVALENT 1 2015 158 complet ed [facility] INFLUENZA, UNSPECIFIED FORMULATION 2015 88 complet ed [facility] PNEUMOCOCCAL POLYSACCHARID E PPV23 2 2015 33 complet ed [facility] INFLUENZA, SEASONAL, INJECTABLE 1 2014 141 [facility]JUGATE PCV 13 2014 133 complet ed [facility] INFLUENZA, UNSPECIFIED FORMULATION 2014 88 complet ed [facility] INFLUENZA, UNSPECIFIED FORMULATION 2014 88 complet ed [place] [facility] INFLUENZA, INJECTABLE, QUADRIVALENT 1 2013 158 complet ed [facility] INFLUENZA, UNSPECIFIED FORMULATION 2013 88 complet ed [facility] INFLUENZA, UNSPECIFIED FORMULATION 2013 88 complet ed [facility] INFLUENZA, HIGH DOSE SEASONAL 1 2012 135 complet ed [facility] INFLUENZA, UNSPECIFIED FORMULATION 2012 88 complet ed [facility] INFLUENZA, UNSPECIFIED FORMULATION 2011 88 complet ed [facility] INFLUENZA, HIGH DOSE SEASONAL 1 2011 135 complet ed [facility] INFLUENZA, UNSPECIFIED FORMULATION 2011 88 complet ed [facility] PNEUMOCOCCAL POLYSACCHARID E PPV23 1 2010 33 complet ed [facility] PNEUMOCOCCAL, UNSPECIFIED FORMULATION 2010 109 complet ed [facility] INFLUENZA, UNSPECIFIED FORMULATION 2010 88 complet ed [facility] INFLUENZA, UNSPECIFIED FORMULATION 2010 88 complet ed [facility] TD(ADULT) UNSPECIFIED FORMULATION 2008 139 complet ed Left Deltoid [facility] INFLUENZA, UNSPECIFIED FORMULATION 2007 88 complet ed [facility] INFLUENZA, UNSPECIFIED FORMULATION 2007 88 complet ed per patient [facility] INFLUENZA, UNSPECIFIED FORMULATION 2005 88 complet ed [facility] INFLUENZA (HISTORICAL) 2002 88 complet ed [facility] PNEUMOCOCCAL, UNSPECIFIED FORMULATION 2001 109 complet ed [facility] INFLUENZA, UNSPECIFIED FORMULATION 1998 88 complet ed [facility] TETANUS TOXOID, UNSPECIFIED FORMULATION 1998 TOBIAS VIRGEN 112 complet ed [facility] Results Combined list of recent chemistry, hematology and other laboratory results from Department of Defense and Veterans Affairs, ranging from 15 months to all on record, depending upon the facility. Order Name Results Value Reference Range Date Interpretation Specimen Comments Source TSH (MA-PB-STL) THYROTROPIN [UNITS/VOLUM E] IN SERUM OR PLASMA 2.128 u[IU]/ mL 0.47 - 5 12/19 Specimen Type: SERUM No comment entered. Ordering Provider: NADER HOOVER Report Released Date/Time: Dec 03, 2022 01:16 PM Reporting Lab: [facility] [address] [place] [address] Performing Lab: [facility] [address] [place] [phone] [facility] HGA1C HEMOGLOBIN A1C/HEMOGLOB IN.TOTAL IN BLOOD 5.7 4.0 - 6.0 12/19 Specimen Type: BLOOD No comment entered. Ordering Provider: NADER HOOVER Report Released Date/Time: Dec 03, 2022 01:16 PM Reporting Lab: [facility] [address] [place] [phone] Performing Lab: [facility] [address] [place] [phone] [facility] VITAMIN D, 25-HYDROXY 25-HYDROXYVI TAMIN D3 [MASS/VOLUME ] IN SERUM OR PLASMA 73.4 ng/mL 30 - 96 12/19 Specimen Type: SERUM No comment entered. Ordering Provider: NADER HOOVER Report Released Date/Time: Dec 03, 2022 01:16 PM Reporting Lab: [address] [phone] Performing Lab: [address] [phone] [place] [address] LIPID PANEL (STL) CHOLESTEROL [MASS/VOLUME ] IN SERUM OR PLASMA 143 mg/dL 0 - 200 12/19 Specimen Type: PLASMA Comment: No hemolysis noted. Ordering Provider: NADER HOOVER Report Released Date/Time: Dec 03, 2022 01:16 PM Reporting Lab: [facility] [address] [place] [phone] Performing Lab: [address] [address] [facility] LIPID PANEL (STL) TRIGLYCERIDE [MASS/VOLUME ] IN SERUM OR PLASMA 116 mg/dL 0 - 150 12/19 Specimen Type: PLASMA Comment: No hemolysis noted. Ordering Provider: NADER HOOVER Report Released Date/Time: Dec 03, 2022 01:16 PM Reporting Lab: [facility] [address] [place] [phone] Performing Lab: [address] [address] [facility] LIPID PANEL (STL) CHOLESTEROL IN LDL [MASS/VOLUME ] IN SERUM OR PLASMA BY CALCULATION 82 mg/dL 12/19 Specimen Type: PLASMA Comment: No hemolysis noted. Ordering Provider: NADER HOOVER Report Released Date/Time: Dec 03, 2022 01:16 PM Reporting Lab: [facility] [address] [place] [phone] Performing Lab: [facility] [address] [place] [phone] [facility] LIPID PANEL (STL) CHOLESTEROL IN HDL [MASS/VOLUME ] IN SERUM OR PLASMA 38 mg/dL 12/19 L Specimen Type: PLASMA Comment: No hemolysis noted. Ordering Provider: NADER HOOVER Report Released Date/Time: Dec 03, 2022 01:16 PM Reporting Lab: [facility] [address] [place] [phone] Performing Lab: [facility] [address] [place] [phone] [facility] COMPREHENSI VE METABOLIC PANEL CREATININE [MASS/VOLUME ] IN SERUM OR PLASMA 1.27 mg/dL 0.7 - 1.3 12/19 Specimen Type: PLASMA Comment: No hemolysis noted. Ordering Provider: NADER HOOVER Report Released Date/Time: Dec 03, 2022 01:16 PM Reporting Lab: [facility] [address] [place] [phone] Performing Lab: [facility] [address] [place] [phone] [facility] COMPREHENSI VE METABOLIC PANEL UREA NITROGEN [MASS/VOLUME ] IN SERUM OR PLASMA 11 mg/dL 9 - 25 12/19 Specimen Type: PLASMA Comment: No hemolysis noted. Ordering Provider: NADER HOOVER Report Released Date/Time: Dec 03, 2022 01:16 PM Reporting Lab: [facility] [address] [place] [phone] Performing Lab: [facility] [address] [place] [phone] [facility] COMPREHENSI VE METABOLIC PANEL GLUCOSE [MASS/VOLUME ] IN SERUM OR PLASMA 95 mg/dL 72 - 99 12/19 Specimen Type: PLASMA Comment: No hemolysis noted. Ordering Provider: NADER HOOVER Report Released Date/Time: Dec 03, 2022 01:16 PM Reporting Lab: [facility] [address] [place] [phone] Performing Lab: [facility] [address] [place] [phone] [place] [address] COMPREHENSI VE METABOLIC PANEL SODIUM [MOLES/VOLUM E] IN SERUM OR PLASMA 137 meq/L 136 - 145 12/19 Specimen Type: PLASMA Comment: No hemolysis noted. Ordering Provider: NADER HOOVER Report Released Date/Time: Dec 03, 2022 01:16 PM Reporting Lab: [facility] [address] [place], [place] [phone] Performing Lab: [address] [phone] [place] [address] COMPREHENSI VE METABOLIC PANEL POTASSIUM [MOLES/VOLUM E] IN SERUM OR PLASMA 4.3 meq/L 3.5 - 5 12/19 Specimen Type: PLASMA Comment: No hemolysis noted. Ordering Provider: NADER HOOVER Report Released Date/Time: Dec 03, 2022 01:16 PM Reporting Lab: [facility] [address] [place] [phone] Performing Lab: [address] [phone] [place] [address] COMPREHENSI VE METABOLIC PANEL CHLORIDE [MOLES/VOLUM E] IN SERUM OR PLASMA 101 meq/L 98 - 107 12/19 Specimen Type: PLASMA Comment: No hemolysis noted. Ordering Provider: NADER HOOVER Report Released Date/Time: Dec 03, 2022 01:16 PM Reporting Lab: [facility] [address] [place] [phone] Performing Lab: [facility] [address] [place] [phone] [facility] COMPREHENSI VE METABOLIC PANEL CARBON DIOXIDE, TOTAL [MOLES/VOLUM E] IN SERUM OR PLASMA 26 meq/L 22 - 31 12/19 Specimen Type: PLASMA Comment: No hemolysis noted. Ordering Provider: NADER HOOVER Report Released Date/Time: Dec 03, 2022 01:16 PM Reporting Lab: [facility] [address] [facility] [address] Performing Lab: [facility] [address] [facility] [phone] [facility] COMPREHENSI VE METABOLIC PANEL CALCIUM [MASS/VOLUME ] IN SERUM OR PLASMA 10.2 mg/dL 8.4 - 10.4 12/19 Specimen Type: PLASMA Comment: No hemolysis noted. Ordering Provider: NADER HOOVER Report Released Date/Time: Dec 03, 2022 01:16 PM Reporting Lab: [facility] [address] [place] [phone] Performing Lab: [facility] [address] [place] [phone] [facility] COMPREHENSI VE METABOLIC PANEL PROTEIN [MASS/VOLUME ] IN SERUM OR PLASMA 7.6 g/dL 6 - 8.6 12/19 Specimen Type: PLASMA Comment: No hemolysis noted. Ordering Provider: NADER HOOVER Report Released Date/Time: Dec 03, 2022 01:16 PM Reporting Lab: [facility] [address] [place] [phone] Performing Lab: [facility] [address] [place] [phone] [facility] COMPREHENSI VE METABOLIC PANEL ALBUMIN [MASS/VOLUME ] IN SERUM OR PLASMA 4.5 g/dL 3.4 - 5 12/19 Specimen Type: PLASMA Comment: No hemolysis noted. Ordering Provider: NADER HOOVER Report Released Date/Time: Dec 03, 2022 01:16 PM Reporting Lab: [facility] [address] [place] [phone] Performing Lab: [facility] [address] [place] [phone] [facility] COMPREHENSI VE METABOLIC PANEL BILIRUBIN.TO ANISHA [MASS/VOLUME ] IN SERUM OR PLASMA 0.8 mg/dL 0.2 - 1.2 12/19 Specimen Type: PLASMA Comment: No hemolysis noted. Ordering Provider: NADER HOOVER Report Released Date/Time: Dec 03, 2022 01:16 PM Reporting Lab: [address] [phone] Performing Lab: [address] [phone] [place] [address] COMPREHENSI VE METABOLIC PANEL ALKALINE PHOSPHATASE [ENZYMATIC ACTIVITY/VOL UME] IN SERUM OR PLASMA 73 U/L 40 - 150 12/19 Specimen Type: PLASMA Comment: No hemolysis noted. Ordering Provider: NADER HOOVER Report Released Date/Time: Dec 03, 2022 01:16 PM Reporting Lab: [address] [phone] Performing Lab: [address] [phone] [facility] COMPREHENSI VE METABOLIC PANEL ASPARTATE AMINOTRANSFE RASE [ENZYMATIC ACTIVITY/VOL UME] IN SERUM OR PLASMA 42 U/L 5 - 34 12/19 H Specimen Type: PLASMA Comment: No hemolysis noted. Ordering Provider: NADER HOOVER Report Released Date/Time: Dec 03, 2022 01:16 PM Reporting Lab: [address] [address] Performing Lab: [address] [phone] [facility] COMPREHENSI VE METABOLIC PANEL ALANINE AMINOTRANSFE RASE [ENZYMATIC ACTIVITY/VOL UME] IN SERUM OR PLASMA 42 U/L 8 - 40 12/19 H Specimen Type: PLASMA Comment: No hemolysis noted. Ordering Provider: NADER HOOVER Report Released Date/Time: Dec 03, 2022 01:16 PM Reporting Lab: [address] [phone] Performing Lab: [address] [place] [address] [facility] COMPREHENSI VE METABOLIC PANEL GLOMERULAR FILTRATION RATE/1.73 SQ M.PREDICTED [VOLUME RATE/AREA] IN SERUM, PLASMA OR BLOOD BY CREATININE-B ASED FORMULA (CKD-EPI 2020) 54.7 12/19 Specimen Type: PLASMA Comment: No hemolysis noted. Ordering Provider: NADER HOOVER Report Released Date/Time: Dec 03, 2022 01:16 PM Reporting Lab: [address] [address] Performing Lab: [address] [address] [facility] CBC LEUKOCYTES [#/VOLUME] IN BLOOD BY AUTOMATED COUNT 5.0 10*3/u L 3.6 - 11.2 12/19 Specimen Type: BLOOD No comment entered. Ordering Provider: NADER HOOVER Report Released Date/Time: Dec 03, 2022 01:16 PM Reporting Lab: [address] [address] Performing Lab: [address] [address] [facility] CBC ERYTHROCYTES [#/VOLUME] IN BLOOD BY AUTOMATED COUNT 4.98 10*6/u L 4.10 - 5.70 12/19 Specimen Type: BLOOD No comment entered. Ordering Provider: NADER HOOVER Report Released Date/Time: Dec 03, 2022 01:16 PM Reporting Lab: [facility] [address] [place] [id number] Performing Lab: [address] [address] [facility] CBC HEMOGLOBIN [MASS/VOLUME ] IN BLOOD 14.8 g/dL 13.1 - 16.8 12/19 Specimen Type: BLOOD No comment entered. Ordering Provider: NADER HOOVER Report Released Date/Time: Dec 03, 2022 01:16 PM Reporting Lab: [address] [address] Performing Lab: [facility] [address] [facility] [address] [facility] CBC HEMATOCRIT [VOLUME FRACTION] OF BLOOD 45.8 38.2 - 48.4 12/19 Specimen Type: BLOOD No comment entered. Ordering Provider: NADER HOOVER BY R Report Released Date/Time: Dec 03, 2022 01:16 PM Reporting Lab: [facility] [address] [place] [phone] Performing Lab: [facility] [address] [place] [phone] [facility] CBC MCV [ENTITIC VOLUME] BY AUTOMATED COUNT 92.0 fL 80.0 - 100.0 12/19 Specimen Type: BLOOD No comment entered. Ordering Provider: NADER HOOVER BY R Report Released Date/Time: Dec 03, 2022 01:16 PM Reporting Lab: [address] [address] Performing Lab: [address] [address] [facility] CBC MCH [ENTITIC MASS] BY AUTOMATED COUNT 29.7 pg 27.0 - 34.0 12/19 Specimen Type: BLOOD No comment entered. Ordering Provider: NADER HOOVER BY R Report Released Date/Time: Dec 03, 2022 01:16 PM Reporting Lab: [facility] [address] [place] [phone] Performing Lab: [address] [address] [facility] CBC MCHC [MASS/VOLUME ] BY AUTOMATED COUNT 32.3 g/dL 33.0 - 36.0 12/19 L Specimen Type: BLOOD No comment entered. Ordering Provider: NADER HOOVER BY R Report Released Date/Time: Dec 03, 2022 01:16 PM Reporting Lab: [facility] [address] [place] [phone] Performing Lab: [facility] [place] [address] [address] [facility] CBC PLATELETS [#/VOLUME] IN BLOOD BY AUTOMATED COUNT 555 10*3/u L 150 - 400 12/19 H Specimen Type: BLOOD No comment entered. Ordering Provider: NADER HOOVER R Report Released Date/Time: Dec 03, 2022 01:16 PM Reporting Lab: [address] [address] Performing Lab: [address] [phone] [place] [address] CBC PLATELET MEAN VOLUME [ENTITIC VOLUME] IN BLOOD BY AUTOMATED COUNT 10.2 fL 7.5 - 11.2 12/19 Specimen Type: BLOOD No comment entered. Ordering Provider: NADER HOOVER BY R Report Released Date/Time: Dec 03, 2022 01:16 PM Reporting Lab: [address] [address] Performing Lab: [address] [address] [facility] CBC ERYTHROCYTE DISTRIBUTION WIDTH [RATIO] BY AUTOMATED COUNT 14.0 11.8 - 15.1 12/19 Specimen Type: BLOOD No comment entered. Ordering Provider: NADER HOOVER BY Teresa Report Released Date/Time: Dec 03, 2022 01:16 PM Reporting Lab: [address] [address] Performing Lab: [address] [address] [facility] CBC LYMPHOCYTES/ 100 LEUKOCYTES IN BLOOD BY AUTOMATED COUNT 33 12/19 Specimen Type: BLOOD No comment entered. Ordering Provider: NADER HOOVER BY Teresa Report Released Date/Time: Dec 03, 2022 01:16 PM Reporting Lab: [address] [address] Performing Lab: [address] [address] [facility] CBC MONOCYTES/10 0 LEUKOCYTES IN BLOOD BY AUTOMATED COUNT 12 12/19 Specimen Type: BLOOD No comment entered. Ordering Provider: NADER HOOVER BY R Report Released Date/Time: Dec 03, 2022 01:16 PM Reporting Lab: [facility] [address] [place] [address] Performing Lab: [facility] [address] [place] [phone] [facility] CBC NEUTROPHILS/ 100 LEUKOCYTES IN BLOOD BY AUTOMATED COUNT 52 12/19 Specimen Type: BLOOD No comment entered. Ordering Provider: NADER HOOVER BY R Report Released Date/Time: Dec 03, 2022 01:16 PM Reporting Lab: [facility] [address] [place] [address] Performing Lab: [facility] [address] [place] [phone] [place] [address] CBC EOSINOPHILS/ 100 LEUKOCYTES IN BLOOD BY AUTOMATED COUNT 1 12/19 Specimen Type: BLOOD No comment entered. Ordering Provider: NADER HOOVER BY R Report Released Date/Time: Dec 03, 2022 01:16 PM Reporting Lab: [facility] [address] [place] [address] Performing Lab: [facility] [address] [place] [phone] [facility] CBC BASOPHILS/10 0 LEUKOCYTES IN BLOOD BY AUTOMATED COUNT 1 12/19 Specimen Type: BLOOD No comment entered. Ordering Provider: NADER HOOVER BY R Report Released Date/Time: Dec 03, 2022 01:16 PM Reporting Lab: [facility] [address] [place] [address] Performing Lab: [facility] [address] [place] [phone] CBC LYMPHOCYTES [#/VOLUME] IN BLOOD BY AUTOMATED COUNT 1.65 10*3/u L 0.77 - 4.50 12/19 Specimen Type: BLOOD No comment entered. Ordering Provider: NADER HOOVER BY R Report Released Date/Time: Dec 03, 2022 01:16 PM Reporting Lab: [facility] [address] [place] [phone] Performing Lab: [facility] [address] [place] [phone] [place] [address] CBC MONOCYTES [#/VOLUME] IN BLOOD BY AUTOMATED COUNT 0.58 10*3/u L 0.19 - 1.50 12/19 Specimen Type: BLOOD No comment entered. Ordering Provider: NADER HOOVER BY R Report Released Date/Time: Dec 03, 2022 01:16 PM Reporting Lab: [facility] [address] [place] [address] Performing Lab: [address] [phone] [place] [address] CBC NEUTROPHILS [#/VOLUME] IN BLOOD BY AUTOMATED COUNT 2.56 10*3/u L 2.10 - 8.00 12/19 Specimen Type: BLOOD No comment entered. Ordering Provider: NADER HOOVER BY R Report Released Date/Time: Dec 03, 2022 01:16 PM Reporting Lab: [facility] [address] [place] [phone] Performing Lab: [facility] [address] [place] [phone] [place] [address] CBC EOSINOPHILS [#/VOLUME] IN BLOOD BY AUTOMATED COUNT 0.07 10*3/u L 0.00 - 0.60 12/19 Specimen Type: BLOOD No comment entered. Ordering Provider: ANDER HOOVER BY R Report Released Date/Time: Dec 03, 2022 01:16 PM Reporting Lab: [facility] [address] [place] [phone] Performing Lab: [facility] [address] [place] [phone] [facility] CBC BASOPHILS [#/VOLUME] IN BLOOD BY AUTOMATED COUNT 0.05 10*3/u L 0.00 - 0.20 12/19 Specimen Type: BLOOD No comment entered. Ordering Provider: NADER HOOVER BY R Report Released Date/Time: Dec 03, 2022 01:16 PM Reporting Lab: [facility] [address] [facility] [address] Performing Lab: [facility] [address] [place] [address] [facility] Vital Signs Combined list of inpatient and outpatient Vital Signs from Department of Defense and Veterans Affairs, ranging from 12 months to all on record, depending upon the facility. Vital Sign Value Date Comments Source SYSTOLIC BLOOD PRESSURE 158 03/27/2024 10:30:38 [facility] DIASTOLIC BLOOD PRESSURE 59 03/27/2024 10:30:38 [facility] PULSE OXIMETRY 93 03/27/2024 10:30:38 [facility] WEIGHT 226.4 03/27/2024 10:30:[address] [facility] BMI 33kg/m2 03/27/2024 10:30:38 [facility] PAIN 0 03/27/2024 10:30:38 [facility] TEMPERATURE 97.6 03/27/2024 10:30:38 [facility] PULSE 55 03/27/2024 10:30:38 [facility] RESPIRATION 20 03/27/2024 10:30:38 [facility] SYSTOLIC BLOOD PRESSURE 148 10/01/2023 14:13:33 [facility] DIASTOLIC BLOOD PRESSURE 82 10/01/2023 14:13:33 [facility] PULSE OXIMETRY 98 10/01/2023 14:13:33 [facility] WEIGHT 218.8 10/01/2023 14:13:33 [facility] BMI 31kg/m2 10/01/2023 14:13:33 [facility] PAIN 4 10/01/2023 14:13:33 [facility] TEMPERATURE 97.7 10/01/2023 14:13:33 [facility] PULSE 54 10/01/2023 14:13:33 [facility] RESPIRATION 20 10/01/2023 14:13:33 [facility] Encounters Combined list of: 1) Encounters from Department of [facility] Affairs facilities going back up to thelast 18 months. 2) Encounters from the Department of [facility] facilities going back up to 280 months. Location Location Details Encounter Type Encounter Number Reason For Visit Attending Provider ADM Date DC Date Status Disposition Source [facility] Outpatient Encounter [id number] 01/[address] [facility] Outpatient Encounter [id number] 02/[address] 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
NADER HOOVER BY Teresa 04/12 [facility] GAIT TRAIN[facility] THER[facility] [id number] Diagnos is: ICD-10- CM M25.561 Pain in right knee
PORFIRIO HAMILTON NN Ovi 05/02 [facility] Outpatient Encounter [id number] NADER HOOVER BY Teresa 05/02 [facility] Outpatient Encounter [id number] 05/[address] [facility] Outpatient Encounter [id number] 06/19 [facility] N [facility] Outpatient Encounter [id number] 08/[address] [facility] Outpatient Encounter [id number] LORRAINE FORD A 09/[address] [facility] Outpatient Encounter [id number] 09/[address] [facility] Outpatient Encounter [id number] 09/19 [facility] OFFICE O/P EST MOD 30 MIN [id number] Diagnos is: ICD-10- CM I10 Essenti al (primar y) hyperte nsion<b r/> NADER HOOVER R 09/30 [facility] Outpatient Encounter [id number] 10/[address] [facility] Outpatient Encounter [id number] NICOLÁS MILNER R 11/[address] [facility] Outpatient Encounter [id number] 03/[address] [facility] Outpatient Encounter [id number] EMA NUNEZ C 03/26 [facility] OFFICE O/P EST MOD 30 MIN [id number] Diagnos is: ICD-10- CM I10 Essenti al (primar y) hyperte nsion<b r/> NADER HOOVER BY R 03/27 [facility] Outpatient Encounter [id number] SARAH HARPER Jane L 03/30 [facility] Outpatient Encounter [id number] 03/31 [facility] Outpatient Encounter [id number] 04/14 [facility] Social History Combined list of available smoking, tobacco, and other social history from Department of Defense and Veterans Affairs facilities. Social History Type Response Date Comment Source Tobacco smoking status PRIS PR-TOBACCO FORMER USER 10/01/2023 [facility] History of tobacco use PR-TOBACCO QUIT 15 YRS OR MORE 10/01/2023 [facility] History of tobacco use PR-TOBACCO QUIT 15 YRS OR MORE 10/12/2022 [facility] History of tobacco use PR-TOBACCO FORMER USER 09/27/2020 [facility] History of tobacco use PR-TOBACCO QUIT 15 YRS OR MORE 08/23/2018 [facility] History of tobacco use LIFETIME NON-USER OF TOBACCO 02/05/2017 [facility] History of tobacco use QUIT TOBACCO >7 YEARS AGO 01/05/2016 [facility] History of tobacco use QUIT TOBACCO >7 YEARS AGO 11/22/2014 [facility] History of tobacco use LIFETIME NON-USER OF TOBACCO 12/30/2013 [facility] History of tobacco use QUIT TOBACCO >7 YEARS AGO 10/28/2012 [facility] History of tobacco use QUIT TOBACCO >7 YEARS AGO 06/19/2006 [facility] History of tobacco use CURRENT NON-TOBACCO USER-HX OF USE 12/11/2005 [facility] History of tobacco use CURRENT NON-TOBACCO USER-HX OF USE 06/20/2005 [facility] History of tobacco use CURRENT NON-TOBACCO USER-HX OF USE 01/16/2005 [facility] History of tobacco use CURRENT NON-TOBACCO USER-HX OF USE 03/28/2004 [facility] History of tobacco use CURRENT NON-TOBACCO USER-HX OF USE 06/23/2003 [facility] History of tobacco use CURRENT NON-TOBACCO USER-HX OF USE 09/22/2002 [facility] History of tobacco use LIFETIME NON-TOBACCO USER 11/11/2001 [facility] History of tobacco use CURRENT NON-TOBACCO USER-HX OF USE 12/02/2000 stopped over 20 yrs ago [facility] History of tobacco use CURRENT NON-TOBACCO USER-HX OF USE 08/22/2000 [facility] History of tobacco use CURRENT NON-TOBACCO USER-HX OF USE 05/22/2000 stopped 18 yrs ago [facility] History of tobacco use CURRENT NON-TOBACCO USER-HX OF USE 01/18/2000 quit 15 years agpo [facility] Plan of Care List of future care activities from Department of [facility] Affairs facilities. Additional future care activities may be listed in the Assessment and Plan section. Date/Time Care Activity Care Activity Detail Facili ty 07/30/2024 AMBULATORY - SURGERY AMBULATORY - SURGERY [facility] 09/25/2024 AMBULATORY - MEDICINE AMBULATORY - MEDICI NE [facility]
[2024-07-22] MEDS: PERFLUTREN LIPID MICROSPHERES 1.5 ML VIAL DILUTED TO 10 ML TOTAL VOLUME IV PUSH (14:40)
--- NOTE | 2024-07-22 14:54 | IVDEFINITY ---
Prior to administration of IV Definity the patient was educated on the risks and benefits of the imaging enhancing agent including potential adverse side effects. The patient verbalized understanding. Allergies were verified. No exclusion criteria were identified and at least one of the following inclusion criteria were met: 1) physician request, 2) patient technically difficult to image (per the [place] [employer] Echocardi[employer] guidelines of two or more segments not discernable within the apical view), or 3) questionable left ventricular function. ?
== END 2024-07-22 13:30 | disposition home or self-care (01) ==
PROVIDERS: PCP Internal Medicine; Visit Provider Internal Medicine Cardiovascular Disease
DX: I47.20 Ventricular tachycardia, unspecified (principal); I48.91 Unspecified atrial fibrillation; I08.2 Rheumatic disorders of both aortic and tricuspid valves; I42.1 Obstructive hypertrophic cardiomyopathy
CPT/HCPCS: C8929; Q9957

== ENCOUNTER 2024-09-09 16:17 | Inpatient (IN) | payer MEDICARE, SELFPAY ==
[2024-09-08 11:19] VITALS: BMI 32.3
[2024-09-09] VITALS (19 sets, daily range): BP systolic 123–147; BP diastolic 59–83; PULSE 60–77; RESP 14–21; TEMP 36.4–36.9; O2SAT 94–100; BMI 32.4
--- NOTE | ~2024-09-09 | XR_ITS ---
XR chest 1V portable Ordering provider: Nic Singh MD History: 89 years Male with . pacemaker insertion . Comparison: August 06, 2022 FINDINGS: MEDIASTINUM: The cardiac silhouette is slightly enlarged. Congestive jhonny. Left bipolar pacemaker. LUNGS: No effusions or pneumothorax. Interstitial changes in the right and left lung base which may indicate bronchitis versus pneumonitis . Follow-up advised. OTHER: No free air under the diaphragm. Right shoulder arthroplasty. IMPRESSION: Status post placement of left bipolar pacemaker. Minimal interstitial changes in the lower lobes which may indicate pneumonitis. Follow-up advised. Reviewed, dictated and finalized at location A.
--- NOTE | ~2024-09-09 | XR_ITS ---
XR chest 2V Ordering provider: Nic Singh MD History: 89 years Male with . 24 hours post pacemaker insertion . Comparison: September 09, 2024 FINDINGS: MEDIASTINUM: The cardiac silhouette is not enlarged. Left bipolar pacemaker. LUNGS: No infiltrates, effusions or pneumothorax. OTHER: No free air under the diaphragm. Right shoulder arthroplasty. Degenerative the spine. Dextrosc oliosis. IMPRESSION: No acute cardiopulmonary pathology. Reviewed, dictated and finalized at location A.
--- OUTSIDE RECORDS SUMMARY | 2024-09-09 00:46 | XMS_ITS | Continuity of Care Document ---
Author Organization [facility] Address [id number] [place] [address] [address] [place] [address] Phone Care Team Providers Care Fitness Technician Name Role Phone Gonzalo Gonzales Unavailable Unavailable [...] Providers Copied on Encounter Office/outpat ient Visit, [facility] [place] [address], [place], [place], [address], [place] tel:[phone] [facility] [address] No Information 0-201 0 Janet Sánchez. [address], [place], [address], [place]. tel:[phone] Office/outpat ient Visit, [facility] [place] [address], [place], [place], [address], [place] tel:[phone] [facility] No Information Dec-0 6-201 0 Venice Hillman. [address], [place], [address], [place]. tel:[phone] [facility], [address], [place], [place], [address], [place] tel:[phone] [facility] No Information King-3 0-201 0 Krishnasamy Gonzalo. [address], [place], [address], [place]. tel:[phone] Office/outpat ient Visit, [facility], [address] [place] [address] [address], [place], [place], [address], [place] tel:[phone] SEC [facility] No Information King-1 5-201 0 Krishnasamy Gonzalo. [address] [address], [place], [place], [facility] [place], [place]. tel:[phone] Office/outpat ient Visit, [facility], [address] [place] [address] [address], [place], [place], [address], [place] tel:[phone] [facility] No Information King-0 9-201 0 Krishnasamy Gonzalo. [address] [facility] [address], [place], [address], [place]. tel:[phone] [facility], [address], [place], [place], [address], [place] tel:[phone] [facility] No Information Apr-2 1-201 0 Krishnasamy Gonzalo. [address], [place], [address], [place]. tel:[phone] [facility], [address], [place], [place], [address], [place] tel:[phone] [facility] No Information Apr-0 8-200 9 Krishnasamy Gonzalo. [address], [place], [address], [place]. tel:[phone] [facility], [address] [facility] [address], [place], [place], [address], [place] tel:[phone] [facility] No Information Mar-2 6-200 8 Janet Sánchez. [address] [facility] [address], [place], [address], [place]. tel:[phone] [facility], [address], [place], [place], [address], [place] tel:[phone] [facility] No Information Mar-2 6-200 7 Wild Rios. [address] [facility], [place], [place], [address], [place]. tel:[phone] Family History Family Member Type Diagnosis Age At Onset No Information Payers Payer name Insurance type Covered alliance party ID Authoriza tisampson(s) [place] [id number] Social History Type Description Quantity Date Captured [...]
--- OUTSIDE RECORDS SUMMARY | 2024-09-09 00:46 | XMS_ITS | Encounter Summary ---
Author Name [facility] [place] [facility] [place] [facility] [place] Address [address] [place] [address] Care Team Providers Care Signalling And Communications Engineer Name Role Phone WHITNEY HOOVER Primary Care [...] MEDIC ARE SUPPL EMENT October 22, 2020 [id number] [phone] DELFINABE RNARD PATIENT ANTHEM [place] MEDICARE SUPPLEMEN ANISHA MEDIC ARE SUPPL EMENT October 22, 2020 [id number] [phone] CATHERINENIG,BE RNARD PATIENT ANTHEM [place] MED[place] SUPPLEMEN ANISHA MEDIC ARE SUPPL EMENT October 22, 2020 [id number] [phone] MANUEL MATHIS JR PATIENT [place] MED[place]ARE SUPPLEMEN ANISHA MEDIC ARE SUPPL EMENT October 22, 2020 [id number] [phone] DELFINA,BE RNARD PATIENT MEDICARE (WNR) MEDICARE (M) PART B Jul 25, 2000 PART B [id number] 70A MANUEL MATHIS JR D PATIENT MEDICARE (WNR) MEDICARE (M) PART A Jul 25, 2000 PART A [id number] MANUEL MATHIS JR PATIENT MEDICARE (WNR) MEDICARE (M) PART A Jul 25, 2000 PART A [id number] MANUEL MATHIS JR PATIENT MEDICARE (WNR) MEDICARE (M) PART B Jul 25, 2000 PART B [id number] MANUEL MATHIS JR Darrick PATIENT Selected Encounter This section includes the information on record at [place] for the Encounter. Date/Time Encounter Type Encounter Description Reason Provider Source Mar 30, 2024 01:37 PM Outpatient Encounter COMMUNITY CARE CONSULT EDGARD HARPER Encounter Template Text not used by [place] Plan of Treatment: Future Appointments (+ 6 months) and Future Tests (+/- 45 days) The Plan of Treatment section includes future care activities for the patient from all [place] treatmentfacilities. This section includes future appointments and future orders which are active, pending or scheduled. Future Appointments This section includes appointments that were scheduled to occur 6 months from the date of the Encounter, up to a maximum of 20 appointments. The data comes from all [place] treatment facilities. Appointment Date/Time Appointment Type Appointme nt Facility Name Jul 30, 2024 10:30 AM AMBULATORY - SURGERY [facility] Aug 27, 2024 02:00 PM AMBULATORY - SURGERY [facility] Sep 25, 2024 11:00 AM AMBULATORY - MEDICINE [facility] Social History: Smoking Status (Most current) and Tobacco Use (All prior to encounter date) This section includes the most current, and the historical, smoking and tobacco- related health factors from the [place] facility where the Encounter took place. Current Smoking Status This section includes the most current smoking, or tobacco-related health factor, from the [place] facility where the Encounter took place. Date/Time Current Smoking Status Comment Candy quijano Aug 22, 2000 12:34 PM CURRENT NON-TOBACC O USER-HX OF USE [facility] Encounter Notes: All associated encounter notes This section contains the clinical notes associated to the Encounter. Date/Time Encounter Note(s) Provider Source Mar 30, 2024 01:37 PM NONVA NOTE: LOCAL TITLE: COMMUNITY CARE-CARE COORDINATION PLAN NOTE [address] STANDARD TITLE: NONVA NOTE DATE OF NOTE: MAR 30, 2024@13:37 ENTRY DATE: MAR 30, 2024@13:38:01 AUTHOR: EDGARD HARPER EXP COSIGNER: URGENCY: STATUS: COMPLETED COMMUNITY CARE-CARE COORDINATION PLAN NOTE [address] Has ADDENDA Community Care Consult: HEM/ONC Consult No: [id number] HSRM Referral #: pending DOA approval Chief Complaint: Patient requesting renewal of CITC hematology consult Thrombocythemia: -Chronic. -Medication: Hydroxyurea. Patient Admitted? No Level of Care Coordination Moderate Care Coordination was determined from: Chart Review Facility Community Care Office Contact Care Coordination Point of Contact: Edgard Harper Services: Basic Care Coordination Services Monitoring and coordination of Rehab/PT Services Direct communication to referring provider Care management, if appropriate Plan: CiTC will proceed after DOA decision. /es/ EDGARD HARPER MSN RN REGISTERED NURSE Signed: 03/30/2024 13:39 03/31/2024 ADDENDUM STATUS: COMPLETED Care Coordination Follow Up Level of Care Coordination Moderate Care Coordination was determined from: Chart Review, Phone call to /Family/Caregiver Services: Basic Care Coordination Services Monitoring and coordination of Rehab/PT Services Direct communication to referring provider Care management, if appropriate Plan: [facility] [address] [place], [id number] Provider Name (if known): GINGER GOLDEN [facility] Provider Provider Provider seen at [place], [place] Satellite Office Referral Number [id number] Informed 's (Cindy) that referral has been approved for six months. Reviewed CC Provider location. No transportation issues reported. Will coordinate care with and VA/Community providers throughout [place]. CC staff will call post first appointment and throughout [place] as warranted. Appointment Management: Appointment 1 Other: hem/onc Appointment Location: Community Provider Appointment Date: Mar 1000 Reason for Appointment: f/u care Appointment 2 Other: hem/onc Appointment Location: Community Provider Appointment Date: unknown at this time Reason for Appointment: lab work s/p med changes from 03/25/24 visit Appointment 3 Other: hem/onc Appointment Location: Community Provider Appointment Date: date/time unknown at this time Reason for Appointment: 6 month f/u care CONTACT [place] contacted on Mar to discuss referral/auth status and above appts instructions. No issues reported at time of call. Action Needed? No PROVIDER CONTACT CC Provider's office (Marie) contacted on Mar to discuss confirmation of 03/25/24 visit; notes to be faxed to [facility]. Action Needed? No /ramon/ EDGARD LOMELI RN REGISTERED NURSE Signed: 03/31/2024 12:49 04/04/2024 ADDENDUM STATUS: COMPLETED Care Coordination Follow Up Level of Care Coordination Complex/Chronic Care Coordination was determined from: Chart Review Services: Moderate Care Coordination Services Case Management, if appropriate Direct communications with interdisciplinary team Plan: Thrombocytopenia. One month lab testing. RTC September 2024 for f/u. /chidi HARPER MSN RN REGISTERED NURSE Signed: 04/04/2024 07:59 EDGARD HARPER [facility]
--- OUTSIDE RECORDS SUMMARY | 2024-09-09 00:46 | XMS_ITS | Encounter Summary ---
Author Organization [facility] Address [address] [place] [address] Care Team Providers Care Biostatistics Manager Name Role Phone Vini Woods MD Primary Care Provider [phone] Encounter Details Date Type Department Care Team (Late st Contact Info) Description 09/08/2024 Telephone [facility] Cardiology [address] [place] [id number] Nic Singh MD [address] [place], [place] [id number] Social History Tobacco Use Types Packs/Day Years Used Date Smoking Tobacco: Former Cigarettes Smokeless Tobacco: Never Alcohol Use Standard Drinks/Week Comments Not Currently [...] on file 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 She verbalizes understanding. * Telephone Encounter - Isabel Krueger - 09/08/2024 9:37 AM CDT Pt spouse states pt is scheduled for a pacer implant tomorrow. Wants to know if pt will be staying over night. If so, does that mean he should pack his pajamas, cpap machine, and meds. Please advise,thank you. Contact:[phone] documented in this encounter Plan of Treatment Not on file documented as of this encounter Visit Diagnoses Not on filedocumented in this encounter Care Teams Biostatistics Manager Relationship Specialty Start Date End Date Vini Woods MD PCP - General 08/15/11 documented as of this encounter
--- OUTSIDE RECORDS SUMMARY | 2024-09-09 00:46 | XMS_ITS | Referral Summary ---
Author Organization [facility] Address [address] [place] [address] Care Team Providers Care Outside Rigger Name Role Phone Vini Woods MD Primary Care Provider [phone] Encounters Date Type Department Care Team Description 09/08/2024 Telephone [facility] Medical [facility] Cardiology [address] [place] [address] Nic Singh MD 08/07/2024 Telephone [facility] Cardiology [address] [place] [address] Nic Singh MD 08/07/2024 10:00 AM RECREATIONAL VEHICLE RESORT MANAGER Office Visit [facility] Medical Group Cardiology at [address] [place] [phone] Nic Singh MD 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) from Last 3 Months Allergies Active Allergy Reactions Criticality Noted Date [...] needed for pain 30 tablet 09/24/2023 Active simvastatin (ZOCOR) 40 mg [...] (STIOLTO) 2.5-2.5 mcg/actuation inhaler Inhale 07/03/2023 Active omeprazole (PriLOSEC) 20 mg capsule Take 1 capsule (20 mg total) by mouth daily Active Active Problems Problem Noted Date Diagnosed Date Mobitz type 2 second degree AV block 08/07/2024 Essential (primary) hypertension 12/05/2023 Benign essential hypertension [...] 09/22: Tolerating regular diet Fracture of orbit 09/20/2023 Assessment & Plan (09/24/2023 12:21 PM CDT): Patient endorses some mild blurriness in left eye. Left eye mobility restriction with abduction, presumably to chemosis and orbital swelling. - Seen by Ophtho c/s - No c/f entrapment - HOB elevation, open-mouth sneezing, no nose-blowing, cool compresses for comfort - Outpatient Ophthalmology follow-up in 2 weeks at [facility] - seen by ENT consult, plan to delay repair facial fractures pending cervical spine precautions, plan to follow-up in 1 week ENT facial plastics clinic Odontoid fracture 09/20/2023 Assessment & Plan (09/24/2023 12:21 PM [...] cord signal, advanced multilevel cervical spondylosis with [id number] neuroforaminal stenosis and no high-grade spinal canal stenosis. - C-spine precautions. C-collar at all times. HOB<30. Log roll - upright x-rays including odontoid view (09/20): No significant interval change in mildly displaced odontoid fracture with anterior subluxation of C2 on C1. Unchanged mild anterolisthesis of C3 on C4. 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 Gender Identity Not on file Sexual Orientation Not on file Last Filed Vital Signs Vital Sign Reading Time Taken Comments Blood Pressure 128/72 08/07/2024 9:58 AM RECREATIONAL VEHICLE RESORT MANAGER Pulse 80 08/07/2024 9:58 AM RECREATIONAL VEHICLE RESORT MANAGER Temperature 36.8 C (98.2 F) 09/24/2023 11:30 AM CDT Respiratory Rate 18 09/24/2023 11:30 AM CDT Oxygen Saturation 96% 08/07/2024 9:58 AM RECREATIONAL VEHICLE RESORT MANAGER Inhaled Oxygen Concentration - - Weight 104.3 kg (230 lb) 08/07/2024 9:58 AM RECREATIONAL VEHICLE RESORT MANAGER Height 177.8 cm (5' 10 ) 08/07/2024 9:58 AM RECREATIONAL VEHICLE RESORT MANAGER Body Mass Index 33 08/07/2024 9:58 AM RECREATIONAL VEHICLE RESORT MANAGER Plan of Treatment Not on file Procedures Procedure Name Priority Date/Time Associated Diagnosis Comments ELECTROCARDIOGRAM REPORT Routine 025 11:47 AM RECREATIONAL VEHICLE RESORT MANAGER Mobitz type 2 second degree AV block from Last 3 Months Results * Electrocardiogram Report (08/07/2024 11:47 AM RECREATIONAL VEHICLE RESORT MANAGER) us Nic Singh MD ECG ORDERABLES Edited R esult - Final from Last 3 Months Insurance MEDICARE [facility] MEDICARE SUPPLEMENT MEDICARE [facility] MEDICARE Advance Directives For more information, please contact: [phone] * Full Code (Latest Code Status on File) Date Activated Date Inactivated Comments 09/20/2023 7:54 PM 09/24/2023 5:56 PM Care Teams Outside Rigger Relationship Specialty Start Date End Date Vini Woods MD PCP - General 08/15/11
--- OUTSIDE RECORDS SUMMARY | 2024-09-09 00:46 | XMS_ITS | Encounter Summary ---
Author Name [facility] [facility] [place] Address [address] [place] [address] Care Team Providers Care Distillery Worker General Name Role Phone WHITNEY HOOVER Primary Care [...] MEDIC ARE SUPPL EMENT October 22, 2020 [id number] [phone] DELFINABE RNARD PATIENT ANTHEM BCBS [place] MEDICARE SUPPLEMEN ANISHA MEDIC ARE SUPPL EMENT October 22, 2020 [id number] [phone] CATHERINENIEzio,BE RNARD PATIENT ANTHEM BCBS [place] MEDICARE SUPPLEMEN ANISHA MEDIC ARE SUPPL EMENT October 22, 2020 [id number] [phone] MANUEL MATHIS JR PATIENT BCBS [place] MEDICARE SUPPLEMEN ANISHA MEDIC ARE SUPPL EMENT October 22, 2020 [id number] [phone] DELFINA,BE RNARD PATIENT MEDICARE (WNR) MEDICARE (M) PART B Jul 25, 2000 PART B [id number] MANUEL MATHIS JR D PATIENT MEDICARE (WNR) MEDICARE (M) PART A Jul 25, 2000 PART A [id number] [phone] MANUEL MATHIS JR PATIENT MEDICARE (WNR) MEDICARE (M) PART A Jul 25, 2000 PART A [id number] MANUEL MATHIS JR PATIENT MEDICARE (WNR) MEDICARE (M) PART B Jul 25, 2000 PART B [id number] MANUEL MATHIS JR Darrick PATIENT Selected Encounter This section includes the information on record at [place] for the Encounter. Date/Time Encounter Type Encounter Description Reason Pro vider Source October 31, 2023 07:29 AM Outpatient Encounter GENERAL INTERNAL MEDICINE IHE Encounter Template Text not used by [place] Plan of Treatment: Future Appointments (+ 6 months) and Future Tests (+/- 45 days) The Plan of Treatment section includes future care activities for the patient from all [place] treatmentfacilities. This section includes future appointments and future orders which are active, pending or scheduled. Future Appointments This section includes appointments that were scheduled to occur 6 months from the date of the Encounter, up to a maximum of 20 appointments. The data comes from all [place] treatment facilities. Appointment Date/Time Appointment Type Appointme nt Facility Name Mar 25, 2024 10:00 AM AMBULATORY - NONE [facility] Mar 27, 2024 11:00 AM AM[facility]ULATORY - MEDICINE [facility] Social History: Smoking Status (Most current) and Tobacco Use (All prior to encounter date) This section includes the most current, and the historical, smoking and tobacco- related health factors from the [facility] facility where the Encounter took place. Current Smoking Status This section includes the most current smoking, or tobacco-related health factor, from the [place] facility where the Encounter took place. Date/Time Current Smoking Status Joanne quijano Aug 22, 2000 12:34 PM CURRENT NON-TOBACC O USER-HX OF USE [facility] Encounter Notes: All associated encounter notes This section contains the clinical notes associated to the Encounter. Date/Time Encounter Note(s) Provider Source Sep 03, 2023 07:29 AM SCANNED NOTE: LOCAL TITLE: NON [facility] STANDARD TITLE: SCANNED NOTE DATE OF NOTE: SEP 03, 2023@07:29 ENTRY DATE: OCTOBER 31, 2023@07:29:19 AUTHOR: PEG MOHAN EXP COSIGNER: URGENCY: STATUS: COMPLETED Attached to this note is a scanned copy of [place] medical record consisting of the following document(s): Emergency Department Summary DOS: 08/31/2023 to 09/03/2023 From: [facility] To view the scanned document: 1) You must be logged into [facility] 2) Click on Toolbar 3) Sign on to Dionicio Lamar /es/ PEG MOHAN Electronic Assembler Group Leader (Scanning) Signed: 10/31/2023 07:34 PEG MOHAN [facility]
--- OUTSIDE RECORDS SUMMARY | 2024-09-09 00:46 | XMS_ITS ---
Author Name [facility] [place] [facility] [place] Address [address] [place] [address] Care Team Providers Care Director [facility] Name Role Phone WHITNEY HOOVER Primary Care [...] MEDIC ARE SUPPL EMENT October 22, 2020 [id number] [phone] LORRAINE MATHIS RNARD PATIENT ANTHEM [place] MEDICARE SUPPLEMEN ANISHA MEDIC ARE SUPPL EMENT October 22, 2020 [id number] [phone] LORRAINE MTAHIS RNARD PATIENT ANTHEM BCBS [place] MEDICARE SUPPLEMEN ANISHA MEDIC ARE SUPPL EMENT October 22, 2020 [id number] [phone] MANUEL MATHIS JR PATIENT BCBS [place] MEDICARE SUPPLEMEN ANISHA MEDIC ARE SUPPL EMENT October 22, 2020 [id number] [phone] LORRAINE MATHIS RNARD PATIENT MEDICARE (WNR) MEDICARE (M) PART A Jul 25, 2000 PART A [id number] MANUEL MATHIS JR PATIENT MEDICARE (WNR) MEDICARE (M) PART B Jul 25, 2000 PART B [id number] MANUEL MATHIS JR PATIENT MEDICARE (WNR) MEDICARE (M) PART A Jul 25, 2000 PART A [id number] MANUEL MATHIS JR PATIENT MEDICARE (WNR) MEDICARE (M) PART B Jul 25, 2000 PART B [id number] MANUEL MATHIS JR PATIENT Selected Encounter This section includes the information on record at [place] for the Encounter. Date/Time Encounter Type Encounter Description Reason Pro vider Source Aug 12, 2024 01:08 PM Outpatient Encounter ADMIN PAT ACTIVTIES (MASNONCT) IHE Encounter Template Text not used by [place] Plan of Treatment: Future Appointments (+ 6 months) and Future Tests (+/- 45 days) The Plan of Treatment section includes future care activities for the patient from all [place] treatmentfacilities. This section includes future appointments and future orders which are active, pending or scheduled. Future Appointments This section includes appointments that were scheduled to occur 6 months from the date of the Encounter, up to a maximum of 20 appointments. The data comes from all [place] treatment facilities. Appointment Date/Time Appointment Type Appointme nt Facility Name Aug 27, 2024 02:00 PM AMBULATORY - SURGERY [facility] Sep 25, 2024 11:00 AM AMBULATORY - MEDICINE [facility] Encounter Notes: All associated encounter notes This [...] on [facility] and the transition process to [email or web address] and [email or web address]. [place] did not answer. Voicemail and call back number is placed. /ramon/ NERISSA SERRA TELEHEALTH ADMISSIONS SUPERVISOR Signed: 08/12/2024 13:09 NERISSA SERRA [facility]
--- OUTSIDE RECORDS SUMMARY | 2024-09-09 00:46 | XMS_ITS | Encounter Summary ---
Author Name [facility] Organization [facility] Address [address] [place] [address] Care Team Providers Care Capacitor Inspector Name Role Phone JULISA HOOVER Primary Care Provider Unavailabl e Insurance [...] MEDIC ARE SUPPL EMENT October 22, 2020 [id number] [phone] LORRAINE MATHIS RNARD PATIENT ANTHEM [place] MEDICARE SUPPLEMEN ANISHA MEDIC ARE SUPPL EMENT October 22, 2020 [id number] [phone] LORRAINE MATHIS RNARD PATIENT ANTHEM [place] MEDICARE SUPPLEMEN ANISHA MEDIC ARE SUPPL EMENT October 22, 2020 [id number] MANUEL MATHIS JR PATIENT [place] MED[place]ARE SUPPLEMEN ANISHA MEDIC ARE SUPPL EMENT October 22, 2020 [id number] [phone] LORRAINE MATHIS RNARD PATIENT MEDICARE (WNR) MEDICARE (M) PART A Jul 25, 2000 PART A [id number] MANUEL MATHIS JR PATIENT MEDICARE (WNR) MEDICARE (M) PART B Jul 25, 2000 PART B [id number] GIUSEPPEEzio WOODSONKELLIFLEX [place] PATIENT MEDICARE (WNR) MEDICARE (M) PART A Jul 25, 2000 PART A [id number] [phone] MANUEL MATHIS JR Darrick PATIENT MEDICARE (WNR) MEDICARE (M) PART B Jul 25, 2000 PART B [id number] MANUEL MATHIS JR Darrick PATIENT Selected Encounter This section includes the information on record at MD for the Encounter. Date/Time Encounter Type Encounter Description Reason Provider Source Mar 27, 2024 11:00 AM OFFICE O/P EST MOD 30 MIN PRIMARY CARE/MEDICINE ICD-10-CM I10 Essential (primary) hypertension JULISA HOOVER Ayana Encounter Template Text not used by MD Assessments - Encounter Diagnoses This section includes the primary and secondary diagnoses documented for the Encounter. Date/Time Primary/Secondary Diagnosis Diagnosis Name Provider Source Mar 27, 2024 11:30 AM PRIMARY Essential (primary) hypertension JULISA HOOVER [facility] Mar 27, 2024 11:30 AM SECONDARY Abnormal results of liver function studies JULISA HOOVER [facility] Mar 27, 2024 11:30 AM SECONDARY Allergic rhinitis, unspecified JULISA HOOVER [facility] Mar 27, 2024 11:30 AM SECONDARY Benign prostatic hyperplasia without lower urinry tract symp JULISA HOOVER [facility] Mar 27, 2024 11:30 AM SECONDARY Chronic kidney disease, stage 3a JULISA HOOVER [facility] Mar 27, 2024 11:30 AM SECONDARY Chronic obstructive pulmonary disease, unspecified JULISA HOOVER [facility] Mar 27, 2024 11:30 AM SECONDARY Collapsed vertebra, NEC, cervical region, sqla JULISA HOOVER [facility] Mar 27, 2024 11:30 AM SECONDARY Dizziness and giddiness JULISA HOOVER [facility] Mar 27, 2024 11:30 AM SECONDARY Elevated prostate specific antigen [PSA] JULISA HOOVER [facility] Mar 27, 2024 11:30 AM SECONDARY Encounter for immunization JENNY NUNEZ Sydney [facility] Mar 27, 2024 11:30 AM SECONDARY Gastro-esophageal reflux disease without esophagitis JULISA HOOVER [facility] Mar 27, 2024 11:30 AM SECONDARY Gout, unspecified JULISA HOOVER [facility] Mar 27, 2024 11:30 AM SECONDARY Hyperlipidemia, unspecified JULISA HOOVER [facility] Mar 27, 2024 11:30 AM SECONDARY Hypokalemia JULISA HOOVER [facility] Mar 27, 2024 11:30 AM SECONDARY Low back pain, unspecified JULISA HOOVER [facility] Mar 27, 2024 11:30 AM SECONDARY Magnesium deficiency JULISA HOOVER [facility] Mar 27, 2024 11:30 AM SECONDARY Pain in right knee JULISA HOOVER [facility] Mar 27, 2024 11:30 AM SECONDARY Prediabetes JULISA HOOVER [facility] Mar 27, 2024 11:30 AM SECONDARY Thrombocytosis, unspecified JULISA HOOVER [facility] Mar 27, 2024 11:30 AM SECONDARY Unspecified hearing loss, unspecified ear JULISA HOOVER [facility] Mar 27, 2024 11:30 AM SECONDARY Vitamin D deficiency, unspecified KIKOJULISA R [facility] Plan of Treatment: Future Appointments (+ 6 months) and Future Tests (+/- 45 days) The Plan of Treatment section includes future care activities for the patient [facility] This section includes future appointments and future orders which are active, pending or scheduled. Future Appointments This section includes appointments that were scheduled to occur 6 months from the date of the Encounter, up to a maximum of 20 appointments. The data comes from all [facility] facilities. Appointment Date/Time Appointment Type Appointme nt Facility Name Jul 30, 2024 10:30 AM AMBULATORY - SURGERY [facility] Aug 27, 2024 02:00 PM AMBULATORY - SURGERY [facility] Sep 25, 2024 11:00 AM AMBULATORY - MEDICINE [facility] Vital Signs: All taken on the encounter date This section contains inpatient and outpatient Vital Signs collected on the date of the Encounter. Date/Time Temperature Pulse Blood Pressure Respiratory Rate SP02 Pain Height Weight Body Mass Index Source Mar 27, 2024 11:19 AM 130/70 [facility] Mar 27, 2024 10:30 AM 147/72 [facility] Mar 27, 2024 10:30 AM 97.6 55 158/59 20 93 0 226.4 33 [facility] Immunizations: All administered on the encounter date This section contains immunizations associated to the Encounter. Immunization Series Date Issued Reaction Comments INFLUENZA, HIGH-DOSE, TRIVALENT, PF Mar 27 Social History: Smoking Status (Most current) and Tobacco Use (All prior to encounter date) This section includes the most current, and the historical, smoking and tobacco- related health factors from the MD facility where the Encounter took place. Current Smoking Status This section includes the most current smoking, or tobacco-related health factor, from the MD facility where the Encounter took place. Date/Time Current Smoking Status Comment Facil ity Oct 01, 2023 02:30 PM VA-TOBACCO FORMER USER [facility] Tobacco Use History This section includes a history of the smoking, or tobacco-related health factors, that were collected on or before the date of the Encounter. The data comes from the MD facility where the Encounter took place. Date/Time Smoking Status/Tobacco Use Comment F acility Oct 01, 2023 02:30 PM VA-TOBACCO QUIT 15 YRS OR MORE [facility] Oct 12, 2022 01:30 PM VA-TOBACCO FORMER USER [facility] Oct 12, 2022 01:30 PM VA-TOBACCO QUIT 15 YRS OR MORE [facility] Sep 27, 2020 10:30 AM VA-TOBACCO FORMER USER [facility] Sep 27, 2020 10:30 AM VA-TOBACCO QUIT 15 YRS OR MORE [facility] Aug 23, 2018 11:07 AM VA-TOBACCO FORMER USER [facility] Aug 23, 2018 11:07 AM MD-TOBACCO QUIT 15 YRS OR MORE [facility] Feb 05, 2017 10:22 AM LIFETIME NON-USER OF TOBACCO [facility] Jan 05, 2016 10:51 AM QUIT TOBACCO >7 YEARS AGO [facility] Nov 22, 2014 09:44 AM QUIT TOBACCO >7 YEARS AGO [facility] Dec 30, 2013 10:35 AM LIFETIME NON-USER OF TOBACCO [facility] October 28, 2012 09:58 AM QUIT TOBACCO >7 YEARS AGO [facility] Jun 19, 2006 08:59 AM QUIT TOBACCO >7 YEARS AGO [facility] Dec 11, 2005 02:24 PM CURRENT NON-TOBACC O USER-HX OF USE [facility] Dec 11, 2005 02:24 PM TOBACCO TERMINATION STAGE [facility] Jun 20, 2005 08:36 AM CURRENT NON-TOBACC O USER-HX OF USE [facility] Jun 20, 2005 08:36 AM TOBACCO TERMINATION STAGE [facility] Jan 16, 2005 02:56 PM CURRENT NON-TOBACC O USER-HX OF USE [facility] Jan 16, 2005 02:56 PM TOBACCO TERMINATION STAGE [facility] Mar 28, 2004 03:04 PM CURRENT NON-TOBACC O USER-HX OF USE [facility] Mar 28, 2004 03:04 PM TOBACCO TERMINATION STAGE [facility] Jun 23, 2003 01:01 PM CURRENT NON-TOBACC O USER-HX OF USE [facility] Jun 23, 2003 01:01 PM TOBACCO TERMINATION STAGE [facility] Sep 22, 2002 01:52 PM CURRENT NON-TOBACC O USER-HX OF USE [facility] November 11, 2001 02:51 PM LIFETIME NON-TOBACCO USER [facility] Dec 02, 2000 03:06 PM CURRENT NON-TOBACC O USER-HX OF USE stopped over 20 yrs ago [facility] May 22, 2000 03:27 PM CURRENT NON-TOBACC O USER-HX OF USE stopped 18 yrs ago [facility] Jan 18, 2000 03:26 PM CURRENT NON-TOBACC O USER-HX OF USE quit 15 years agpo [facility] Encounter Notes: All associated encounter notes This section contains the clinical notes associated to the Encounter. Date/Time Encounter Note(s) Provider Source Mar 27, 2024 10:59 AM PRIMARY CARE NOTE: LOCAL TITLE: PRIMARY CARE PROVIDER [facility] STAND[facility] TITLE: PRIMARY CARE NOTE DATE OF NOTE: MAR 27, 2024@10:59 ENTRY DATE: MAR 27, 2024@10:59:52 AUTHOR: JULISA HOOVER EXP COSIGNER: URGENCY: STATUS: COMPLETED REASON FOR VISIT/CHIEF COMPLAINT: Evaluation and management of chronic medical conditions/ My scheduled visit HPI: Patient is a 88 year old WHITE MALE who presents to the clinic for evaluation and management of chronic medical conditions. Patient denies any recent ED visits or hospitalizations. Patient goes by Ashley. Patient is accompanied by his Cindy whom he states it is acceptable to discuss his healthcare with. Patient reports his private provider manage his primary care and [facility] Private providers: -Dr. Vini Woods private PCP in [place], [place]. -Dr. Henrique Parekh private ENT in [place], [place]. -Dr. Cates private academic specialist. -Dr. Nawaf Giles private urologist. -Dr. Abraham private arc and gas welder. -Dr. Aden private orthopedics. -Dr. Lacey Fernandez private orthopedics in ophthalmology. #HTN: -Medications: Losartan and HCTZ. -Reports compliance to medication regimen. -Reports having blood pressure machine at home. -Blood pressure readings at home: <130/80. -Denies CP, SOB, heart palpitations, headaches, blurred vision, dizziness/lightheadedness. #HLD: -Medication: Simvastatin. -Reports compliance with medication regimen. -Denies any new onset of myalgias. #Prediabetes: -HGA1C 5.7 % 12/19/2022. -Diet: Regular. -Exercise: Denies. #CKD stage 3A: CREATININE 1.27 mg/dL 12/19/2022 09:37 EGFR (CKD-EPI 2020) 54.7 12/19/2022 09:37 #JERRY: -Reports nightly CPAP use. #Thrombocythemia: -Chronic. -Medication: Hydroxyurea. #GERD: -Medication: Omeprazole. -Reports compliance with medication regimen. -Denies concerns today. #Vertigo: -Improved per patient. -Patient reports being evaluated by private academic specialist for cardiac conditions. that could cause vertigo was ruled out. -Patient seen by private repairer art objects in 2022. -Patient completed a balance test historically. 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 -Medication: Diclofenac gel. -Patient reports he was told he needed a right knee replacement but he does not wish to pursue this. -Patient has knee sleeve. -Denies pain in the clinic today. -Patient has cane. #Allergic rhinitis: -Medication: Loratadine. -Controlled per patient. #Hypokalemia: -Patient reports compliance with potassium supplementation. #COPD: -Controlled per patient. -Medications: OLODATEROL/TIOTROP 2.5MCG/ACTUAT and Mucinex. -Denies increased SOB, coughing, wheezing, mucus production or hemoptysis. #Gout: -Medication: Allopurinol. -Reports compliance with medication regimen. -Denies any recent gout attacks. #BPH: -Medications: Tamsulosin and Finasteride. -Denies frequency, hesitancy, urgency, burning with urination or hematuria. #Elevated PSA: -Stable per patient. -This is managed per private urology. #[place]: -Chronic. Has associated tinnitus. -Has bilateral hearing aids. -Denies dizziness or fluid in the ear. #Chronic LBP: -Stable. -Denies pain in the clinic today. -Denies bowel or bladder incontinence and saddle anesthesia. #Umbilical hernia (without gangrene): -S/p repair Jun 2020. -Denies concerns today. -Patient seen by non-[facility] surgery clinic historically. #Elevated LFTS: -Patient states his private PCP told him this was not something to worry about. -Patient denies alcoholic use. -Patient reports trying to increase his water intake. -Patient had cholecystitis 09/01/23 and was hospitalized at [facility]. Patient denies concerns today. Patient reports eating a low fat diet with improvement of his symptoms. #Vitamin D deficiency: -Reports compliance with supplementation. #Hypomagnesium: -Reports compliance with supplementation. #Fracture of cervical spine: -Patient fell 09/19/23 and developed an injury of neck fracture. -Patient was hospitalized at [facility] for this from 09/19/23-09/24/23. -Patient completed PT for this in 2023. -Patient has 10/16/23 has an appointment with private URG. -Patient had to have 30 stitches that were located right above the eye (these were removed September 2023). -Denies concerns today. SOURCE(S) OF HISTORY: Patient PAST MEDICAL HISTORY: 1) Benign essential hypertension 2) Gastroesophageal reflux disease 3) Hyperlipidemia 4) Low back pain 5) Chronic obstructive lung disease (SNOMED CT 54436904) 6) Hypokalemia 7) Allergic rhinitis 8) Elevated PSA 9) Gout (SNOMED CT [id number]) 10) Benign prostatic hyperplasia 11) Prediabetes 12) Vertigo 13) Right knee pain 14) Hearing loss 15) Chronic kidney disease stage 3A 16) Liver function tests outside reference range 17) Thrombocytosis 18) Vitamin D deficiency 19) Hypomagnesemia 20) Fracture of cervical spine SOCIAL HISTORY: Tobacco: Former smoker. Quit smoking in 1980 smoked from [id number] 3 PPD. Alcohol: Denies. Illicit: Denies. ALLERGIES: FELODIPINE, LISINOPRIL, DILTIAZEM ALLERGY REVIEW: Allergy list reviewed and remains current. MEDICATIONS: Active and Recently Outpatient Medications (excluding Supplies): Active Outpatient Medications Status 1) DICLOFENAC NA 1% TOP GEL APPLY 4 GM TO AFFECTED ACTIVE AREA(S) FOUR TIMES A DAY NEEDED FOR PAIN/INFLAMMATION; NOT MORE THAN 16 GRAMS DAILY TO ANY LOWER EXTREMITY JOINT. NOT MORE THAN 8 GRAMS DAILY TO ANY UPPER EXTREMITY JOINT. MAX 32GM/DAY OVER ALL JOINTS. (MEASURE DOSE WITH RULER ATTACHED INSIDE BOX) 2) GUAIFENESIN 400MG TAB TAKE ONE TABLET BY MOUTH EVERY ACTIVE 6 HOURS NEEDED TO THIN MUCUS. TAKE WITH 8 OUNCE GLASS OF WATER. 3) HYDROCHLOROTHIAZIDE 25MG TAB TAKE ONE-HALF TABLET BY ACTIVE MOUTH EVERY MORNING 4) LORATADINE 10MG TAB TAKE ONE TABLET BY MOUTH ONCE A ACTIVE DAY ON EMPTY STOMACH FOR ALLERGIES 5) LOSARTAN 50MG TAB TAKE ONE-HALF TABLET BY MOUTH ONCE ACTIVE A DAY TO LOWER BLOOD PRESSURE 6) OLODATEROL/TIOTROP 2.5MCG/ACTUAT 60D INH INHALE 1 ACTIVE PUFF BY ORAL INHALATION TWICE A DAY ADMINISTER AT SAME TIME EACH DAY FOR BREATHING 7) OMEPRAZOLE 20MG EC CAP TAKE ONE CAPSULE BY MOUTH ACTIVE EVERY MORNING BEFORE A MEAL 8) POTASSIUM CL 20MEQ SA TAB (DISPERSIBLE) TAKE ONE ACTIVE TABLET BY MOUTH ONCE A DAY 9) SIMVASTATIN 80MG TAB TAKE ONE-HALF TABLET BY MOUTH ACTIVE EVERY EVENING TO LOWER CHOLESTEROL (REPORT ANY UNEXPLAINED MUSCLE PAIN, TENDERNESS OR WEAKNESS TO YOUR PRIMARY CARE PROVIDER) Active Non-VA Medications Status 1) Non-VA ALLOPURINOL 100MG TAB 100MG BY MOUTH ONCE A ACTIVE DAY 2) Non-VA ASPIRIN 81MG EC TAB 81MG BY MOUTH ONCE A DAY ACTIVE 3) Non-VA CHOLECALCIF 25MCG (D3-1,000UNIT) TAB 25MCG BY ACTIVE MOUTH ONCE A DAY 4) Non-VA FINASTERIDE 5MG TAB 5MG BY MOUTH ONCE A DAY ACTIVE 5) Non-VA HYDROXYUREA 500MG CAP 500MG BY MOUTH TWICE A ACTIVE DAY 6) Non-VA MAGNESIUM OXIDE TAB 250 MG BY MOUTH ONCE A DAY ACTIVE 7) Non-VA TAMSULOSIN HCL 0.4MG CAP 0.4MG BY MOUTH EVERY ACTIVE EVENING 16 Total Medications REVIEW OF SYSTEMS: Constitutional: Denies weight loss, fever, chills. Ears, Nose, Mouth, Throat: Denies nasal drainage or sore throat. Denies dizziness. Endocrinology: Denies heat or cold intolerance, polydipsia, polyuria, or polyphagia. Cardiovascular: Denies chest pain, palpitations, or dizziness. Respiratory: Denies cough or shortness of breath. ABD/GI: Denies abdominal pain, nausea, vomiting, constipation, diarrhea or incontinence. Musculoskeletal/Extremities: Denies edema. Denies pain. 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 Psychology: Denies insomnia or SI/HI. Denies anxiety or depression. Neurology: Denies RODRIGUEZ, tremors, neuropathy, or seizures. Skin: Denies rashes, skin lesions. PHYSICAL EXAMINATION: VITALS (most recent, as listed in the electronic record): Temperature: 97.6 F [36.4 C] (03/27/2024 10:30) BP: 130/70 (03/27/2024 11:19) Pulse: 55 (03/27/2024 10:30) Resp: 20 (03/27/2024 10:30) PulsOx: 93% (03/27/2024 10:30) Pain: 0 (03/27/2024 10:30) Weight: Measurement DT WEIGHT LB(KG)[BMI] 03/27/2024 10:30 226.4(102.69)[33*] 10/01/2023 14:13 218.8(99.25)[31*] 04/12/2023 13:15 231.8(105.14)[33*] HEENT: EOMI, PERRLA, Moist mucous membranes. No Scleral icterus or cervical lymphadenopathy. Lungs: Clear to auscultation bilaterally. No accessory muscle use. Cardiovascular: Regular rate and rhythm. No murmur. No JVD. Abdomen: Soft, nontender and non-distended. No palpable masses. Positive bowel sounds in all four quadrants. Extremities: No edema. Nontender. Full ROM to all joints. Gait steady. : Deferred. Neurologic: No focal neurological deficits. Psychiatric: Appropriate mood and affect. Skin: Skin warm, dry and intact. No lesions or rashes noted. DATA REVIEW: HGA1C 5.7 % 12/19/2022 09:37 Lipid Panel: TRIGLYCERIDE 116 mg/dL 12/19/2022 09:37 CHOLESTEROL 143 mg/dL 12/19/2022 09:37 HDL(New) 38 L mg/dL 12/19/2022 09:37 CALCULATED LDL 82 mg/dL 12/19/2022 09:37 ======== CMP: SODIUM 137 mEq/L 12/19/2022 09:37 POTASSIUM 4.3 mEq/L 12/19/2022 09:37 CHLORIDE 101 mEq/L 12/19/2022 09:37 UREA NITROGEN 11 mg/dL 12/19/2022 09:37 CREATININE 1.27 mg/dL 12/19/2022 09:37 CALCIUM 10.2 mg/dL 12/19/2022 09:37 PROTEIN 7.6 g/dL 12/19/2022 09:37 ALBUMIN 4.5 g/dL 12/19/2022 09:37 ALKALINE PHOSPHATASE 73 U/L 12/19/2022 09:37 ALT/SGPT 42 H U/L 12/19/2022 09:37 AST/SGOT 42 H U/L 12/19/2022 09:37 TOTAL BILIRUBIN 0.8 mg/dL 12/19/2022 09:37 CARBON DIOXIDE 26 mEq/L 12/19/2022 09:37 GLUCOSE 95 mg/dL 12/19/2022 09:37 EGFR (CKD-EPI 2020) 54.7 12/19/2022 09:37 ========= CBC: WBC 5.0 10*3/uL 12/19/2022 09:37 RBC 4.98 10*6/uL 12/19/2022 09:37 HGB 14.8 g/dL 12/19/2022 09:37 HCT 45.8 % 12/19/2022 09:37 MCV 92.0 fL 12/19/2022 09:37 MCH 29.7 pg 12/19/2022 09:37 MCHC 32.3 L g/dL 12/19/2022 09:37 RDW 14.0 % 12/19/2022 09:37 PLT 555 H 10*3/uL 12/19/2022 09:37 MPV 10.2 fL 12/19/2022 09:37 NEUTROPHILS, AUTO % 52 % 12/19/2022 09:37 LYMPHOCYTES, AUTO % 33 % 12/19/2022 09:37 MONOCYTES, AUTO % 12 % 12/19/2022 09:37 EOSINOPHILS, AUTO % 1 % 12/19/2022 09:37 BASOPHILS, AUTO % 1 % 12/19/2022 09:37 NEUTROPHILS, ABSOLUTE 2.56 10*3/uL 12/19/2022 09:37 LYMPHOCYTES, ABSOLUTE 1.65 10*3/uL 12/19/2022 09:37 MONOCYTES, ABSOLUTE 0.58 10*3/uL 12/19/2022 09:37 EOSINOPHILS, ABSOLUTE 0.07 10*3/uL 12/19/2022 09:37 BASOPHILS, ABSOLUTE 0.05 10*3/uL 12/19/2022 09:37 PSA: No PSA EO data found Result: Acceptable Health maintenance: -Influenza today. Immunization Series Date Facility Reaction Info INFLUENZA, HIGH-DOSE, QUADRIVALE* C 04/12/2023 [facility] PNEUMOCOCCAL CONJUGATE PCV 13 11/22/2014 [facility] PNEUMOCOCCAL POLYSACCHARIDE PPV23 2 11/23/2015 [facility] PNEUMOCOCCAL POLYSACCHARIDE PPV23 1 04/24/2011 [facility] PNEUMOCOCCAL, UNSPECIFIED FORMUL* 03/09/2011 [facility] PNEUMOCOCCAL, UNSPECIFIED FORMUL* 03/23/2002 [facility]* TD(ADULT) UNSPECIFIED FORMULATION 02/09/2009 [facility] <C> TDAP 2 09/20/2023 [facility] TDAP 09/20/2023 [facility] TDAP 02/27/2019 [facility] <C> TETANUS TOXOID, UNSPECIFIED FORM* 04/04/1999 [facility]* ZOSTER RECOMBINANT 2 03/09/2020 [facility]* ZOSTER RECOMBINANT 1 02/27/2019 [facility]* ZOSTER, UNSPECIFIED FORMULATION 1 02/27/2019 [facility] -Denies obtaining covid-19 immunizations. Declines today. Colonoscopy: No longer recommended d/t age. PSA: Evaluation and management per private urologist. LDCT: No longer recommended d/t age. AAA screening: No longer recommended d/t age. Eye exam: Eye clinic contact information given. Obtains labs in the private sector. Per [facility] 08/31/23: Potassium 3.6 Creatinine 1.29 eGFR 53 AST 113 ALT 83 ASSESSMENT/PLAN: HTN: -Continue prescribed regimen. -Instructed patient to check BP daily 1-2 hours after medications. -Discussed importance of regular exercise and/or physical activity in the control of blood pressure. -Discussed low sodium diet w/ <2 g daily. -Discussed avoidance of caffeine. -Discussed appropriate sleep hygiene and quality with >6 hours of uninterrupted sleep. -Self-monitor BP at home and report readings consistently above goal of <130/80. -Evaluation and management per private PCP. HLD: -Continue medication regimen. -Reviewed lifestyle modifications including participating in a low fat/low cholesterol diet. -Dietitian contact information given. -Evaluation and management per private PCP. Prediabetes: -Reviewed lifestyle modifications. -Dietitian contact information given. -Evaluation and management per private PCP. CKD stage 3A: -Recommended to stay hydrated and to avoid NSAIDs. -Reviewed lifestyle modifications. -Rotary Dump Operator contact information given. -Evaluation and management per private PCP. JERRY: -Continue using CPAP machine nightly. -Clean machine daily and replace filters q6m. -The patient has been advised that using CPAP regularly can decrease cardiac strain and help to control blood pressure. -Evaluation and management per private pulmonary. Thrombocythemia: -Continue medication regimen. -Evaluation and management per [facility] hematology. This consult was renewed today. -Evaluation and management per private PCP. GERD: -Continue medication regimen. -Reviewed lifestyle modifications. -Educated to avoid triggering foods such as alcohol, caffeinated drinks, chocolate, coffee, spicy foods, citrus foods, tomatoes etc. -Evaluation and management per private PCP. Vertigo: -Stable. -Evaluation and management per private ENT. -Evaluation and management per private academic specialist. Right knee pain/Right leg sharif's cyst: -Continue medication regimen. -Evaluation and management per private orthopedics. Allergic rhinitis: -Continue medication regimen. -Educated to limit exposures to allergens, wash bedding in hot water weekly, decrease humidity in the home, and to avoid firsthand or secondhand smoke. -Evaluation and management per private PCP. Hypokalemia: -Continue medication regimen. -Evaluation and management per private PCP. COPD: -Continue medication regimen. -Reviewed lifestyle modifications. -Evaluation and management per private arc and gas welder. Gout: -Continue current medication regimen. -Educated to avoid alcohol, seafood and organ meats. -Evaluation and management per private PCP. BPH: -Continue medication regimen. -Educated to limit fluid intake to frequent smaller amounts and decrease after evening meal, urinate frequently during the day, reduce or avoid caffeine and alcohol, and to avoid medications that can cause urinary retention or frequency when possible. -Evaluation and management per private urologist. Elevated PSA: -Stable. -Evaluation and management per private urologist. [place]: -Audiology contact information given. -Educated to avoid loud noises, avoid cotton swabs and to keep ears dry. -Evaluation and management per private PCP. Chronic LBP: -Controlled. -Whole health contact information given. -Evaluation and management per private PCP. Umbilical hernia (without gangrene): -S/p removal. Denies concerns today. -Evaluation and management per private PCP. Elevated LFTS: -Lifestyle modifications reviewed. -Patient declines further evaluation and/or management today. -Evaluation and management per private PCP. Vitamin D Deficiency: -Continue medication regimen. -Reviewed foods high in vitamin D including: Milk, orange juice, yogurt, salmon, canned tuna fish, cod liver oil and cereals with vitamin D added. -Evaluation and management per private PCP. Hypomagnesium: -Continue medication regimen. -Evaluation and management per private PCP. Fracture of cervical spine: -Whole health contact information given. -Evaluation and management per private PCP. RETURN TO CLINIC: 6 months or earlier as needed. SUMMARY STATEMENT: Plan of care has been discussed with including expected therapeutic benefits and potential side effects of prescribed medication and treatments. verbalizes understanding and is in agreement with the plan of care. Patient was instructed to keep all scheduled appointments and contact founder / ceo for any additional problems. 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 Handwritten corrections, additions and/or deletions were made to the list, as appropriate. Corrected Outpatient Medication List was provided to the patient/caregiver. /ramon/ Julisa Hoover DNP, MAINTENANCE WORKER [employer], LEAD CARGO MOVER-C Primary Care Nurse Practitioner Signed: 03/27/2024 11:30 JULISA HOOVER [facility] Mar 27, 2024 10:48 AM NURSING NOTE: LOCAL TITLE: V15 PACT FACE TO FACE NOTE STL STANDARD TITLE: NURSING NOTE DATE OF NOTE: MAR 27, 2024@10:48 ENTRY DATE: MAR 27, 2024@10:48:23 AUTHOR: JENNY NUNEZ EXP COSIGNER: URGENCY: STATUS: COMPLETED Provider Visit: Patient Identifiers : Full Name Date of Reason for visit: Established Follow-Up Mode of Arrival: Assistive Device: cane Allergy Review: FELODIPINE, LISINOPRIL, DILTIAZEM Allergy list reviewed and remains current. Recent Vital Signs: Temperature: 97.6 F [36.4 C] (03/27/2024 10:30) Pulse: 55 (03/27/2024 10:30) Respiration: 20 (03/27/2024 10:30) B/P: 147/72 (03/27/2024 10:30) Pain: 0 (03/27/2024 10:30) Wt: 226.4 lb [102.69 kg] (03/27/2024 10:30) Ht: 70 in [177.8 cm] (04/12/2023 13:15) BMI: 32.6 POX: 93% (03/27/2024 10:30) Would you like to discuss any personal problem, family problem, alcohol use, drug use, or a mental or emotional illness? No My [facility] ([facility]), please select appointment type: [facility] ([facility]VC) - Are you registered for [facility]? Yes - done Contact provided Primary Care phone number and encouraged to call if any questions or concerns. Review that after hours nurse line [phone] and emergency room are available 14/01 for patient use. Contact verbalized good understanding. Homelessness/Food Insecurity Screen: In the past 2 months, have you been living in stable housing that you own, rent, or stay in as part of a household? Yes - Living in stable housing. Are you worried or concerned that in the next 2 months you may NOT have stable housing that you own, rent, or stay in as part of a household? No - Not worried about housing near future The reports the following: Within the past 12 months, you worried whether your food would run out before you got money to buy more. Never true Within the past 12 months, the food you bought just didn't last and you didn't have money to get more. Never true Influenza Immunization: Influenza, High-Dose, Trivalent, Preservative Free (Fluzone-Syringe) Administered: INFLUENZA, HIGH-DOSE, TRIVALENT, PF Date Administered: Mar 27, 2024 10:50 Pilot Teacher: SANOFI PASTEUR Lot: [id number] Exp Date: Dec 21, 2024 [facility]: [phone] Admin Route/Site: INTRAMUSCULAR/RIGHT DELTOID Dosage: 0.5mL Vaccine Information Statement(s): INFLUENZA(FLU) VACC(INACTIVATED OR RECOMBINANT)VIS Jan 27, 2021 ([facility]ENGALI) Order By: Julisa Hoover Administered By: Jenny Nunez The Influenza Vaccine Information Statement (VIS) was reviewed with the patient/caregiver which lists the benefits and risks of the vaccine and the risks of not receiving the Influenza vaccine. The patient/caregiver denied any prior severe reaction to this vaccine or its components or a severe allergic reaction, such as anaphylaxis, to any vaccine or any injectable therapy. The patient/caregiver gave verbal consent to receive the vaccine. COVID-19 Immunization: Refused Pfizer Monovalent COVID-19 vaccine Immunization: COVID-19 (PFIZER), MRNA, LNP-S, PF, ADE-SUCROSE, 30 MCG/0.3 ML (AGES 12+ YEARS) Refusal Reason: PATIENT DECISION Patient refuses all immunization(s) in the COVID-19 group Date Documented: 03/27/24 10:50 /ramon/ JENNY NUNEZ LPN LICENSED PRACITCAL NURSE Signed: 03/27/2024 10:51 JENNY NUNEZ [facility]
--- OUTSIDE RECORDS SUMMARY | 2024-09-09 00:46 | XMS_ITS | Encounter Summary ---
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 Name Role Phone WHITNEY HOOVER Primary Care [...] MEDIC ARE SUPPL EMENT October 22, 2020 [id number] [phone] LORRAINE MATHIS RNARD PATIENT ANTHEM BCBS [place] MEDICARE SUPPLEMEN ANISHA MEDIC ARE SUPPL EMENT October 22, 2020 [id number] [phone] LORRAINE MATHIS RNARD PATIENT ANTHEM BCBS [place] MEDICARE SUPPLEMEN ANISHA MEDIC ARE SUPPL EMENT October 22, 2020 [id number] [phone] MANUEL MATHIS JR PATIENT BCBS [place] MEDICARE SUPPLEMEN ANISHA MEDIC ARE SUPPL EMENT October 22, 2020 [id number] [phone] LORRAINE MATHIS RNARD PATIENT MEDICARE (WNR) MEDICARE (M) PART A Jul 25, 2000 PART A [id number] MANUEL MATHIS JR PATIENT MEDICARE (WNR) MEDICARE (M) PART B Jul 25, 2000 PART B [id number] MANUEL MATHIS JR PATIENT MEDICARE (WNR) MEDICARE (M) PART A Jul 25, 2000 PART A [id number] MANUEL MATHIS JR PATIENT MEDICARE (WNR) MEDICARE (M) PART B Jul 25, 2000 PART B [id number] MANUEL MATHIS JR PATIENT Selected Encounter This section includes the information on record at [place] for the Encounter. Date/Time Encounter Type Encounter Description Reason Provider Source Jul 30, 2024 10:30 AM HEARING AID XM&SLCTN BINAURL AUDIOLOGY ICD-10-CM H90.3 Sensorineural hearing loss, bilateral VEST,SUZE A IHE Encounter Template Text not used by [place] Assessments - Encounter Diagnoses This section includes the primary and secondary diagnoses documented for the Encounter. Date/Time Primary/Secondary Diagnosis Diagnosis Name Provider Source Jul 30, 2024 10:55 AM PRIMARY Sensorineural hearing loss, bilateral VEST,SUZE A [facility] Plan of Treatment: Future Appointments (+ 6 months) and Future Tests (+/- 45 days) The Plan of Treatment section includes future care activities for the patient from all [place] treatmentfacilities. This section includes future appointments and future orders which are active, pending or scheduled. Future Appointments This section includes appointments that were scheduled to occur 6 months from the date of the Encounter, up to a maximum of 20 appointments. The data comes from all [place] treatment facilities. Appointment Date/Time Appointment Type Appointme nt Facility Name Aug 27, 2024 02:00 PM AMBULATORY - SURGERY [facility] Sep 25, 2024 11:00 AM AMBULATORY - MEDICINE [facility] Encounter Notes: All associated encounter notes This section contains the clinical notes associated to the Encounter. Date/Time Encounter Note(s) Provider Source Jul 30, 2024 10:39 AM AUDIOLOGY E & M NO TE: LOCAL TITLE: AUDIO EVALS ST STANDARD TITLE: AUDIOLOGY E & M NOTE DATE OF NOTE: JUL 30, 2024@10:39 ENTRY DATE: JUL 30, 2024@10:39:25 AUTHOR: SUZE SCHROEDER COSIGNER: URGENCY: STATUS: COMPLETED SUBJECT: Audio Purpose of appt: Hearing loss [x] patient initiated visit [] provider initiated visit via consult Case history: Initial audio. Pt here with his . He reports bilateral hearing loss and feels like it just keeps getting worse. He states he hears his talking; however he doesn't understand her. He purchased some hearing aids through [employer]; however doesn't feel they help very [...] aids and is a candidate through the [facility]. Hearing Aid Exam performed today: [] Monaural [...] After discussion, pt and clinician chose: Justen Edge AI ITC R for both ears. Disclaimer for hearing aid selection: The [employer] does not support or endorse one private entity over another. rec: 1. MIGDLAIA means. /ramon/ Joe HOBBS Staff Wwe WrestlerHelga, Surgery Service Signed: 07/30/2024 11:21 SUZE SCHROEDER [facility]
--- OUTSIDE RECORDS SUMMARY | 2024-09-09 00:46 | XMS_ITS ---
Author Name [facility] [place] [facility] [place] [facility] [place] Address [address] [place] [address] Care Team Providers Care Car Knocker Name Role Phone WHITNEY HOOVER Primary Care [...] MEDIC ARE SUPPL EMENT October 22, 2020 [id number] [phone] LORRAINE MATHIS RNARD PATIENT ANTHEM [place] MEDICARE SUPPLEMEN ANISHA MEDIC ARE SUPPL EMENT October 22, 2020 [id number] [phone] LORRAINE MATHIS RNARD PATIENT ANTHEM [place] MEDICARE SUPPLEMEN ANISHA MEDIC ARE SUPPL EMENT October 22, 2020 [id number] [phone] MANUEL MATHIS JR PATIENT BCBS [place] MEDICARE SUPPLEMEN ANISHA MEDIC ARE SUPPL EMENT October 22, 2020 [id number] [phone] LORRAINE MATHIS RNARD PATIENT MEDICARE (WNR) MEDICARE (M) PART B Jul 25, 2000 PART B [id number] MANUEL MATHIS JR PATIENT MEDICARE (WNR) MEDICARE (M) PART A Jul 25, 2000 PART A [id number] MANUEL MATHIS JR PATIENT MEDICARE (WNR) MEDICARE (M) PART A Jul 25, 2000 PART A [id number] MANUEL MATHIS JR PATIENT MEDICARE (WNR) MEDICARE (M) PART B Jul 25, 2000 PART B [id number] [phone] MANUEL MATHIS JR PATIENT Selected Encounter This section includes the information on record at [place] for the Encounter. Date/Time Encounter Type Encounter Description Reason Provider Source Aug 27, 2024 02:00 PM HEARING AID SUP/ACCESS/DEV AUDIOLOGY ICD-10-CM H90.3 Sensorineural hearing loss, bilateral SUZE SCHROEDER IHAyana Encounter Template Text not used by [place] Assessments - Encounter Diagnoses This section includes the primary and secondary diagnoses documented for the Encounter. Date/Time Primary/Secondary Diagnosis Diagnosis Name Provider Source Aug 27, 2024 03:34 PM PRIMARY Sensorineural hearing loss, bilateral SUZE SCHOREDER [facility] Plan of Treatment: Future Appointments (+ 6 months) and Future Tests (+/- 45 days) The Plan of Treatment section includes future care activities for the patient from all [place] treatmentfacilities. This section includes future appointments and future orders which are active, pending or scheduled. Future Appointments This section includes appointments that were scheduled to occur 6 months from the date of the Encounter, up to a maximum of 20 appointments. The data comes from all [place] treatment facilities. Appointment Date/Time Appointment Type Appointme nt Facility Name Sep 25, 2024 11:00 AM AMBULATORY - MEDICINE [facility] Encounter Notes: All associated encounter notes This section contains the clinical notes associated to the Encounter. Date/Time Encounter Note(s) Provider Source Aug 27, 2024 03:28 PM AUDIOLOGY OPERATING ROOM AIDE NOTE: LOCAL TITLE: HEARING AIDS STL STANDARD TITLE: AUDIOLOGY OPERATING ROOM AIDE NOTE DATE OF NOTE: AUG 27, 2024@15:28 ENTRY DATE: AUG 27, 2024@15:28:21 AUTHOR: SUZE SCHROEDER EXP COSIGNER: URGENCY: STATUS: COMPLETED SUBJECT: Audio Pt [...] Ear aids Today, pt was fit with Sighter Edge AI ITC R for both ears. The aids are programmed as: auto, MB=VC, no BT. right:[id number] left: [id number] trial period: 01-31-2025 The following standardized education was provided and the pt was able to demonstrate understanding after the education: o Introduction to aids (red/blue, right/left) o Parts of the aid o Batteries and insulation cupola charger, if applicable o Insertion/removal of aids. o Volume control, if applicable o Realistic expectations of aids. o Cleaning/maint of aids. Wax filters. [place]. o Review of the items: soft case, [...] adjustment to amplification. 2. Contact Audiology Clinic [phone] or [phone] for repairs and/or adjustments as needed. 3. VVC appts currently unavailable. Pt to return completed IOI survey in 30 days. Time for appt: 45 min /ramon/ Joe HOBBS Staff High Speed Warper TenderHelga, Surgery Service Signed: 08/27/2024 15:34 SUZE SCHROEDER [facility]
--- OUTSIDE RECORDS SUMMARY | 2024-09-09 00:46 | XMS_ITS | Clinical Summary ---
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 - C-spine precautions. C-collar at all times. HOB<30. Log roll - upright x-rays including odontoid view (09/20): No significant interval change in mildly displaced odontoid fracture with anterior subluxation of C2 on C1. Unchanged mild anterolisthesis of C3 on C4. Unchanged multilevel severe degenerative changes throughout the cervical spine, mild prevertebral soft tissue swelling - [place] cervical collar with occipital extension - [...] Home med: tiotroprium 2.5mcg- olodaterol 2.5mcg daily Encounters Date Type Department Care Team Description 09/08/2024 Telephone [facility] Medical Group Cardiology [address] [place] [address] Nic Singh MD 08/07/2024 10:00 AM SERVICE DELIVERY SUPERVISOR Office Visit [facility] Medical Group Cardiology at [address] [place] [id number] Nic Singh MD 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) 08/07/2024 Telephone [facility] Medical [facility] Cardiology [address] [place] [address] Nic Singh MD from Last 3 Months Immunizations Immunization Administration Dates Next Due Tdap 09/20/2023 Medical [...] on file Legal Sex Male 7:23 PM SERVICE DELIVERY SUPERVISOR Gender Identity Not on file Sexual Orientation Not on file Obstetrics History Last Filed Vital Signs Vital Sign Reading Time Taken Comments Blood Pressure 128/72 08/07/2024 9:58 AM SERVICE DELIVERY SUPERVISOR Pulse 80 08/07/2024 9:58 AM SERVICE DELIVERY SUPERVISOR Temperature 36.8 C (98.2 F) 09/24/2023 11:30 AM CDT Respiratory Rate 18 09/24/2023 11:30 AM CDT Oxygen Saturation 96% 08/07/2024 9:58 AM SERVICE DELIVERY SUPERVISOR Inhaled Oxygen Concentration - - Weight 104.3 kg (230 lb) 08/07/2024 9:58 AM SERVICE DELIVERY SUPERVISOR Height 177.8 cm (5' 10 ) 08/07/2024 9:58 AM SERVICE DELIVERY SUPERVISOR Body Mass Index 33 08/07/2024 9:58 AM SERVICE DELIVERY SUPERVISOR Plan of Treatment Health Maintenance Due Date Last Done Comments Depression Screening 1935 Hepatitis B Screening 1953 Well Visit 65+ 2000 Zoster Vaccine (2 of 2) 05/04/2020 03/09/2020, 02/27 Fall Risk Assessment 09/23/2024 09/24/2023 DTaP/Tdap/Td Vaccine (3 - Td or Tdap) 09/19/2033 09/20/2023, 02/27/2019, 02/09/2009 Pneumococcal vaccine 65+ Completed 016, 11/22/2014, 04/24/2011, Additional history exists Influenza Vaccine Completed 03/27/2024, , 02/22/2022, Additional history exists Procedures Procedure Name Priority Date/Time Associated Diagnosis Comments ELECTROCARDIOGRAM REPORT Routine 025 11:47 AM SERVICE DELIVERY SUPERVISOR Mobitz type 2 second degree AV block from Last 3 Months Results * Electrocardiogram Report (08/07/2024 11:47 AM SERVICE DELIVERY SUPERVISOR) Nic Singh MD ECG ORDERABLES Edited R esult - Final from Last 3 Months Insurance MEDICARE BLUE CROSS MEDICARE SUPPLEMENT MEDICARE [facility] MEDICARE Advance Directives For more information, please contact: [phone] * Full Code (Latest Code Status on File) Date Activated Date Inactivated Comments 09/20/2023 7:54 PM 09/24/2023 5:56 PM Care Teams Spray Painting Machine Operator Relationship Specialty Start Date End Date Vini Woods MD PCP - General 08/15/11
--- OUTSIDE RECORDS SUMMARY | 2024-09-09 00:46 | XMS_ITS | Continuity of Care Document ---
Author Name [facility] Organization [facility] Care Team Providers Care Brief Writer Name Role Phone [facility] Unavailable Unavailable Problems Combined list of problems from Department of Defense and [facility] Affairs facilities. It does not include entries that were removed or entered in error. Problem Status Onset Date Problem Type Date of Resolution Comments Source Allergic rhinitis Active Condition [facility] Benign essential hypertension Active Condition [facility] Benign prostatic hyperplasia Active Condition [facility] Chronic kidney disease stage 3A Active Condition [facility] Chronic obstructive lung disease (SNOMED CT 17219157) Active Condition [facility] Elevated PSA Active Condition [facility] Fracture of cervical spine Active Condition [facility] Gastroesophageal reflux disease Active Condition [facility] Gout (SNOMED CT 14648620) Active Condition [facility] Hearing loss Active Condition [facility] Hyperlipidemia Active Condition [facility] Hypokalemia Active Condition [facility] Hypomagnesemia Active Condition [facility] Liver function tests outside reference range Active Condition [facility] Low back pain Active Condition [facility] Prediabetes Active Condition [facility] Right knee pain Active Condition [facility] Thrombocytosis Active Condition [facility] Vertigo Active Condition [facility] Vitamin D deficiency Active Condition [facility] Actinic Keratosis Inactive Condition 04/14/2023 [facility] Diverticulosis, Colonic Inactive Condition 04/14/2023 [facility] Impotence of organic origin Inactive Condition 04/14/2023 [facility] Osteoarthritis Inactive Condition 04/14/2023 [facility] Sleep Apnea (ICD-9-CM 780.57) Inactive Condition 04/14/2023 [facility] Vertigo Inactive Condition 04/14/2023 [facility] Diagnosis: ICD-10-CM H90.3 Sensorineural hearing loss, bilateral Active Diagnosis [facility] Diagnosis: ICD-10-CM I10 Essential (primary) hypertension Active Diagnosis [facility] Diagnosis: ICD-10-CM M25.561 Pain in right knee Active Diagnosis [facility] Diagnosis: ICD-10-CM I12.9 Hypertensive chronic kidney disease w stg 1-4/unsp chr kdny Active Diagnosis [facility] Medications Combined list of outpatient medications from [...] DAY ORAL ACTIVE MOHINI HOOVER R 2023 [facility] CHOLECALCIF LIONEL 25MCG (1,000UNIT) TAB TAKE ONE TABLET BY MOUTH ONCE A DAY ORAL ACTIVE MOHINI HOOVER R 2023 [facility] DICLOFENAC NA 1% GEL,TOP APPLY 4 GM TO AFFECTED AREA(S) FOUR TIMES A DAY NEEDED FOR PAIN/INF LAMMATIO N; NOT MORE THAN 16 GRAMS DAILY TO ANY LOWER EXTREMIT Y JOINT. NOT MORE THAN 8 GRAMS DAILY TO ANY UPPER EXTREMIT Y JOINT. MAX 32GM/DAY OVER ALL JOINTS. (MEASURE DOSE WITH RULER ATTACHED INSIDE BOX) TOPICA L ACTIVE 03/17/2025 [id number] MOHINI HOOVER R 2023 100 [facility] DICLOFENAC NA 1% GEL,TOP APPLY 4 GM TO AFFECTED AREA(S) FOUR TIMES A DAY NEEDED FOR PAIN/INF LAMMATIO N; NOT MORE THAN 16 GRAMS DAILY TO ANY LOWER EXTREMIT Y JOINT. NOT MORE THAN 8 GRAMS DAILY TO ANY UPPER EXTREMIT Y JOINT. MAX 32GM/DAY OVER ALL JOINTS. (MEASURE DOSE WITH RULER ATTACHED INSIDE BOX) TOPICA L DISCONT INUED 10/01/2024 [id number] MOHINI HOOVER R 2023 100 [facility] DICLOFENAC NA 1% GEL,TOP APPLY 4 GM TO AFFECTED AREA(S) FOUR TIMES A DAY NEEDED FOR PAIN/INF LAMMATIO N; NOT MORE THAN 16 GRAMS DAILY TO ANY LOWER EXTREMIT Y JOINT. NOT MORE THAN 8 GRAMS DAILY TO ANY UPPER EXTREMIT Y JOINT. MAX 32GM/DAY OVER ALL JOINTS. (MEASURE DOSE WITH RULER ATTACHED INSIDE BOX) TOPICA L DISCONT INUED 04/08/2024 [id number] ADDI PACE MD 2022 100 [facility] FINASTERIDE 5MG TAB TAKE ONE TABLET BY MOUTH ONCE A DAY ORAL ACTIVE ADDI PACE MD 2018 [facility] GUAIFENESIN 400MG TAB TAKE ONE TABLET BY MOUTH EVERY 6 HOURS NEEDED TO THIN MUCUS. TAKE WITH 8 OUNCE GLASS OF WATER. ORAL ACTIVE 03/28/2025 [id number] 4 MOHINI HOOVER AAYUSH R 2023 360 [facility] GUAIFENESIN 400MG TAB TAKE ONE TABLET BY MOUTH EVERY 6 HOURS NEEDED TO THIN MUCUS. TAKE WITH 8 OUNCE GLASS OF WATER. ORAL DISCONT INUED 11/04/2024 [id number] 4 MOHINI HOOVER AAYUSH R 2023 360 [facility] HYDROCHLORO THIAZIDE 25MG TAB TAKE ONE-HALF TABLET BY MOUTH EVERY MORNING ORAL ACTIVE 03/28/2025 [id number] 5 MOHINI HOOVER AAYUSH R 2023 45 [facility] HYDROCHLORO THIAZIDE 25MG TAB TAKE ONE-HALF TABLET BY MOUTH EVERY MORNING ORAL DISCONT INUED 04/14/2024 [id number] 4 MOHINI HOOVER AAYUSH R 2022 45 [facility] HYDROXYUREA 500MG CAP TAKE 1 CAPSULE BY MOUTH TWICE A DAY ORAL ACTIVE MOHINI HOOVERY R 2023 [facility] LORATADINE 10MG TAB TAKE ONE TABLET BY MOUTH ONCE A DAY ON EMPTY STOMACH FOR ALLERGIE S ORAL ACTIVE 03/28/2025 [id number] 5 KIKO,MOHINI RUTLEDGEY R 2023 90 [facility] LORATADINE 10MG TAB TAKE ONE TABLET BY MOUTH ONCE A DAY ON EMPTY STOMACH FOR ALLERGIE S ORAL DISCONT INUED 04/08/2024 [id number] ADDI PACE MD 2022 90 [facility] LOSARTAN 50MG TAB TAKE ONE-HALF TABLET BY MOUTH ONCE A DAY TO LOWER BLOOD PRESSURE ORAL ACTIVE 03/28/2025 [id number] 4 KIKO,MOHINI RUTLEDGEY R 2023 45 [facility] LOSARTAN 50MG TAB TAKE ONE-HALF TABLET BY MOUTH ONCE A DAY TO LOWER BLOOD PRESSURE ORAL DISCONT INUED 04/10/2024 [id number] 4 KIKO,MOHINI LBY R 2022 45 [facility] MAGNESIUM OXIDE TAB TAKE 250 MG BY MOUTH ONCE A DAY ORAL ACTIVE MOHINI HOOVER R 2023 [facility] OLODATEROL 2.5MCG/TIOT ROPIUM 2.5MCG/ACTU AT [facility],ORAL,6 0D,4GM INHALE 1 PUFF BY ORAL INHALATI ON TWICE A DAY ADMINIST ER AT SAME TIME EACH DAY FOR BREATHIN G RESPIR ATORY (INHAL ATION) ACTIVE 03/28/2025 [id number] 5 MOHINI HOOVER R 2023 3 [facility] OLODATEROL 2.5MCG/TIOT ROPIUM 2.5MCG/ACTU AT [facility],ORAL,6 0D,4GM INHALE 1 PUFF BY ORAL INHALATI ON TWICE A DAY ADMINIST ER AT SAME TIME EACH DAY FOR BREATHIN G RESPIR ATORY (INHAL ATION) DISCONT INUED 07/04/2024 [id number] 4 MOHINI HOOVERY R 2023 3 [facility] OMEPRAZOLE 20MG CAP,EC TAKE ONE CAPSULE BY MOUTH EVERY MORNING BEFORE A MEAL ORAL ACTIVE 09/11/2024 [id number] 4 MOHINI HOOVER R 2023 90 [facility] OMEPRAZOLE 20MG CAP,EC TAKE ONE CAPSULE BY MOUTH EVERY MORNING BEFORE A MEAL ORAL DISCONT INUED 12/04/2023 [id number] 3 MOHINI HOOVER R 2022 90 [facility] POTASSIUM CHLORIDE 20MEQ TAB,SA (DISPERSIBL E) TAKE ONE TABLET BY MOUTH ONCE A DAY ORAL ACTIVE 03/28/2025 [id number] 5 MOHINI HOOVER R 2023 90 [facility] POTASSIUM CHLORIDE 20MEQ TAB,SA (DISPERSIBL E) TAKE ONE TABLET BY MOUTH ONCE A DAY ORAL DISCONT INUED 09/11/2024 [id number] 4 MOHINI HOOVER R 2023 90 [facility] POTASSIUM CHLORIDE 20MEQ TAB,SA (DISPERSIBL E) TAKE ONE TABLET BY MOUTH ONCE A DAY ORAL DISCONT INUED 12/04/2023 [id number] 3 MOHINI HOOVER R 2022 90 [facility] SIMVASTATIN 80MG TAB TAKE ONE-HALF TABLET BY MOUTH EVERY EVENING TO LOWER CHOLESTE ROL (REPORT ANY UNEXPLAI RUFINO MUSCLE PAIN, TENDERNE SS OR WEAKNESS TO YOUR PRIMARY CARE PROVIDER ) ORAL ACTIVE 03/28/2025 [id number] 5 MOHINI HOOVER R 2023 45 [facility] SIMVASTATIN 80MG TAB TAKE ONE-HALF TABLET BY MOUTH EVERY EVENING TO LOWER CHOLESTE ROL (REPORT ANY UNEXPLAI RUFINO MUSCLE PAIN, TENDERNE SS OR WEAKNESS TO YOUR PRIMARY CARE PROVIDER ) ORAL DISCONT INUED 04/08/2024 [id number] 4 ADDI PACE MD 2022 45 [facility] TAMSULOSIN HCL 0.4MG CAP TAKE 1 CAPSULE BY MOUTH EVERY EVENING ORAL ACTIVE MOHINI HOOVER R 2023 [facility] Allergies, Adverse Reactions, Alerts Combined list of allergies from Department of Defense and Veterans Affairs facilities. It does not include entries that were removed or entered in error. Substance Category Reaction Severity Reaction type Status Date Reported Comments Source DILTIAZEM Propensity to adverse reactions to drug (finding) Swelling active 8 [facility] FELODIPINE Propensity to adverse reactions to drug (finding) SWELLING (NON-SPECI FIC) active 3 [facility] LISINOPRIL Propensity to adverse reactions to drug (finding) Cough active 8 [facility] Immunizations Combined list of available immunizations from the Department of Defense and Veterans Affairs facilities. Immunization Series Date Given Administered By Site Reaction Lot Number CVX Code Drug Dynamometer Tuner Status Comments Source INFLUENZA, HIGH-DOSE, TRIVALENT, PF 2023 FARZANA NUNEZ RIGHT DELTO ID [id number] 135 complet ed [facility] TDAP 2 2023 115 complet ed [facility] INFLUENZA, HIGH-DOSE, QUADRIVALENT 2022 GARTH AGUILAR A RIGHT DELTO ID [id number] A 197 complet ed [facility] INFLUENZA, UNSPECIFIED FORMULATION 2021 88 complet ed [facility] INFLUENZA, UNSPECIFIED FORMULATION 2019 88 complet ed [facility] ZOSTER RECOMBINANT 2 2019 187 complet ed [facility] INFLUENZA, INJECTABLE, QUADRIVALENT, PRESERVATIVE FREE 1 2018 150 complet ed [facility] INFLUENZA, UNSPECIFIED FORMULATION 2018 88 complet ed [place] [facility] TDAP 2018 115 complet ed Left Deltoid [facility] ZOSTER RECOMBINANT 1 2018 187 complet [facility] ZOSTER, UNSPECIFIED FORMULATION 1 2018 188 complet ed [facility] INFLUENZA, INJECTABLE, QUADRIVALENT, PRESERVATIVE FREE 1 2017 150 complet ed [facility] INFLUENZA, INJECTABLE, QUADRIVALENT 1 2016 158 complet ed [facility] INFLUENZA, UNSPECIFIED FORMULATION 2016 88 complet ed [place] INFLUENZA, INJECTABLE, QUADRIVALENT 1 2015 158 complet ed [facility] INFLUENZA, UNSPECIFIED FORMULATION 2015 88 complet ed [facility] PNEUMOCOCCAL POLYSACCHARID E PPV23 2 2015 33 complet ed [facility] INFLUENZA, SEASONAL, INJECTABLE 1 2014 141 complet [facility] PNEUMOCOCC[facility] CONJUGATE PCV 13 2014 133 complet ed [facility] INFLUENZA, UNSPECIFIED FORMULATION 2014 88 complet ed [facility] INFLUENZA, UNSPECIFIED FORMULATION 2014 88 complet ed [place] INFLUENZA, INJECTABLE, QUADRIVALENT 1 2013 158 complet ed [facility] INFLUENZA, UNSPECIFIED FORMULATION 2013 88 complet ed [facility] INFLUENZA, UNSPECIFIED FORMULATION 2013 88 complet ed [facility] INFLUENZA, HIGH DOSE SEASONAL 1 2012 135 complet ed [facility] INFLUENZA, UNSPECIFIED FORMULATION 2012 88 complet ed [facility] INFLUENZA, UNSPECIFIED FORMULATION 2011 88 complet ed [facility] INFLUENZA, HIGH DOSE SEASONAL 1 2011 135 complet ed [facility] INFLUENZA, UNSPECIFIED FORMULATION 2011 88 complet ed [facility] PNEUMOCOCCAL POLYSACCHARID E PPV23 1 2010 33 complet ed [facility] PNEUMOCOCCAL, UNSPECIFIED FORMULATION 2010 109 complet ed [facility] INFLUENZA, UNSPECIFIED FORMULATION 2010 88 complet ed [facility] INFLUENZA, UNSPECIFIED FORMULATION 2010 88 complet ed [facility] TD(ADULT) UNSPECIFIED FORMULATION 2008 139 complet ed Left Deltoid [facility] INFLUENZA, UNSPECIFIED FORMULATION 2007 88 complet ed [facility] INFLUENZA, UNSPECIFIED FORMULATION 2007 88 complet ed per patient [facility] INFLUENZA, UNSPECIFIED FORMULATION 2005 88 complet ed [facility] INFLUENZA (HISTORICAL) 2002 88 complet ed [facility] PNEUMOCOCCAL, UNSPECIFIED FORMULATION 2001 109 complet ed [facility] INFLUENZA, UNSPECIFIED FORMULATION 1998 88 complet ed [facility] TETANUS TOXOID, UNSPECIFIED FORMULATION 1998 TOBIAS VIRGEN 112 complet ed [facility] Results Combined list of recent chemistry, [...] Dec 03, 2022 01:16 PM Reporting Lab: [facility] [address] [place] [phone] Performing Lab: [facility] [address] [place] [address] [facility] HGA1C HEMOGLOBIN A1C/HEMOGLOB IN.TOTAL IN BLOOD 5.7 4.0 - 6.0 12/19 Specimen Type: BLOOD No comment entered. Ordering Provider: NADER HOOVER Report Released Date/Time: Dec 03, 2022 01:16 PM Reporting Lab: [facility] [address] [place] [phone] Performing Lab: [facility] [address] [place] [phone] [facility] VITAMIN D, 25-HYDROXY 25-HYDROXYVI TAMIN D3 [MASS/VOLUME ] IN SERUM OR PLASMA 73.4 ng/mL 30 - 96 12/19 Specimen Type: SERUM No comment entered. Ordering Provider: NADER HOOVER Report Released Date/Time: Dec 03, 2022 01:16 PM Reporting Lab: [address] [address] Performing Lab: [facility] [address] [place] [phone] [facility] LIPID PANEL (STL) CHOLESTEROL [MASS/VOLUME ] IN SERUM OR PLASMA 143 mg/dL 0 - 200 12/19 Specimen Type: PLASMA Comment: No hemolysis noted. Ordering Provider: NADER HOOVER Report Released Date/Time: Dec 03, 2022 01:16 PM Reporting Lab: [address] [address] Performing Lab: [facility] [address] [place] [phone] [facility] LIPID PANEL (STL) TRIGLYCERIDE [MASS/VOLUME ] IN SERUM OR PLASMA 116 mg/dL 0 - 150 12/19 Specimen Type: PLASMA Comment: No hemolysis noted. Ordering Provider: NADER HOOVER Report Released Date/Time: Dec 03, 2022 01:16 PM Reporting Lab: [address] [address] Performing Lab: [address] [address] [facility] LIPID PANEL (STL) CHOLESTEROL IN LDL [MASS/VOLUME ] IN SERUM OR PLASMA BY CALCULATION 82 mg/dL 12/19 Specimen Type: PLASMA Comment: No hemolysis noted. Ordering Provider: NADER HOOVER Report Released Date/Time: Dec 03, 2022 01:16 PM Reporting Lab: [address] [address] Performing Lab: [address] [address] [facility] LIPID PANEL (STL) CHOLESTEROL IN HDL [MASS/VOLUME ] IN SERUM OR PLASMA 38 mg/dL 12/19 L Specimen Type: PLASMA Comment: No hemolysis noted. Ordering Provider: NADER HOOVER Report Released Date/Time: Dec 03, 2022 01:16 PM Reporting Lab: [facility] [address] [facility] [phone] Performing Lab: [facility] [address] [facility] [address] [facility] COMPREHENSI VE METABOLIC PANEL CREATININE [MASS/VOLUME ] IN SERUM OR PLASMA 1.27 mg/dL 0.7 - 1.3 12/19 Specimen Type: PLASMA Comment: No hemolysis noted. Ordering Provider: NADER HOOVER Report Released Date/Time: Dec 03, 2022 01:16 PM Reporting Lab: [facility] [address] [facility] [address] Performing Lab: [facility] [address] [facility] [address] [facility] COMPREHENSI VE METABOLIC PANEL UREA NITROGEN [MASS/VOLUME ] IN SERUM OR PLASMA 11 mg/dL 9 - 25 12/19 Specimen Type: PLASMA Comment: No hemolysis noted. Ordering Provider: NADER HOOVER Report Released Date/Time: Dec 03, 2022 01:16 PM Reporting Lab: [facility] [address] [facility] [address] Performing Lab: [facility] [address] [facility] [address] [facility] COMPREHENSI VE METABOLIC PANEL GLUCOSE [MASS/VOLUME ] IN SERUM OR PLASMA 95 mg/dL 72 - 99 12/19 Specimen Type: PLASMA Comment: No hemolysis noted. Ordering Provider: NADER HOOVER Report Released Date/Time: Dec 03, 2022 01:16 PM Reporting Lab: [facility] [address] [facility] [address] Performing Lab: [facility] [address] [place] [address] [facility] COMPREHENSI VE METABOLIC PANEL SODIUM [MOLES/VOLUM E] IN SERUM OR PLASMA 137 meq/L 136 - 145 12/19 Specimen Type: PLASMA Comment: No hemolysis noted. Ordering Provider: NADER HOOVER Report Released Date/Time: Dec 03, 2022 01:16 PM Reporting Lab: [address] [address] Performing Lab: [address] [address] [facility] COMPREHENSI VE METABOLIC PANEL POTASSIUM [MOLES/VOLUM E] IN SERUM OR PLASMA 4.3 meq/L 3.5 - 5 12/19 Specimen Type: PLASMA Comment: No hemolysis noted. Ordering Provider: NADER HOOVER Report Released Date/Time: Dec 03, 2022 01:16 PM Reporting Lab: [address] [address] Performing Lab: [address] [address] [facility] COMPREHENSI VE METABOLIC PANEL CHLORIDE [MOLES/VOLUM E] IN SERUM OR PLASMA 101 meq/L 98 - 107 12/19 Specimen Type: PLASMA Comment: No hemolysis noted. Ordering Provider: NADER HOOVER Report Released Date/Time: Dec 03, 2022 01:16 PM Reporting Lab: [address] [address] Performing Lab: [address] [address] [facility] COMPREHENSI VE METABOLIC PANEL CARBON DIOXIDE, TOTAL [MOLES/VOLUM E] IN SERUM OR PLASMA 26 meq/L 22 - 31 12/19 Specimen Type: PLASMA Comment: No hemolysis noted. Ordering Provider: NADER HOOVER Report Released Date/Time: Dec 03, 2022 01:16 PM Reporting Lab: [address] [address] Performing Lab: [facility] [address] [facility] [address] [facility] COMPREHENSI VE METABOLIC PANEL CALCIUM [MASS/VOLUME ] IN SERUM OR PLASMA 10.2 mg/dL 8.4 - 10.4 12/19 Specimen Type: PLASMA Comment: No hemolysis noted. Ordering Provider: NADER HOOVER Report Released Date/Time: Dec 03, 2022 01:16 PM Reporting Lab: [address] [address] Performing Lab: [address] [address] [facility] COMPREHENSI VE METABOLIC PANEL PROTEIN [MASS/VOLUME ] IN SERUM OR PLASMA 7.6 g/dL 6 - 8.6 12/19 Specimen Type: PLASMA Comment: No hemolysis noted. Ordering Provider: NADER HOOVER Report Released Date/Time: Dec 03, 2022 01:16 PM Reporting Lab: [address] [address] Performing Lab: [address] [address] [facility] COMPREHENSI VE METABOLIC PANEL ALBUMIN [MASS/VOLUME ] IN SERUM OR PLASMA 4.5 g/dL 3.4 - 5 12/19 Specimen Type: PLASMA Comment: No hemolysis noted. Ordering Provider: NADER HOOVER Report Released Date/Time: Dec 03, 2022 01:16 PM Reporting Lab: [facility] [address] [place] [phone] Performing Lab: [address] [address] [facility] COMPREHENSI VE METABOLIC PANEL BILIRUBIN.TO ANISHA [MASS/VOLUME ] IN SERUM OR PLASMA 0.8 mg/dL 0.2 - 1.2 12/19 Specimen Type: PLASMA Comment: No hemolysis noted. Ordering Provider: NADER HOOVER Report Released Date/Time: Dec 03, 2022 01:16 PM Reporting Lab: [facility] [address] [place] [address] Performing Lab: [facility] [address] [facility] [address] [facility] COMPREHENSI VE METABOLIC PANEL ALKALINE PHOSPHATASE [ENZYMATIC ACTIVITY/VOL UME] IN SERUM OR PLASMA 73 U/L 40 - 150 12/19 Specimen Type: PLASMA Comment: No hemolysis noted. Ordering Provider: NADER HOOVER Report Released Date/Time: Dec 03, 2022 01:16 PM Reporting Lab: [facility] [address] [place] [address] Performing Lab: [address] [address] [facility] COMPREHENSI VE METABOLIC PANEL ASPARTATE AMINOTRANSFE RASE [ENZYMATIC ACTIVITY/VOL UME] IN SERUM OR PLASMA 42 U/L 5 - 34 12/19 H Specimen Type: PLASMA Comment: No hemolysis noted. Ordering Provider: NADER HOOVER Report Released Date/Time: Dec 03, 2022 01:16 PM Reporting Lab: [facility] [address] [place] [address] Performing Lab: [address] [address] [facility] COMPREHENSI VE METABOLIC PANEL ALANINE AMINOTRANSFE RASE [ENZYMATIC ACTIVITY/VOL UME] IN SERUM OR PLASMA 42 U/L 8 - 40 12/19 H Specimen Type: PLASMA Comment: No hemolysis noted. Ordering Provider: NADER HOOVER Report Released Date/Time: Dec 03, 2022 01:16 PM Reporting Lab: [address] [address] Performing Lab: [address] [address] [facility] COMPREHENSI VE METABOLIC PANEL GLOMERULAR FILTRATION RATE/1.73 SQ M.PREDICTED [VOLUME RATE/AREA] IN SERUM, PLASMA OR BLOOD BY CREATININE-B ASED FORMULA (CKD-EPI 2020) 54.7 12/19 Specimen Type: PLASMA Comment: No hemolysis noted. Ordering Provider: NADER HOOVER BY R Report Released Date/Time: Dec 03, 2022 01:16 PM Reporting Lab: [facility] [address] [place] [address] Performing Lab: [address] [phone] [place] [address] CBC LEUKOCYTES [#/VOLUME] IN BLOOD BY AUTOMATED COUNT 5.0 10*3/u L 3.6 - 11.2 12/19 Specimen Type: BLOOD No comment entered. Ordering Provider: NADER HOOVER BY R Report Released Date/Time: Dec 03, 2022 01:16 PM Reporting Lab: [place] [address] Performing Lab: [address] CBC ERYTHROCYTES [#/VOLUME] IN BLOOD BY AUTOMATED COUNT 4.98 10*6/u L 4.10 - 5.70 12/19 Specimen Type: BLOOD No comment entered. Ordering Provider: NADER HOOVER BY Teresa Report Released Date/Time: Dec 03, 2022 01:16 PM Reporting Lab: [facility] [address] [place] [address] Performing Lab: [address] [phone] [place] [address] CBC HEMOGLOBIN [MASS/VOLUME ] IN BLOOD 14.8 g/dL 13.1 - 16.8 12/19 Specimen Type: BLOOD No comment entered. Ordering Provider: NADER HOOVER BY R Report Released Date/Time: Dec 03, 2022 01:16 PM Reporting Lab: [place] [id number] Performing Lab: [phone] [place] [address] CBC HEMATOCRIT [VOLUME FRACTION] OF BLOOD 45.8 38.2 - 48.4 12/19 Specimen Type: BLOOD No comment entered. Ordering Provider: HOOVER,NADER BY R Report Released Date/Time: Dec 03, 2022 01:16 PM Reporting Lab: [facility] [address] [place], [place] [phone] Performing Lab: [facility] [address] [place] [phone] [place] [address] CBC MCV [ENTITIC VOLUME] BY AUTOMATED COUNT 92.0 fL 80.0 - 100.0 12/19 Specimen Type: BLOOD No comment entered. Ordering Provider: NADER HOOVER BY R Report Released Date/Time: Dec 03, 2022 01:16 PM Reporting Lab: [place] [phone] Performing Lab: [place] [phone] CBC MCH [ENTITIC MASS] BY AUTOMATED COUNT 29.7 pg 27.0 - 34.0 12/19 Specimen Type: BLOOD No comment entered. Ordering Provider: NADER HOOVER BY R Report Released Date/Time: Dec 03, 2022 01:16 PM Reporting Lab: [facility] [address] [place] [phone] Performing Lab: [facility] [address] [place] [phone] [place] [address] CBC MCHC [MASS/VOLUME ] BY AUTOMATED COUNT 32.3 g/dL 33.0 - 36.0 12/19 L Specimen Type: BLOOD No comment entered. Ordering Provider: NADER HOOVER BY R Report Released Date/Time: Dec 03, 2022 01:16 PM Reporting Lab: [facility] [address] [place] [phone] Performing Lab: [phone] [place] [address] CBC PLATELETS [#/VOLUME] IN BLOOD BY AUTOMATED COUNT 555 10*3/u L 150 - 400 12/19 H Specimen Type: BLOOD No comment entered. Ordering Provider: NADER HOOVER BY R Report Released Date/Time: Dec 03, 2022 01:16 PM Reporting Lab: [facility] [address] [facility] [address] Performing Lab: [facility] [address] [place] [address] [facility] CBC PLATELET MEAN VOLUME [ENTITIC VOLUME] IN BLOOD BY AUTOMATED COUNT 10.2 fL 7.5 - 11.2 12/19 Specimen Type: BLOOD No comment entered. Ordering Provider: NADER HOOVER BY R Report Released Date/Time: Dec 03, 2022 01:16 PM Reporting Lab: [facility] [address] [place] [address] Performing Lab: [address] [phone] [place] [address] CBC ERYTHROCYTE DISTRIBUTION WIDTH [RATIO] BY AUTOMATED COUNT 14.0 11.8 - 15.1 12/19 Specimen Type: BLOOD No comment entered. Ordering Provider: NADER HOOVER BY R Report Released Date/Time: Dec 03, 2022 01:16 PM Reporting Lab: [facility] [address] [place] [address] Performing Lab: [address] [address] [facility] CBC LYMPHOCYTES/ 100 LEUKOCYTES IN BLOOD BY AUTOMATED COUNT 33 12/19 Specimen Type: BLOOD No comment entered. Ordering Provider: NADER HOOVER BY R Report Released Date/Time: Dec 03, 2022 01:16 PM Reporting Lab: [facility] [address] [facility] [address] Performing Lab: [facility] [address] [facility] [address] [facility] CBC MONOCYTES/10 0 LEUKOCYTES IN BLOOD BY AUTOMATED COUNT 12 12/19 Specimen Type: BLOOD No comment entered. Ordering Provider: NADER HOOVER BY R Report Released Date/Time: Dec 03, 2022 01:16 PM Reporting Lab: [facility] [address] [place] [address] Performing Lab: [facility] [address] [place] [address] [facility] CBC NEUTROPHILS/ 100 LEUKOCYTES IN BLOOD BY AUTOMATED COUNT 52 12/19 Specimen Type: BLOOD No comment entered. Ordering Provider: NADER HOOVER Report Released Date/Time: Dec 03, 2022 01:16 PM Reporting Lab: [address] [address] Performing Lab: [phone] [place] [address] CBC EOSINOPHILS/ 100 LEUKOCYTES IN BLOOD BY AUTOMATED COUNT 1 12/19 Specimen Type: BLOOD No comment entered. Ordering Provider: NADER HOOVER Report Released Date/Time: Dec 03, 2022 01:16 PM Reporting Lab: [address] [address] Performing Lab: [place] [id number] CBC BASOPHILS/10 0 LEUKOCYTES IN BLOOD BY AUTOMATED COUNT 1 12/19 Specimen Type: BLOOD No comment entered. Ordering Provider: NADER HOOVER Report Released Date/Time: Dec 03, 2022 01:16 PM Reporting Lab: [address] [address] Performing Lab: [address] [phone] [place] [address] CBC LYMPHOCYTES [#/VOLUME] IN BLOOD BY AUTOMATED COUNT 1.65 10*3/u L 0.77 - 4.50 12/19 Specimen Type: BLOOD No comment entered. Ordering Provider: NADER HOOVER Report Released Date/Time: Dec 03, 2022 01:16 PM Reporting Lab: [address] [address] Performing Lab: [address] [address] [facility] CBC MONOCYTES [#/VOLUME] IN BLOOD BY AUTOMATED COUNT 0.58 10*3/u L 0.19 - 1.50 12/19 Specimen Type: BLOOD No comment entered. Ordering Provider: NADER HOOVER Report Released Date/Time: Dec 03, 2022 01:16 PM Reporting Lab: [address] [address] Performing Lab: [address] [phone] [place] [address] CBC NEUTROPHILS [#/VOLUME] IN BLOOD BY AUTOMATED COUNT 2.56 10*3/u L 2.10 - 8.00 12/19 Specimen Type: BLOOD No comment entered. Ordering Provider: NADER HOOVER Report Released Date/Time: Dec 03, 2022 01:16 PM Reporting Lab: [address] [address] Performing Lab: [address] CBC EOSINOPHILS [#/VOLUME] IN BLOOD BY AUTOMATED COUNT 0.07 10*3/u L 0.00 - 0.60 12/19 Specimen Type: BLOOD No comment entered. Ordering Provider: NADER HOOVER Report Released Date/Time: Dec 03, 2022 01:16 PM Reporting Lab: [address] [address] Performing Lab: [address] [phone] [place] [address] CBC BASOPHILS [#/VOLUME] IN BLOOD BY AUTOMATED COUNT 0.05 10*3/u L 0.00 - 0.20 12/19 Specimen Type: BLOOD No comment entered. Ordering Provider: NADER HOOVER Report Released Date/Time: Dec 03, 2022 01:16 PM Reporting Lab: [address] [address] Performing Lab: [address] [address] [facility] Vital Signs Combined list of inpatient and outpatient Vital Signs from Department of Defense and Veterans Affairs, ranging from 12 months to all on record, depending upon the facility. Vital Sign Value Date Comments Source SYSTOLIC BLOOD PRESSURE 158 03/27/2024 10:30:38 [facility] DIASTOLIC BLOOD PRESSURE 59 03/27/2024 10:30:38 [facility] PULSE OXIMETRY 93 03/27/2024 10:30:38 [facility] WEIGHT 226.4 03[facility]27/2024 10:30:[facility] BMI 33 kg/m2 03/27/2024 10:30:38 [facility] PAIN 0 03/27/2024 10:30:38 [facility] TEMPERATURE 97.6 03/27/2024 10:30:38 [facility] PULSE 55 03/27/2024 10:30:38 [facility] RESPIRATION 20 03/27/2024 10:30:38 [facility] SYSTOLIC BLOOD PRESSURE 148 10/01/2023 14:13:33 [facility] DIASTOLIC BLOOD PRESSURE 82 10/01/2023 14:13:33 [facility] PULSE OXIMETRY 98 10/01/2023 14:13:33 [facility] WEIGHT 218.8 10/01/2023 14:13:33 [facility] BMI 31 kg/m2 10/01/2023 14:13:33 [facility] PAIN 4 10/01/2023 14:13:33 [facility] TEMPERATURE 97.7 10/01/2023 14:13:33 [facility] PULSE 54 10/01/2023 14:13:33 [facility] RESPIRATION 20 10/01/2023 14:13:33 [facility] Encounters Combined list of: 1) Encounters from Department of Veterans Affairs facilities going backup to the last 18 months, not all VA inpatient encounters are included; 2) Encounters from the Department of Defense facilities going backup to 280 months. 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 NADER Henry BY R 04/12 [facility] GAIT TRAINING THERAPY [id number] Diagnos is: ICD-10- CM M25.561 Pain in right knee PORFIRIO HAMILTON 05/02 [facility] Outpatient Encounter [id number] NADER HOOVER BY Teresa 05/02 [facility] Outpatient Encounter [id number] 05/21 [facility] Outpatient Encounter [id number] 06/19 [facility] Outpatient Encounter [id number] 08/14 [facility] Outpatient Encounter [id number] LORRAINE FORD 09/18 [facility] Outpatient Encounter [id number] 09/19 [facility] Outpatient Encounter [id number] 09/19 [facility] OFFICE O/P EST MOD 30 MIN [id number] Diagnos is: ICD-10- CM I10 Essenti al (primar y) hyperte NADER Henry BY R 09/30 [facility] Outpatient Encounter [id number] 10/30 [facility] Outpatient Encounter [id number] NICOLÁS MILNER R 11/10 [facility] Outpatient Encounter [id number] 03/25 [facility] Outpatient Encounter [id number] EMA NUNEZ C 03/26 [facility] OFFICE O/P EST MOD 30 MIN [id number] Diagnos is: ICD-10- CM I10 Essenti al (primar y) hyperte NADER Henry BY R 03/27 [facility] Outpatient Encounter [id number] SARAH HARPER 03/30 [facility] Outpatient Encounter [id number] 03/31 [facility] En[facility] [id number] 04/14 [facility] HEARING AID XM&SLCTN BINAURL [id number] Diagnos is: 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, bilater al VEST,SUZE A 07/30 [facility] Outpatient Encounter [id number] 08/12 [facility] SUP/ACCESS /DEV [id number] Diagnos is: 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, bilater al VEST,SUZE A 08/27 [facility] Social History Combined list of available smoking, tobacco, and other social history from Department of Defense and Veterans Affairs facilities. Social History Type Response Date Comment Source Tobacco smoking status TXIS VA-TOBACCO QUIT 15 YRS OR MORE 10/01/2023 [facility] History of tobacco use VA-TOBACCO FORMER USER 10/01/2023 [facility] History of tobacco use VA-TOBACCO FORMER USER 10/12/2022 [facility] History of tobacco use VA-TOBACCO FORMER USER 09/27/[facility] History of tobacco use VA-TOBACCO QUIT 15 YRS OR MORE 08/23/2018 [facility] History of tobacco use LIFETIME NON-USER OF TOBACCO 02/05/2017 [facility] History of tobacco use QUIT TOBACCO >7 YEARS AGO 01/05/2016 [facility] History of tobacco use QUIT TOBACCO >7 YEARS AGO 11/22/2014 [facility] History of tobacco use LIFETIME NON-USER OF TOBACCO 12/30/2013 [facility] History of tobacco use QUIT TOBACCO >7 YEARS AGO 10/28/2012 [facility] History of tobacco use QUIT TOBACCO >7 YEARS AGO 06/19/2006 [facility] History of tobacco use CURRENT NON-TOBACCO USER-HX OF USE 12/11/2005 [facility] History of tobacco use CURRENT NON-TOBACCO USER-HX OF USE 06/20/2005 [facility] History of tobacco use CURRENT NON-TOBACCO USER-HX OF USE 01/16/2005 [facility] History of tobacco use CURRENT NON-TOBACCO USER-HX OF USE 03/28/2004 [facility] History of tobacco use CURRENT NON-TOBACCO USER-HX OF USE 06/23/2003 [facility] History of tobacco use CURRENT NON-TOBACCO USER-HX OF USE 09/22/2002 [facility] History of tobacco use LIFETIME NON-TOBACCO USER 11/11/2001 [facility] History of tobacco use CURRENT NON-TOBACCO USER-HX OF USE 12/02/2000 stopped over 20 yrs ago [facility] History of tobacco use CURRENT NON-TOBACCO USER-HX OF USE 08/22/2000 [facility] History of tobacco use CURRENT NON-TOBACCO USER-HX OF USE 05/22/2000 stopped 18 yrs ago [facility] History of tobacco use CURRENT NON-TOBACCO USER-HX OF USE 01/18/2000 quit 15 years agpo [facility] Plan of Care List of future care activities from Department of Veterans Affairs facilities. Additional future care activities may be listed in the Assessment and Plan section. Date/Time Care Activity Care Activity Detail Facili ty 09/25/2024 AMBULATORY - MEDICINE AMBULATORY - MEDICI NE [facility]
--- OUTSIDE RECORDS SUMMARY | 2024-09-09 00:46 | XMS_ITS | Clinical Summary ---
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
--- NOTE | 2024-09-09 08:30 | ECG_ITS ---
Test Date: 2024-09-09 10:05:15 Measurements Intervals [place] Rate: 57 P: -34 HI: 327 QRS: -24 QRSD: 98 T: -1 QT: 423 QTc: 414 Interpretive Statements SINUS BRADYCARDIA WITH FIRST DEGREE AV BLOCK BORDERLINE LEFT AXIS DEVIATION [QRS AXIS < -20] MODERATE VOLTAGE CRITERIA FOR LVH, CONSIDER NORMAL VARIANT [MEETS CRITERIA IN ONE OF: R(aVL), S(V1), R(V5), R(V5/V6)+S(V1)] NONSPECIFIC ST & T-WAVE ABNORMALITY ABNORMAL ECG Electronically Signed On 09-09-2024 12:52:37 CDT by Willie Saleh M.D.
--- OUTSIDE RECORDS SUMMARY | 2024-09-09 09:27 | XMS_ITS | Clinical Summary ---
Author Organization [facility] Address [address] [place] [address] Care Team Providers Care Material Loader Name Role Phone Unavailable Primary Care Provider [...]
--- OUTSIDE RECORDS SUMMARY | 2024-09-09 09:27 | XMS_ITS | Encounter Summary ---
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 Please advise,thank you. Contact:[phone] documented in this encounter Plan of Treatment Not on file documented as of this encounter Visit Diagnoses Not on filedocumented in this encounter Care Teams Pole Incisor Operator Relationship Specialty Start Date End Date Vini Woods MD PCP - General 08/15/11 documented as of this encounter
--- OUTSIDE RECORDS SUMMARY | 2024-09-09 09:27 | XMS_ITS | Continuity of Care Document ---
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 It does not include entries that were removed or entered in error. Problem Status Onset Date Problem Type Date of Resolution Comments Source Allergic rhinitis Active Condition [facility] Benign essential hypertension Active Condition [facility] Benign prostatic hyperplasia Active Condition [facility] Chronic kidney disease stage 3A Active Condition [facility] Chronic obstructive lung disease (SNOMED CT 89258229) Active Condition [facility] Elevated PSA Active Condition [facility] Fracture of cervical spine Active Condition [facility] Gastroesophageal reflux disease Active Condition [facility] Gout (SNOMED CT 83215606) Active Condition [facility] Hearing loss Active Condition [facility] Hyperlipidemia Active Condition [facility] Hypokalemia Active Condition [facility] Hypomagnesemia Active Condition [facility] Liver function tests outside reference range Active Condition [facility] Low back pain Active Condition [facility] Prediabetes Active Condition [facility] Right knee pain Active Condition [facility] Thrombocytosis Active Condition [facility] Vertigo Active Condition [facility] Vitamin D deficiency Active Condition [facility] Actinic Keratosis Inactive Condition 04/14/2023 [facility] Diverticulosis, Colonic Inactive Condition 04/14/2023 [facility] Impotence of organic origin Inactive Condition 04/14/2023 [facility] Osteoarthritis Inactive Condition 04/14/2023 [facility] Sleep Apnea (ICD-9-CM 780.57) Inactive Condition 04/14/2023 [facility] Vertigo Inactive Condition 04/14/2023 [facility] Diagnosis: ICD-10-CM H90.3 Sensorineural hearing loss, bilateral Active Diagnosis [facility] Diagnosis: ICD-10-CM I10 Essential (primary) hypertension Active Diagnosis [facility] Diagnosis: ICD-10-CM M25.561 Pain in right knee Active Diagnosis [facility] Diagnosis: ICD-10-CM I12.9 Hypertensive chronic kidney disease w stg 1-4/unsp chr kdny Active Diagnosis [facility] Medications Combined list of outpatient medications [...] DAY ORAL ACTIVE MOHINI HOOVER R [address]23 [facility] CHOLECALCIF LIONEL 25MCG (1,000UNIT) TAB TAKE ONE TABLET BY MOUTH ONCE A DAY ORAL ACTIVE MOHINI HOOVER R [address] [facility] DICLOFENAC NA 1% GEL,TOP APPLY 4 GM TO AFFECTED AREA(S) FOUR TIMES A DAY NEEDED FOR PAIN/INF LAMMATIO N; NOT MORE THAN 16 GRAMS DAILY TO ANY LOWER EXTREMIT Y JOINT. NOT MORE THAN 8 GRAMS DAILY TO ANY UPPER EXTREMIT Y JOINT. MAX 32GM/DAY OVER ALL JOINTS. (MEASURE DOSE WITH RULER ATTACHED INSIDE BOX) TOPICA L ACTIVE 03/17/2025 [id number] MHOINI HOOVER R [address] [facility] DICLOFENAC NA 1% GEL,TOP APPLY 4 GM TO AFFECTED AREA(S) FOUR TIMES A DAY NEEDED FOR PAIN/INF LAMMATIO N; NOT MORE THAN 16 GRAMS DAILY TO ANY LOWER EXTREMIT Y JOINT. NOT MORE THAN 8 GRAMS DAILY TO ANY UPPER EXTREMIT Y JOINT. MAX 32GM/DAY OVER ALL JOINTS. (MEASURE DOSE WITH RULER ATTACHED INSIDE BOX) TOPICA L DISCONT INUED 10/01/2024 [id number] 4 MOHINI HOOVER R [address] [facility] DICLOFENAC NA 1% GEL,TOP APPLY 4 GM TO AFFECTED AREA(S) FOUR TIMES A DAY NEEDED FOR PAIN/INF LAMMATIO N; NOT MORE THAN 16 GRAMS DAILY TO ANY LOWER EXTREMIT Y JOINT. NOT MORE THAN 8 GRAMS DAILY TO ANY UPPER EXTREMIT Y JOINT. MAX 32GM/DAY OVER ALL JOINTS. (MEASURE DOSE WITH RULER ATTACHED INSIDE BOX) TOPICA L DISCONT INUED 04/08/2024 [id number] ADDI PACE MD [address] [facility] FINASTERIDE 5MG TAB TAKE ONE TABLET BY MOUTH ONCE A DAY ORAL ACTIVE ADDI PACE MD 2018 [facility] GUAIFENESIN 400MG TAB TAKE ONE TABLET BY MOUTH EVERY 6 HOURS NEEDED TO THIN MUCUS. TAKE WITH 8 OUNCE GLASS OF WATER. ORAL ACTIVE 03/28/2025 [id number] 4 MOHINI HOOVER AAYUSH R [address] [facility] GUAIFENESIN 400MG TAB TAKE ONE TABLET BY MOUTH EVERY 6 HOURS NEEDED TO THIN MUCUS. TAKE WITH 8 OUNCE GLASS OF WATER. ORAL DISCONT INUED 11/04/2024 [id number] 4 MOHINI HOOVER AAYUSH R [address] [facility] HYDROCHLORO THIAZIDE 25MG TAB TAKE ONE-HALF TABLET BY MOUTH EVERY MORNING ORAL ACTIVE 03/28/2025 [id number] 5 MOHINI HOOVER AAYUSH R [address] [facility] HYDROCHLORO THIAZIDE 25MG TAB TAKE ONE-HALF TABLET BY MOUTH EVERY MORNING ORAL DISCONT INUED 04/14/2024 [id number] 4 MOHINI HOOVER AAYUSH R [address] [facility] HYDROXYUREA 500MG CAP TAKE 1 CAPSULE BY MOUTH TWICE A DAY ORAL ACTIVE MOHINI HOOVERY R [address] [facility] LORATADINE 10MG TAB TAKE ONE TABLET BY MOUTH ONCE A DAY ON EMPTY STOMACH FOR ALLERGIE S ORAL ACTIVE 03/28/2025 [id number] 5 KIKO,MOHINI RUTLEDGEY R [address] [facility] LORATADINE 10MG TAB TAKE ONE TABLET BY MOUTH ONCE A DAY ON EMPTY STOMACH FOR ALLERGIE S ORAL DISCONT INUED 04/08/2024 [id number] 4 ADDI PACE MD [address] [facility] LOSARTAN 50MG TAB TAKE ONE-HALF TABLET BY MOUTH ONCE A DAY TO LOWER BLOOD PRESSURE ORAL ACTIVE 03/28/2025 [id number] 4 KIKO,MOHINI RUTLEDGEY R [address] [facility] LOSARTAN 50MG TAB TAKE ONE-HALF TABLET BY MOUTH ONCE A DAY TO LOWER BLOOD PRESSURE ORAL DISCONT INUED 04/10/2024 [id number] 4 KIKO,MOHINI LBY R [address] [facility] MAGNESIUM OXIDE TAB TAKE 250 MG BY MOUTH ONCE A DAY ORAL ACTIVE MOHINI HOOVER R [address] [facility] OLODATEROL 2.5MCG/TIOT ROPIUM 2.5MCG/ACTU AT [facility],ORAL,6 0D,4GM INHALE 1 PUFF BY ORAL INHALATI ON TWICE A DAY ADMINIST ER AT SAME TIME EACH DAY FOR BREATHIN G RESPIR ATORY (INHAL ATION) ACTIVE 03/28/2025 [id number] 5 MOHINI HOOVER R [address] [facility] OLODATEROL 2.5MCG/TIOT ROPIUM 2.5MCG/ACTU AT [facility],ORAL,6 0D,4GM INHALE 1 PUFF BY ORAL INHALATI ON TWICE A DAY ADMINIST ER AT SAME TIME EACH DAY FOR BREATHIN G RESPIR ATORY (INHAL ATION) DISCONT INUED 07/04/2024 [id number] 4 MOHINI HOOVERY R [address] [facility] OMEPRAZOLE 20MG CAP,EC TAKE ONE CAPSULE BY MOUTH EVERY MORNING BEFORE A MEAL ORAL ACTIVE 09/11/2024 [id number] 4 MOHINI HOOVER R [address] [facility] OMEPRAZOLE 20MG CAP,EC TAKE ONE CAPSULE BY MOUTH EVERY MORNING BEFORE A MEAL ORAL DISCONT INUED 12/04/2023 [id number] 3 MOHINI HOOVER R [address] [facility] POTASSIUM CHLORIDE 20MEQ TAB,SA (DISPERSIBL E) TAKE ONE TABLET BY MOUTH ONCE A DAY ORAL ACTIVE 03/28/2025 [id number] 5 MOIHNI HOOVER R [address] [facility] POTASSIUM CHLORIDE 20MEQ TAB,SA (DISPERSIBL E) TAKE ONE TABLET BY MOUTH ONCE A DAY ORAL DISCONT INUED 09/11/2024 [id number] 4 MOHINI HOOVER R [address] [facility] POTASSIUM CHLORIDE 20MEQ TAB,SA (DISPERSIBL E) TAKE ONE TABLET BY MOUTH ONCE A DAY ORAL DISCONT INUED 12/04/2023 [id number] 3 MOHINI HOOVER R [address] [facility] SIMVASTATIN 80MG TAB TAKE ONE-HALF TABLET BY MOUTH EVERY EVENING TO LOWER CHOLESTE ROL (REPORT ANY UNEXPLAI RUFINO MUSCLE PAIN, TENDERNE SS OR WEAKNESS TO YOUR PRIMARY CARE PROVIDER ) ORAL ACTIVE 03/28/2025 [id number] 5 MOHINI HOOVER R [address] [facility] SIMVASTATIN 80MG TAB TAKE ONE-HALF TABLET BY MOUTH EVERY EVENING TO LOWER CHOLESTE ROL (REPORT ANY UNEXPLAI RUFINO MUSCLE PAIN, TENDERNE SS OR WEAKNESS TO YOUR PRIMARY CARE PROVIDER ) ORAL DISCONT INUED 04/08/2024 [id number] ADDI PACE MD [address] [facility] TAMSULOSIN HCL 0.4MG CAP TAKE 1 CAPSULE BY MOUTH EVERY EVENING ORAL ACTIVE MOHINI HOOVER R [address] [facility] Allergies, Adverse Reactions, Alerts Combined list of allergies from Department of Defense and Veterans Affairs facilities. It does not include entries that were removed or entered in error. Substance Category Reaction Severity Reaction type Status Date Reported Comments Source DILTIAZEM Propensity to adverse reactions to drug (finding) Swelling active 8 [facility] FELODIPINE Propensity to adverse reactions to drug (finding) SWELLING (NON-SPECI FIC) active 3 [facility] LISINOPRIL Propensity to adverse reactions to drug (finding) Cough active 8 [facility] Immunizations Combined list of available immunizations from the Department of Defense and Veterans Affairs facilities. 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 TDAP 2 2023 115 complet ed [facility] INFLUENZA, HIGH-DOSE, QUADRIVALENT 2022 GARTH AGUILAR A RIGHT DELTO ID [id number] [address] [facility] INFLUENZA, UNSPECIFIED FORMULATION 2021 88 complet ed [facility] INFLUENZA, UNSPECIFIED FORMULATION 2019 88 complet ed [facility] ZOSTER RECOMBINANT [address] [facility] INFLUENZA, INJECTABLE, QUADRIVALENT, PRESERVATIVE FREE 1 2018 150 complet ed [facility] INFLUENZA, UNSPECIFIED FORMULATION 2018 88 complet ed [place] [facility] TDAP 2018 [address] Left Deltoid [facility] ZOSTER RECOMBINANT 1 2018 187 complet [facility] ZOSTER, UNSPECIFIED FORMULATION 1 2018 188 complet ed [facility] INFLUENZA, INJECTABLE, QUADRIVALENT, PRESERVATIVE FREE 1 2017 150 complet ed [facility] INFLUENZA, INJECTABLE, QUADRIVALENT 1 2016 158 complet ed [facility] INFLUENZA, UNSPECIFIED FORMULATION 2016 88 complet ed [place] INFLUENZA, INJECTABLE, QUADRIVALENT 1 2015 158 complet ed [facility] INFLUENZA, UNSPECIFIED FORMULATION 2015 88 complet ed [facility] PNEUMOCOCCAL POLYSACCHARID E PPV23 2 2015 33 complet ed [facility] INFLUENZA, SEASONAL, INJECTABLE 1 2014 141 [facility] PNEUM[facility]JUGATE PCV [address] [facility] INFLUENZA, UNSPECIFIED FORMULATION 2014 88 complet ed [facility] INFLUENZA, UNSPECIFIED FORMULATION 2014 88 complet ed [place] [facility] INFLUENZA, INJECTABLE, QUADRIVALENT 1 2013 158 complet ed [facility] INFLUENZA, UNSPECIFIED FORMULATION 2013 88 complet ed [facility] INFLUENZA, UNSPECIFIED FORMULATION 2013 88 complet ed [facility] INFLUENZA, HIGH DOSE SEASONAL 1 2012 135 complet ed [facility] INFLUENZA, UNSPECIFIED FORMULATION 2012 88 complet ed [facility] INFLUENZA, UNSPECIFIED FORMULATION 2011 88 complet ed [facility] INFLUENZA, HIGH DOSE SEASONAL 1 2011 135 complet ed [facility] INFLUENZA, UNSPECIFIED FORMULATION 2011 88 complet ed [facility] PNEUMOCOCCAL POLYSACCHARID E PPV23 1 2010 33 complet ed [facility] PNEUMOCOCCAL, UNSPECIFIED FORMULATION 2010 109 complet ed [facility] INFLUENZA, UNSPECIFIED FORMULATION [address] [facility] INFLUENZA, UNSPECIFIED FORMULATION [address] [facility] TD(ADULT) UNSPECIFIED FORMULATION 2008 139 [address] Left Deltoid [facility] INFLUENZA, UNSPECIFIED FORMULATION 2007 88 complet ed [facility] INFLUENZA, UNSPECIFIED FORMULATION 2007 88 complet ed per patient [facility] INFLUENZA, UNSPECIFIED FORMULATION [address] [facility] INFLUENZA (HISTORICAL) [address] [facility] PNEUMOCOCCAL, UNSPECIFIED FORMULATION [address] [facility] INFLUENZA, UNSPECIFIED FORMULATION [address] [facility] TETANUS TOXOID, UNSPECIFIED FORMULATION 1998 TOBIAS VIRGEN [address] [facility] Results Combined list of recent chemistry, hematology and other laboratory results from Department of Defense and Veterans Affairs, ranging from 15 months to all on record, depending upon the facility. Order Name Results Value Reference Range Date Interpretation Specimen Comments Source CBC LEUKOCYTES [#/VOLUME] IN BLOOD BY AUTOMATED COUNT 5.0 10*3/u L 3.6 - 11.2 12/19 Specimen Type: BLOOD No comment entered. Ordering Provider: NADER HOOVER Report Released Date/Time: Dec 03, 2022 01:16 PM Reporting Lab: [facility] [address] [place] [phone] Performing Lab: [facility] [address] [place] [phone] [facility] CBC ERYTHROCYTES [#/VOLUME] IN BLOOD BY AUTOMATED COUNT 4.98 10*6/u L 4.10 - 5.70 12/19 Specimen Type: BLOOD No comment entered. Ordering Provider: NADER HOOVER Report Released Date/Time: Dec 03, 2022 01:16 PM Reporting Lab: [facility] [address] [place] [phone] Performing Lab: [address] [address] [facility] CBC HEMOGLOBIN [MASS/VOLUME ] IN BLOOD 14.8 g/dL 13.1 - 16.8 12/19 Specimen Type: BLOOD No comment entered. Ordering Provider: NADER HOOVER Report Released Date/Time: Dec 03, 2022 01:16 PM Reporting Lab: [address] [address] Performing Lab: [address] [phone] [place] [address] CBC HEMATOCRIT [VOLUME FRACTION] OF BLOOD 45.8 38.2 - 48.4 12/19 Specimen Type: BLOOD No comment entered. Ordering Provider: NADER HOOVER Report Released Date/Time: Dec 03, 2022 01:16 PM Reporting Lab: [address] [address] Performing Lab: [address] [phone] [place] [address] CBC MCV [ENTITIC VOLUME] BY AUTOMATED COUNT 92.0 fL 80.0 - 100.0 12/19 Specimen Type: BLOOD No comment entered. Ordering Provider: NADER HOOVER Report Released Date/Time: Dec 03, 2022 01:16 PM Reporting Lab: [address] [phone] Performing Lab: [address] [phone] [place] [address] CBC MCH [ENTITIC MASS] BY AUTOMATED COUNT 29.7 pg 27.0 - 34.0 12/19 Specimen Type: BLOOD No comment entered. Ordering Provider: NADER HOOVER Report Released Date/Time: Dec 03, 2022 01:16 PM Reporting Lab: [address] [phone] Performing Lab: [address] [phone] [address] CBC MCHC [MASS/VOLUME ] BY AUTOMATED COUNT 32.3 g/dL 33.0 - 36.0 12/19 L Specimen Type: BLOOD No comment entered. Ordering Provider: NADER HOOVER BY R Report Released Date/Time: Dec 03, 2022 01:16 PM Reporting Lab: [facility] [address] [facility] [address] Performing Lab: [facility] [address] [place] [phone] [facility] CBC PLATELETS [#/VOLUME] IN BLOOD BY AUTOMATED COUNT 555 10*3/u L 150 - 400 12/19 H Specimen Type: BLOOD No comment entered. Ordering Provider: NADER HOOVER BY R Report Released Date/Time: Dec 03, 2022 01:16 PM Reporting Lab: [facility] [address] [place] [phone] Performing Lab: [phone] [place] [address] CBC PLATELET MEAN VOLUME [ENTITIC VOLUME] IN BLOOD BY AUTOMATED COUNT 10.2 fL 7.5 - 11.2 12/19 Specimen Type: BLOOD No comment entered. Ordering Provider: NADER HOOVER BY R Report Released Date/Time: Dec 03, 2022 01:16 PM Reporting Lab: [facility] [address] [place] [phone] Performing Lab: [address] [phone] [facility] CBC ERYTHROCYTE DISTRIBUTION WIDTH [RATIO] BY AUTOMATED COUNT 14.0 11.8 - 15.1 12/19 Specimen Type: BLOOD No comment entered. Ordering Provider: NADER HOOVER BY R Report Released Date/Time: Dec 03, 2022 01:16 PM Reporting Lab: [facility] [address] [place] [phone] Performing Lab: [facility] [address] [place] [phone] [facility] CBC LYMPHOCYTES/ 100 LEUKOCYTES IN BLOOD BY AUTOMATED COUNT 33 12/19 Specimen Type: BLOOD No comment entered. Ordering Provider: NADER HOOVER BY R Report Released Date/Time: Dec 03, 2022 01:16 PM Reporting Lab: [facility] [address] [phone] Performing Lab: [facility] [address] [facility] [address] [facility] CBC MONOCYTES/10 0 LEUKOCYTES IN BLOOD BY AUTOMATED COUNT 12 12/19 Specimen Type: BLOOD No comment entered. Ordering Provider: NADER HOOVER BY R Report Released Date/Time: Dec 03, 2022 01:16 PM Reporting Lab: [facility] [address] [facility] [phone] Performing Lab: [facility] [address] [facility] [address] [facility] CBC NEUTROPHILS/ 100 LEUKOCYTES IN BLOOD BY AUTOMATED COUNT 52 12/19 Specimen Type: BLOOD No comment entered. Ordering Provider: NADER HOOVER BY R Report Released Date/Time: Dec 03, 2022 01:16 PM Reporting Lab: [facility] [address] [facility] [phone] Performing Lab: [facility] [address] [facility] [address] [facility] CBC EOSINOPHILS/ 100 LEUKOCYTES IN BLOOD BY AUTOMATED COUNT 1 12/19 Specimen Type: BLOOD No comment entered. Ordering Provider: NADER HOOVER BY R Report Released Date/Time: Dec 03, 2022 01:16 PM Reporting Lab: [facility] [address] [facility] [address] Performing Lab: [facility] [address] [facility] [address] [facility] CBC BASOPHILS/10 0 LEUKOCYTES IN BLOOD BY AUTOMATED COUNT 1 12/19 Specimen Type: BLOOD No comment entered. Ordering Provider: NADER HOOVER BY R Report Released Date/Time: Dec 03, 2022 01:16 PM Reporting Lab: [facility] [address] [facility] [phone] Performing Lab: [facility] [address] [place] [phone] [facility] CBC LYMPHOCYTES [#/VOLUME] IN BLOOD BY AUTOMATED COUNT 1.65 10*3/u L 0.77 - 4.50 12/19 Specimen Type: BLOOD No comment entered. Ordering Provider: NADER HOOVER BY R Report Released Date/Time: Dec 03, 2022 01:16 PM Reporting Lab: [address] [phone] Performing Lab: [address] [address] [facility] CBC MONOCYTES [#/VOLUME] IN BLOOD BY AUTOMATED COUNT 0.58 10*3/u L 0.19 - 1.50 12/19 Specimen Type: BLOOD No comment entered. Ordering Provider: NADER HOOVER BY R Report Released Date/Time: Dec 03, 2022 01:16 PM Reporting Lab: [address] [phone] Performing Lab: [address] [address] [facility] CBC NEUTROPHILS [#/VOLUME] IN BLOOD BY AUTOMATED COUNT 2.56 10*3/u L 2.10 - 8.00 12/19 Specimen Type: BLOOD No comment entered. Ordering Provider: NADER HOOVER BY Teresa Report Released Date/Time: Dec 03, 2022 01:16 PM Reporting Lab: [address] [address] Performing Lab: [address] [address] [facility] CBC EOSINOPHILS [#/VOLUME] IN BLOOD BY AUTOMATED COUNT 0.07 10*3/u L 0.00 - 0.60 12/19 Specimen Type: BLOOD No comment entered. Ordering Provider: NADER HOOVER BY R Report Released Date/Time: Dec 03, 2022 01:16 PM Reporting Lab: [address] [address] Performing Lab: [facility] [address] [facility] [address] [facility] CBC BASOPHILS [#/VOLUME] IN BLOOD BY AUTOMATED COUNT 0.05 10*3/u L 0.00 - 0.20 12/19 Specimen Type: BLOOD No comment entered. Ordering Provider: NADER HOOVER Report Released Date/Time: Dec 03, 2022 01:16 PM Reporting Lab: [facility] [address] [facility] [address] Performing Lab: [facility] [address] [facility] [address] [facility] COMPREHENSI VE METABOLIC PANEL CREATININE [MASS/VOLUME ] IN SERUM OR PLASMA 1.27 mg/dL 0.7 - 1.3 12/19 Specimen Type: PLASMA Comment: No hemolysis noted. Ordering Provider: NADER HOOVER Report Released Date/Time: Dec 03, 2022 01:16 PM Reporting Lab: [facility] [address] [facility] [address] Performing Lab: [facility] [address] [place] [phone] [facility] COMPREHENSI VE METABOLIC PANEL UREA NITROGEN [MASS/VOLUME ] IN SERUM OR PLASMA 11 mg/dL 9 - 25 12/19 Specimen Type: PLASMA Comment: No hemolysis noted. Ordering Provider: NADER HOOVER Report Released Date/Time: Dec 03, 2022 01:16 PM Reporting Lab: [facility] [address] [facility] [address] Performing Lab: [facility] [address] [facility] [address] [facility] COMPREHENSI VE METABOLIC PANEL GLUCOSE [MASS/VOLUME ] IN SERUM OR PLASMA 95 mg/dL 72 - 99 12/19 Specimen Type: PLASMA Comment: No hemolysis noted. Ordering Provider: NADER HOOVER Report Released Date/Time: Dec 03, 2022 01:16 PM Reporting Lab: [facility] [address] [facility] [address] Performing Lab: [facility] [address] [facility] [address] [facility] COMPREHENSI VE METABOLIC PANEL SODIUM [MOLES/VOLUM E] IN SERUM OR PLASMA 137 meq/L 136 - 145 12/19 Specimen Type: PLASMA Comment: No hemolysis noted. Ordering Provider: NADER HOOVER Report Released Date/Time: Dec 03, 2022 01:16 PM Reporting Lab: [facility] [address] [place] [phone] Performing Lab: [address] [phone] [facility] COMPREHENSI VE METABOLIC PANEL POTASSIUM [MOLES/VOLUM E] IN SERUM OR PLASMA 4.3 meq/L 3.5 - 5 12/19 Specimen Type: PLASMA Comment: No hemolysis noted. Ordering Provider: NADER HOOVER Report Released Date/Time: Dec 03, 2022 01:16 PM Reporting Lab: [facility] [address] [place] [phone] Performing Lab: [facility] [address] [place] [phone] [facility] COMPREHENSI VE METABOLIC PANEL CHLORIDE [MOLES/VOLUM E] IN SERUM OR PLASMA 101 meq/L 98 - 107 12/19 Specimen Type: PLASMA Comment: No hemolysis noted. Ordering Provider: NADER HOOVER Report Released Date/Time: Dec 03, 2022 01:16 PM Reporting Lab: [facility] [address] [place] [phone] Performing Lab: [address] [phone] [facility] [facility] MET[facility]OLIC PANEL CARBON DIOXIDE, TOTAL [MOLES/VOLUM E] IN SERUM OR PLASMA 26 meq/L 22 - 31 12/19 Specimen Type: PLASMA Comment: No hemolysis noted. Ordering Provider: NADER HOOVER Report Released Date/Time: Dec 03, 2022 01:16 PM Reporting Lab: [facility] [address] [facility] [address] Performing Lab: [facility] [address] [facility] [address] [facility] COMPREHENSI VE METABOLIC PANEL CALCIUM [MASS/VOLUME ] IN SERUM OR PLASMA 10.2 mg/dL 8.4 - 10.4 12/19 Specimen Type: PLASMA Comment: No hemolysis noted. Ordering Provider: NADER HOOVER Report Released Date/Time: Dec 03, 2022 01:16 PM Reporting Lab: [facility] [address] [facility] [address] Performing Lab: [facility] [address] [place] [address] [facility] COMPREHENSI VE METABOLIC PANEL PROTEIN [MASS/VOLUME ] IN SERUM OR PLASMA 7.6 g/dL 6 - 8.6 12/19 Specimen Type: PLASMA Comment: No hemolysis noted. Ordering Provider: NADER HOOVER Report Released Date/Time: Dec 03, 2022 01:16 PM Reporting Lab: [facility] [address] [facility] [address] Performing Lab: [facility] [address] [place] [address] [facility] COMPREHENSI VE METABOLIC PANEL ALBUMIN [MASS/VOLUME ] IN SERUM OR PLASMA 4.5 g/dL 3.4 - 5 12/19 Specimen Type: PLASMA Comment: No hemolysis noted. Ordering Provider: NADER HOOVER Report Released Date/Time: Dec 03, 2022 01:16 PM Reporting Lab: [facility] [address] [place] [address] Performing Lab: [facility] [address] [place] [address] [facility] COMPREHENSI VE METABOLIC PANEL BILIRUBIN.TO ANISHA [MASS/VOLUME ] IN SERUM OR PLASMA 0.8 mg/dL 0.2 - 1.2 12/19 Specimen Type: PLASMA Comment: No hemolysis noted. Ordering Provider: HOOVER,NADER BY R Report Released Date/Time: Dec 03, 2022 01:16 PM Reporting Lab: [facility] [address] [place] [phone] Performing Lab: [facility] [address] [place] [address] [facility] COMPREHENSI VE METABOLIC PANEL ALKALINE PHOSPHATASE [ENZYMATIC ACTIVITY/VOL UME] IN SERUM OR PLASMA 73 U/L 40 - 150 12/19 Specimen Type: PLASMA Comment: No hemolysis noted. Ordering Provider: NADER HOOVER Report Released Date/Time: Dec 03, 2022 01:16 PM Reporting Lab: [address] [address] Performing Lab: [address] [address] [facility] COMPREHENSI VE METABOLIC PANEL ASPARTATE AMINOTRANSFE RASE [ENZYMATIC ACTIVITY/VOL UME] IN SERUM OR PLASMA 42 U/L 5 - 34 12/19 H Specimen Type: PLASMA Comment: No hemolysis noted. Ordering Provider: NADER HOOVER Report Released Date/Time: Dec 03, 2022 01:16 PM Reporting Lab: [address] [address] Performing Lab: [address] [address] [facility] COMPREHENSI VE METABOLIC PANEL ALANINE AMINOTRANSFE RASE [ENZYMATIC ACTIVITY/VOL UME] IN SERUM OR PLASMA 42 U/L 8 - 40 12/19 H Specimen Type: PLASMA Comment: No hemolysis noted. Ordering Provider: NADER HOOVER Report Released Date/Time: Dec 03, 2022 01:16 PM Reporting Lab: [address] [address] Performing Lab: [address] [address] [facility] COMPREHENSI VE METABOLIC PANEL GLOMERULAR FILTRATION RATE/1.73 SQ M.PREDICTED [VOLUME RATE/AREA] IN SERUM, PLASMA OR BLOOD BY CREATININE-B ASED FORMULA (CKD-EPI 2020) 54.7 12/19 Specimen Type: PLASMA Comment: No hemolysis noted. Ordering Provider: NADER HOOVER Report Released Date/Time: Dec 03, 2022 01:16 PM Reporting Lab: [facility] [address] [facility] [address] Performing Lab: [facility] [address] [place] [address] [facility] HGA1C HEMOGLOBIN A1C/HEMOGLOB IN.TOTAL IN BLOOD 5.7 4.0 - 6.0 12/19 Specimen Type: BLOOD No comment entered. Ordering Provider: NADER HOOVER Report Released Date/Time: Dec 03, 2022 01:16 PM Reporting Lab: [facility] [address] [place] [address] Performing Lab: [facility] [address] [place] [address] [facility] LIPID PANEL (STL) CHOLESTEROL [MASS/VOLUME ] IN SERUM OR PLASMA 143 mg/dL 0 - 200 12/19 Specimen Type: PLASMA Comment: No hemolysis noted. Ordering Provider: NADER HOOVER Report Released Date/Time: Dec 03, 2022 01:16 PM Reporting Lab: [facility] [address] [place] [address] Performing Lab: [facility] [address] [place] [address] [facility] LIPID PANEL (STL) TRIGLYCERIDE [MASS/VOLUME ] IN SERUM OR PLASMA 116 mg/dL 0 - 150 12/19 Specimen Type: PLASMA Comment: No hemolysis noted. Ordering Provider: NADER HOOVER Report Released Date/Time: Dec 03, 2022 01:16 PM Reporting Lab: [facility] [address] [place] [address] Performing Lab: [facility] [address] [place] [address] [facility] LIPID PANEL (STL) CHOLESTEROL IN LDL [MASS/VOLUME ] IN SERUM OR PLASMA BY CALCULATION 82 mg/dL 12/19 Specimen Type: PLASMA Comment: No hemolysis noted. Ordering Provider: NADER HOOVER Report Released Date/Time: Dec 03, 2022 01:16 PM Reporting Lab: [facility] [address] [place] [phone] Performing Lab: [facility] [address] [place] [address] [facility] LIPID PANEL (STL) CHOLESTEROL IN HDL [MASS/VOLUME ] IN SERUM OR PLASMA 38 mg/dL 12/19 L Specimen Type: PLASMA Comment: No hemolysis noted. Ordering Provider: NADER HOOVER Report Released Date/Time: Dec 03, 2022 01:16 PM Reporting Lab: [address] [address] Performing Lab: [address] [address] [facility] TSH (MA-PB-STL) THYROTROPIN [UNITS/VOLUM E] IN SERUM OR PLASMA 2.128 u[IU]/ mL 0.47 - 5 12/19 Specimen Type: SERUM No comment entered. Ordering Provider: NADER HOOVER Report Released Date/Time: Dec 03, 2022 01:16 PM Reporting Lab: [address] [address] Performing Lab: [address] [address] [facility] VITAMIN D, 25-HYDROXY 25-HYDROXYVI TAMIN D3 [MASS/VOLUME ] IN SERUM OR PLASMA 73.4 ng/mL 30 - 96 12/19 Specimen Type: SERUM No comment entered. Ordering Provider: NADER HOOVER Report Released Date/Time: Dec 03, 2022 01:16 PM Reporting Lab: [facility] [address] [place] [address] Performing Lab: [address] [address] [facility] Vital Signs Combined list of inpatient and outpatient Vital Signs from Department of Defense and Veterans Affairs, ranging from 12 months to all on record, depending upon the facility. Vital Sign Value Date Comments Source SYSTOLIC BLOOD PRESSURE 158 03/27/2024 10:30:38 [facility] DIASTOLIC BLOOD PRESSURE 59 03/27/2024 10:30:38 [facility] PULSE OXIMETRY 93 03/27/2024 10:30:38 [facility] WEIGHT 226.4 03/27/2024 10:30:38 [facility] BMI 33 kg/m2 03/27/2024 10:30:38 [facility] PAIN 0 03/27/2024 10:30:38 [facility] TEMPERATURE 97.6 03/27/2024 10:30:38 [facility] PULSE 55 03/27/2024 10[facility]30[facility] RESP[facility]ATION 20 03/27/2024 10:30:38 [facility] SYSTOLIC BLOOD PRESSURE 148 10/01/2023 14:13:33 [facility] DIASTOLIC BLOOD PRESSURE 82 10/01/2023 14:13:33 [facility] PULSE OXIMETRY 98 10/01/2023 14:13:33 [facility] WEIGHT 218.8 10/01/2023 14:13:33 [facility] BMI 31 kg/m2 10/01/2023 14:13:33 [facility] PAIN 4 10/01/2023 14:13:33 [facility] TEMPERATURE 97.7 10/01/2023 14:13:33 [facility] PULSE 54 10/01/2023 14:13:33 [facility] RESPIRATION 20 10/01/2023 14:13:33 [facility] Encounters Combined list of: 1) Encounters from Department of Veterans Affairs facilities going backup to the last 18 months, not all VA inpatient encounters are included; 2) Encounters from the Department of Defense facilities going backup to 280 months. 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-4/uns p chr NADER Henry BY R 04/12 [facility] GAIT TRAINING THERAPY [id number] Diagnos is: ICD-10- CM M25.561 Pain in right knee PORFIRIO HAMILTON 05/02 [facility] Outpatient Encounter [id number] NADER HOOVER BY Teresa 05/02 [facility] Outpatient Encounter [id number] 05/21 [facility] Outpatient Encounter [id number] 06/19 [facility] Outpatient Encounter [id number] 08/14 [facility] Outpatient Encounter [id number] LORRAINE FORD 09/18 [facility] Outpatient Encounter [id number] 09/19 [facility] Outpatient Encounter [id number] 09/19 [facility] O/P EST MOD 30 MIN [id number] Diagnos is: ICD-10- CM I10 Essenti al (primar y) hyperte NADER Henry BY R 09/30 [facility] Outpatient Encounter [id number] 10/30 [facility] Outpatient Encounter [id number] NICOLÁS MILNER R 11/10 [facility] Outpatient Encounter [id number] 03/25 [facility] Outpatient Encounter [id number] EMA NUNEZ C 03/26 [facility] O/P EST MOD 30 MIN [id number] Diagnos is: ICD-10- CM I10 Essenti al (primar y) hyperte NADER Henry BY R 03/27 [facility] Outpatient Encounter [id number] SARAH HARPER 03/30 [facility] Outpatient Encounter [id number] 03/31 [facility] En[facility] [id number] 04/14 [facility] HEARING AID XM&SLCTN BINAURL [id number] Diagnos is: 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, bilater al VEST,SUZE A 07/30 [facility] Outpatient Encounter [id number] 08/12 [facility] HEAR[facility] SUP/ACCESS /DEV [id number] Diagnos is: 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, bilater al VEST,SUZE A 08/27 [facility] Social History Combined list of available smoking, tobacco, and other social history from Department of Defense and Veterans Affairs facilities. Social History Type Response Date Comment Source Tobacco smoking status UTIS VA-TOBACCO QUIT 15 YRS OR MORE 10/01/2023 [facility] History of tobacco use VA-TOBACCO FORMER USER 10/01/2023 [facility] History of tobacco use VA-TOBACCO FORMER USER 10/12/2022 [facility] History of tobacco use VA-TOBACCO FORMER USER 09/27[facility] History of tobacco use VA-TOBACCO QUIT 15 YRS OR MORE 08/23/2018 [facility] History of tobacco use LIFETIME NON-USER OF TOBACCO 02/05/2017 [facility] History of tobacco use QUIT TOBACCO >7 YEARS AGO 01/05/2016 [facility] History of tobacco use QUIT TOBACCO >7 YEARS AGO 11/22/2014 [facility] History of tobacco use LIFETIME NON-USER OF TOBACCO 12/30/2013 [facility] History of tobacco use QUIT TOBACCO >7 YEARS AGO 10/28/2012 [facility] History of tobacco use QUIT TOBACCO >7 YEARS AGO 06/19/2006 [facility] History of tobacco use CURRENT NON-TOBACCO USER-HX OF USE 12/11/2005 [facility] History of tobacco use CURRENT NON-TOBACCO USER-HX OF USE 06/20/2005 [facility] History of tobacco use CURRENT NON-TOBACCO USER-HX OF USE 01/16/2005 [facility] History of tobacco use CURRENT NON-TOBACCO USER-HX OF USE 03/28/2004 [facility] History of tobacco use CURRENT NON-TOBACCO USER-HX OF USE 06/23/2003 [facility] History of tobacco use CURRENT NON-TOBACCO USER-HX OF USE 09/22/2002 [facility] History of tobacco use LIFETIME NON-TOBACCO USER 11/11/2001 [facility] History of tobacco use CURRENT NON-TOBACCO USER-HX OF USE 12/02/2000 stopped over [address] [facility] History of tobacco use CURRENT NON-TOBACCO USER-HX OF USE 08/22/2000 [facility] History of tobacco use CURRENT NON-TOBACCO USER-HX OF USE 05/22/[address] [facility] History of tobacco use CURRENT NON-TOBACCO USER-HX OF USE 01/18/[address] [facility] Plan of Care List of future care activities from Department of Veterans Affairs facilities. Additional future care activities may be listed in the Assessment and Plan section. Date/Time Care Activity Care Activity Detail Facili ty 09/25/2024 AMBULATORY - MEDICINE AMBULATORY - MEDICI NE [facility]
--- OUTSIDE RECORDS SUMMARY | 2024-09-09 09:27 | XMS_ITS | Continuity of Care Document ---
Author Organization [facility] Address [address] [place] [address] [address] [place] [address] Phone Care Team Providers Care Trouble Dispatcher Name Role Phone Gonzalo Gonzales Unavailable Unavailable [...] Providers Copied on Encounter Office/outpat ient Visit, [facility], [address], [place], [place], [id number], [place] tel:[phone] [facility] Corporate [place] No Information 0-201 0 Janet Sánchez. [address] [facility] [place] [address], [place], [address], [place]. tel:[phone] Office/outpat ient Visit, [facility], [address], [place], [place], [id number], [place] tel:[phone] [facility] No Information Dec-0 6-201 0 Venice Hillman. [address], [place], [address], [place]. tel:[phone] [facility], [address], [place], [place], [id number], [place] tel:[phone] [facility] No Information King-3 0-201 0 Krishnasamy Gonzalo. [address] [facility] [address], [place], [address], [place]. tel:[phone] Office/outpat ient Visit, [facility], [address] [place] [address] [address], [place], [place], [id number], [place] tel:[phone] [facility] No Information King-1 5-201 0 Krishnasamy Gonzalo. [address] [address], [place], [place], [facility], [place]. tel:[phone] Office/outpat ient Visit, [facility], [address] [place] [address] [address], [place], [place], [id number], [place] tel:[phone] [facility] No Information King-0 9-201 0 Krishnasamy Gonzalo. [address] [facility] [address], [place], [address], [place]. tel:[phone] [facility], [address], [place], [place], [id number], [place] tel:[phone] [facility] No Information Apr-2 1-201 0 Krishnasamy Gonzalo. [address] [facility] [place] [address], [place], [address], [place]. tel:[phone] [facility], [address], [place], [place], [id number], [place] tel:[phone] [facility] No Information Apr-0 8-200 9 Krishnasamy Gonzalo. [address], [place], [address], [place]. tel:[phone] [facility], [address] [facility] [address], [place], [place], [id number], [place] tel:[phone] [facility] No Information Mar-2 6-200 8 Janet Sánchez. [address] [facility] [address], [place], [address], [place]. tel:[phone] [facility], [address], [place], [place], [id number], [place] tel:[phone] [facility] No Information Mar-2 6-200 7 Wild Rios. [address] [facility], [address], [place], [place], [id number], [place]. tel:[phone] Family History Family Member Type Diagnosis Age At Onset No Information Payers Payer name Insurance type Covered libertarian ID Authoriza [email or web address](s) [place] [id number] Social History Type Description Quantity Date Captured [...]
--- OUTSIDE RECORDS SUMMARY | 2024-09-09 09:27 | XMS_ITS | Referral Summary ---
Author Organization [facility] Address [address] [place] [address] Care Team Providers Care Prep Cook Name Role Phone Vini Woods MD Primary Care Provider [phone] Encounters Date Type Department Care Team Description 09/08/2024 Telephone [facility]iology [address] [place] [address] Nic Singh MD 08/07/2024 Telephone [facility] Cardiology [address] [place] [address] Nic Singh MD 08/07/2024 10:00 AM SLUMBER ROOM ATTENDANT Office Visit [facility] Medical Group Cardiology at [address] [place] [phone] Nic Singh MD Mobitz type 2 second [...] Outpatient Ophthalmology follow-up in 2 weeks at [facility] - seen by ENT consult, plan [...] cord signal, advanced multilevel cervical spondylosis with [id number] neuroforaminal stenosis and no high-grade spinal canal stenosis. - C-spine precautions. C-collar at all times. HOB<30. Log roll - upright x-rays including odontoid view (09/20): No significant interval change in mildly displaced odontoid fracture with anterior subluxation of C2 on C1. Unchanged mild anterolisthesis of C3 on C4. Unchanged multilevel severe degenerative changes throughout the cervical spine, mild prevertebral soft tissue swelling - [place] J cervical collar with occipital extension - [...] on file Legal Sex Male 7:23 PM SLUMBER ROOM ATTENDANT Gender Identity Not on file Sexual Orientation Not on file Last Filed Vital Signs Vital Sign Reading Time Taken Comments Blood Pressure 128/72 08/07/2024 9:58 AM SLUMBER ROOM ATTENDANT Pulse 80 08/07/2024 9:58 AM SLUMBER ROOM ATTENDANT Temperature 36.8 C (98.2 F) 09/24/2023 11:30 AM CDT Respiratory Rate 18 09/24/2023 11:30 AM CDT Oxygen Saturation 96% 08/07/2024 9:58 AM SLUMBER ROOM ATTENDANT Inhaled Oxygen Concentration - - Weight 104.3 kg (230 lb) 08/07/2024 9:58 AM SLUMBER ROOM ATTENDANT Height 177.8 cm (5' 10 ) 08/07/2024 9:58 AM SLUMBER ROOM ATTENDANT Body Mass Index 33 08/07/2024 9:58 AM SLUMBER ROOM ATTENDANT Plan of Treatment Not on file Procedures Procedure Name Priority Date/Time Associated Diagnosis Comments ELECTROCARDIOGRAM REPORT Routine 025 11:47 AM SLUMBER ROOM ATTENDANT Mobitz type 2 second degree AV block from Last 3 Months Results * Electrocardiogram Report (08/07/2024 11:47 AM SLUMBER ROOM ATTENDANT) us Nic Singh MD ECG ORDERABLES Edited R esult - Final from Last 3 Months Insurance MEDICARE [facility] MEDICARE SUPPLEMENT MEDICARE [facility] MEDICARE Advance Directives For more information, please contact: [phone] * Full Code (Latest Code Status on File) Date Activated Date Inactivated Comments 09/20/2023 7:54 PM 09/24/2023 5:56 PM Care Teams Prep Cook Relationship Specialty Start Date End Date Vini Woods MD PCP - General 08/15/11
--- OUTSIDE RECORDS SUMMARY | 2024-09-09 09:27 | XMS_ITS | Clinical Summary ---
Author Organization [facility] Address [address] [place] [address] Care Team Providers Care Stock [employer] Name Role Phone Vini Woods MD Primary Care Provider [phone] Allergies Active Allergy Reactions Criticality Noted Date [...] Outpatient Ophthalmology follow-up in 2 weeks at [facility] - seen by ENT consult, plan to [...] cord signal, advanced multilevel cervical spondylosis with [id number] neuroforaminal stenosis and no high-grade spinal canal stenosis. - C-spine precautions. C-collar at all times. HOB<30. Log roll - upright x-rays including odontoid view (09/20): No significant interval change in mildly displaced odontoid fracture with anterior subluxation of C2 on C1. Unchanged mild anterolisthesis of C3 on C4. Unchanged multilevel severe degenerative changes throughout the cervical spine, mild prevertebral soft tissue swelling - Morongo J cervical collar with occipital extension - [...] Type Department Care Team Description 09/08/2024 Telephone [facility] Cardiology [address] [place] [address] Nic Singh MD 08/07/2024 10:00 AM REPEAT CHIEF Office Visit [facility] Cardiology at [address] [place] [id number] Nic Singh MD 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) 08/07/2024 Telephone [facility] Medical [facility] Cardiology [address] [place] [address] Nic Singh MD from Last 3 Months [...] on file Legal Sex Male 7:23 PM REPEAT CHIEF Gender Identity Not on file Sexual Orientation Not on file Obstetrics History Last Filed Vital Signs Vital Sign Reading Time Taken Comments Blood Pressure 128/72 08/07/2024 9:58 AM REPEAT CHIEF Pulse 80 08/07/2024 9:58 AM REPEAT CHIEF Temperature 36.8 C (98.2 F) 09/24/2023 11:30 AM CDT Respiratory Rate 18 09/24/2023 11:30 AM CDT Oxygen Saturation 96% 08/07/2024 9:58 AM REPEAT CHIEF Inhaled Oxygen Concentration - - Weight 104.3 kg (230 lb) 08/07/2024 9:58 AM REPEAT CHIEF Height 177.8 cm (5' 10 ) 08/07/2024 9:58 AM REPEAT CHIEF Body Mass Index 33 08/07/2024 9:58 AM REPEAT CHIEF Plan of Treatment Health Maintenance Due Date [...] Comments ELECTROCARDIOGRAM REPORT Routine 025 11:47 AM REPEAT CHIEF Mobitz type 2 second degree AV block from Last 3 Months Results * Electrocardiogram Report (08/07/2024 11:47 AM REPEAT CHIEF) Nic Singh MD ECG ORDERABLES Edited R esult - Final from Last 3 Months Insurance MEDICARE BLUE CROSS MEDICARE SUPPLEMENT MEDICARE [facility] MEDICARE Advance Directives For more information, please contact: [phone] * Full Code (Latest Code Status on File) Date Activated Date Inactivated Comments 09/20/2023 7:54 PM 09/24/2023 5:56 PM Care Teams [employer] Relationship Specialty Start Date End Date Vini Woods MD PCP - General 08/15/11
[2024-09-09 09:34] LABS: Basophils Percent Auto 0.6 % (0.2-1.2); Eosinophils Absolute Auto 0.1 K/mm3 (0-0.3); Eosinophils Percent Auto 2.2 % (0-4.4); Hematocrit 36.8 % (42.0-52.0); Hemoglobin 12.7 g/dL (14.0-18.0); Immature Granulocyte Absolute 0.03 K/mm3 (0.00-0.031); Immature Granulocyte Percent A 0.8 % (0-0.5); Lymphocytes Absolute Auto 0.86 K/mm3 (0.9-3.2); Mean Corpuscular HGB Conc 34.5 g/dl (32-36); Mean Corpuscular Hemoglobin 41.4 pg (26-34); Mean Corpuscular Volume 119.9 fl (80-100); Mean Platelet Volume 9.2 fl (7.4-10.4); Monocytes Absolute Auto 0.3 K/mm3 (0.1-0.6); Monocytes Percent Auto 8.6 % (2.6-8.5); Neutrophils Absolute Auto 2.3 K/mm3 (1.3-6.7); Neutrophils Percent Auto 63.8 % (45.5-73.1); Platelet Count Result 225 k/mm3 (150-375); Red Blood Count 3.07 M/mm3 (4.6-6.20); Red Cell Distribution Width 13.2 % (11.5-14.5); White Blood Count 3.6 K/mm3 (4.5-10.0)
[2024-09-09 09:48] LABS: Anisocytosis 1+; Platelet Estimate Adequate (Adequate)
[2024-09-09 09:49] LABS: Schistocytes None Seen; Stomatocytes 1+
[2024-09-09 09:50] LABS: Anion Gap 10 mmol/L (4-12); Blood Urea Nitrogen 15 mg/dL (9-20); Calcium 9.5 mg/dL (8.4-10.2); Carbon Dioxide 26 mmol/L (22-30); Chloride 101 mmol/L (98-107); Estimated CRCL calculation 49 ml/min; Estimated Glomerular Filt Rate > 60; Glucose 99 mg/dL (65-110); Potassium 4.4 mmol/L (3.4-5.0); Sodium 137 mmol/L (137-145)
--- NOTE | 2024-09-09 11:11 | P.SEDATION_ITS ---
Moderate Sedation Note-Pt Data Patient Data Diagnosis: High-grade AV block with variable degrees of AV dysfunction including Mobitz type 2 second-degree AV block Present Complaint: No complaints Procedure to be performed/Plan: Pacemaker implantation Allergies Allergy/AdvReac Type Severity Reaction Status Date / Time lisinopril Allergy Cough Verified 09/09/24 09:32 ibuprofen AdvReac Unknown Verified 09/09/24 09:32 Home Medications ?Medication ?Instructions ?Recorded ?Confirmed ?Type allopurinol 100 mg tablet 100 mg PO DAILY 06/09/19 09/09/24 History cholecalciferol (vitamin D3) 25 1,000 unit PO ONCE 06/09/19 09/09/24 History mcg/drop (1,000 unit/drop) oral drops finasteride 5 mg tablet 5 mg PO QPM 06/09/19 09/08/24 History hydrochlorothiazide 12.5 mg capsule 12.5 mg PO DAILY 06/09/19 09/08/24 History loratadine 10 mg capsule 10 mg PO DAILY 06/09/19 09/09/24 History losartan 25 mg tablet 25 mg PO DAILY 06/09/19 09/09/24 History omeprazole 20 mg capsule,delayed 20 mg PO DAILY 06/09/19 09/09/24 History release simvastatin 40 mg tablet 40 mg PO QPM 08/16/22 09/08/24 History tamsulosin 0.4 mg capsule 0.4 mg PO DAILY 01/04/23 09/08/24 History magnesium 250 mg tablet 250 mg PO DAILY 08/31/23 09/08/24 History potassium chloride 20 mEq 20 meq PO DAILY 08/31/23 09/09/24 History tablet,extended release guaifenesin 400 mg tablet 400 mg PO Q4H PRN Cough 09/01/23 09/08/24 History hydroxyurea 500 mg capsule 500 mg PO Q12H 09/01/23 09/08/24 History tiotropium 2.5 mcg-olodaterol 2.5 1 puff inhalation BID 01/03/24 09/09/24 History mcg/actuation mist for inhalation (Stiolto Respimat) prednisone 10 mg tablet 10 mg PO BID PRN knee pain 09/08/24 09/08/24 History Sedation/Anesthesia: No previous sedation/anesthesia problems (including family history). [facility] Past Medical History Medical History Hypertension Postoperative abdominal hernia COPD (chronic obstructive pulmonary disease) BMI 32.0-32.9,adult HTN (hypertension) High cholesterol Osteoarthritis of knee right knee Gout Arthritis COPD (chronic obstructive pulmonary disease) Surgical History Surgical History H/O shoulder surgery Total knee replacement status History of umbilical hernia repair 07/20/20 Laparoscopic umbilical hernia repair with Symbotex mesh, da Marcos assisted 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 Dr Brower Family History Family History Sibling Hypertension Mother Hypertension Diabetes mellitus Father Leukemia Social History Social History Social History: Retired [employer]. Served in the [employer] Smoking packs per day: 3 Smoking cigarettes per day: 60.0 Years smoked: 24 Smoking pack-years: 72.00 Smoking status: Former smoker Tobacco type: cigarettes Second hand tobacco smoke exposure: No Smoking end date: 07/27/81 Additional smoking assessment comments: QUIT 1981 Alcohol intake: never Drinks per week: 6 Alcohol use details: Drinks 6 mixed drinks of whiskey Substance use: never Substance use type: does not use Current Housing: Decline to Answer Concerned About Future Housing: Decline to Answer Difficulty Paying Gas/Electric Bills: Decline to Answer Difficulty Paying for Meds: Decline to Answer Currently Unemployed: Decline to Answer Education: Decline to Answer Difficulty w/ Childcare or Family Care: Decline to Answer Living arrangements: with family Occupation/Education: retired Gender identity (if verbalized by the patient): Male Spiritual care concerns: No Mod Sed Physical Exam Physical Exam Pre Procedural Exam: Normal: Appearance, Throat, Airway, Lungs, Heart Size, Heart Rate, Heart Rhythm (Sinus with first-degree AV block), Neuro Exam and Extremities Hours since solid foods: 12 Hours since liquid intake: 12 Mallampati Classification: class II Internal Medicine - PN: Obj Da Vital Signs Vital Signs: Vital Signs - 24 hr 09/09/24 09:33 Temperature 36.9 C Pulse Rate 69 Respiratory Rate 16 Blood Pressure 138/72 Pulse Oximetry 99 Oxygen Delivery Room Air Labs 09/09/24 09:22 09/09/24 09:22 Labs: Laboratory Results - last 24 hr 09/09/24 09:22 WBC 3.6 L RBC 3.07 L Hgb 12.7 L Hct 36.8 L MCV 119.9 H MCH 41.4 H MCHC 34.5 RDW 13.2 Plt Count 225 D MPV 9.2 Immature Gran % (Auto) 0.8 H Neut % (Auto) 63.8 Lymph % (Auto) 24.0 Preston % (Auto) 8.6 H Eos % (Auto) 2.2 Baso % (Auto) 0.6 Lymph # (Auto) 0.86 L Preston # (Auto) 0.3 Eos # (Auto) 0.1 Baso # (Auto) 0.0 Abs Immat Gran (auto) 0.03 Absolute Neuts (auto) 2.3 Absolute Nucleated RBC 0.000 Band Neutrophils % Not Reportable Nucleated RBC % 0.0 Platelet Estimate Adequate Anisocytosis 1+ Stomatocytes 1+ Schistocytes None seen Sodium 137 Potassium 4.4 Chloride 101 Carbon Dioxide 26 Anion Gap 10 BUN 15 Creatinine 1.09 Estim Creat Clear Calc 49 Estimated GFR > 60 Glucose 99 Calcium 9.5 ASA Classification/Sedation ASA Classification/Sedation ASA Class: III Emergent: No Risks: Risks, benefits and alternatives explained and patient/family accepted plan for sedation. Patient re-evaluated immediately prior to sedation.
--- NOTE | 2024-09-09 12:37 | P.PCNCC_ITS ---
Cardiac Cath Procedure Note Date of procedure:: 09/09/24 Performing physician:: Nic Singh MD Indication:: Symptomatic second-degree AV block Brief clinical history:: This is an 89-year-old man reporting fatigue and dyspnea found to have second- degree AV block Mobitz type 1 and 2. For this pacemaker implantation has been recommended and scheduled for today Procedure Procedure performed:: Implantation of permanent dual-chamber pacemaker Sedation/Medication given:: Fentanyl 50 mg Versed 2 mg Case started at 11:40 a.m. Case ending 1227 p.m. Sedation provided by Migdalia Curiel RN, trained observer Access site:: Of subclavian vein Estimated blood loss:: 10 cc Procedure note:: Patient was brought to the cardiac catheterization lab in the postabsorptive state where the left anterior chest wall was prepped and draped fashion. Anesthesia was then provided with 20 cc of lidocaine injected inferior to the clavicle. An incision was then made 1 in below the clavicle from the midclavicular line to the deltopectoral groove. Sharp and blunt dissections separate the subcutaneous tissue to the level of the prepectoral fascia. Electrocautery was used for cutaneous hemostasis. Using blunt dissection a pacemaker pocket was created along the fascial plane inferior to the incision this was then packed with antibiotic soaked 4 x 4. After this attention was turned to venous access. Using 2 6 [place]i SafeSheath kits the subclavian vein was punctured twice and J wires were advanced to the level of the right atrium. The Safe sheath were used to advance the been pacemaker leads into the venous circulation to the level of right atrium. Attention was then turned to the ventricular lead positioning. The stylet was were withdrawn and fashioned into a J-tip stylet using 3 cc syringe and this was used to steer the lead through the right ventricle up to the pulmonary artery position. A straight stylet was placed into the lead it was then withdrawn and placed into the right ventricular apical position. The fixation screw was deployed at the analyzer was used to check sensing pacing which were both nominal. A 10 volts stimulation showed no evidence of extracardiac stimulation. Following this attention was turned to position the atrial the straight stylet was withdrawn a preformed atrial J was used to make steer the lead into the right atrial appendage. The fixation screw was deployed upon withdrawal of the stylet the lead tip was fixed into position. This lead tested using the analyzer with good say sensing pacing performance and once again to control stimulus demonstrated no evidence of extracardiac stimulation. The leads were then sutured to the base of the pocket using the suture sleeves and 2-0 silk ties. The retained sponge was removed from the pocket and was then irrigated with antibiotic infused saline. The pacemaker generator was connected to the leads using the torque wrench and the entire assembly was placed into the newly created pocket. This was then closed in layers using 3-0 fashion the subcutaneous tissue and 4-0 Vicryl in a running subcuticular fashion for the skin. An Aquacel dressing was placed over this and the patient was then taken from the table back to his room stable condition the procedure was uncomplicated well tolerated. Findings:: The patient received a Biotronik dual-chamber pacemaker model Amvia Edge [id number]. Serial number [id number]. Device is programmed in the DDD mode lower rate limit 60 upper rate limit 130. The atrial lead is a Biotronik bipolar screw-in lead model Solia S [id number]. Serial number [id number]. The P-waves are sensed at 3.3 mV the threshold is 0.7 volts at 0.4 milliseconds impedance 488 Ohms. Ventricular lead is Biotronik bipolar screw-in lead model Solia S 60 [id number]. Serial number [id number]. The R-waves are sensed at 7.1 mV threshold 0.5 volts at 0.4 milliseconds impedance 664 Ohms. Conclusion:: 1. Successful uncomplicated implantation of permanent Biotronik dual-chamber pacing system for treatment of high-grade AV block in this 89-year-old man. Nic Singh MD [facility]
--- NOTE | 2024-09-09 16:26 | ADMGEN ---
This patient, Wong Sethi Jr., was admitted to IMU Room 213-01. Patient/family oriented to hospital policies and general routines including ID bracelet, bed and alarms, visiting hours, pain management, procedures, bathroom and other care routines, personal items, smoking policy, room service/diet, and visiting hours. Information on how to activate the Rapid Response Team has been discussed. Patient/Family are encouraged to report perceived risks to care and to ask questions if they do not understand what they are told or what they should do.
[2024-09-09] MEDS: SODIUM CHLORIDE 0.9% IV 1,000 ML 50 ML IV CONT (17:16)
[2024-09-09] MEDS: SIMVASTATIN 20 MG TABLET 40 MG PO (17:17)
[2024-09-09] MEDS: FINASTERIDE 5 MG TABLET PO (17:17)
[2024-09-09] MEDS: ceFAZolin 1 GM/NS 50 ML 1 GM/50 ML BAG IVPB (18:02)
--- NOTE | 2024-09-09 19:51 | PC.NURSE ---
1615- received pt to room 213 from chest pain center post pacemaker insertion-- pt a/o - dressing to left upper shoulder area CDI- sling in use - monitor SR 1st degree AV
[2024-09-09] MEDS: HYDROXYUREA (*CHEMO) 500 MG CAPSULE PO (20:32)
[2024-09-10] VITALS (11 sets, daily range): BP systolic 152–161; BP diastolic 67–85; PULSE 58–65; RESP 16–24; TEMP 36.5–36.9; O2SAT 96–100
[2024-09-10] MEDS: ceFAZolin 1 GM/NS 50 ML 1 GM/50 ML BAG IVPB (04:46)
[2024-09-10] MEDS: UMECLIDINIUM/VILANTEROL 62.5-25 MCG ELLIPTA 1 PUFF INHALATION (08:40)
[2024-09-10] MEDS: CHOLECALCIFEROL 1,000 UNITS TABLET 1000 UNITS PO (08:56)
[2024-09-10] MEDS: allopurinoL 100 MG TABLET PO (08:56)
[2024-09-10] MEDS: POTASSIUM CHLORIDE 20 MEQ ER TABLET PO (08:56)
[2024-09-10] MEDS: TAMSULOSIN HCL 0.4 MG CAPSULE PO (08:56)
[2024-09-10] MEDS: LORATADINE 10 MG TABLET PO (08:56)
[2024-09-10] MEDS: hydroCHLOROthiazide 12.5 MG CAPSULE PO (08:56)
[2024-09-10] MEDS: MAGNESIUM OXIDE 200 MG TABLET PO (08:56)
[2024-09-10] MEDS: LOSARTAN POTASSIUM 25 MG TABLET PO (08:57)
[2024-09-10] MEDS: HYDROXYUREA (*CHEMO) 500 MG CAPSULE PO (09:00)
[2024-09-10 12:02] LABS: Glucose Point of Care 97 mg/dl (65-105)
--- NOTE | 2024-09-10 13:15 | P.DS_ITS ---
DS: Admitting Diagnosis Discharge Date 09/10/2024 Admitting Diagnosis Second-degree AV block type 2, bradycardia DS: Summary Hospital Course Hospital Course: Patient admitted overnight after elective permanent pacemaker implantation. No procedural complications and he is feeling well today. Follow up chest X ray did not show any pneumothorax. Pacemaker restrictions reviewed with patient and family at the bedside. Device was interrogated this morning and is functioning normally. Time Spent with Patient Time attestation: Total time spent providing and/or coordinating discharge services: Exam Const: General: comfortable, no acute distress, alert and awake Orientation/consciousness: patient oriented x3 HENMT: Head: normal to inspection Eyes: General: appearance normal, both eyes and all related structures Pupils: Equal, round and reactive pupils present Neck: Neck: normal visual inspection, supple and no JVD Carotids: normal carotid upstroke Resp: Effort & Inspection: normal respiratory effort Auscultation: clear to auscultation bilaterally Cardio: Rate: regular rate Rhythm: regular rhythm Heart sounds: S1 normal heart sound present, S2 normal heart sound present and no murmurs Other: Left pectoral pacemaker dressing clean, dry, intact. No hematoma. Pressure dressing removed. GI: Auscultation: normal bowel sounds Skin: General skin exam: normal color Neuro: General: patient oriented x3 Cranial nerves: Yes Equal, round and reactive pupils present Extrem: General: normal to inspection Psych: Appearance: grossly normal Mental Status: mental status grossly normal DS: Data Data Completed and Pending Labs on day of discharge: Labs from last 24 hours 09/10/24 12:00 POC Capillary Glucose 97 Discharge Plan Discharge Discharging Clinician: Lisy Dotson Patient Disposition: Home, Self-Care Activity: other - see discharge instructions Diet: heart healthy Wound Care Instructions: other - see discharge instructions Discharge Instructions: [facility] [address] [place] [address] DISCHARGE INSTRUCTIONS - POST PACEMAKER Activity 1. No driving until you are seen in the office for your incision check. 2. No lifting, pushing or pulling more than 5 pounds with affected arm for 1 MONTH 3. No lifting affected arm above shoulder height for 1 MONTH 4. Wear immobilizer/sling only if you are unable to remember the above activity restrictions. Recommend that it be worn at night. 5. You may shower AFTER you are seen for incision check but no tub baths, swimming pool or hot tub for 1MONTH Wound Care 1. Do not attempt to remove the Aquacel dressing. Leave dressing undisturbed until incision check at the office visit. Keep dressing dry. 2. When you are able to shower AFTER you are seen for your incision check in the office do not rub or scrub the incision. Pat dry after shower. NO lotions, powders, creams or ointments are to be applied to the incision 3. A small amount of tenderness, puffiness and bruising around the site is normal. Call if any significant pain, drainage, swelling, or redness around the site *For any other questions please call the office at [phone]. Office hours are 8AM 4:30PM Saturday through Saturday. Patient Instructions: Antibiotic Form, Pacemaker Generator Change (GEN) Patient Language: Romanian Stand Alone Forms: General Discharge Information Follow-up/Referrals: Nic Singh MD [Physician] - (09/17/24 at 11:00. Arrive at 10:45.) Discharge Medications: Continued magnesium 250 mg Tablet 250 mg PO DAILY potassium chloride 20 mEq Tablet Extended Release 20 meq PO DAILY losartan 25 mg tablet 25 mg PO DAILY allopurinol 100 mg tablet 100 mg PO DAILY hydrochlorothiazide 12.5 mg capsule 12.5 mg PO DAILY loratadine 10 mg capsule 10 mg PO DAILY omeprazole 20 mg capsule,delayed release(DR/EC) 20 mg PO DAILY cholecalciferol (vitamin D3) 1,000 unit/drop drops 1,000 unit PO ONCE finasteride 5 mg tablet 5 mg PO QPM tamsulosin 0.4 mg capsule 0.4 mg PO DAILY simvastatin 40 mg tablet 40 mg PO QPM Stiolto Respimat 2.5-2.5 mcg/actuation mist 1 puff inhalation BID hydroxyurea 500 mg capsule 500 mg PO Q12H guaifenesin 400 mg Tablet 400 mg PO Q4H PRN (Reason: Cough) prednisone 10 mg tablet 10 mg PO BID PRN (Reason: knee pain) Date of admission: 09/09/24 16:17 Primary Care Provider: Vini Woods Admitting Provider: Nic Singh Attending physician on admission: Nic Singh Condition: Stable
== END 2024-09-10 14:40 | disposition home or self-care (01) | DRG 244 ==
LOC: ANHIMU 16:21
PROVIDERS: Admitting Provider Specialist; PCP Internal Medicine; Visit Provider Specialist
PROC: 0JH606Z Insertion of Pacemaker, Dual Chamber into Chest Subcutaneous Tissue and Fascia, Open Approach (ICD-10-PCS; CPT 33208; principal; 2024-09-09 10:00)
DX: I44.1 Atrioventricular block, second degree (principal); I10 Essential (primary) hypertension; J44.9 Chronic obstructive pulmonary disease, unspecified; E78.00 Pure hypercholesterolemia, unspecified; M10.9 Gout, unspecified; Z96.651 Presence of right artificial knee joint; Z96.611 Presence of right artificial shoulder joint; Z87.891 Personal history of nicotine dependence
CPT/HCPCS: 33208; 36415; 71045; 71046; 80048; 82948; 85025; 93005; 94640; A9270; C1779; C1785; J0690; J2003; J2250; J3010; J7030; J7040

== ENCOUNTER 2024-11-04 08:59 | Outpatient (CLI) | payer MEDICARE, SELFPAY ==
--- OUTSIDE RECORDS SUMMARY | 2024-11-04 09:08 | XMS_ITS | Encounter Summary ---
Author Name [facility] [place] Organization [facility] [place] Address [address] [place] [address] Care Team Providers Care Medical Billing Manager Name Role Phone JULISA HOOVER Primary [...] MEDIC ARE SUPPL EMENT October 22, 2020 [id number] [phone] DELFINABE RNARD PATIENT AN[place] MEDICARE SUPPLEMEN ANISHA MEDIC ARE SUPPL EMENT October 22, 2020 [id number] [phone] CATHERINENIEzio,BE RNARD PATIENT AN[place] SUPPLEMEN ANISHA MEDIC ARE SUPPL EMENT October 22, 2020 [id number] [phone] MANUEL MATHIS JR PATIENT [place]BS [place] MEDICARE SUPPLEMEN ANISHA MEDIC ARE SUPPL EMENT October 22, 2020 [id number] [phone] DELFINA,BE RNARD PATIENT MEDICARE (WNR) MEDICARE (M) PART A Jul 25, 2000 PART A [id number] 70A [phone] MANUEL MATHIS JR D PATIENT MEDICARE (WNR) MEDICARE (M) PART B Jul 25, 2000 PART B [id number] [phone] MANUEL MATHIS JR PATIENT MEDICARE (WNR) MEDICARE (M) PART A Jul 25, 2000 PART A [id number] MANUEL MATHIS JR PATIENT MEDICARE (WNR) MEDICARE (M) PART B Jul 25, 2000 PART B [id number] MANUEL MATHIS JR Darrick PATIENT Selected Encounter This section includes the information on record at [place] for the Encounter. Date/Time Encounter Type Encounter Description Reason Pro vider Source Oct 09, 2024 07:24 AM Outpatient Encounter COMMUNITY CARE CONSULT IHE Encounter Template Text not used by [place] Plan of Treatment: Future Appointments (+ 6 months) and Future Tests (+/- 45 days) The Plan of Treatment section includes future care activities for the patient from all [place] treatmentfacilities. This section includes future appointments and future orders which are active, pending or scheduled. Future Appointments This section includes appointments that were scheduled to occur 6 months from the date of the Encounter, up to a maximum of 20 appointments. The data comes from all [place] treatment facilities. Appointment Date/Time Appointment Type Appointme nt Facility Name November 06, 2024 01:45 PM AMBULATORY - SURGERY [facility] Mar 30, 2025 11:30 AM AMBULATORY - MEDICINE [facility] Social History: Smoking Status (Most current) [...] PM CURRENT NON-TOBACC O USER-HX OF USE [facility] Encounter Notes: All associated encounter notes [...] Services (RFS) documentation has been scanned to [facility] Community Care Consult: COMMUNITY CARE-Oncology Consult No: [id number] Date scanned: Sep A Request for Service (RFS) form [id number] has been received which includes the following: Care Requested: 's previous CC Hem/Onc consult has . CC Provider sent request for new referral/auth for continuity of care. copy of RFS/notes sent to [facility]. Alerting MD PCP, Oncology and [facility]CI nurse for review and disposition. ICD-10 Dx code: D69.6 Date VA received request: Sep Date service required: Sep Requesting Community Provider Information: Name of Ordering Provider: Dr. Sai Gaffney Office:[facility] Address, [facility] State: [address] [place] [address] /ramon/ ALIYA HARPER MSN RN REGISTERED NURSE Signed: 10/09/2024 07:28 Receipt Acknowledged By: 10/13/2024 10:00 /ramon/ GALEN EMERSON REGULATED PROGRAM MANAGER CCDS REFERRAL COORDINATION TRIAGE NURSE 10/12/2024 16:01 /ramon/ Julisa Hoover DNP, HOMER, REFERENCE ASSISTANT-C Primary Care Nurse Practitioner 10/09/2024 08:48 /es/ Jose David Dunbar MD Staff Physician 10/20/2024 06:43 /es/ KYARA SANDOVAL REGULATED PROGRAM MANAGER REGISTERED NURSE 10/12/2024 ADDENDUM STATUS: COMPLETED [facility] hematology[facility]oncology consult placed 09/25/24. requested to cancel the consult as he chooses to use his private insurance to receive care in the community. Thank you! /chidi Hoover DNP, HOMER, REFERENCE ASSISTANT-C Primary Care Nurse Practitioner Signed: 10/12/2024 16:02 ALIYA HARPER [facility]
--- OUTSIDE RECORDS SUMMARY | 2024-11-04 09:08 | XMS_ITS | Continuity of Care Document ---
Author Organization [facility] Address [id number] [place] [address] [address] [place] [address] Phone Care Team Providers Care Customer Service Representative Teacher Name Role Phone Gonzalo Gonzales Unavailable Unavailable [...] Providers Copied on Encounter Office/outpat ient Visit, [facility], [address], [place], [place], [id number], [place] tel:[phone] [facility] [place] No Information 0-201 0 Janet Sánchez. [address] [facility] [address], [place], [address], [place]. tel:[phone] Office/outpat ient Visit, [facility], [address], [place], [place], [address], [place] tel:[phone] [facility] No Information Dec-0 6-201 0 Venice Hillman. [address], [place], [address], [place]. tel:[phone] [facility], [address], [place], [place], [id number], [place] tel:[phone] [facility] No Information King-3 0-201 0 Krishnasamy Gonzalo. [address] [facility] [address], [place], [address], [place]. tel:[phone] Office/outpat ient Visit, [facility], [address] [place] [address] [address], [place], [place], [address], [place] tel:[phone] SEC [facility] No Information King-1 5-201 0 Krishnasamy Gonzalo. [address] [address], [place], [place], [facility], [place]. tel:[phone] Office/outpat ient Visit, [facility], [address] [place] [address] [address], [place], [place], [address], [place] tel:[phone] [facility] No Information King-0 9-201 0 Krishnasamy Gonzalo. [address] [facility] [address], [place], [address], [place]. tel:[phone] [facility], [address], [place], [place], [address], [place] tel:[phone] [facility] No Information Apr-2 1-201 0 Krishnasamy Gonzalo. [address] [facility] [address], [place], [address], [place]. tel:[phone] [facility], [address], [place], [place], [address], [place] tel:[phone] [facility] No Information Apr-0 8-200 9 Krishnasamy Gonzalo. [address], [place], [address], [place]. tel:[phone] [facility], [address] [facility] [address], [place], [place], [address], [place] tel:[phone] [facility] No Information Mar-2 6-200 8 Janet Sánchez. [address] [facility] [address], [place], [address], [place]. tel:[phone] [facility], [address], [place], [place], [address], [place] tel:[phone] [facility] No Information Mar-2 6-200 7 Wild Rios. [address] [facility], [address], [place], [place], [address], [place]. tel:[phone] Family History Family Member Type Diagnosis Age At Onset No Information Payers Payer name Insurance type Covered libertarian ID Authoriza [id number](s) [place] [id number] Social History Type Description Quantity Date Captured [...]
--- OUTSIDE RECORDS SUMMARY | 2024-11-04 09:09 | XMS_ITS | Clinical Summary ---
Author Organization [facility] Address Pending sale to [facility] [place] [address] Care Team Providers Care Rod Puller And Coiler Name Role Phone Unavailable Primary Care Provider [...] Td Vaccines ( 1 - Tdap) 1954 Pneumococcal Vaccine: 50+ Ye ars (1 of 1 - PCV) 1985 Zoster Vaccines (1 of 2) 1985 RSV Immunization or 60+ Years (1 - 1-dose 75+ series) 2010 COVID-19 Vaccine ( - 2023-2 5 season) 2024 Meningococcal B Vaccine Aged Out No l onger eligible based on patient's age to complete this topic Meningococcal Vaccine Aged Out No abdulkadir kvng eligible based on patient's age to complete this topic RSV Immunizations Under 20 Months Aged Out No longer eligible based on patient's age to complete this topic
--- OUTSIDE RECORDS SUMMARY | 2024-11-04 09:09 | XMS_ITS | Continuity of Care Document ---
Author Name [facility] Organization [facility] Care Team Providers Care Beamer Hand Name Role Phone [facility] Unavailable Unavailable Problems Combined list of problems from Department of Defense and [facility] Affairs facilities. It does not include entries that were removed or entered in error. Problem Status Onset Date Problem Type Date of Resolution Comments Source Cardiac pacemaker in situ Active 5 Condition [facility] Allergic rhinitis Active Condition [facility] Benign essential hypertension Active Condition [facility] Benign prostatic hyperplasia Active Condition [facility] Chronic kidney disease stage 3A Active Condition [facility] Chronic obstructive lung disease (SNOMED CT 13856442) Active Condition [facility] Elevated PSA Active Condition [facility] Fracture of cervical spine Active Condition [facility] Gastroesophageal reflux disease Active Condition [facility] Gout (SNOMED CT 76971421) Active Condition [facility] Hearing loss Active Condition [facility] Hyperlipidemia Active Condition [facility] Hypokalemia Active Condition [facility] Hypomagnesemia Active Condition [facility] Liver function tests outside reference range Active Condition [facility] Low back pain Active Condition [facility] Prediabetes Active Condition [facility] Right knee pain Active Condition [facility] Rosacea Active Condition [facility] Thrombocytosis Active Condition [facility] Vertigo Active Condition [facility] Vitamin D deficiency Active Condition [facility] Actinic Keratosis Inactive Condition 04/14/2023 [facility] Diverticulosis, Colonic Inactive Condition 04/14/2023 [facility] Impotence of organic origin Inactive Condition 04/14/2023 [facility] Osteoarthritis Inactive Condition 04/14/2023 [facility] Sleep Apnea (ICD-9-CM 780.57) Inactive Condition 04/14/2023 [facility] Vertigo Inactive Condition 04/14/2023 [facility] Diagnosis: ICD-10-CM Z46.1 Encounter for fitting and adjustment of hearing aid Active Diagnosis [facility] Diagnosis: ICD-10-CM Z95.0 Presence of cardiac pacemaker Active Diagnosis [facility] Diagnosis: ICD-10-CM Z13.9 Encounter for screening, unspecified Active Diagnosis [facility] Diagnosis: ICD-10-CM Z13.5 Encounter for screening for eye and ear disorders Active Diagnosis [facility] Diagnosis: ICD-10-CM H90.3 Sensorineural hearing loss, bilateral Active Diagnosis [facility] Diagnosis: ICD-10-CM I10 Essential (primary) hypertension Active Diagnosis [facility] Medications Combined list of outpatient medications from Department of Defense and [facility] Affairs facilities.Medications provided include 1) outpatient medications from the last 15 months, and 2) patient-reported medications. Medication Details Route Status Patient Instructions Prescription Expires Prescription Number Last Dispense Date Ordering Provider Order Date Order Qty Source ALLOPURINOL 100MG TAB TAKE ONE TABLET BY MOUTH ONCE A DAY ORAL ACTIVE MOHINI HOOVER AAYUSH R 2023 [facility] DICLOFENAC NA 1% GEL,TOP APPLY 4 GM TO AFFECTED AREA(S) FOUR TIMES A DAY NEEDED FOR PAIN/INF LAMMATIO N; NOT MORE THAN 16 GRAMS DAILY TO ANY LOWER EXTREMIT Y JOINT. NOT MORE THAN 8 GRAMS DAILY TO ANY UPPER EXTREMIT Y JOINT. MAX 32GM/DAY OVER ALL JOINTS. (MEASURE DOSE WITH RULER ATTACHED INSIDE BOX) TOPICA L ACTIVE 09/23/2025 [id number] MOHINI HOOVER AAYUSH R 2024 300 [facility] DICLOFENAC NA 1% GEL,TOP APPLY 4 GM TO AFFECTED AREA(S) FOUR TIMES A DAY NEEDED FOR PAIN/INF LAMMATIO N; NOT MORE THAN 16 GRAMS DAILY TO ANY LOWER EXTREMIT Y JOINT. NOT MORE THAN 8 GRAMS DAILY TO ANY UPPER EXTREMIT Y JOINT. MAX 32GM/DAY OVER ALL JOINTS. (MEASURE DOSE WITH RULER ATTACHED INSIDE BOX) TOPICA L DISCONT INUED 03/17/2025 [id number] 5 MOHINI HOOVER R 2023 100 [facility] DICLOFENAC NA 1% GEL,TOP APPLY 4 GM TO AFFECTED AREA(S) FOUR TIMES A DAY NEEDED FOR PAIN/INF LAMMATIO N; NOT MORE THAN 16 GRAMS DAILY TO ANY LOWER EXTREMIT Y JOINT. NOT MORE THAN 8 GRAMS DAILY TO ANY UPPER EXTREMIT Y JOINT. MAX 32GM/DAY OVER ALL JOINTS. (MEASURE DOSE WITH RULER ATTACHED INSIDE BOX) TOPICA L DISCONT INUED 10/01/2024 [id number] MOHINI HOOVER R 2023 100 [facility] DICLOFENAC NA 1% GEL,TOP APPLY 4 GM TO AFFECTED AREA(S) FOUR TIMES A DAY NEEDED FOR PAIN/INF LAMMATIO N; NOT MORE THAN 16 GRAMS DAILY TO ANY LOWER EXTREMIT Y JOINT. NOT MORE THAN 8 GRAMS DAILY TO ANY UPPER EXTREMIT Y JOINT. MAX 32GM/DAY OVER ALL JOINTS. (MEASURE DOSE WITH RULER ATTACHED INSIDE BOX) TOPICA L DISCONT INUED 04/08/2024 [id number] ADDI PACE MD 2022 100 [facility] FINASTERIDE 5MG TAB TAKE ONE TABLET BY MOUTH ONCE A DAY ORAL ACTIVE ADDI PACE MD 2018 [facility] GUAIFENESIN 400MG TAB TAKE ONE TABLET BY MOUTH EVERY 6 HOURS NEEDED TO THIN MUCUS. TAKE WITH 8 OUNCE GLASS OF WATER. ORAL ACTIVE 03/28/2025 [id number] 4 MOHINI HOOVER R 2023 360 [facility] GUAIFENESIN 400MG TAB TAKE ONE TABLET BY MOUTH EVERY 6 HOURS NEEDED TO THIN MUCUS. TAKE WITH 8 OUNCE GLASS OF WATER. ORAL DISCONT INUED 11/04/2024 [id number] 4 MOHINI HOOVER LBY R 2023 360 [facility] HYDROCHLORO THIAZIDE 25MG TAB TAKE ONE-HALF TABLET BY MOUTH EVERY MORNING ORAL ACTIVE 03/28/2025 [id number] 5 KIKO,MOHINI LBY R 2023 45 [facility] HYDROCHLORO THIAZIDE 25MG TAB TAKE ONE-HALF TABLET BY MOUTH EVERY MORNING ORAL DISCONT INUED 04/14/2024 [id number] 4 MOHINI HOOVER LBY R 2022 45 [facility] HYDROXYUREA 500MG CAP TAKE 1 CAPSULE BY MOUTH TWICE A DAY ORAL ACTIVE MOHINI HOOVER LBY R 2023 [facility] LORATADINE 10MG TAB TAKE ONE TABLET BY MOUTH ONCE A DAY ON EMPTY STOMACH FOR ALLERGIE S ORAL ACTIVE 03/28/2025 [id number] 5 MOHINI HOOVER LBY R 2023 90 [facility] LORATADINE 10MG TAB TAKE ONE TABLET BY MOUTH ONCE A DAY ON EMPTY STOMACH FOR ALLERGIE S ORAL DISCONT INUED 04/08/2024 [id number] ADDI PACE MD 2022 90 [facility] LOSARTAN 50MG TAB TAKE ONE-HALF TABLET BY MOUTH ONCE A DAY TO LOWER BLOOD PRESSURE ORAL ACTIVE 03/28/2025 [id number] 5 MOHINI HOOVERY R 2023 45 [facility] LOSARTAN 50MG TAB TAKE ONE-HALF TABLET BY MOUTH ONCE A DAY TO LOWER BLOOD PRESSURE ORAL DISCONT INUED 04/10/2024 [id number] 4 MOHINI HOOVERY R 2022 45 [facility] MAGNESIUM OXIDE TAB TAKE 250 MG BY MOUTH ONCE A DAY ORAL ACTIVE MOHINI HOOVER LBY R 2023 [facility] METRONIDAZO LE 1% GEL,TOP APPLY THIN FILM TO AFFECTED AREA(S) ONCE A DAY TOPICA L ACTIVE MOHINI HOOVERY R 2024 [facility] OLODATEROL 2.5MCG/TIOT ROPIUM 2.5MCG/ACTU AT [facility],ORAL,6 0D,4GM INHALE 1 PUFF BY ORAL INHALATI ON TWICE A DAY ADMINIST ER AT SAME TIME EACH DAY FOR BREATHIN G RESPIR ATORY (INHAL ATION) ACTIVE 03/28/2025 [id number] 5 MOHINI HOOVER R 2023 3 [facility] OLODATEROL 2.5MCG/TIOT ROPIUM 2.5MCG/ACTU AT [facility],ORAL,6 0D,4GM INHALE 1 PUFF BY ORAL INHALATI ON TWICE A DAY ADMINIST ER AT SAME TIME EACH DAY FOR BREATHIN G RESPIR ATORY (INHAL ATION) DISCONT INUED 07/04/2024 [id number] 4 MOHINI HOOVER R 2023 3 [facility] OMEPRAZOLE 20MG CAP,EC TAKE ONE CAPSULE BY MOUTH EVERY MORNING BEFORE A MEAL ORAL ACTIVE 09/26/2025 [id number] 5 MOHINI HOOVER R 2024 90 [facility] OMEPRAZOLE 20MG CAP,EC TAKE ONE CAPSULE BY MOUTH EVERY MORNING BEFORE A MEAL ORAL 09/11/2024 [id number] 4 KIKO,MOHINI LOONEY R 2023 90 [facility] POTASSIUM CHLORIDE 20MEQ TAB,SA (DISPERSIBL E) TAKE ONE TABLET BY MOUTH ONCE A DAY ORAL ACTIVE 03/28/2025 [id number] 5 MOHINI HOOVER R 2023 90 [facility] POTASSIUM CHLORIDE 20MEQ TAB,SA (DISPERSIBL E) TAKE ONE TABLET BY MOUTH ONCE A DAY ORAL DISCONT INUED 09/11/2024 [id number] 4 MOHINI HOOVER R 2023 90 [facility] SIMVASTATIN 80MG TAB TAKE ONE-HALF TABLET BY MOUTH EVERY EVENING TO LOWER CHOLESTE ROL (REPORT ANY UNEXPLAI RUFINO MUSCLE PAIN, TENDERNE SS OR WEAKNESS TO YOUR PRIMARY CARE PROVIDER ) ORAL ACTIVE 03/28/2025 [id number] 5 MOHINI HOOVER R 2023 45 [facility] SIMVASTATIN 80MG TAB TAKE ONE-HALF TABLET BY MOUTH EVERY EVENING TO LOWER CHOLESTE ROL (REPORT ANY UNEXPLAI RUFINO MUSCLE PAIN, TENDERNE SS OR WEAKNESS TO YOUR PRIMARY CARE PROVIDER ) ORAL DISCONT INUED 04/08/2024 [id number] ADDI PACE MD 2022 45 [facility] TAMSULOSIN HCL 0.4MG CAP TAKE 1 CAPSULE BY MOUTH EVERY EVENING ORAL ACTIVE MOHINI HOOVER LBY R 2023 [facility] Allergies, Adverse Reactions, Alerts Combined list of allergies from Department of Defense and Veterans Affairs facilities. It does not include entries that were removed or entered in error. Substance Category Reaction Severity Reaction type Status Date Reported Comments Source DILTIAZEM Propensity to adverse reactions to drug (finding) Swelling active 8 [facility] FELODIPINE Propensity to adverse reactions to drug (finding) SWELLING (NON-SPECI FIC) active 3 [facility] LISINOPRIL Propensity to adverse reactions to drug (finding) Cough active 8 [facility] Immunizations Combined list of available immunizations from the Department of [facility] and Veterans Affairs facilities. Immunization Series Date Given Administered By Site Reaction Lot Number CVX Code Drug Regional Cra Status Comments Source INFLUENZA, HIGH-DOSE, TRIVALENT, PF 2023 FARZANA NUNEZ RIGHT DELTO ID [id number] 135 complet ed ADMINISTE RED AT [facility] TDAP 2 2023 115 complet ed HISTORICA L INFORMATI ON - FROM OTHER [facility], [facility] DIV[facility] N INFLUENZA, HIGH-DOSE, QUADRIVALENT 2022 GARTH AGUILAR A RIGHT DELTO ID [id number] 197 complet ed Completed Series, ADMINISTE RED AT [facility] INFLUENZA, UNSPECIFIED FORMULATION 2021 88 complet ed HISTORICA L INFORMATI ON - SOURCE UNSPECIFI ED, [facility] INFLUENZA, UNSPECIFIED FORMULATION 2019 88 complet ed [facility] ZOSTER RECOMBINANT 2 2019 187 complet ed [facility] INFLUENZA, INJECTABLE, QUADRIVALENT, PRESERVATIVE FREE 1 2018 150 complet ed HISTORICA L INFORMATI ON - FROM OTHER REGISTRY, [facility] INFLUENZA, UNSPECIFIED FORMULATION 2018 88 complet ed [place] S TDAP 2018 115 complet ed Left Deltoid [facility] ZOSTER RECOMBINANT 1 2018 187 complet ed [facility] ZOSTER, UNSPECIFIED FORMULATION 1 2018 188 complet ed HISTORICA L INFORMATI ON - FROM OTHER REGISTRY, [facility] INFLUENZA, INJECTABLE, QUADRIVALENT, PRESERVATIVE FREE 1 2017 150 complet ed HISTORICA L INFORMATI ON - FROM OTHER REGISTRY, [facility] INFLUENZA, INJECTABLE, QUADRIVALENT 1 2016 158 complet ed HISTORICA L INFORMATI ON - FROM OTHER REGISTRY, [facility] INFLUENZA, UNSPECIFIED FORMULATION 2016 88 complet ed [place] S INFLUENZA, INJECTABLE, QUADRIVALENT 1 2015 158 complet ed HISTORICA L INFORMATI ON - FROM OTHER REGISTRY, [facility] INFLUENZA, UNSPECIFIED FORMULATION 2015 88 complet ed [facility] PNEUMOCOCCAL POLYSACCHARID E PPV23 2 2015 33 complet ed HISTORICA L INFORMATI ON - FROM OTHER REGISTRY, [facility] INFLUENZA, SEASONAL, INJECTABLE 1 2014 141 complet ed HISTORICA L INFORMATI ON - FROM OTHER REGISTRY, [facility] N PNEUMOCOCCAL CONJUGATE PCV 13 2014 133 complet ed [facility] INFLUENZA, UNSPECIFIED FORMULATION 2014 88 complet ed [facility] INFLUENZA, UNSPECIFIED FORMULATION 2014 88 complet ed [place] S INFLUENZA, INJECTABLE, QUADRIVALENT 1 2013 158 complet ed HISTORICA L INFORMATI ON - FROM OTHER REGISTRY, [facility] N INFLUENZA, UNSPECIFIED FORMULATION 2013 88 complet ed [facility] INFLUENZA, UNSPECIFIED FORMULATION 2013 88 complet ed [facility] N INFLUENZA, HIGH DOSE SEASONAL 1 2012 135 complet ed HISTORICA L INFORMATI ON - FROM OTHER REGISTRY, [facility] INFLUENZA, UNSPECIFIED FORMULATION 2012 88 complet ed [facility] N INFLUENZA, UNSPECIFIED FORMULATION 2011 88 complet ed [facility] INFLUENZA, HIGH DOSE SEASONAL 1 2011 135 complet ed HISTORICA L INFORMATI ON - FROM OTHER REGISTRY, [facility] INFLUENZA, UNSPECIFIED FORMULATION 2011 88 complet ed [facility] PNEUMOCOCCAL POLYSACCHARID E PPV23 1 2010 33 complet ed HISTORICA L INFORMATI ON - FROM OTHER REGISTRY, [facility] PNEUMOCOCCAL, UNSPECIFIED FORMULATION 2010 109 complet ed [facility] INFLUENZA, UNSPECIFIED FORMULATION 2010 88 complet ed [facility] INFLUENZA, UNSPECIFIED FORMULATION 2010 88 complet ed [facility]) UNSPECIFIED FORMULATION 2008 139 complet ed Left Deltoid [facility] INFLUENZA, UNSPECIFIED FORMULATION 2007 88 complet ed [facility] INFLUENZA, UNSPECIFIED FORMULATION 2007 88 complet ed per patient [facility] INFLUENZA, UNSPECIFIED FORMULATION 2005 88 complet ed [facility] INFLUENZA (HISTORICAL) 2002 88 complet ed [facility] PNEUMOCOCCAL, UNSPECIFIED FORMULATION 2001 109 complet ed [facility] INFLUENZA, UNSPECIFIED FORMULATION 1998 88 complet ed [facility] TETANUS TOXOID, UNSPECIFIED FORMULATION 1998 TOBIAS VIRGEN 112 complet ed [facility] Results Combined list of recent chemistry, hematology [...] Dec 03, 2022 01:16 PM Reporting Lab: [facility] [address] [place] [phone] Performing Lab: [address] [phone] [place] [address] HGA1C HEMOGLOBIN A1C/HEMOGLOB IN.TOTAL IN BLOOD 5.7 4.0 - 6.0 12/19 Specimen Type: BLOOD No comment entered. Ordering Provider: NADER HOOVER Report Released Date/Time: Dec 03, 2022 01:16 PM Reporting Lab: [facility] [address] [place] [phone] Performing Lab: [facility] [address] [place] [phone] [facility] VITAMIN D, 25-HYDROXY 25-HYDROXYVI TAMIN D3 [MASS/VOLUME ] IN SERUM OR PLASMA 73.4 ng/mL 30 - 96 12/19 Specimen Type: SERUM No comment entered. Ordering Provider: NADER HOOVER Report Released Date/Time: Dec 03, 2022 01:16 PM Reporting Lab: [facility] [address] [place] [phone] Performing Lab: [facility] [address] [place] [phone] [facility] LIPID PANEL (STL) CHOLESTEROL [MASS/VOLUME ] IN SERUM OR PLASMA 143 mg/dL 0 - 200 12/19 Specimen Type: PLASMA Comment: No hemolysis noted. Ordering Provider: NADER HOOVER Report Released Date/Time: Dec 03, 2022 01:16 PM Reporting Lab: [facility] [address] [facility] [phone] Performing Lab: [facility] [address] [place] [phone] [facility] LIPID PANEL (STL) TRIGLYCERIDE [MASS/VOLUME ] IN SERUM OR PLASMA 116 mg/dL 0 - 150 12/19 Specimen Type: PLASMA Comment: No hemolysis noted. Ordering Provider: NADER HOOVER Report Released Date/Time: Dec 03, 2022 01:16 PM Reporting Lab: [facility] [address] [facility] [phone] Performing Lab: [facility] [address] [place] [phone] [facility] LIPID PANEL (STL) CHOLESTEROL IN LDL [MASS/VOLUME ] IN SERUM OR PLASMA BY CALCULATION 82 mg/dL 12/19 Specimen Type: PLASMA Comment: No hemolysis noted. Ordering Provider: NADER HOOVER Report Released Date/Time: Dec 03, 2022 01:16 PM Reporting Lab: [facility] [address] [place] [phone] Performing Lab: [facility] [address] [place] [phone] [facility] LIPID PANEL (STL) CHOLESTEROL IN HDL [MASS/VOLUME ] IN SERUM OR PLASMA 38 mg/dL 12/19 L Specimen Type: PLASMA Comment: No hemolysis noted. Ordering Provider: NADER HOOVER Report Released Date/Time: Dec 03, 2022 01:16 PM Reporting Lab: [facility] [address] [place] [phone] Performing Lab: [facility] [address] [place] [phone] [facility] COMPREHENSI VE METABOLIC PANEL CREATININE [MASS/VOLUME ] IN SERUM OR PLASMA 1.27 mg/dL 0.7 - 1.3 12/19 Specimen Type: PLASMA Comment: No hemolysis noted. Ordering Provider: NADER HOOVER Report Released Date/Time: Dec 03, 2022 01:16 PM Reporting Lab: [facility] [address] [place] [phone] Performing Lab: [facility] [address] [place] [phone] [facility] COMPREHENSI VE METABOLIC PANEL UREA NITROGEN [MASS/VOLUME ] IN SERUM OR PLASMA 11 mg/dL 9 - 25 12/19 Specimen Type: PLASMA Comment: No hemolysis noted. Ordering Provider: NADER HOOVER Report Released Date/Time: Dec 03, 2022 01:16 PM Reporting Lab: [facility] [address] [place] [phone] Performing Lab: [facility] [address] [place] [phone] [facility] COMPREHENSI VE METABOLIC PANEL GLUCOSE [MASS/VOLUME ] IN SERUM OR PLASMA 95 mg/dL 72 - 99 12/19 Specimen Type: PLASMA Comment: No hemolysis noted. Ordering Provider: NADER HOOVER Report Released Date/Time: Dec 03, 2022 01:16 PM Reporting Lab: [facility] [address] [place] [phone] Performing Lab: [facility] [address] [place] [phone] [facility] COMPREHENSI VE METABOLIC PANEL SODIUM [MOLES/VOLUM E] IN SERUM OR PLASMA 137 meq/L 136 - 145 12/19 Specimen Type: PLASMA Comment: No hemolysis noted. Ordering Provider: NADER HOOVER Report Released Date/Time: Dec 03, 2022 01:16 PM Reporting Lab: [facility] [address] [place] [phone] Performing Lab: [facility] [address] [place] [phone] [facility] COMPREHENSI VE METABOLIC PANEL POTASSIUM [MOLES/VOLUM E] IN SERUM OR PLASMA 4.3 meq/L 3.5 - 5 12/19 Specimen Type: PLASMA Comment: No hemolysis noted. Ordering Provider: NADER HOOVER Report Released Date/Time: Dec 03, 2022 01:16 PM Reporting Lab: [facility] [address] [place] [phone] Performing Lab: [facility] [address] [place] [phone] [facility] COMPREHENSI VE METABOLIC PANEL CHLORIDE [MOLES/VOLUM E] IN SERUM OR PLASMA 101 meq/L 98 - 107 12/19 Specimen Type: PLASMA Comment: No hemolysis noted. Ordering Provider: NADER HOOVER Report Released Date/Time: Dec 03, 2022 01:16 PM Reporting Lab: [facility] [address] [place] [phone] Performing Lab: [address] [phone] [facility] COMPREHENSI VE METABOLIC PANEL CARBON DIOXIDE, TOTAL [MOLES/VOLUM E] IN SERUM OR PLASMA 26 meq/L 22 - 31 12/19 Specimen Type: PLASMA Comment: No hemolysis noted. Ordering Provider: NADER HOOVER Report Released Date/Time: Dec 03, 2022 01:16 PM Reporting Lab: [facility] [address] [place] [phone] Performing Lab: [facility] [address] [place] [phone] [facility] COMPREHENSI VE METABOLIC PANEL CALCIUM [MASS/VOLUME ] IN SERUM OR PLASMA 10.2 mg/dL 8.4 - 10.4 12/19 Specimen Type: PLASMA Comment: No hemolysis noted. Ordering Provider: NADER HOOVER Report Released Date/Time: Dec 03, 2022 01:16 PM Reporting Lab: [facility] [address] [place] [phone] Performing Lab: [facility] [address] [place] [phone] [facility] COMPREHENSI VE METABOLIC PANEL PROTEIN [MASS/VOLUME ] IN SERUM OR PLASMA 7.6 g/dL 6 - 8.6 12/19 Specimen Type: PLASMA Comment: No hemolysis noted. Ordering Provider: NADER HOOVER Report Released Date/Time: Dec 03, 2022 01:16 PM Reporting Lab: [facility] [address] [facility] [phone] Performing Lab: [facility] [address] [facility] [phone] [facility] COMPREHENSI VE METABOLIC PANEL ALBUMIN [MASS/VOLUME ] IN SERUM OR PLASMA 4.5 g/dL 3.4 - 5 12/19 Specimen Type: PLASMA Comment: No hemolysis noted. Ordering Provider: NADER HOOVER Report Released Date/Time: Dec 03, 2022 01:16 PM Reporting Lab: [facility] [address] [place] [phone] Performing Lab: [facility] [address] [place] [phone] [place] [address] COMPREHENSI VE METABOLIC PANEL BILIRUBIN.TO ANISHA [MASS/VOLUME ] IN SERUM OR PLASMA 0.8 mg/dL 0.2 - 1.2 12/19 Specimen Type: PLASMA Comment: No hemolysis noted. Ordering Provider: NADER HOOVER Report Released Date/Time: Dec 03, 2022 01:16 PM Reporting Lab: [facility] [address] [place] [phone] Performing Lab: [facility] [address] [place] [phone] [place] [address] COMPREHENSI VE METABOLIC PANEL ALKALINE PHOSPHATASE [ENZYMATIC ACTIVITY/VOL UME] IN SERUM OR PLASMA 73 U/L 40 - 150 12/19 Specimen Type: PLASMA Comment: No hemolysis noted. Ordering Provider: NADER HOOVER Report Released Date/Time: Dec 03, 2022 01:16 PM Reporting Lab: [facility] [address] [place] [phone] Performing Lab: [facility] [address] [place] [phone] [facility] COMPREHENSI VE METABOLIC PANEL ASPARTATE AMINOTRANSFE RASE [ENZYMATIC ACTIVITY/VOL UME] IN SERUM OR PLASMA 42 U/L 5 - 34 12/19 H Specimen Type: PLASMA Comment: No hemolysis noted. Ordering Provider: NADER HOOVER Report Released Date/Time: Dec 03, 2022 01:16 PM Reporting Lab: [facility] [address] [place] [phone] Performing Lab: [address] [phone] [place] [address] COMPREHENSI VE METABOLIC PANEL ALANINE AMINOTRANSFE RASE [ENZYMATIC ACTIVITY/VOL UME] IN SERUM OR PLASMA 42 U/L 8 - 40 12/19 H Specimen Type: PLASMA Comment: No hemolysis noted. Ordering Provider: NADER HOOVER Report Released Date/Time: Dec 03, 2022 01:16 PM Reporting Lab: [address] [address] Performing Lab: [address] [id number] [place] [address] COMPREHENSI VE METABOLIC PANEL GLOMERULAR FILTRATION RATE/1.73 SQ M.PREDICTED [VOLUME RATE/AREA] IN SERUM, PLASMA OR BLOOD BY CREATININE-B ASED FORMULA (CKD-EPI 2020) 54.7 12/19 Specimen Type: PLASMA Comment: No hemolysis noted. Ordering Provider: NADER HOOVER Report Released Date/Time: Dec 03, 2022 01:16 PM Reporting Lab: [address] [address] Performing Lab: [address] [id number] [place] [address] CBC LEUKOCYTES [#/VOLUME] IN BLOOD BY AUTOMATED COUNT 5.0 10*3/u L 3.6 - 11.2 12/19 Specimen Type: BLOOD No comment entered. Ordering Provider: NADER HOOVER Report Released Date/Time: Dec 03, 2022 01:16 PM Reporting Lab: [address] [address] Performing Lab: [address] [place] [address] [facility] CBC ERYTHROCYTES [#/VOLUME] IN BLOOD BY AUTOMATED COUNT 4.98 10*6/u L 4.10 - 5.70 12/19 Specimen Type: BLOOD No comment entered. Ordering Provider: NADER HOOVER Report Released Date/Time: Dec 03, 2022 01:16 PM Reporting Lab: [address] [address] Performing Lab: [address] [phone] [place] [address] CBC HEMOGLOBIN [MASS/VOLUME ] IN BLOOD 14.8 g/dL 13.1 - 16.8 12/19 Specimen Type: BLOOD No comment entered. Ordering Provider: NADER HOOVER Report Released Date/Time: Dec 03, 2022 01:16 PM Reporting Lab: [address] [address] Performing Lab: [address] [address] [place] [address] CBC HEMATOCRIT [VOLUME FRACTION] OF BLOOD 45.8 38.2 - 48.4 12/19 Specimen Type: BLOOD No comment entered. Ordering Provider: NADER HOOVER Report Released Date/Time: Dec 03, 2022 01:16 PM Reporting Lab: [address] [address] Performing Lab: [address] [address] [facility] CBC MCV [ENTITIC VOLUME] BY AUTOMATED COUNT 92.0 fL 80.0 - 100.0 12/19 Specimen Type: BLOOD No comment entered. Ordering Provider: NADER HOOVER Report Released Date/Time: Dec 03, 2022 01:16 PM Reporting Lab: [address] [address] Performing Lab: [address] [phone] [place] [address] CBC MCH [ENTITIC MASS] BY AUTOMATED COUNT 29.7 pg 27.0 - 34.0 12/19 Specimen Type: BLOOD No comment entered. Ordering Provider: NADER HOOVER BY R Report Released Date/Time: Dec 03, 2022 01:16 PM Reporting Lab: [place] [address] Performing Lab: [address] CBC MCHC [MASS/VOLUME ] BY AUTOMATED COUNT 32.3 g/dL 33.0 - 36.0 12/19 L Specimen Type: BLOOD No comment entered. Ordering Provider: NADER HOOVER BY Teresa Report Released Date/Time: Dec 03, 2022 01:16 PM Reporting Lab: [place] [address] Performing Lab: [address] CBC PLATELETS [#/VOLUME] IN BLOOD BY AUTOMATED COUNT 555 10*3/u L 150 - 400 12/19 H Specimen Type: BLOOD No comment entered. Ordering Provider: NADER HOOVER BY R Report Released Date/Time: Dec 03, 2022 01:16 PM Reporting Lab: [place] [address] Performing Lab: [address] CBC PLATELET MEAN VOLUME [ENTITIC VOLUME] IN BLOOD BY AUTOMATED COUNT 10.2 fL [id number]|2024-11-04 09:09:00|2024-11-04 09:09:00|XMS_ITS|ASAEL OVALLE|External Medical Summaries|[id number]|" Referral Summary Created on: November 04, 2024 Lucia Sethi : 1935 Sex: Male Author Organization [facility] Address [address] [place] [address] Care Team Providers Care Beamer Hand Name Role Phone Vini Woods MD Primary Care Provider [phone] Encounters Date Type Department Care Team Description 09/17/2024 11:00 AM CDT Ancillary Procedure [facility] Cardiology [address] [facility] [address] [place] [phone] Cardiac pacemaker in situ; 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 09/17/2024 Telephone [facility] Cardiology [address] [place] [address] [place] [phone] Nic Singh MD 09/15/2024 Orders Only [facility] Cardiology [address] [place] [address] [address] [place] [phone] Nic Singh MD 09/10/2024 Orders Only [facility] Cardiology [address] [place] [address] [place] [phone] Nic Singh MD Cardiac pacemaker in situ (Primary Dx); 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 09/08/2024 Telephone [facility] Cardiology [address] [place] [address] [address] [place] [phone] Nic Singh MD 08/07/2024 Telephone [facility] Cardiology [address] [place] [address] [address] [place] [phone] Nic Singh MD 08/07/2024 10:00 AM OUTREACH CONSULTANT Office Visit [facility] Cardiology at [address] [place] [address] Nic Singh MD Mobitz type 2 second [...] Active Problems Problem Noted Date Diagnosed Date Cardiac pacemaker in situ 09/10/2024 Overview (09/10/2024): Biotronik Amvia Edge Dual Pacemaker. Dx; Second Degree Type 1&2 AVB. DOI 09/09/2024-Samantha. Biotronik remote. Mobitz type 2 second degree AV block [...] risk, consider advancing in the morning - 4/: Tolerating regular diet Fracture of orbit 09/20/2023 Assessment & Plan (09/24/2023 12:21 PM CDT): Patient endorses some mild blurriness in left eye. Left eye mobility restriction with abduction, presumably to chemosis and orbital swelling. - Seen by Ophtho c/s - No c/f entrapment - HOB elevation, open-mouth sneezing, no nose-blowing, cool compresses for comfort - Outpatient Ophthalmology follow-up in 2 weeks at [facility] - seen by ENT consult, plan [...] cord signal, advanced multilevel cervical spondylosis with [id number] neuroforaminal stenosis and no high-grade spinal canal stenosis. - C-spine precautions. C-collar at all times. HOB<30. Log roll - upright x-rays including odontoid view (09/20): No significant interval change in mildly displaced odontoid fracture with anterior subluxation of C2 on C1. Unchanged mild anterolisthesis of C3 on C4. Unchanged multilevel severe degenerative changes throughout the cervical spine, mild prevertebral soft tissue swelling - Preston J cervical collar with occipital extension - [...] on file Legal Sex Male 7:23 PM OUTREACH CONSULTANT Gender Identity Not on file Sexual Orientation Not on file Last Filed Vital Signs Vital Sign Reading Time Taken Comments Blood Pressure 128/72 08/07/2024 9:58 AM OUTREACH CONSULTANT Pulse 80 08/07/2024 9:58 AM OUTREACH CONSULTANT Temperature 36.8 C (98.2 F) 09/24/2023 11:30 AM CDT Respiratory Rate 18 09/24/2023 11:30 AM CDT Oxygen Saturation 96% 08/07/2024 9:58 AM OUTREACH CONSULTANT Inhaled Oxygen Concentration - - Weight 104.3 kg (230 lb) 08/07/2024 9:58 AM OUTREACH CONSULTANT Height 177.8 cm (5' 10 ) 08/07/2024 9:58 AM OUTREACH CONSULTANT Body Mass Index 33 08/07/2024 9:58 AM OUTREACH CONSULTANT Plan of Treatment Not on file Procedures Procedure Name Priority Date/Time Associated Diagnosis Comments DEVICE CHECK - IN OFFICE Routine 025 10:40 AM CDT 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 Dx; Second Degree Type 1&2 AVB. DOI 09/09/2024-Samantha. Biotronik remote. Supervising MD: Ivan Office DDD Pacemaker evaluation demonstrated appropriate device function. Left pectoral incision well approximated with minimal bruising and edema and without signs of infection noted. Battery function: 100%, 10 years and 11 months remaining battery life to CRISTOFER. Appropriate lead measurements noted. Presenting rhythm- AP/OCULAR CARE TECHNOLOGIST Underlying rhythm- SB AP- 37%, OCULAR CARE TECHNOLOGIST- 60% No Atrial high rate episodes noted. No Ventricular high rate episodes noted. Medications; hydrochlorothiazide 25 mg, losartan 50 mg No programming changes made to device settings. See scanned report. Office device f/u 10/21/24 Remote monitoring will be performed by Dr. Ibrahim office after initial incision and device checks are completed Rishabh Nguyen RN Nic Singh MD CV CARDIAC SERVICES PROC EDURES Final Result * Cardiology Document Scan (09/10/2024 10:21 AM CDT) Anatomical Region Laterality Modality Other Lisy Dotson NP CV CARDIAC SERVICES PROCEDUR ES Final Result * Cardiology Document Scan (09/09/2024 8:42 AM CDT) Anatomical Region Laterality Modality Other Nic Singh MD CV CARDIAC SERVICES PROC EDURES Final Result * Electrocardiogram Report (08/07/2024 11:47 AM OUTREACH CONSULTANT) Nic Singh MD ECG ORDERABLES Edited R esult - Final from Last 3 Months Insurance MEDICARE BLUE CROSS MEDICARE SUPPLEMENT MEDICARE [facility] MEDICARE Advance Directives For more information, please contact: [phone] * Full Code (Latest Code Status on File) Date Activated Date Inactivated Comments 09/20/2023 7:54 PM 09/24/2023 5:56 PM Care Teams Beamer Hand Relationship Specialty Start Date End Date Vini Woods MD PCP - General 08/15/11 "
--- OUTSIDE RECORDS SUMMARY | 2024-11-04 09:09 | XMS_ITS | Encounter Summary ---
Author Name [facility] Address [address] [place] [address] Care Team Providers Care Picture Copyist Name Role Phone WHITNEY HOOVER Primary Care [...] MEDIC ARE SUPPL EMENT October 22, 2020 [id number] [phone] LORRAINE MATHIS RNARD PATIENT ANTHEM [place] MEDICARE SUPPLEMEN ANISHA MEDIC ARE SUPPL EMENT October 22, 2020 [id number] [phone] GIUSEPPEEzioBE RNARD PATIENT ANTHEM [place] MEDICARE SUPPLEMEN ANISHA MEDIC ARE SUPPL EMENT October 22, 2020 [id number] [phone] MANUEL MATHIS JR PATIENT [place] MEDICARE SUPPLEMEN ANISHA MEDIC ARE SUPPL EMENT October 22, 2020 [id number] [phone] DELFINABE RNARD PATIENT MEDICARE (WNR) MEDICARE (M) PART A Jul 25, 2000 PART A [id number] MANUEL MATHIS JR PATIENT MEDICARE (WNR) MEDICARE (M) PART B Jul 25, 2000 PART B [id number] GIUSEPPEEzio WOODSONMANUEL Darrick PATIENT MEDICARE (WNR) MEDICARE (M) PART A Jul 25, 2000 PART A [id number] MANUEL MATHIS JR Darrick PATIENT MEDICARE (WNR) MEDICARE (M) PART B Jul 25, 2000 PART B [id number] DELFINA MANUEL Darrick PATIENT Selected Encounter This section includes the information on record at ID for the Encounter. Date/Time Encounter Type Encounter Description Reason Provider Source Sep 28, 2024 01:00 PM HEARING AID FITTING/CHECKING AUDIOLOGY ICD-10-CM Z46.1 Encounter for fitting and adjustment of hearing aid MARIO ROSALES Ayana Encounter Template Text not used by ID Assessments - Encounter Diagnoses This section includes the primary and secondary diagnoses documented for the Encounter. Date/Time Primary/Secondary Diagnosis Diagnosis Name Provider Source Sep 28, 2024 01:45 PM PRIMARY Encounter for fitting and adjustment of hearing aid MARIO ROSALES [facility] Sep 28, 2024 01:45 PM SECONDARY Sensorineural hearing loss, bilateral MARIO ROSALES [facility] Plan of Treatment: Future Appointments (+ 6 months) and Future Tests (+/- 45 days) The Plan of Treatment section includes future care activities for the patient from all ID treatmentfacilities. This section includes future appointments and future orders which are active, pending or scheduled. Future Appointments This section includes appointments that were scheduled to occur 6 months from the date of the Encounter, up to a maximum of 20 appointments. The data comes from all ID treatment facilities. Appointment Date/Time Appointment Type Appointme nt Facility Name November 06, 2024 01:45 PM AMBULATORY - SURGERY Kumar [facility] Mar 30, 2025 11:30 AM AMBULATORY - MEDICINE [facility] Encounter Notes: All associated encounter notes [...] compatible with 's schedule. 's inquired about [facility] clinic. RTC placed to schedule at [facility]. Mailing hearing aid so [place] can utilize both in the meantime; he confirmed understanding he will not have binaural streaming/volume synch until they are synched again. Mr. Melendez, please call [place] at to schedule [facility] appt. /es/ Joe Keene, [facility]-A Staff Machine Tool Designer, Surgery Service Signed: 10/06/2024 16:05 Receipt Acknowledged By: 10/13/2024 09:32 /es/ AMBIKA MELENDEZ MSA === --- Original Document --- 09/28/24 HEARING AIDS STL: Hearing aid check performed today: CASE HISTORY: wore the following hearing devices: 08/27/24 [facility] ITC R R [id number] 08/27/24 [facility] ITC R L [id number] States his noticed a hole in the shell of his right hearing aid following a recent hospital stay. CLEANING/REPAIRS: General cleaning. Listening check OK. Large hole in the shell; will send for recase at fiberglass insulation installer given battery is not safe to put under UV light to cure an acrylic patch. DATALOGGING: Datalogging since 2024 reveals 10 hrs/day avg wear time bilaterally. Datalogging reset. PROGRAMMING: Increased overall gain binaurally 1 step per [place] preference. He confirmed comfort with volume. DISPOSITION: [place] left office wearing left hearing aid only. Advised he should receive his right hearing aid in 2 week(s.) Once repaired, will RTC due to age then be mailed to 's permanent address via [facility] [address] [place] [address] [place] [address] RECOMMENDATIONS: 1. Apartment Maintenance Worker repair of right hearing aid. 2. Contact [facility] Clinic [phone] for repairs and/or adjustments as needed. /Joe Schmidt, [facility]-A Staff Machine Tool Designer, Surgery Service Signed: 09/28/2024 13:45 10/05/2024 ADDENDUM STATUS: COMPLETED Certified RT repair; fiberglass insulation installer unable to load settings; loaded last saved settings which removed binaural pairing; alerting provider who entered repair to follow-up with as needed. 09/28/24 [id number] SERV REQ - REP HB CLOSED [id number] [facility] AI ITC R /ramon/ CLARICE DELONG Staff Machine Tool DesignerJOE, NEAL-A Signed: 10/05/2024 08:36 Receipt Acknowledged By: 10/05/2024 10:00 /Joe Schmidt, [facility]-A Staff Machine Tool Designer, Surgery Service 10/05/2024 ADDENDUM STATUS: COMPLETED Please send hearing aids to [facility] through interoffice mail. /Joe Schmidt, [facility]-A Staff Machine Tool Designer, Surgery Service Signed: 10/05/2024 10:00 Receipt Acknowledged By: 10/05/2024 10:03 /chidi DELONG Staff Machine Tool Designer, AU.D., [facility]-A 10/05/2024 ADDENDUM STATUS: COMPLETED Hearing aids removed from mail and to be sent to [facility] via interoffice mail. /chidi [place] Machine Tool Designer, AU.D., [facility]-A Signed: 10/05/2024 10:03 10/07/2024 ADDENDUM STATUS: COMPLETED [id number] /ramon/ Joe FUENTES Staff Machine Tool Designer, Surgery Service Signed: 10/07/2024 14:39 MARIO ROSALES [facility] Oct 05, 2024 10:00 AM ADDENDUM: LOCAL TITLE: Addendum STANDARD TITLE: ADDENDUM DATE OF NOTE: OCT 05, 2024@10:00:24 ENTRY DATE: OCT 05, 2024@10:00:25 AUTHOR: MARIO ROSALES EXP COSIGNER: URGENCY: STATUS: COMPLETED Please send hearing aids to [facility] through interoffice mail. /ramon/ Joe Keene, [facility]-A Staff Machine Tool Designer, Surgery Service Signed: 10/05/2024 10:00 Receipt Acknowledged By: 10/05/2024 10:03 /es/ CLARICE DELONG Staff Machine Tool Designer, JOE, KRISTIAN === --- Original Document --- 09/28/24 HEARING AIDS STL: Hearing aid check performed today: CASE HISTORY: [place] wore the following hearing devices: 08/27/24 Plizy AI ITC R R [id number] 08/27/24 [facility] B[facility]N AI ITC R L [id number] States his noticed a hole in the shell of his right hearing aid following a recent hospital stay. CLEANING/REPAIRS: General cleaning. Listening check OK. Large hole in the shell; will send for recase at fiberglass insulation installer given battery is not safe to put under UV light to cure an acrylic patch. DATALOGGING: Datalogging since 2024 reveals 10 hrs/day avg wear time bilaterally. Datalogging reset. PROGRAMMING: Increased overall gain binaurally 1 step per preference. He confirmed comfort with volume. DISPOSITION: [place] left office wearing left hearing aid only. Advised he should receive his right hearing aid in 2 week(s.) Once repaired, will RTC due to age then be mailed to 's permanent address via [facility] [address] [place] [address] [place] [address] RECOMMENDATIONS: 1. Apartment Maintenance Worker repair of right hearing aid. 2. Contact Audiology Clinic [phone] for repairs and/or adjustments as needed. /Joe Schmidt, NEAL-A Staff Machine Tool Designer, Surgery Service Signed: 09/28/2024 13:45 10/05/2024 ADDENDUM STATUS: COMPLETED Certified RT repair; fiberglass insulation installer unable to load [place] settings; loaded last saved settings which removed binaural pairing; alerting provider who entered repair to follow-up with as needed. 09/28/24 [id number] SERV REQ - REP HB CLOSED [id number] ONI MURRELL R /es/ CLARICE DELONG Staff Machine Tool DesignerJOE, NEAL-A Signed: 10/05/2024 08:36 Receipt Acknowledged By: 10/05/2024 10:00 /Joe Schmidt, NEAL-A Staff Machine Tool Designer, Surgery Service 10/05/2024 ADDENDUM STATUS: COMPLETED Hearing aids removed from mail and to be sent to [facility] via interoffice mail. /chidi DELONG Staff Machine Tool DesignerJOE, NEAL-A Signed: 10/05/2024 10:03 MARIO ROSALES [facility] Oct 05, 2024 08:27 AM ADDENDUM: LOCAL TITLE: Addendum STANDARD TITLE: ADDENDUM DATE OF NOTE: OCT 05, 2024@08:27:48 ENTRY DATE: OCT 05, 2024@08:27:49 AUTHOR: CLARICE DELONG EXP COSIGNER: URGENCY: STATUS: COMPLETED SUBJECT: Audio Certified RT repair; fiberglass insulation installer unable to load settings; loaded last saved settings which removed binaural pairing; alerting provider who entered repair to follow-up with [place] as needed. 09/28/24 [id number] SERV REQ - REP HB CLOSED [id number] ONI AYALA ITC R /es/ CLARICE DELONG Staff Machine Tool DesignerJOE, NEAL-A Signed: 10/05/2024 08:36 Receipt Acknowledged By: 10/05/2024 10:00 /Joe Schmidt, NEAL-A Staff Machine Tool Designer, Surgery Service === --- Original Document --- 09/28/24 HEARING AIDS STL: Hearing aid check performed today: CASE HISTORY: wore the following hearing devices: 08/27/24 [facility] A[facility]ALA ITC R R [id number] 08/27/24 [facility] ITC R L [id number] States his noticed a hole in the shell of his right hearing aid following a recent hospital stay. CLEANING/REPAIRS: General cleaning. Listening check OK. Large hole in the shell; will send for recase at fiberglass insulation installer given battery is not safe to put under UV light to cure an acrylic patch. DATALOGGING: Datalogging since 2024 reveals 10 hrs/day avg wear time bilaterally. Datalogging reset. PROGRAMMING: Increased overall gain binaurally 1 step per [place] preference. He confirmed comfort with volume. DISPOSITION: left office wearing left hearing aid only. Advised he should receive his right hearing aid in 2 week(s.) Once repaired, will RTC due to age then be mailed to [place]'s permanent address via [facility] [id number] [place] [address] RECOMMENDATIONS: 1. Apartment Maintenance Worker repair of right hearing aid. 2. Contact Audiology Clinic [phone] for repairs and/or adjustments as needed. /Joe Schmidt, [facility]-A Staff Machine Tool Designer, Surgery Service Signed: 09/28/2024 13:45 10/05/2024 ADDENDUM STATUS: COMPLETED Please send hearing aids to [facility] through interoffice mail. /Joe Schmidt, NEAL-A Staff Machine Tool Designer, Surgery Service Signed: 10/05/2024 10:00 Receipt Acknowledged By: * AWAITING SIGNATURE * CLARICE DELONG [facility] Sep 28, 2024 01:22 PM AUDIOLOGY ORDER EXPEDITER NOTE: LOCAL TITLE: HEARING AIDS STL STANDARD TITLE: AUDIOLOGY ORDER EXPEDITER NOTE DATE OF NOTE: SEP 28, 2024@13:22 ENTRY DATE: SEP 28, 2024@13:22:27 AUTHOR: MARIO ROSALES EXP COSIGNER: URGENCY: STATUS: COMPLETED SUBJECT: Audio HEARING AIDS STL Has ADDENDA Hearing aid check performed today: CASE HISTORY: wore the following hearing devices: 08/27/24 [facility] A[facility]ALA ITC R R [id number] 08/27/24 [facility] A[facility] ITC R L [id number] States his noticed a hole in the shell of his right hearing aid following a recent hospital stay. CLEANING/REPAIRS: General cleaning. Listening check OK. Large hole in the shell; will send for recase at fiberglass insulation installer given battery is not safe to put under UV light to cure an acrylic patch. DATALOGGING: Datalogging since 2024 reveals 10 hrs/day avg wear time bilaterally. Datalogging reset. PROGRAMMING: Increased overall gain binaurally 1 step per preference. He confirmed comfort with volume. DISPOSITION: [place] left office wearing left hearing aid only. Advised he should receive his right hearing aid in 2 week(s.) Once repaired, will RTC due to age then be mailed to 's permanent address via [facility] [place] [address] RECOMMENDATIONS: 1. Apartment Maintenance Worker repair of right hearing aid. 2. Contact [facility]iology Clinic [phone] for repairs and/or adjustments as needed. /Joe Schmidt, CCC-A Staff Machine Tool Designer, Surgery Service Signed: 09/28/2024 13:45 10/05/2024 ADDENDUM STATUS: COMPLETED Certified RT repair; fiberglass insulation installer unable to load [place] settings; loaded last saved settings which removed binaural pairing; alerting provider who entered repair to follow-up with as needed. 09/28/24 [id number] SERV REQ - REP HB CLOSED [id number] ONI AYALA ITC R /ramon/ CLARICE DELONG Staff Machine Tool Designer, JOE, CCC-A Signed: 10/05/2024 08:36 Receipt Acknowledged By: 10/05/2024 10:00 /Joe Schmidt, CCC-A Staff Machine Tool Designer, Surgery Service 10/05/2024 ADDENDUM STATUS: COMPLETED Please send hearing aids to through interoffice mail. /ramon/ Joe Keene, KRISTIAN Staff Machine Tool Designer, Surgery Service Signed: 10/05/2024 10:00 Receipt Acknowledged By: 10/05/2024 10:03 /ramon/ CLARICE [place] Machine Tool DesignerJOE, KRISTIAN 10/05/2024 ADDENDUM STATUS: COMPLETED Hearing aids removed from mail and to be sent to [facility] via interoffice mail. /ramon/ CLARICE [place] Machine Tool Designer, AU.D., KRISTIAN Signed: 10/05/2024 10:03 10/06/2024 ADDENDUM STATUS: COMPLETED Called and spoke with his . Offered multiple OBs at [facility] and , though none were compatible with 's schedule. 's inquired about [facility] clinic. RTC placed to schedule at [facility]. Mailing hearing aid so [place] can utilize both in the meantime; he confirmed understanding he will not have binaural streaming/volume synch until they are synched again. Mr. Melendez, please call [place] at to schedule [facility] appt. /ramon/ Joe Keene, KRISTIAN Staff Machine Tool Designer, Surgery Service Signed: 10/06/2024 16:05 Receipt Acknowledged By: * AWAITING SIGNATURE * AMBIKA MELENDEZ 10/07/2024 ADDENDUM STATUS: COMPLETED [id number] /ramon/ Joe FUENTES Staff Machine Tool Designer, Surgery Service Signed: 10/07/2024 14:39 MARIO ROSALES [facility]
--- OUTSIDE RECORDS SUMMARY | 2024-11-04 09:09 | XMS_ITS | Encounter Summary ---
Author Name [facility] [place] Organization [facility] [place] Address [address] [place] [address] Care Team Providers Care [place] Department Manager Name Role Phone WHITNEY HOOVER Primary Care [...] MEDIC ARE SUPPL EMENT October 22, 2020 [id number] [phone] DELFINABE RNARD PATIENT ANTHEM [place] MEDICARE SUPPLEMEN ANISHA MEDIC ARE SUPPL EMENT October 22, 2020 [id number] [phone] CATHERINENIEzio,BE RNARD PATIENT ANTHEM BC[place] MEDICARE SUPPLEMEN ANISHA MEDIC ARE SUPPL EMENT October 22, 2020 [id number] [phone] MANUEL MATHIS JR PATIENT [place] MEDICARE SUPPLEMEN ANISHA MEDIC ARE SUPPL EMENT October 22, 2020 [id number] [phone] DELFINA,BE RNARD PATIENT MEDICARE (WNR) MEDICARE (M) PART A Jul 25, 2000 PART A [id number] MANUEL MATHIS JR Darrick PATIENT MEDICARE (WNR) MEDICARE (M) PART B Jul 25, 2000 PART B [id number] MANUEL MATHIS JR PATIENT MEDICARE (WNR) MEDICARE (M) PART A Jul 25, 2000 PART A [id number] [phone] MANUEL MATHIS JR PATIENT MEDICARE (WNR) MEDICARE (M) PART B Jul 25, 2000 PART B [id number] MANUEL MATHIS JR PATIENT Selected Encounter This section includes the information on record at [place] for the Encounter. Date/Time Encounter Type Encounter Description Reason Pro vider Source Oct 13, 2024 10:16 AM Outpatient Encounter COMMUNITY CARE CONSULT IHE Encounter Template Text not used by [place] Plan of Treatment: Future Appointments (+ 6 months) and Future Tests (+/- 45 days) The Plan of Treatment section includes future care activities for the patient from all [place] treatmentfacilities. This section includes future appointments and future orders which are active, pending or scheduled. Future Appointments This section includes appointments that were scheduled to occur 6 months from the date of the Encounter, up to a maximum of 20 appointments. The data comes from all [place] treatment facilities. Appointment Date/Time Appointment Type Appointme nt Facility Name November 06, 2024 01:45 PM AMBULATORY - SURGERY [facility] Mar 30, 2025 11:30 AM AMBULATORY - MEDICINE [facility] Social History: Smoking Status (Most current) and Tobacco Use (All prior to encounter date) This section includes the most current, and the historical, smoking and tobacco- related health factors from the [facility] facility where the Encounter took place. Current Smoking Status This section includes the most current smoking, or tobacco-related health factor, from the [place] facility where the Encounter took place. Date/Time Current Smoking Status Comment Facil ity Aug 22, 2000 12:34 PM CURRENT NON-TOBACC O USER-HX OF USE [facility] Encounter Notes: All associated encounter notes This section contains the clinical notes associated to the Encounter. Date/Time Encounter Note(s) Provider Source Oct 13, 2024 10:16 AM LETTERS: LOCAL TITLE: COMMUNITY CARE-REQUEST FOR SERVICES (RFS) LETTER ST STANDARD TITLE: LETTERS DATE OF NOTE: OCT 13, 2024@10:16 ENTRY DATE: OCT 13, 2024@10:16:27 AUTHOR: ALIYA HARPER EXP COSIGNER: URGENCY: STATUS: COMPLETED [facility] [address] [place] [address] [facility] Attn: Dr. Sai Gaffney [address] [place] [address] Dear Provider, [place] Information: Patient Name: LUCIA MATHIS Date of : Jul [facility] PCP/Oncology Team has received the request new referral/auth - oncology from you for services that were not originally authorized in the [facility] Administration for this . Upon review, the following determination has been made: Service request has been forwarded to Primary Care provider for consideration. [place] requested to cancel the requested response/new consult as he chooses to use his private insurance to receive care in the community. Should you have questions, please contact us at [facility] P: [phone] to speak with a patient civil service worker. As a reminder, if applicable, return medical records within 30 days for routine services. Sincerely, Sincerely, ALIYA HARPER MSN RN REGISTERED NURSE ALIYA HARPER [facility]
--- OUTSIDE RECORDS SUMMARY | 2024-11-04 09:09 | XMS_ITS | Clinical Summary ---
Author Organization [facility] Address [address] [place] [address] Care Team Providers Care Racetrack Steward Name Role Phone Vini Woods MD Primary [...] Outpatient Ophthalmology follow-up in 2 weeks at [facility] - seen by ENT consult, plan [...] cord signal, advanced multilevel cervical spondylosis with [id number] neuroforaminal stenosis and no high-grade spinal canal stenosis. - C-spine precautions. C-collar at all times. HOB<30. Log roll - upright x-rays including odontoid view (09/20): No significant interval change in mildly displaced odontoid fracture with anterior subluxation of C2 on C1. Unchanged mild anterolisthesis of C3 on C4. Unchanged multilevel severe degenerative changes throughout the cervical spine, mild prevertebral soft tissue swelling - [place] J cervical collar with occipital extension - [...] Description 09/17/2024 11:00 AM CDT Ancillary Procedure [facility] [address] [place] [address] [place] [phone] Cardiac pacemaker in situ; Mobitz type 2 second degree AV block 09/17/2024 Telephone [facility] [address] [place] [address] [place] [phone] Nic Singh MD 09/15/2024 Orders Only [facility] [address] [place] [address] [place] [phone] Nic Singh MD 09/10/2024 Orders Only [facility] [address] [place] [address] [place] [phone] Nic Singh MD Cardiac pacemaker in situ (Primary Dx); Mobitz type 2 second degree AV block 09/08/2024 Telephone [facility] [address] [place] [address] [place] [address] [phone] Nic Singh MD 08/07/2024 10:00 AM COAL CAGER Office Visit [facility] at [address] [place] [phone] Nic Singh MD 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) 08/07/2024 Telephone [facility] [address] [place] [phone] Nic Singh MD from Last 3 Months [...] on file Legal Sex Male 7:23 PM COAL CAGER Gender Identity Not on file Sexual Orientation Not on file Obstetrics History Last Filed Vital Signs Vital Sign Reading Time Taken Comments Blood Pressure 128/72 08/07/2024 9:58 AM COAL CAGER Pulse 80 08/07/2024 9:58 AM COAL CAGER Temperature 36.8 C (98.2 F) 09/24/2023 11:30 AM CDT Respiratory Rate 18 09/24/2023 11:30 AM CDT Oxygen Saturation 96% 08/07/2024 9:58 AM COAL CAGER Inhaled Oxygen Concentration - - Weight 104.3 kg (230 lb) 08/07/2024 9:58 AM COAL CAGER Height 177.8 cm (5' 10 ) 08/07/2024 9:58 AM COAL CAGER Body Mass Index 33 08/07/2024 9:58 AM COAL CAGER Plan of Treatment Health Maintenance Due Date [...] CDT ELECTROCARDIOGRAM REPORT Routine 025 11:47 AM COAL CAGER Mobitz type 2 second degree AV block from Last 3 Months Results * DEVICE CHECK - IN OFFICE (09/17/2024 10:40 AM CDT) Anatomical Region Laterality Modality Other Narrative 09/21/2024 7:06 AM CDT [employer] Amvia Edge Dual Pacemaker. Dx; Second Degree Type 1&2 AVB. DOI 09/09/2024-Samantha. [employer] remote. Supervising MD: Ivan Office DDD Pacemaker evaluation demonstrated appropriate device function. Left pectoral incision well approximated with minimal bruising and edema and without signs of infection noted. Battery function: 100%, 10 years and 11 months remaining battery life to CRISTOFER. Appropriate lead measurements noted. Presenting rhythm- AP/IMPORT COORDINATION AND PRODUCTION HEAD Underlying rhythm- SB AP- 37%, IMPORT COORDINATION AND PRODUCTION HEAD- 60% No Atrial high rate episodes noted. No Ventricular high rate episodes noted. Medications; hydrochlorothiazide 25 mg, losartan 50 mg No programming changes made to device settings. See scanned report. Office device f/u 10/21/24 Remote monitoring will be performed by Dr. Ibrahim office after initial incision and device checks are completed Rishabh Nguyen, NORMAN us Nic Singh MD [facility] CARDIAC SERVICES PROC EDURES Final Result * Cardiology Document Scan (09/10/2024 10:21 AM CDT) Anatomical Region Laterality Modality Other us Lisy Dotson NP CV CARDIAC SERVICES PROCEDUR ES Final Result * Cardiology Document Scan (09/09/2024 8:42 AM CDT) Anatomical Region Laterality Modality Other us Nic Singh MD CV CARDIAC SERVICES PROC EDURES Final Result * Electrocardiogram Report (08/07/2024 11:47 AM COAL CAGER) us Nic Singh MD ECG ORDERABLES Edited R esult - Final from Last 3 [place] [address] [facility] MEDICARE SUPPLEMENT MEDICARE [facility] MEDICARE Advance Directives For more information, please contact: [phone] * Full Code (Latest Code Status on File) Date Activated Date Inactivated Comments 09/20/2023 7:54 PM 09/24/2023 5:56 PM Care Teams Racetrack Steward Relationship Specialty Start Date End Date Vini Woods MD PCP - General 08/15/11
[2024-11-04 09:33] LABS: Hematocrit 35.6 % (37.0-46.0); Mean Corpuscular HGB Conc 33.7 g/dL (32-36); Mean Corpuscular Hemoglobin 41.2 pg (27.0-31.0); Mean Corpuscular Volume 122.3 fL (78.0-102.0); Platelet Count Result 247 K/mm3 (150-420); Red Blood Count 2.91 M/mm3 (4.70-6.10); Red Cell Distribution Width 13.2 % (11.6-14.4); White Blood Count 2.2 K/mm3 (4.8-10.8)
[2024-11-04 10:06] LABS: Band Neutrophils Percent 0 % (0-6); Eosinophils Absolute Manual 0.02 K/mm3 (0.02-0.50); Eosinophils Percent Manual 1 % (1-6); Lymphocytes Absolute Manual 0.79 K/mm3 (1.1-4.5); Lymphocytes Percent Manual 36 % (18-44); Monocytes Percent Manual 14 % (3-9); Neutrophils Absolute Manual 1.07 K/mm3 (1.3-6.7); Neutrophils Percent Manual 49 % (46-73); Platelet Estimate Adequate (Adequate); Total Cells Counted 100
== END 2024-11-04 09:00 | disposition home or self-care (01) ==
LOC: CHSLAB 09:03
PROVIDERS: PCP Internal Medicine; Visit Provider Internal Medicine Hematology
DX: D69.6 Thrombocytopenia, unspecified (principal)
CPT/HCPCS: 36415; 85025

== ENCOUNTER 2024-12-08 09:29 | Outpatient (CLI) | payer MEDICARE, SELFPAY ==
--- NOTE | ~2024-12-08 | NM_ITS ---
EXAMINATION: NM stacie stress w perfusion DATE: 12/08/2024 12:23 INDICATION: Encounter for preprocedural cardiovascular exam. TECHNIQUE: Rest images were obtained following intravenous administration of 11.3 mCi Tc99m tetrofosm in (Myoview). The patient was infused intravenously with Lexiscan (Regadenoson). Then, 34.7 mCi Tc99m tetrofosmin (Myoview) was administered intravenously, and stress images were obtained. Data was emmie nstructed into short axis and horizontal and vertical long axis SPECT images. Gated SPECT images were also obtained. COMPARISON: None. FINDINGS: There is no perfusion abnormality on the rest images to suggest infarction. There is a smal l mild reversible perfusion defect at the apical inferior and apical lateral segments consistent with ischemia. There is normal left ventricular chamber size, wall motion and ejection fraction. Left ve ntricular ejection fraction measures 55%. IMPRESSION: 1. Small mild reversible perfusion defect at the apical inferior and apical lateral segments consiste nt with ischemia. No infarct evident on the rest images. 2. Left ventricular ejection fraction measuring 55%. Reviewed, dictated and finalized at location A. IMPRESSION: 1. Small mild reversible perfusion defect at the apical inferior and apical lat eral segments consistent with ischemia. No infarct evident on the rest images. 2. Left ventricular ejection fraction measuring 55%.
--- NOTE | 2024-12-08 09:54 | EST_ITS ---
Patient Info Name: Wong Sethi Age: 89 years : 1935 Gender: Male Ht: 70 in Wt: 225 lbs BSA: 2.28 m2 HR: 60 bpm BP: 150 / 84 mmHg Exam Date: 12/08/2024 9:54 AM Patient Status: O Admit Date: 12/08/2024 Exam Type: CA stress stacie w NM A regadenoson stress test was performed. Staff Referring Physician: Margarito Aviles DO Attending Provider: Margarito Aviles DO Exercise Technologist: Joann Lee Exercise Physician: Margarito Aviles DO Summary 1. 1. Inconclusive lexiscan stress test for ischemic ST changes by ECG criteria due to baseline ventricular paced rhythm. 2. 2. Baseline hypertension. 3. 3. Nuclear scan to follow and will be reported separately. Please correlate with it. 4. 4. Patient informed of the above results. Protocol: Lexiscan Stress ECG Details Stage: REST Duration (min): 1 min : 44 sec HR (bpm): 60 SBP (mmHg): 150 DBP (mmHg): 84 Stage: REST Duration (min): 7 min : 34 sec HR (bpm): 60 SBP (mmHg): 150 DBP (mmHg): 84 Stage: STAGE 1 Duration (min): 0 min : 59 sec HR (bpm): 65 SBP (mmHg): 138 DBP (mmHg): 83 Stage: RECOVERY Duration (min): 1 min : 0 sec HR (bpm): 72 SBP (mmHg): 138 DBP (mmHg): 83 Stage: RECOVERY Duration (min): 2 min : 0 sec HR (bpm): 67 SBP (mmHg): 138 DBP (mmHg): 83 Stage: RECOVERY Duration (min): 3 min : 0 sec HR (bpm): 66 SBP (mmHg): 164 DBP (mmHg): 83 Stage: RECOVERY Duration (min): 4 min : 0 sec HR (bpm): 64 SBP (mmHg): 164 DBP (mmHg): 83 Stage: RECOVERY Duration (min): 4 min : 2 sec HR (bpm): 64 SBP (mmHg): 164 DBP (mmHg): 83 Rest HR: 60 bpm Peak HR: 75 bpm Rest Sys BP: 150 mmHg Peak Sys BP: 164 mmHg Max Pred HR: 131 bpm % Max Pred HR: 57 % Target HR: 111 bpm Max RPP: 12,300 bpm*mmHg Termination Reason: Completed protocol Cardiac Symptoms: Stomach discomfort Total Time: 1 min : 0 sec Rest Montesinos BP: 84 mmHg Peak Montesinos BP: 83 mmHg Total Dose: 0.4 mg Resting ECG Electronic ventricular paced rhythm. Stress ECG No ST changes. Arrhythmias None. Report Signatures
--- OUTSIDE RECORDS SUMMARY | 2024-12-08 10:22 | XMS_ITS | Continuity of Care Document ---
Author Name [facility] Organization [facility] Care Team Providers Care Pediatric Sports Medicine Specialist Name Role Phone [facility] Unavailable Unavailable Problems Combined list of problems from Department of Defense and [facility] Affairs facilities. It does not include entries that were removed or entered in error. Problem Status Onset Date Problem Type Date of Resolution Comments Source Cardiac pacemaker in situ Active 5 Condition [facility] Allergic rhinitis Active Condition [facility] Benign essential hypertension Active Condition [facility] Benign prostatic hyperplasia Active Condition [facility] Chronic kidney disease stage 3A Active Condition [facility] Chronic obstructive lung disease (SNOMED CT 46712317) Active Condition [facility] Elevated PSA Active Condition [facility] Fracture of cervical spine Active Condition [facility] Gastroesophageal reflux disease Active Condition [facility] Gout (SNOMED CT 57958772) Active Condition [facility] Hearing loss Active Condition [facility] Hyperlipidemia Active Condition [facility] Hypokalemia Active Condition [facility] Hypomagnesemia Active Condition [facility] Liver function tests outside reference range Active Condition [facility] Low back pain Active Condition [facility] Prediabetes Active Condition [facility] Right knee pain Active Condition [facility] Rosacea Active Condition [facility] Thrombocytosis Active Condition [facility] Vertigo Active Condition [facility] Vitamin D deficiency Active Condition [facility] Actinic Keratosis Inactive Condition 04/14/2023 [facility] Diverticulosis, Colonic Inactive Condition 04/14/2023 [facility] Impotence of organic origin Inactive Condition 04/14/2023 [facility] Osteoarthritis Inactive Condition 04/14/2023 [facility] Sleep Apnea (ICD-9-CM 780.57) Inactive Condition 04/14/2023 [facility] Vertigo Inactive Condition 04/14/2023 [facility] Diagnosis: ICD-10-CM H90.3 Sensorineural hearing loss, bilateral Active Diagnosis [facility] Diagnosis: ICD-10-CM Z46.1 Encounter for fitting and adjustment of hearing aid Active Diagnosis [facility] Diagnosis: ICD-10-CM Z95.0 Presence of cardiac pacemaker Active Diagnosis [facility] Diagnosis: ICD-10-CM Z13.9 Encounter for screening, unspecified Active Diagnosis [facility] Diagnosis: ICD-10-CM Z13.5 Encounter for screening for eye and ear disorders Active Diagnosis [facility] Diagnosis: ICD-10-CM I10 Essential (primary) hypertension Active Diagnosis [facility] Medications Combined list of outpatient medications from [...] ORAL ACTIVE MOHINI HOOVER AAYUSH R 2023 [facility] DICLOFENAC NA 1% GEL,TOP APPLY 4 GM TO AFFECTED AREA(S) FOUR TIMES A DAY NEEDED FOR PAIN/INF LAMMATIO N; NOT MORE THAN 16 GRAMS DAILY TO ANY LOWER EXTREMIT Y JOINT. NOT MORE THAN 8 GRAMS DAILY TO ANY UPPER EXTREMIT Y JOINT. MAX 32GM/DAY OVER ALL JOINTS. (MEASURE DOSE WITH RULER ATTACHED INSIDE BOX) TOPICA L ACTIVE 09/23/2025 [id number] MOHINI HOOVER MATYY R 2024 300 [facility] DICLOFENAC NA 1% GEL,TOP APPLY 4 GM TO AFFECTED AREA(S) FOUR TIMES A DAY NEEDED FOR PAIN/INF LAMMATIO N; NOT MORE THAN 16 GRAMS DAILY TO ANY LOWER EXTREMIT Y JOINT. NOT MORE THAN 8 GRAMS DAILY TO ANY UPPER EXTREMIT Y JOINT. MAX 32GM/DAY OVER ALL JOINTS. (MEASURE DOSE WITH RULER ATTACHED INSIDE BOX) LORENZO L DISCONT INUED 03/17/2025 [id number] 5 MOHINI HOOVER R 2023 100 [facility] DICLOFENAC NA 1% GEL,TOP APPLY 4 GM TO AFFECTED AREA(S) FOUR TIMES A DAY NEEDED FOR PAIN/INF LAMMATIO N; NOT MORE THAN 16 GRAMS DAILY TO ANY LOWER EXTREMIT Y JOINT. NOT MORE THAN 8 GRAMS DAILY TO ANY UPPER EXTREMIT Y JOINT. MAX 32GM/DAY OVER ALL JOINTS. (MEASURE DOSE WITH RULER ATTACHED INSIDE BOX) LORENZO L DISCONT INUED 10/01/2024 [id number] 4 MOHINI HOOVER R 2023 100 [facility] FINASTERIDE 5MG TAB TAKE ONE TABLET BY MOUTH ONCE A DAY ORAL ACTIVE ADDI PACE MD 2018 [facility] GUAIFENESIN 400MG TAB TAKE ONE TABLET BY MOUTH EVERY 6 HOURS NEEDED TO THIN MUCUS. TAKE WITH 8 OUNCE GLASS OF WATER. ORAL ACTIVE 03/28/2025 [id number] 4 MOHINI HOOVER R 2023 360 [facility] GUAIFENESIN 400MG TAB TAKE ONE TABLET BY MOUTH EVERY 6 HOURS NEEDED TO THIN MUCUS. TAKE WITH 8 OUNCE GLASS OF WATER. ORAL DISCONT INUED 11/04/2024 [id number] 4 MOHINI HOOVER R 2023 360 [facility] HYDROCHLORO THIAZIDE 25MG TAB TAKE ONE-HALF TABLET BY MOUTH EVERY MORNING ORAL ACTIVE 03/28/2025 [id number] 5 MOHINI HOOVER R 2023 45 [facility] HYDROCHLORO THIAZIDE 25MG TAB TAKE ONE-HALF TABLET BY MOUTH EVERY MORNING ORAL DISCONT INUED 04/14/2024 [id number] 4 MOHINI HOOVER R 2022 45 [facility] HYDROXYUREA 500MG CAP TAKE 1 CAPSULE BY MOUTH TWICE A DAY ORAL ACTIVE MOHINI HOOVER LBNadia R 2023 [facility] LORATADINE 10MG TAB TAKE ONE TABLET BY MOUTH ONCE A DAY ON EMPTY STOMACH FOR ALLERGIE S ORAL ACTIVE 03/28/2025 [id number] 5 MOHINI HOOVER LBY R 2023 90 [facility] LORATADINE 10MG TAB TAKE ONE TABLET BY MOUTH ONCE A DAY ON EMPTY STOMACH FOR ALLERGIE S ORAL DISCONT INUED 04/08/2024 [id number] 4 ADDI PACE MD 2022 90 [facility] LOSARTAN 50MG TAB TAKE ONE-HALF TABLET BY MOUTH ONCE A DAY TO LOWER BLOOD PRESSURE ORAL ACTIVE 03/28/2025 [id number] 5 MOHINI HOOVER LBY R 2023 45 [facility] LOSARTAN 50MG TAB TAKE ONE-HALF TABLET BY MOUTH ONCE A DAY TO LOWER BLOOD PRESSURE ORAL DISCONT INUED 04/10/2024 [id number] 4 MOHINI HOOVERY R 2022 45 [facility] MAGNESIUM OXIDE TAB TAKE 250 MG BY MOUTH ONCE A DAY ORAL ACTIVE MOHINI HOOVER LBY R 2023 [facility] METRONIDAZO LE 1% GEL,TOP APPLY THIN FILM TO AFFECTED AREA(S) ONCE A DAY TOPICA L ACTIVE MOHINI HOOVER LBY R 2024 [facility] OLODATEROL 2.5MCG/TIOT ROPIUM 2.5MCG/ACTU AT [facility],ORAL,6 0D,4GM INHALE 1 PUFF BY ORAL INHALATI ON TWICE A DAY ADMINIST ER AT SAME TIME EACH DAY FOR BREATHIN G RESPIR ATORY (INHAL ATION) ACTIVE 03/28/2025 [id number] 5 MOHINI HOOVER LBY R 2023 3 [facility] OLODATEROL 2.5MCG/TIOT ROPIUM 2.5MCG/ACTU AT [facility],ORAL,6 0D,4GM INHALE 1 PUFF BY ORAL INHALATI ON TWICE A DAY ADMINIST ER AT SAME TIME EACH DAY FOR KAREN PAGAN (INHAL ATION) DISCONT INUED 07/04/2024 [id number] 4 MOHINI HOOVER R 2023 3 [facility] OMEPRAZOLE 20MG CAP,EC TAKE ONE CAPSULE BY MOUTH EVERY MORNING BEFORE A MEAL ORAL ACTIVE 09/26/2025 [id number] 5 KIKO,MOHINI LOONEY R 2024 90 [facility] OMEPRAZOLE 20MG CAP,EC TAKE ONE CAPSULE BY MOUTH EVERY MORNING BEFORE A MEAL ORAL 09/11/2024 [id number] 4 KIKO,MOHINI LOONEY R 2023 90 [facility] POTASSIUM CHLORIDE 20MEQ TAB,SA (DISPERSIBL E) TAKE ONE TABLET BY MOUTH ONCE A DAY ORAL ACTIVE 03/28/2025 [id number] 5 KIKO,MOHINI LOONEY R 2023 90 [facility] POTASSIUM CHLORIDE 20MEQ TAB,SA (DISPERSIBL E) TAKE ONE TABLET BY MOUTH ONCE A DAY ORAL DISCONT INUED 09/11/2024 [id number] 4 MOHINI HOOVER R 2023 90 [facility] SIMVASTATIN 80MG TAB TAKE ONE-HALF TABLET BY MOUTH EVERY EVENING TO LOWER CHOLESTE ROL (REPORT ANY UNEXPLAI RUFINO MUSCLE PAIN, TENDERNE SS OR WEAKNESS TO YOUR PRIMARY CARE PROVIDER ) ORAL ACTIVE 03/28/2025 [id number] 5 KIKO,MOHINI LOONEY R 2023 45 [facility] SIMVASTATIN 80MG TAB TAKE ONE-HALF TABLET BY MOUTH EVERY EVENING TO LOWER CHOLESTE ROL (REPORT ANY UNEXPLAI RUFINO MUSCLE PAIN, TENDERNE SS OR WEAKNESS TO YOUR PRIMARY CARE PROVIDER ) ORAL DISCONT INUED 04/08/2024 [id number] 4 ADDI PACE MD 2022 45 [facility] TAMSULOSIN HCL 0.4MG CAP TAKE 1 CAPSULE BY MOUTH EVERY EVENING ORAL ACTIVE MOHINI HOOVER LBY R 2023 [facility] Allergies, Adverse Reactions, Alerts Combined list of allergies from Department of Defense and Veterans Affairs facilities. It does not include entries that were removed or entered in error. Substance Category Reaction Severity Reaction type Status Date Reported Comments Source DILTIAZEM Propensity to adverse reactions to drug (finding) Swelling active 8 [facility] FELODIPINE Propensity to adverse reactions to drug (finding) SWELLING (NON-SPECI FIC) active 3 [facility] LISINOPRIL Propensity to adverse reactions to drug (finding) Cough active 8 [facility] Immunizations Combined list of available immunizations from the Department of [facility] and Veterans Affairs facilities. Immunization Series Date Given Administered By Site Reaction Lot Number CVX Code Drug Passport Support Associate Status Comments Source INFLUENZA, HIGH-DOSE, TRIVALENT, PF 2023 FARZANA NUNEZ RIGHT DELTO ID [id number] 135 complet ed [facility] AT [facility] TDAP 2023 115 complet ed HISTORICA L INFORMATI ON - [facility] INFLUENZA, HIGH-DOSE, QUADRIVALENT 2022 AGRTH AGUILAR RIGHT DELTO ID [id number] 197 complet ed Completed Series, [facility]MIN[facility] AT [facility] INFLUENZA, UNSPECIFIED FORMULATION 2021 88 complet ed [facility]ISTORICA L INFORMATI ON - [facility] INFLUENZA, UNSPECIFIED FORMULATION 2019 88 complet ed [facility] DIVISIO N ZOSTER RECOMBINANT 2 2019 187 complet ed [facility] INFLUENZA, INJECTABLE, QUADRIVALENT, PRESERVATIVE FREE 1 2018 150 complet ed HISTORICA L INFORMATI ON - FROM OTHER [facility] DIVISIO N INFLUENZA, UNSPECIFIED FORMULATION 2018 88 complet ed [place] S TDAP 2018 115 complet ed Left Deltoid [facility] ZOSTER RECOMBINANT 1 2018 187 complet ed [facility] ZOSTER, UNSPECIFIED FORMULATION 1 2018 188 complet ed HISTORICA L INFORMATI ON - FROM OTHER REGISTRY, [facility] DIVISIO N INFLUENZA, INJECTABLE, QUADRIVALENT, PRESERVATIVE FREE 1 2017 150 complet ed HISTORICA L INFORMATI ON - FROM OTHER REGISTRY, [facility] DIVISIO N INFLUENZA, INJECTABLE, QUADRIVALENT 1 2016 158 complet ed HISTORICA L INFORMATI ON - FROM OTHER REGISTRY, [facility] DIVISIO N INFLUENZA, UNSPECIFIED FORMULATION 2016 88 complet ed [place] S INFLUENZA, INJECTABLE, QUADRIVALENT 1 2015 158 complet ed HISTORICA L INFORMATI ON - FROM OTHER REGISTRY, [facility] DIVISIO N INFLUENZA, UNSPECIFIED FORMULATION 2015 88 complet ed [facility] DIVISIO N PNEUMOCOCCAL POLYSACCHARID E PPV23 2 2015 33 complet ed HISTORICA L INFORMATI ON - FROM OTHER REGISTRY, [facility] DIVISIO N INFLUENZA, SEASONAL, INJECTABLE 1 2014 141 complet ed HISTORICA L INFORMATI ON - FROM OTHER REGISTRY, [facility] N PNEUMOCOCCAL CONJUGATE PCV 13 2014 133 complet ed [facility] INFLUENZA, UNSPECIFIED FORMULATION 2014 88 complet ed [facility] DIVISIO N INFLUENZA, UNSPECIFIED FORMULATION 2014 88 complet ed [place] S INFLUENZA, INJECTABLE, QUADRIVALENT 1 2013 158 complet ed HISTORICA L INFORMATI ON - FROM OTHER REGISTRY, [facility] DIVISIO N INFLUENZA, UNSPECIFIED FORMULATION 2013 88 complet ed [facility] DIVISIO N INFLUENZA, UNSPECIFIED FORMULATION 2013 88 complet ed [facility] DIVISIO N INFLUENZA, HIGH DOSE SEASONAL 1 2012 135 complet ed HISTORICA L INFORMATI ON - FROM OTHER REGISTRY, [facility] DIVIS N INFLUENZA, UNSPECIFIED FORMULATION 2012 88 complet ed [facility] DIVISIO N INFLUENZA, UNSPECIFIED FORMULATION 2011 88 complet ed [facility] DIVISIO N INFLUENZA, HIGH DOSE SEASONAL 1 2011 135 complet ed HISTORICA L INFORMATI ON - FROM OTHER REGISTRY, [facility] DIVISIO N INFLUENZA, UNSPECIFIED FORMULATION 2011 88 complet ed [facility] DIV[facility] N PNEUMOCOCCAL POLYSACCHARID E PPV23 1 2010 33 complet ed HISTORICA L INFORMATI ON - FROM OTHER REGISTRY, [facility] DIVISIO N PNEUMOCOCCAL, UNSPECIFIED FORMULATION 2010 109 complet ed [facility] INFLUENZA, UNSPECIFIED FORMULATION 2010 88 complet ed [facility] INFLUENZA, UNSPECIFIED FORMULATION 2010 88 complet ed [facility] TD(ADULT) UNSPECIFIED FORMULATION 2008 139 complet ed Left Deltoid [facility] INFLUENZA, UNSPECIFIED FORMULATION 2007 88 complet ed [facility] DIVISIO N INFLUENZA, UNSPECIFIED FORMULATION 2007 88 complet ed per patient [facility] DIVISIO N INFLUENZA, UNSPECIFIED FORMULATION 2005 88 complet ed [facility] INFLUENZA (HISTORICAL) 2002 88 complet ed [facility] PNEUMOCOCCAL, UNSPECIFIED FORMULATION 2001 109 complet ed [facility] INFLUENZA, UNSPECIFIED FORMULATION 1998 88 complet ed [facility] TETANUS TOXOID, UNSPECIFIED FORMULATION 1998 TOBIAS IVRGEN 112 complet ed [facility] Results Combined list of recent chemistry, hematology [...] Dec 03, 2022 01:16 PM Reporting Lab: [facility] [address] [phone] Performing Lab: [facility] [address] [place] [phone] [facility] HGA1C HEMOGLOBIN A1C/HEMOGLOB IN.TOTAL IN BLOOD 5.7 4.0 - 6.0 12/19 Specimen Type: BLOOD No comment entered. Ordering Provider: NADER HOOVER Report Released Date/Time: Dec 03, 2022 01:16 PM Reporting Lab: [facility] [address] [place] [phone] Performing Lab: [address] [phone] [facility] VITAMIN D, 25-HYDROXY 25-HYDROXYVI TAMIN D3 [MASS/VOLUME ] IN SERUM OR PLASMA 73.4 ng/mL 30 - 96 12/19 Specimen Type: SERUM No comment entered. Ordering Provider: NADER HOOVER Report Released Date/Time: Dec 03, 2022 01:16 PM Reporting Lab: [facility] [address] [place] [phone] Performing Lab: [facility] [address] [place] [phone] [facility] LIPID PANEL (STL) CHOLESTEROL [MASS/VOLUME ] IN SERUM OR PLASMA 143 mg/dL 0 - 200 12/19 Specimen Type: PLASMA Comment: No hemolysis noted. Ordering Provider: NADER HOOVER Report Released Date/Time: Dec 03, 2022 01:16 PM Reporting Lab: [facility] [address] [place] [phone] Performing Lab: [address] [phone] [facility] LIPID PANEL (STL) TRIGLYCERIDE [MASS/VOLUME ] IN SERUM OR PLASMA 116 mg/dL 0 - 150 12/19 Specimen Type: PLASMA Comment: No hemolysis noted. Ordering Provider: NADER HOOVER Report Released Date/Time: Dec 03, 2022 01:16 PM Reporting Lab: [facility] [address] [facility] [phone] Performing Lab: [facility] [address] [place] [phone] [facility] LIPID PANEL (STL) CHOLESTEROL IN LDL [MASS/VOLUME ] IN SERUM OR PLASMA BY CALCULATION 82 mg/dL 12/19 Specimen Type: PLASMA Comment: No hemolysis noted. Ordering Provider: NADER HOOVER Report Released Date/Time: Dec 03, 2022 01:16 PM Reporting Lab: [facility] [address] [place] [phone] Performing Lab: [address] [phone] [facility] LIPID PANEL (STL) CHOLESTEROL IN HDL [MASS/VOLUME ] IN SERUM OR PLASMA 38 mg/dL 12/19 L Specimen Type: PLASMA Comment: No hemolysis noted. Ordering Provider: NADER HOOVER Report Released Date/Time: Dec 03, 2022 01:16 PM Reporting Lab: [facility] [address] [place] [phone] Performing Lab: [facility] [address] [place] [phone] [facility] COMPREHENSI VE METABOLIC PANEL CREATININE [MASS/VOLUME ] IN SERUM OR PLASMA 1.27 mg/dL 0.7 - 1.3 12/19 Specimen Type: PLASMA Comment: No hemolysis noted. Ordering Provider: NADER HOOVER Report Released Date/Time: Dec 03, 2022 01:16 PM Reporting Lab: [facility] [address] [place] [phone] Performing Lab: [facility] [address] [place] [phone] [facility] COMPREHENSI VE METABOLIC PANEL UREA NITROGEN [MASS/VOLUME ] IN SERUM OR PLASMA 11 mg/dL 9 - 25 12/19 Specimen Type: PLASMA Comment: No hemolysis noted. Ordering Provider: NADER HOOVER Report Released Date/Time: Dec 03, 2022 01:16 PM Reporting Lab: [facility] [address] [place] [phone] Performing Lab: [facility] [address] [place] [phone] [facility] COMPREHENSI VE METABOLIC PANEL GLUCOSE [MASS/VOLUME ] IN SERUM OR PLASMA 95 mg/dL 72 - 99 12/19 Specimen Type: PLASMA Comment: No hemolysis noted. Ordering Provider: NADER HOOVER Report Released Date/Time: Dec 03, 2022 01:16 PM Reporting Lab: [facility] [address] [place] [phone] Performing Lab: [facility] [address] [place] [phone] [place] [address] COMPREHENSI VE METABOLIC PANEL SODIUM [MOLES/VOLUM E] IN SERUM OR PLASMA 137 meq/L 136 - 145 12/19 Specimen Type: PLASMA Comment: No hemolysis noted. Ordering Provider: NADER HOOVER Report Released Date/Time: Dec 03, 2022 01:16 PM Reporting Lab: [facility] [address] [place] [phone] Performing Lab: [facility] [address] [place] [phone] [facility] COMPREHENSI VE METABOLIC PANEL POTASSIUM [MOLES/VOLUM E] IN SERUM OR PLASMA 4.3 meq/L 3.5 - 5 12/19 Specimen Type: PLASMA Comment: No hemolysis noted. Ordering Provider: NADER HOOVER Report Released Date/Time: Dec 03, 2022 01:16 PM Reporting Lab: [facility] [address] [place] [phone] Performing Lab: [facility] [address] [place] [phone] [facility] COMPREHENSI VE METABOLIC PANEL CHLORIDE [MOLES/VOLUM E] IN SERUM OR PLASMA 101 meq/L 98 - 107 12/19 Specimen Type: PLASMA Comment: No hemolysis noted. Ordering Provider: NADER HOOVER Report Released Date/Time: Dec 03, 2022 01:16 PM Reporting Lab: [facility] [address] [address] Performing Lab: [facility] [address] [place] [phone] [facility] COMPREHENSI VE METABOLIC PANEL CARBON DIOXIDE, TOTAL [MOLES/VOLUM E] IN SERUM OR PLASMA 26 meq/L 22 - 31 12/19 Specimen Type: PLASMA Comment: No hemolysis noted. Ordering Provider: NADER HOOVER Report Released Date/Time: Dec 03, 2022 01:16 PM Reporting Lab: [facility] [address] [place] [phone] Performing Lab: [facility] [address] [place] [phone] [facility] COMPREHENSI VE METABOLIC PANEL CALCIUM [MASS/VOLUME ] IN SERUM OR PLASMA 10.2 mg/dL 8.4 - 10.4 12/19 Specimen Type: PLASMA Comment: No hemolysis noted. Ordering Provider: NADER HOOVER Report Released Date/Time: Dec 03, 2022 01:16 PM Reporting Lab: [facility] [address] [place] [phone] Performing Lab: [address] [phone] [facility] COMPREHENSI VE METABOLIC PANEL PROTEIN [MASS/VOLUME ] IN SERUM OR PLASMA 7.6 g/dL 6 - 8.6 12/19 Specimen Type: PLASMA Comment: No hemolysis noted. Ordering Provider: NADER HOOVER Report Released Date/Time: Dec 03, 2022 01:16 PM Reporting Lab: [facility] [address] [place] [phone] Performing Lab: [facility] [address] [place] [phone] [facility] COMPREHENSI VE METABOLIC PANEL ALBUMIN [MASS/VOLUME ] IN SERUM OR PLASMA 4.5 g/dL 3.4 - 5 12/19 Specimen Type: PLASMA Comment: No hemolysis noted. Ordering Provider: NADER HOOVER Report Released Date/Time: Dec 03, 2022 01:16 PM Reporting Lab: [facility] [address] [place] [phone] Performing Lab: [facility] [address] [place] [phone] [facility] COMPREHENSI VE METABOLIC PANEL BILIRUBIN.TO ANISHA [MASS/VOLUME ] IN SERUM OR PLASMA 0.8 mg/dL 0.2 - 1.2 12/19 Specimen Type: PLASMA Comment: No hemolysis noted. Ordering Provider: NADER HOOVER Report Released Date/Time: Dec 03, 2022 01:16 PM Reporting Lab: [facility] [address] [place] [phone] Performing Lab: [facility] [address] [place] [phone] [place] [address] COMPREHENSI VE METABOLIC PANEL ALKALINE PHOSPHATASE [ENZYMATIC ACTIVITY/VOL UME] IN SERUM OR PLASMA 73 U/L 40 - 150 12/19 Specimen Type: PLASMA Comment: No hemolysis noted. Ordering Provider: NADER HOOVER Report Released Date/Time: Dec 03, 2022 01:16 PM Reporting Lab: [facility] [address] [place] [phone] Performing Lab: [facility] [address] [place] [phone] [facility] COMPREHENSI VE METABOLIC PANEL ASPARTATE AMINOTRANSFE RASE [ENZYMATIC ACTIVITY/VOL UME] IN SERUM OR PLASMA 42 U/L 5 - 34 12/19 H Specimen Type: PLASMA Comment: No hemolysis noted. Ordering Provider: NADER HOOVER Report Released Date/Time: Dec 03, 2022 01:16 PM Reporting Lab: [facility] [address] [place] [phone] Performing Lab: [facility] [address] [place] [phone] [facility] COMPREHENSI VE METABOLIC PANEL ALANINE AMINOTRANSFE RASE [ENZYMATIC ACTIVITY/VOL UME] IN SERUM OR PLASMA 42 U/L 8 - 40 12/19 H Specimen Type: PLASMA Comment: No hemolysis noted. Ordering Provider: NADER HOOVER Report Released Date/Time: Dec 03, 2022 01:16 PM Reporting Lab: [address] [phone] Performing Lab: [phone] [place] [address] COMPREHENSI VE METABOLIC PANEL GLOMERULAR FILTRATION RATE/1.73 SQ M.PREDICTED [VOLUME RATE/AREA] IN SERUM, PLASMA OR BLOOD BY CREATININE-B ASED FORMULA (CKD-EPI 2020) 54.7 12/19 Specimen Type: PLASMA Comment: No hemolysis noted. Ordering Provider: NADER HOOVER Report Released Date/Time: Dec 03, 2022 01:16 PM Reporting Lab: [address] [phone] Performing Lab: [address] [phone] [place] [address] CBC LEUKOCYTES [#/VOLUME] IN BLOOD BY AUTOMATED COUNT 5.0 10*3/u L 3.6 - 11.2 12/19 Specimen Type: BLOOD No comment entered. Ordering Provider: NADER HOOVER Report Released Date/Time: Dec 03, 2022 01:16 PM Reporting Lab: [address] [phone] Performing Lab: [address] [phone] [facility] CBC ERYTHROCYTES [#/VOLUME] IN BLOOD BY AUTOMATED COUNT 4.98 10*6/u L 4.10 - 5.70 12/19 Specimen Type: BLOOD No comment entered. Ordering Provider: NADER HOOVER Report Released Date/Time: Dec 03, 2022 01:16 PM Reporting Lab: [address] [phone] Performing Lab: [address] [phone] [facility] CBC HEMOGLOBIN [MASS/VOLUME ] IN BLOOD 14.8 g/dL 13.1 - 16.8 12/19 Specimen Type: BLOOD No comment entered. Ordering Provider: NADER HOOVER Report Released Date/Time: Dec 03, 2022 01:16 PM Reporting Lab: [address] [phone] Performing Lab: [address] [phone] [facility] [place] [address] CBC HEMATOCRIT [VOLUME FRACTION] OF BLOOD 45.8 38.2 - 48.4 12/19 Specimen Type: BLOOD No comment entered. Ordering Provider: NADER HOOVER Report Released Date/Time: Dec 03, 2022 01:16 PM Reporting Lab: [address] [address] Performing Lab: [address] [phone] [place] [address] CBC MCV [ENTITIC VOLUME] BY AUTOMATED COUNT 92.0 fL 80.0 - 100.0 12/19 Specimen Type: BLOOD No comment entered. Ordering Provider: NADER HOOVER Report Released Date/Time: Dec 03, 2022 01:16 PM Reporting Lab: [address] [address] Performing Lab: [address] [address] [facility] CBC MCH [ENTITIC MASS] BY AUTOMATED COUNT 29.7 pg 27.0 - 34.0 12/19 Specimen Type: BLOOD No comment entered. Ordering Provider: NADER HOOVER Report Released Date/Time: Dec 03, 2022 01:16 PM Reporting Lab: [address] [address] Performing Lab: [address] [address] [facility] CBC MCHC [MASS/VOLUME ] BY AUTOMATED COUNT 32.3 g/dL 33.0 - 36.0 12/19 L Specimen Type: BLOOD No comment entered. Ordering Provider: NADER HOOVER BY R Report Released Date/Time: Dec 03, 2022 01:16 PM Reporting Lab: [facility] [address] [place] [address] Performing Lab: [facility] [address] [place] [address] [facility] CBC PLATELETS [#/VOLUME] IN BLOOD BY AUTOMATED COUNT 555 10*3/u L 150 - 400 12/19 H Specimen Type: BLOOD No comment entered. Ordering Provider: NADER HOOVER BY R Report Released Date/Time: Dec 03, 2022 01:16 PM Reporting Lab: [facility] [address] [place] [phone] Performing Lab: [address] [phone] [place] [address] CBC PLATELET MEAN VOLUME [ENTITIC VOLUME] IN BLOOD BY AUTOMATED COUNT 10.2 fL 7.5 - 11.2 12/19 Specimen Type: BLOOD No comment entered. Ordering Provider: NADER HOOVER BY Teresa Report Released Date/Time: Dec 03, 2022 01:16 PM Reporting Lab: [facility] [address] [place] [phone] Performing Lab: [address] [address] [facility] CBC ERYTHROCYTE DISTRIBUTION WIDTH [RATIO] BY AUTOMATED COUNT 14.0 11.8 - 15.1 12/19 Specimen Type: BLOOD No comment entered. Ordering Provider: NADER HOOVER BY Teresa Report Released Date/Time: Dec 03, 2022 01:16 PM Reporting Lab: [facility] [address] [place] [phone] Performing Lab: [address] [address] [facility] CBC LYMPHOCYTES/ 100 LEUKOCYTES IN BLOOD BY AUTOMATED COUNT 33 12/19 Specimen Type: BLOOD No comment entered. Ordering Provider: NADER HOOVER BY R Report Released Date/Time: Dec 03, 2022 01:16 PM Reporting Lab: [facility] [address] [address] Performing Lab: [facility] [address] [address] [facility] CBC MONOCYTES/10 0 LEUKOCYTES IN BLOOD BY AUTOMATED COUNT 12 12/19 Specimen Type: BLOOD No comment entered. Ordering Provider: NADER HOOVER BY R Report Released Date/Time: Dec 03, 2022 01:16 PM Reporting Lab: [facility] [address] [address] Performing Lab: [facility] [address] [address] [facility] CBC NEUTROPHILS/ 100 LEUKOCYTES IN BLOOD BY AUTOMATED COUNT 52 12/19 Specimen Type: BLOOD No comment entered. Ordering Provider: NADER HOOVER BY R Report Released Date/Time: Dec 03, 2022 01:16 PM Reporting Lab: [facility] [address] [address] Performing Lab: [facility] [address] [address] [facility] CBC EOSINOPHILS/ 100 LEUKOCYTES IN BLOOD BY AUTOMATED COUNT 1 12/19 Specimen Type: BLOOD No comment entered. Ordering Provider: NADER HOOVER BY Teresa Report Released Date/Time: Dec 03, 2022 01:16 PM Reporting Lab: [facility] [address] [address] [address] Performing Lab: [facility] [address] [address] [facility] CBC BASOPHILS/10 0 LEUKOCYTES IN BLOOD BY AUTOMATED COUNT 1 12/19 Specimen Type: BLOOD No comment entered. Ordering Provider: NADER HOOVER BY R Report Released Date/Time: Dec 03, 2022 01:16 PM Reporting Lab: [facility] [address] [address] Performing Lab: [facility] [address] [facility] [address] [facility] CBC LYMPHOCYTES [#/VOLUME] IN BLOOD BY AUTOMATED COUNT 1.65 10*3/u L 0.77 - 4.50 12/19 Specimen Type: BLOOD No comment entered. Ordering Provider: NADER HOOVER BY R Report Released Date/Time: Dec 03, 2022 01:16 PM Reporting Lab: [facility] [address] [place] [address] Performing Lab: [address] [address] [facility] CBC MONOCYTES [#/VOLUME] IN BLOOD BY AUTOMATED COUNT 0.58 10*3/u L 0.19 - 1.50 12/19 Specimen Type: BLOOD No comment entered. Ordering Provider: NADER HOOVER BY Teresa Report Released Date/Time: Dec 03, 2022 01:16 PM Reporting Lab: [facility] [address] [place] [address] Performing Lab: [address] [address] [facility] CBC NEUTROPHILS [#/VOLUME] IN BLOOD BY AUTOMATED COUNT 2.56 10*3/u L 2.10 - 8.00 12/19 Specimen Type: BLOOD No comment entered. Ordering Provider: NADER HOOVER BY Teresa Report Released Date/Time: Dec 03, 2022 01:16 PM Reporting Lab: [facility] [address] [place] [address] Performing Lab: [address] [address] [facility] CBC EOSINOPHILS [#/VOLUME] IN BLOOD BY AUTOMATED COUNT 0.07 10*3/u L 0.00 - 0.60 12/19 Specimen Type: BLOOD No comment entered. Ordering Provider: NADER HOOVER BY R Report Released Date/Time: Dec 03, 2022 01:16 PM Reporting Lab: [facility] [address] [place] [address] Performing Lab: [facility] [address] [facility] [facility] [address] [facility] CBC BASOPHILS [#/VOLUME] IN BLOOD BY AUTOMATED COUNT 0.05 10*3/u L 0.00 - 0.20 12/19 Specimen Type: BLOOD No comment entered. Ordering Provider: NADER HOOVER Report Released Date/Time: Dec 03, 2022 01:16 PM Reporting Lab: [facility] [address] [facility] [address] Performing Lab: [address] [address] [facility] Vital Signs Combined list of inpatient and outpatient Vital Signs from Department of Defense and Veterans Affairs, ranging from 12 months to all on record, depending upon the facility. Vital Sign Value Date Comments Source SYSTOLIC BLOOD PRESSURE 131 09/25/2024 10:45:39 [facility] DIASTOLIC BLOOD PRESSURE 70 09/25/2024 10:45:39 [facility] PULSE OXIMETRY 97 09/25/2024 10:45:39 [facility] WEIGHT 224.6 09/25/2024 10:45:39 [facility] BMI 32 kg/m2 09/25/2024 10:45:39 [facility] PAIN 0 09/25/2024 10:45:39 [facility] TEMPERATURE 97.6 09/25/2024 10:45:39 [facility] PULSE 66 09/25/2024 10:45:[facility] RESPIRATION 20 09/25/2024 10:45:39 [facility] SYSTOLIC BLOOD PRESSURE 158 03/27/2024 10:30:38 [facility] DIASTOLIC BLOOD PRESSURE 59 03/27/2024 10:30:38 [facility] PULSE OXIMETRY 93 03/27/2024 10:30:38 [facility] WEIGHT 226.4 03/27/2024 10:30:38 [facility] BMI 33 kg/m2 03/27/2024 10:30:38 [facility] PAIN 0 03/27/2024 10:30:38 [facility] TEMPERATURE 97.6 03/27/2024 10:30:38 [facility] PULSE 55 03/27/2024 10:30:38 [facility] RESPIRATION 20 03/27/2024 10:30:38 [facility] Encounters Combined list of: 1) Encounters from Department of [facility] Affairs facilities going backup to the last 18 months, not all [place] inpatient encounters are included; 2) Encounters from the Department of [facility] facilities going backup to 280 months. Location Location Details Encounter Type Encounter Number Reason For Visit Attending Provider ADM Date DC Date Status Disposition Source [facility] Outpatient Encounter [id number] 06/19 [facility] Outpatient Encounter [id number] 08/14 [facility] Outpatient Encounter [id number] LORRAINE FORD A 09/18 [facility] Outpatient Encounter [id number] 09/19 [facility] N [facility] Outpatient Encounter [id number] 09/19 [facility] OFFICE O/P EST MOD 30 MIN [id number] Diagnos is: ICD-10- CM I10 Essenti al (primar y) hyperte NADER Henry 09/30 [facility] Outpatient Encounter [id number] 10/30 [facility] Outpatient Encounter [id number] NICOLÁS MILNER 11/10 [facility] Outpatient Encounter [id number] 03/25 [facility] Outpatient Encounter [id number] EMA NUNEZ 03/26 [facility] OFFICE O/P EST MOD 30 MIN [id number] Diagnos is: ICD-10- CM I10 Essenti al (primar y) hyperte nsion NADER HOOVER R 03/27 [facility] Outpatient Encounter [id number] SARAH HARPER 03/30 [facility] Outpatient Encounter [id number] 03/31 [facility] Outpatient Encounter [id number] 04/14 [facility] [id number] Diagnos is: 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, SUZE Weber 07/30 [facility] Outpatient Encounter [id number] 08/12 [facility] HEARING AID SUP/ACCESS /DEV [id number] Diagnos is: 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, SUZE Weber 08/27 [facility] Outpatient Encounter [id number] 09/25 [facility] IMG RTA DETCJ/MNTR DS STAFF [id number] Diagnos is: ICD-10- CM Z13.5 Encount er for screeni ng for eye and ear disorde SA MASHA Camara 09/25 [facility] Outpatient Encounter [id number] Diagnos is: ICD-10- CM Z13.9 Encount er for screeni ng, unspeci Ovi Nolan 09/25 [facility] OFFICE O/P EST MOD 30 MIN [id number] Diagnos is: ICD-10- CM Z95.0 Presenc e of cardiac pacemak er NADER HOOVER 09/25 [facility] HEARING AID FITTING/CH ECKING [id number] Diagnos is: ICD-10- CM Z46.1 Encount er for fitting and adjustm ent of hearing aid MARIO ROSALES 09/28 [facility] Outpatient Encounter [id number] 10/09 [facility] Outpatient Encounter [id number] 10/13 [facility] HEARING AID FITTING/CH ECKING [id number] Diagnos is: 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 Social History Type Response Date Comment Source Tobacco smoking status [facility] VA-TOBACCO NEVER USED OTHER TYPE 09/25/2024 [facility] History of tobacco use VA-TOBACCO USE FORMER CIGARETTES 09/25/2024 [facility] History of tobacco use VA-TOBACCO FORMER USER 10/01/2023 [facility] History of tobacco use VA-TOBACCO FORMER USER 10/12/2022 [facility] History of tobacco use VA-TOBACCO FORMER USER 09/27/2020 [facility] History of tobacco use VA-TOBACCO FORMER USER 08/23/2018 [facility] History of tobacco use LIFETIME NON-USER OF TOBACCO 02/05/2017 [facility] History of tobacco use QUIT TOBACCO >7 YEARS AGO 01/05/2016 [facility] History of tobacco use QUIT TOBACCO >7 YEARS AGO 11/22/2014 [facility] History of tobacco use LIFETIME NON-USER OF TOBACCO 12/30/2013 [facility] History of tobacco use QUIT TOBACCO >7 YEARS AGO 10/28/2012 [facility] History of tobacco use QUIT TOBACCO >7 YEARS AGO 06/19/2006 [facility] History of tobacco use CURRENT NON-TOBACCO USER-HX OF USE 12/11/2005 [facility] History of tobacco use CURRENT NON-TOBACCO USER-HX OF USE 06/20/2005 [facility] History of tobacco use CURRENT NON-TOBACCO USER-HX OF USE 01/16/2005 [facility] History of tobacco use CURRENT NON-TOBACCO USER-HX OF USE 03/28/2004 [facility] History of tobacco use CURRENT NON-TOBACCO USER-HX OF USE 06/23/2003 [facility] History of tobacco use CURRENT NON-TOBACCO USER-HX OF USE 09/22/2002 [facility] History of tobacco use LIFETIME NON-TOBACCO USER 11/11/2001 [facility] History of tobacco use CURRENT NON-TOBACCO USER-HX OF USE 12/02/2000 stopped over 20 yrs ago [facility] History of tobacco use CURRENT NON-TOBACCO USER-HX OF USE 08/22/2000 [facility] History of tobacco use CURRENT NON-TOBACCO USER-HX OF USE 05/22/2000 stopped 18 yrs ago [facility] History of tobacco use CURRENT NON-TOBACCO USER-HX OF USE 01/18/2000 quit 15 years agpo [facility] Plan of Care List of future care activities from Department of [facility] Affairs facilities. Additional future care activities may be listed in the Assessment and Plan section. Date/Time Care Activity Care Activity Detail Facili ty 03/30/2025 AMBULATORY - MEDICINE AMBULATORY - MEDICI NE [facility]
--- OUTSIDE RECORDS SUMMARY | 2024-12-08 10:22 | XMS_ITS | Continuity of Care Document ---
Author Organization [facility] Address [id number] [place] [address] [address] [place] [address] Phone Care Team Providers Care Screwdown Operator Name Role Phone Gonzalo Gonzales Unavailable [...] Providers Copied on Encounter Office/outpat ient Visit, [facility], [address], [place], [place], [id number], [place] tel:[phone] [facility] No Information 0-201 0 Janet Sánchez. [address] [facility] [address], [place], [address], [place]. tel:[phone] Office/outpat ient Visit, [facility], [address], [place], [place], [id number], [place] tel:[phone] [facility] No Information Dec-0 6-201 0 Venice Hillman. [address], [place], [address], [place]. tel:[phone] [facility], [address], [place], [place], [id number], [place] tel:[phone] [facility] No Information King-3 0-201 0 Krishnasamy Gonzalo. [address] [facility] [address], [place], [address], [place]. tel:[phone] Office/outpat ient Visit, [facility], [address] [place] [address] [address], [place], [place], [id number], [place] tel:[phone] [facility] No Information King-1 5-201 0 Krishnasamy Gonzalo. [address] [address], [place], [place], [facility], [place]. tel:[phone] Office/outpat ient Visit, [facility], [address] [place] [address] [address], [place], [place], [id number], [place] tel:[phone] [facility] No Information King-0 9-201 0 Krishnasamy Gonzalo. [address] [facility] [address], [place], [address], [place]. tel:[phone] [facility], [address], [place], [place], [id number], [place] tel:[phone] [facility] No Information Apr-2 1-201 0 Krishnasamy Gonzalo. [address] [facility] [address], [place], [address], [place]. tel:[phone] [facility], [address], [place], [place], [id number], [place] tel:[phone] [facility] No Information Apr-0 8-200 9 Krishnasamy Gonzalo. [address], [place], [address], [place]. tel:[phone] [facility], [address], [place], [place], [id number], [place] tel:[phone] [facility] No Information Mar-2 6-200 8 Janet Sánchez. [address] [facility] [address], [place], [address], [place]. tel:[phone] [facility], [address], [place], [place], [id number], [place] tel:[phone] [facility] No Information Mar-2 6-200 7 Wild Rios. [address] [facility], [address], [place], [place], [id number], [place]. tel:[phone] Family History Family Member Type Diagnosis Age At Onset No Information Payers Payer name Insurance type Covered republican ID Authoriza tisampson(s) [place] [id number] Social History Type Description Quantity Date Captured [...]
--- OUTSIDE RECORDS SUMMARY | 2024-12-08 10:23 | XMS_ITS | Clinical Summary ---
Author Organization [facility] Address [address] [place] [address] Care Team Providers Care Data Security Consultant Name Role Phone Vini Woods MD Primary Care Provider [phone] Allergies Active Allergy Reactions Criticality Noted Date [...] Outpatient Ophthalmology follow-up in 2 weeks at [facility] - seen by ENT consult, plan [...] cord signal, advanced multilevel cervical spondylosis with [id number] neuroforaminal stenosis and no high-grade spinal canal stenosis. - C-spine precautions. C-collar at all times. HOB<30. Log roll - upright x-rays including odontoid view (09/20): No significant interval change in mildly displaced odontoid fracture with anterior subluxation of C2 on C1. Unchanged mild anterolisthesis of C3 on C4. Unchanged multilevel severe degenerative changes throughout the cervical spine, mild prevertebral soft tissue swelling - Maverick J cervical collar with occipital extension - [...] Description 09/17/2024 11:00 AM CDT Ancillary Procedure [facility] [address] [place] [address] [place] [phone] Cardiac pacemaker in situ; Mobitz type 2 second degree AV block 09/17/2024 Telephone [facility] [address] [place] [address] [place] [phone] Nic Singh MD 09/15/2024 Orders Only [facility] [address] [place] [address] [place] [phone] Nic Singh MD 09/10/2024 Orders Only [facility] [address] [place] [address] [place] [phone] Nic Singh MD Cardiac pacemaker in situ (Primary Dx); Mobitz type 2 second degree AV block 09/08/2024 Telephone [facility] [address] [place] [address] [address] [place] [phone] Nic Singh MD from Last 3 Months [...] on file 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 Gender Identity Not on file Sexual Orientation Not on file Obstetrics History Last Filed Vital Signs Vital Sign Reading Time Taken Comments Blood Pressure 128/72 08/07/2024 9:58 AM THEATRE MANAGER Pulse 80 08/07/2024 9:58 AM THEATRE MANAGER Temperature 36.8 C (98.2 F) 09/24/2023 11:30 AM CDT Respiratory Rate 18 09/24/2023 11:30 AM CDT Oxygen Saturation 96% 08/07/2024 9:58 AM THEATRE MANAGER Inhaled Oxygen Concentration - - Weight 104.3 kg (230 lb) 08/07/2024 9:58 AM THEATRE MANAGER Height 177.8 cm (5' 10) 08/07/2024 9:58 AM THEATRE MANAGER Body Mass Index 33 08/07/2024 9:58 AM THEATRE MANAGER Plan of Treatment Health Maintenance Due Date [...] Comments DEVICE CHECK - IN OFFICE Routine 09/17/2024 10:40 AM CDT 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 Dx; Second Degree Type 1&2 AVB. DOI 09/09/2024-Samantha. [employer] remote. Supervising MD: Ivan Office DDD Pacemaker evaluation demonstrated appropriate device function. Left pectoral incision well approximated with minimal bruising and edema and without signs of infection noted. Battery function: 100%, 10 years and 11 months remaining battery life to CRISTOFER. Appropriate lead measurements noted. Presenting rhythm- AP/METALSMITH APPRENTICE Underlying rhythm- SB AP- 37%, METALSMITH APPRENTICE- 60% No Atrial high rate episodes noted. [...] CV CARDIAC SERVICES PROC EDURES Final Result from Last 3 Months Insurance MEDICARE BLUE CROSS MEDICARE SUPPLEMENT MEDICARE [facility] MEDICARE Advance Directives For more information, please contact: [phone] * Full Code (Latest Code Status on File) Date Activated Date Inactivated Comments 09/20/2023 7:54 PM 09/24/2023 5:56 PM Care Teams Data Security Consultant Relationship Specialty Start Date End Date Vini Woods MD PCP - General 08/15/11
--- OUTSIDE RECORDS SUMMARY | 2024-12-08 10:23 | XMS_ITS | Referral Summary ---
Author Organization [facility] Address [address] [place] [address] Care Team Providers Care Chief Clinical Dietitian Name Role Phone Vini Woods MD Primary Care Provider [phone] Encounters Date Type Department Care Team Description 09/17/2024 11:00 AM CDT Ancillary Procedure [facility] Cardiology [address] [place] [address] [address] [place] [phone] Cardiac pacemaker in situ; Mobitz type 2 second degree AV block 09/17/2024 Telephone [facility] Cardiology [address] [place] [address] [place] [phone] Nic Singh MD 09/15/2024 Orders Only [facility] Cardiology [address] [place] [address] [address] [place] [phone] Nic Singh MD 09/10/2024 Orders Only [facility] Cardiology [address] [place] [address] [place] [phone] Nic Singh MD Cardiac pacemaker in situ (Primary Dx); Mobitz type 2 second degree AV block 09/08/2024 Telephone [facility] Cardiology [address] [place] [address] [address] [place] [phone] Nic Singh MD from Last 3 Months Allergies Active Allergy [...] Second Degree Type 1&2 AVB. DOI 09/09/2024-Samantha. Asterk remote. Mobitz type 2 second degree AV [...] Outpatient Ophthalmology follow-up in 2 weeks at [facility] - seen by ENT consult, plan [...] cord signal, advanced multilevel cervical spondylosis with [id number]-rd-jovrup neuroforaminal stenosis and no high-grade spinal canal stenosis. - C-spine precautions. C-collar at all times. HOB<30. Log roll - upright x-rays including odontoid view (09/20): No significant interval change in mildly displaced odontoid fracture with anterior subluxation of C2 on C1. Unchanged mild anterolisthesis of C3 on C4. 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 Gender Identity Not on file Sexual Orientation Not on file Last Filed Vital Signs Vital Sign Reading Time Taken Comments Blood Pressure 128/72 08/07/2024 9:58 AM PNEUMATIC HOIST OPERATOR Pulse 80 08/07/2024 9:58 AM PNEUMATIC HOIST OPERATOR Temperature 36.8 C (98.2 F) 09/24/2023 11:30 AM CDT Respiratory Rate 18 09/24/2023 11:30 AM CDT Oxygen Saturation 96% 08/07/2024 9:58 AM PNEUMATIC HOIST OPERATOR Inhaled Oxygen Concentration - - Weight 104.3 kg (230 lb) 08/07/2024 9:58 AM PNEUMATIC HOIST OPERATOR Height 177.8 cm (5' 10) 08/07/2024 9:58 AM PNEUMATIC HOIST OPERATOR Body Mass Index 33 08/07/2024 9:58 AM PNEUMATIC HOIST OPERATOR Plan of Treatment Not on file Procedures [...] CRISTOFER. Appropriate lead measurements noted. Presenting rhythm- AP/DIVINE HEALER Underlying rhythm- SB AP- 37%, DIVINE HEALER- 60% No Atrial high rate episodes noted. [...] Result from Last 3 Months Insurance MEDICARE [facility] MEDICARE SUPPLEMENT MEDICARE [facility] MEDICARE Advance Directives For more information, please contact: [phone] * Full Code (Latest Code Status on File) Date Activated Date Inactivated Comments 09/20/2023 7:54 PM 09/24/2023 5:56 PM Care Teams Chief Clinical Dietitian Relationship Specialty Start Date End Date Vini Woods MD PCP - General 08/15/11
== END 2024-12-08 09:30 | disposition home or self-care (01) ==
PROVIDERS: PCP Internal Medicine; Visit Provider Internal Medicine Cardiovascular Disease
DX: Z01.810 Encounter for preprocedural cardiovascular examination (principal); R94.39 Abnormal result of other cardiovascular function study
CPT/HCPCS: 78452; 93017; A9502; J2785

== ENCOUNTER 2024-12-14 09:16 | Outpatient (CLI) | payer MEDICARE, SELFPAY ==
[2024-12-14 09:36] LABS: Basophils Absolute Auto 0.03 K/mm3 (0.00-0.10); Basophils Percent Auto 0.6 % (0.0-1.0); Eosinophils Absolute Auto 0.09 K/mm3 (0.02-0.50); Eosinophils Percent Auto 1.8 % (1.0-6.0); Hematocrit 38.1 % (37.0-46.0); Hemoglobin 12.8 g/dL (12.4-15.3); Immature Granulocyte Absolute 0.04 K/mm3 (0.00-0.00); Immature Granulocyte Percent A 0.8 % (0.0-0.0); Lymphocytes Absolute Auto 1.17 K/mm3 (1.10-4.50); Lymphocytes Percent Auto 22.9 % (18.0-42.0); Mean Corpuscular HGB Conc 33.6 g/dL (32-36); Mean Corpuscular Hemoglobin 39.6 pg (27.0-31.0); Mean Platelet Volume 9.4 fl (8.7-11.0); Monocytes Absolute Auto 0.72 K/mm3 (0.10-0.90); Monocytes Percent Auto 14.1 % (2.0-11.0); Neutrophils Absolute Auto 3.05 K/mm3 (1.70-7.20); Neutrophils Percent Auto 59.8 % (50.0-70.0); Platelet Count Result 379 K/mm3 (150-420); Red Blood Count 3.23 M/mm3 (4.70-6.10); Red Cell Distribution Width 11.6 % (11.6-14.4); White Blood Count 5.1 K/mm3 (4.8-10.8)
== END 2024-12-14 09:17 | disposition home or self-care (01) ==
LOC: CHSLAB 09:20
PROVIDERS: PCP Internal Medicine; Visit Provider Internal Medicine Hematology
DX: D69.6 Thrombocytopenia, unspecified (principal)
CPT/HCPCS: 36415; 85025

== ENCOUNTER 2025-03-08 09:55 | Outpatient (CLI) | payer MEDICARE, SELFPAY ==
--- OUTSIDE RECORDS SUMMARY | 2010-01-10 03:45 | XMS_ITS | Continuity of Care Document ---
Author Organization formerly [facility] Address [address] [facility] [address] [place] [address] Phone Care Team Providers Care Staffing Specialist Name Role Phone Gonzalo Gonzales Unavailable Unavailable [...] Providers Copied on Encounter Office/outpat ient Visit, [facility], [address], [place], [place], [address], [place] tel:[phone] SEC [facility] Corporate [place] No Information 0-201 0 Janet Sánchez. [address] [facility] [place] [address], [place], [address], [place]. tel:[phone] Office/outpat ient Visit, [facility], [address], [place], [place], [address], [place] tel:[phone] [facility] No Information Dec-0 6-201 0 Venice Hillman. [address], [place], [address], [place]. tel:[phone] Office/outpat ient Visit, [facility], [address], [place], [place], [address], [place] tel:[phone] [facility] No Information King-3 0-201 0 Krishnasamy Gonzalo. [address] [facility] [address], [place], [address], [place]. tel:[phone] Office/outpat ient Visit, [facility], [address] [place] [address] [address], [place], [place], [address], [place] tel:[phone] [facility] No Information King-1 5-201 0 Krishnasamy Gonzalo. [address] [address], [place], [facility], [place]. tel:[phone] Office/outpat ient Visit, [facility], [address] [place] [address] [address], [place], [place], [address], [place] tel:[phone] [facility] No Information King-0 9-201 0 Krishnasamy Gonzalo. [address] [facility] 102, [place], [address], [place]. tel:[phone] [facility], [address], [place], [place], [address], [place] tel:[phone] [facility] No Information Apr-2 1-201 0 Krishnasamy Gonzalo. [address] [facility] [place] [address], [place], [address], [place]. tel:[phone] [facility], [address], [place], [place], [address], [place] tel:[phone] [facility] No Information Apr-0 8-200 9 Krishnasamy Gonzalo. [address], [place], [address], [place]. tel:[phone] [facility], [address] [facility] [address], [place], [place], [address], [place] tel:[phone] [facility] No Information Mar-2 6-200 8 Janet Sánchez. [address] [facility] 102, [place], [address], [place]. tel:[phone] [facility], [address] [facility], [place], [place], [address], [place] tel:[phone] [facility] No Information Mar-2 6-200 7 Wild Rios. [address] [facility], [address], [place], [place], [address], [place]. tel:[phone] Family History Family Member Type Diagnosis Age At Onset No Information Payers Payer name Insurance type Covered democrat ID Authoriza tisampson(s) [place] [id number] Social History Type Description Quantity Date Captured [...]
[2025-03-08 10:27] LABS: Anion Gap 10 mmol/L (4-12); Blood Urea Nitrogen 11 mg/dL (9-20); Calcium 10.1 mg/dL (8.4-10.2); Carbon Dioxide 26 mmol/L (22-30); Chloride 103 mmol/L (98-107); Estimated Glomerular Filt Rate 59; Glucose 106 mg/dL (65-110); Osmolality Calculated 287 mOsm/kg (285-295); Potassium 5.0 mmol/L (3.4-5.0); Sodium 139 mmol/L (137-145)
--- OUTSIDE RECORDS SUMMARY | 2025-03-08 11:09 | XMS_ITS | Patient Health Record ---
Author Organization [facility] Address [address] [place], [place] [id number] Care Team Providers Care Director Of Community Life Name Role Phone CathyDENTON hall Unavailable [phone] Vini Woods Unavailable Unavailable Reason For Referral No Information Plan Of Treatment No Information Insurance Providers Payer Name Payer Address Payer Phone Subscriber Number Group Number Insured Name Patient Relationship to Insured Coverage Start Date Coverage End Date Medicare Part B [place] [address] [place] [address] [id number] LUCIA MATHIS JR Self - patient is the insured [facility] ([facility]) ATTN CLAIMS [address] [place] [address] [id number] LUCIA MATHIS JR Self - patient is the insured
--- OUTSIDE RECORDS SUMMARY | 2025-03-08 11:09 | XMS_ITS | Clinical Summary ---
Author Organization [facility] Address [facility] [place] [address] Care Team Providers Care J2Ee Programmer Name Role Phone Unavailable Primary Care Provider [...] COVID-19 Vaccine ( - 2023-2 5 season) 2025 Meningococcal B Vaccine Aged Out No l onger eligible based on patient's age to complete this topic Meningococcal Vaccine Aged Out No abdulkadir kvng eligible based on patient's age to complete this topic RSV Immunizations Under 20 Months Aged Out No longer eligible based on patient's age to complete this topic
--- OUTSIDE RECORDS SUMMARY | 2025-03-08 11:09 | XMS_ITS | Clinical Summary ---
Author Organization [facility] Address [address] [place] [address] Care Team Providers Care Db2 Developer Name Role Phone Vini Woods MD Primary Care Provider [phone] Allergies Active Allergy Reactions Criticality Noted Date [...] Outpatient Ophthalmology follow-up in 2 weeks at [facility] - seen by ENT consult, [...] cord signal, advanced multilevel cervical spondylosis with [id number]-[id number]-mcqyrh neuroforaminal stenosis and no high-grade spinal canal stenosis. - C-spine precautions. C-collar at all times. HOB<30. Log roll - upright x-rays including odontoid view (09/20): No significant interval change in mildly displaced odontoid fracture with anterior subluxation of C2 on C1. Unchanged mild anterolisthesis of C3 on C4. 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 Gender Identity Not on file Sexual Orientation Not on file Obstetrics History Last Filed Vital Signs Vital Sign Reading Time Taken Comments Blood Pressure 110/56 03/02/2025 11:45 AM CDT Pulse 67 03/02/2025 11:45 AM CDT Temperature 36.8 C (98.2 F) 09/24/2023 11:30 AM CDT Respiratory Rate 18 09/24/2023 11:30 AM CDT Oxygen Saturation 96% 08/07/2024 9:58 AM REAL ESTATE INTERN Inhaled Oxygen Concentration - - Weight 104.3 kg (230 lb) 08/07/2024 9:58 AM REAL ESTATE INTERN Height 177.8 cm (5' 10) 08/07/2024 9:58 AM REAL ESTATE INTERN Body Mass Index 33 08/07/2024 9:58 AM REAL ESTATE INTERN Plan of Treatment Health Maintenance Due Date Last Done Comments Depression Screening 1935 Hepatitis B Screening 1953 Well Visit 65+ 2000 Zoster Vaccine (2 of 2) 05/04/2020 03/09/2020, 02/27 Fall Risk Assessment 09/23/2024 09/24/2023 Influenza Vaccine (#1) 2025 , 04/12/2023, 02/22/2022, Additional history exists DTaP/Tdap/Td Vaccine (3 - Td or Tdap) 09/19/2033 09/20/2023, 02/27/2019, 02/09/2009 Pneumococcal vaccine 65+ Completed 016, 11/22/2014, 04/24/2011, Additional history exists Procedures Procedure Name Priority Date/Time Associated Diagnosis Comments POCT CREATININE - DEVICE Routine 03/02/2025 11:48 AM CDT from Last 3 Months Results * (ABNORMAL) POCT creatinine (03/02/2025 11:48 AM CDT) Creatinine POC 2.3(H) 0.8 - 1.3 mg/dL Blood 03/02/2025 11:4 8 AM CDT 03/02/2025 11:48 AM CDT us Margarito Aviles DO LAB POCT ORDERABLES - DEVICE Final Result [facility] Department [place] [address] from Last 3 Months Insurance MEDICARE [employer] MEDICARE SUPPLEMENT MEDICARE [facility]LY [facility]–1983 MEDICARE Advance Directives For more information, please contact: [phone] * Full Code (Latest Code Status on File) Date Activated Date Inactivated Comments 09/20/2023 7:54 PM 09/24/2023 5:56 PM Care Teams Db2 Developer Relationship Specialty Start Date End Date Vini Woods MD PCP - General 08/15/11
== END 2025-03-08 09:56 | disposition home or self-care (01) ==
LOC: CHSLAB 09:57
PROVIDERS: PCP Internal Medicine; Visit Provider Internal Medicine Cardiovascular Disease
DX: I10 Essential (primary) hypertension (principal)
CPT/HCPCS: 36415; 80048

== ENCOUNTER 2025-04-15 09:00 | Outpatient (CLI) | payer MEDICARE, SELFPAY ==
[2025-04-15 09:14] LABS: Hematocrit 38.5 % (37.0-46.0); Hemoglobin 12.8 g/dL (12.4-15.3); Immature Platelet Fraction Pct 2.8 % (1.0-7.0); Mean Corpuscular HGB Conc 33.2 g/dL (32-36); Mean Corpuscular Hemoglobin 35.9 pg (27.0-31.0); Mean Corpuscular Volume 107.8 fL (78.0-102.0); Platelet Count Result 715 K/mm3 (150-420); Red Blood Count 3.57 M/mm3 (4.70-6.10); White Blood Count 3.1 K/mm3 (4.8-10.8)
--- OUTSIDE RECORDS SUMMARY | 2025-04-15 09:22 | XMS_ITS | Clinical Summary ---
Author Organization [facility] Address [address] [place] [address] Care Team Providers Care Land Checker Name Role Phone Unavailable Primary Care Provider Unavailabl e Social History Tobacco Use Types Packs/Day Years Used Date Smoking Tobacco: Never Assessed Sex and Gender Information Value Date Recorded Sex Assigned at Not on file Legal Sex Male 5:13 PM CDT Gender Identity Not on file Sexual Orientation Not on file Plan of Treatment Health Maintenance Due Date Last Done Comments RSV Immunization or 60+ Years (1 - 1-dose 75+ series) 2010 COVID-19 Vaccine ( season) 2025 DTaP, Tdap and Td Vaccines (3 - Td or Tdap) 09/19/2033 09/20/2023, 02/27/2019, 02/09/2009, Additional history exists Pneumococcal Vaccine: 50+ Years Completed 11/23/2015, 11/22/2014, 04/24/2011 Zoster Vaccines Completed 03/09/2020, 11/2018, 02/27/2019 Influenza Adult Completed 03/30/2025, 09/2023, 02/22/2022, Additional history exists Hepatitis A Vaccines Aged Out No long er eligible based on patient's age to complete this topic Meningococcal B Vaccine Aged Out No l onger eligible based on patient's age to complete this topic Meningococcal Vaccine Aged Out No abdulkadir kvng eligible based on patient's age to complete this topic RSV Immunizations Under 20 Months Aged Out No longer eligible based on patient's age to complete this topic
--- OUTSIDE RECORDS SUMMARY | 2025-04-15 09:22 | XMS_ITS | Clinical Summary ---
Author Organization [facility] Address [address] [place] [address] Care Team Providers Care Long Lines Operator Name Role Phone Vini Woods MD Primary Care Provider [phone] Allergies Active Allergy Reactions Criticality Noted Date [...] Outpatient Ophthalmology follow-up in 2 weeks at [facility] - seen by ENT consult, plan [...] cord signal, advanced multilevel cervical spondylosis with [id number] neuroforaminal stenosis and no high-grade spinal canal stenosis. - C-spine precautions. C-collar at all times. HOB<30. Log roll - upright x-rays including odontoid view (09/20): No significant interval change in mildly displaced odontoid fracture with anterior subluxation of C2 on C1. Unchanged mild anterolisthesis of C3 on C4. 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 Gender Identity Not on file Sexual Orientation Not on file Obstetrics History Last Filed Vital Signs Vital Sign Reading Time Taken Comments Blood Pressure 154/71 04/09/2025 1:47 PM CDT Pulse 60 04/09/2025 1:47 PM CDT Temperature 36.8 C (98.2 F) 09/24/2023 11:30 AM CDT Respiratory Rate 18 09/24/2023 11:30 AM CDT Oxygen Saturation 96% 08/07/2024 9:58 AM DEPALLETIZER OPERATOR Inhaled Oxygen Concentration - - Weight 104.3 kg (230 lb) 08/07/2024 9:58 AM DEPALLETIZER OPERATOR Height 177.8 cm (5' 10) 08/07/2024 9:58 AM DEPALLETIZER OPERATOR Body Mass Index 33 08/07/2024 9:58 AM DEPALLETIZER OPERATOR Plan of Treatment Health Maintenance Due Date Last Done Comments Depression Screening 1935 Hepatitis B Screening 1953 Well Visit 65+ 2000 Zoster Vaccine (2 of 2) 05/04/2020 03/09/2020, 02/27 Fall Risk Assessment 09/23/2024 09/24/2023 DTaP/Tdap/Td Vaccine (3 - Td or Tdap) 09/19/2033 09/20/2023, 02/27/2019, 02/09/2009 Pneumococcal vaccine 65+ Completed 016, 11/22/2014, 04/24/2011, Additional history exists Influenza Vaccine Completed 03/30/2025, , 04/12/2023, Additional history exists Procedures Procedure Name Priority Date/Time Associated Diagnosis Comments CT HEART MORPHOLOGY AND CORONARY ARTERIES W CONTRAST Schedule Routine, Read Routine (OP Routine) 04/09/2025 2:24 PM CDT Abnormal result of other cardiovascular function study POCT CREATININE - DEVICE Routine 03/02/2025 11:48 AM CDT from Last 3 Months Results * CTA Heart and Coronary Arteries W Morphology when Performed (04/09/2025 2:24 PM CDT) Anatomical Region Laterality Modality Chest N/A Computed Tomogra phy 04/09/2025 3:53 PM CDT Impressions 04/09/2025 4:51 PM CDT 1. No obstructive coronary artery disease. There is minimal stenosis in the right coronary artery, left main coronary artery, and left anterior descending artery due to calcified plaque. 2. Calculated calcium score: 58. 3. Moderate cardiomegaly. 4. Unchanged 1 cm pulmonary nodule in the left lower lobe. Dictated by: Erickson Edouard MD The radiology attending physician has personally reviewed this study, and had reviewed and/or edited this written report and agrees with it. Electronically signed by: Mathew Shelby M.D. Narrative 04/09/2025 4:51 PM CDT EXAMINATION: CORONARY CT ANGIOGRAM HISTORY: 89-year-old male with reported abnormal cardiovascular study. TECHNIQUE: CT angiography of the coronary arteries was performed after the administration of 100 mL of Optiray 350. Images were also obtained precontrast for the purposes of calcium scoring. Images were transferred to a 3D workstation for additional post-processing. FINDINGS: There is a partially imaged cardiac pacemaker device with leads terminating in the right atrial appendage and right ventricle. The coronary arteries are right system dominant. There is no anomalous coronary origin or course. Right coronary system: Right coronary: Small calcified plaque in the mid right coronary artery with minimal stenosis (less than 25%). Left coronary system: Left Main: Small calcified plaque in the left main coronary artery with minimal stenosis (less than 25%). Left anterior descending: Tiny calcified plaques in the proximal left anterior descending artery with minimal stenosis (less than 25%). Left circumflex: No coronary artery disease. The calculated calcium score is 58. The heart size is moderately enlarged without a pericardial effusion. There is mild bibasilar atelectasis with scarring in the partially imaged lungs. Unchanged 1 cm pulmonary nodule in the left lower lobe (series 6, image 45) when compared to 09/19/2023. Procedure Note Mathew Shelby MD - 04/09/2025 EXAMINATION: CORONARY CT ANGIOGRAM HISTORY: 89-year-old male with reported abnormal cardiovascular study. TECHNIQUE: CT angiography of the coronary arteries was performed after the administration of 100 mL of Optiray 350. Images were also obtained precontrast for the purposes of calcium scoring. Images were transferred to a 3D workstation for additional post-processing. FINDINGS: There is a partially imaged cardiac pacemaker device with leads terminating in the right atrial appendage and right ventricle. The coronary arteries are right system dominant. There is no anomalous coronary origin or course. Right coronary system: Right coronary: Small calcified plaque in the mid right coronary artery with minimal stenosis (less than 25%). Left coronary system: Left Main: Small calcified plaque in the left main coronary artery with minimal stenosis (less than 25%). Left anterior descending: Tiny calcified plaques in the proximal left anterior descending artery with minimal stenosis (less than 25%). Left circumflex: No coronary artery disease. The calculated calcium score is 58. The heart size is moderately enlarged without a pericardial effusion. There is mild bibasilar atelectasis with scarring in the partially imaged lungs. Unchanged 1 cm pulmonary nodule in the left lower lobe (series 6, image 45) when compared to 09/19/2023. IMPRESSION: 1. No obstructive coronary artery disease. There is minimal stenosis in the right coronary artery, left main coronary artery, and left anterior descending artery due to calcified plaque. 2. Calculated calcium score: 58. 3. Moderate cardiomegaly. 4. Unchanged 1 cm pulmonary nodule in the left lower lobe. Dictated by: Erickson Edouard MD The radiology attending physician has personally reviewed this study, and had reviewed and/or edited this written report and agrees with it. Electronically signed by: Mathew Shelby M.D. Margarito Aviles DO IMG CT PROCEDURES Final Resu lt * (ABNORMAL) POCT creatinine (03/02/2025 11:48 AM CDT) Creatinine POC 2.3(H) 0.8 - 1.3 mg/dL Blood 03/02/2025 11:4 8 AM CDT 03/02/2025 11:48 AM CDT Margarito Aviles DO LAB POCT ORDERABLES - DEVICE Final Result [facility] Department of Laboratories [place], [place] [id number] from Last 3 Months Insurance MEDICARE BLUE CROSS MEDICARE SUPPLEMENT MEDICARE [facility] [place] [address] Advance Directives For more information, please contact: [phone] * Full Code (Latest Code Status on File) Date Activated Date Inactivated Comments 09/20/2023 7:54 PM 09/24/2023 5:56 PM Care Teams Long Lines Operator Relationship Specialty Start Date End Date Vini Woods MD PCP - General 08/15/11
[2025-04-15 09:42] LABS: Alanine Aminotransferase 24 U/L (6-50); Albumin Level 4.6 g/dL (3.5-5.1); Alkaline Phosphatase 81 U/L (38-126); Anion Gap 7 mmol/L (4-12); Aspartate Amino Transferase 41 U/L (17-59); Bilirubin,Total 0.9 mg/dL (0.2-1.3); Blood Urea Nitrogen 12 mg/dL (9-20); Calcium 10.2 mg/dL (8.4-10.2); Carbon Dioxide 31 mmol/L (22-30); Chloride 100 mmol/L (98-107); Estimated Glomerular Filt Rate 58; Glucose 106 mg/dL (65-110); Osmolality Calculated 285 mOsm/kg (285-295); Potassium 5.8 mmol/L (3.4-5.0); Sodium 138 mmol/L (137-145); Total Protein 8.8 g/dL (6.3-8.2)
== END 2025-04-15 09:01 | disposition home or self-care (01) ==
LOC: CHSLAB 09:02
PROVIDERS: PCP Internal Medicine; Visit Provider Internal Medicine Hematology
DX: E83.52 Hypercalcemia (principal); D69.6 Thrombocytopenia, unspecified
CPT/HCPCS: 36415; 80053; 85027; 85055

== ENCOUNTER 2025-04-15 20:05 | Emergency (ER) | payer MEDICARE, SELFPAY ==
--- OUTSIDE RECORDS SUMMARY | 2010-01-10 03:45 | XMS_ITS | Continuity of Care Document ---
Author Organization [facility] Address [address] [place] [address] [address] [place] [address] Phone Care Team Providers Care Movie Projectionist Name Role Phone Gonzalo Gonzales Unavailable Unavailable [...] Copied on Encounter Office/outpat ient Visit, [facility], [address], [place], [place], [address], [place] tel:[phone] [facility] Corporate [place] No Information 0-201 0 Janet Sánchez. [address] [facility] [place] [address], [place], [address], [place]. tel:[phone] Office/outpat ient Visit, [facility], [address], [place], [place], [address], [place] tel:[phone] [facility] No Information Dec-0 6-201 0 Venice Hillman. [address], [place], [address], [place]. tel:[phone] Office/outpat ient Visit, [facility], [address], [place], [place], [address], [place] tel:[phone] [facility] No Information King-3 0-201 0 Krishnasamy Ognzalo. [address] [facility] [address], [place], [address], [place]. tel:[phone] Office/outpat ient Visit, [facility], [address] [place] [address] [address], [place], [place], [address], [place] tel:[phone] [facility] No Information King-1 5-201 0 Krishnasamy Gonzalo. [address] [address], [place], [place], [facility], [place]. tel:[phone] Office/outpat ient Visit, [facility], [address] [place] [address] [address], [place], [place], [address], [place] tel:[phone] [facility] No Information King-0 9-201 0 Krishnasamy Gonzalo. [address] [facility] 102, [place], [address], [place]. tel:[phone] [facility], [address], [place], [place], [address], [place] tel:[phone] [facility] No Information Apr-2 1-201 0 Krishnasamy Gonzalo. [address] [facility] [place] [address], [place], [address], [place]. tel:[phone] [facility], [address], [place], [place], [address], [place] tel:[phone] [facility] No Information Apr-0 8-200 9 Krishnasamy Gonzalo. [address], [place], [address], [place]. tel:[phone] [facility], [address] [facility] 150, [place], [place], [address], [place] tel:[phone] [facility] No Information Mar-2 6-200 8 Janet Sánchez. [address] [facility] 102, [place], [address], [place]. tel:[phone] [facility], [address] [facility] [address], [place], [place], [address], [place] tel:[phone] [facility] No Information Mar-2 6-200 7 Wild Rios. [address] [facility], [address], [place], [place], [address], [place]. tel:[phone] Family History Family Member Type Diagnosis Age At Onset No Information Payers Payer name Insurance type Covered libertarian ID Authoriza tisampson(s) [place] [id number] Social History Type Description Quantity Date Captured [...]
[2025-04-15] VITALS (10 sets, daily range): BP systolic 129–141; BP diastolic 77–84; PULSE 65–73; RESP 12–18; TEMP 36.4; O2SAT 98–100
--- OUTSIDE RECORDS SUMMARY | 2025-04-15 20:08 | XMS_ITS | Clinical Summary ---
Author Organization [facility] Address [address] [place] [address] Care Team Providers Care Visitor Services Representative Name Role Phone Unavailable Primary Care Provider [...]
--- OUTSIDE RECORDS SUMMARY | 2025-04-15 20:08 | XMS_ITS | Clinical Summary ---
Author Organization [facility] Address [address] [place] [address] Care Team Providers Care Group Practice Pediatrician Name Role Phone Vini Woods MD Primary Care Provider [phone] Allergies Active Allergy Reactions Criticality Noted Date [...] Outpatient Ophthalmology follow-up in 2 weeks at [facility] - seen by ENT consult, [...] cord signal, advanced multilevel cervical spondylosis with [id number] neuroforaminal stenosis and no high-grade spinal canal stenosis. - C-spine precautions. C-collar at all times. HOB<30. Log roll - upright x-rays including odontoid view (09/20): No significant interval change in mildly displaced odontoid fracture with anterior subluxation of C2 on C1. Unchanged mild anterolisthesis of C3 on C4. Unchanged multilevel severe degenerative changes throughout the cervical spine, mild prevertebral soft tissue swelling - Lamb J cervical collar with occipital extension - [...] - 04/09/2025 11:59 PM CDT Hospital Encounter [facility] (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 Gender Identity Not on file Sexual Orientation Not on file Obstetrics History Last Filed Vital Signs Vital Sign Reading Time Taken Comments Blood Pressure 154/71 04/09/2025 1:47 PM CDT Pulse 60 04/09/2025 1:47 PM CDT Temperature 36.8 C (98.2 F) 09/24/2023 11:30 AM CDT Respiratory Rate 18 09/24/2023 11:30 AM CDT Oxygen Saturation 96% 08/07/2024 9:58 AM TREASURY DIRECTOR Inhaled Oxygen Concentration - - Weight 104.3 kg (230 lb) 08/07/2024 9:58 AM TREASURY DIRECTOR Height 177.8 cm (5' 10) 08/07/2024 9:58 AM TREASURY DIRECTOR Body Mass Index 33 08/07/2024 9:58 AM TREASURY DIRECTOR Plan of Treatment Health Maintenance Due Date [...] POCT ORDERABLES - DEVICE Final Result [facility] Department of Laboratories [place], [place] [id number] from Last 3 Months Insurance MEDICARE BLUE CROSS MEDICARE SUPPLEMENT MEDICARE [facility] MEDICARE Advance Directives For more information, please contact: [phone] * Full Code (Latest Code Status on File) Date Activated Date Inactivated Comments 09/20/2023 7:54 PM 09/24/2023 5:56 PM Care Teams Group Practice Pediatrician Relationship Specialty Start Date End Date Vini Woods MD PCP - General 08/15/11
--- NOTE | 2025-04-15 20:10 | ECG_ITS ---
Test Date: 2025-04-15 20:22:52 Measurements Intervals [place] Rate: 65 P: 0 IA: 0 QRS: -72 QRSD: 170 T: 102 QT: 443 QTc: 463 Interpretive Statements ATRIAL SENSE- ELECTRONIC VENTRICULAR PACEMAKER BASELINE ARTIFACT- V1 NO FURTHER INTERPRETATION IS POSSIBLE ATYPICAL ECG Compared to ECG 02/18/2025 21:44:10 No significant changes Electronically Signed On 04-15-2025 21:01:21 CDT by Margarito Aviles D.O.
[2025-04-15 20:34] LABS: Alanine Aminotransferase 23 U/L (6-50); Albumin Level 4.6 g/dL (3.5-5.1); Alkaline Phosphatase 70 U/L (38-126); Anion Gap 9 mmol/L (4-12); Aspartate Amino Transferase 59 U/L (17-59); Bilirubin,Total 0.8 mg/dL (0.2-1.3); Blood Urea Nitrogen 11 mg/dL (9-20); Calcium 9.7 mg/dL (8.4-10.2); Carbon Dioxide 29 mmol/L (22-30); Chloride 101 mmol/L (98-107); Estimated CRCL calculation 40 ml/min; Estimated Glomerular Filt Rate 50; Glucose 93 mg/dL (65-110); Osmolality Calculated 287 mOsm/kg (285-295); Potassium 3.8 mmol/L (3.4-5.0); Sodium 139 mmol/L (137-145); Total Protein 8.7 g/dL (6.3-8.2)
--- NOTE | 2025-04-15 20:41 | ED.RECABL ---
HPI - Recheck/Abnormal Lab/Rx General Chief Complaint: Recheck/Abnormal Lab/Rx Stated Complaint: high potassium Time Seen by Provider: 04/15/25 20:10 Source: patient and family Mode of arrival: ambulatory Limitations: no limitations History of Present Illness HPI narrative: This is a an 89-year-old male with a history of hypertension, and ventricular pacer presents from his doctor's office with an elevated potassium level that was at 5.8. The patient has a history of hypertension with no chronic kidney disease. Patient is asymptomatic with no chest pain no shortness of breath no nausea vomiting no diarrhea constipation no abdominal pain no flank pain no dysuria. Related Data Home Medications ?Medication ?Instructions ?Recorded ?Confirmed ?Last Taken ?Type allopurinol 100 mg tablet 100 mg PO DAILY 06/09/19 04/15/25 09/09/24 History cholecalciferol (vitamin D3) 25 1,000 unit PO ONCE 06/09/19 04/15/25 09/08/24 History mcg/drop (1,000 unit/drop) oral drops finasteride 5 mg tablet 5 mg PO QPM 06/09/19 04/15/25 09/08/24 History hydrochlorothiazide 12.5 mg capsule 12.5 mg PO DAILY 06/09/19 04/15/25 09/08/24 History loratadine 10 mg capsule 10 mg PO DAILY 06/09/19 04/15/25 09/09/24 History losartan 25 mg tablet 25 mg PO DAILY 06/09/19 04/15/25 09/09/24 History omeprazole 20 mg capsule,delayed 20 mg PO DAILY 06/09/19 04/15/25 09/09/24 History release simvastatin 40 mg tablet 40 mg PO QPM 08/16/22 04/15/25 09/08/24 History tamsulosin 0.4 mg capsule 0.4 mg PO DAILY 01/04/23 04/15/25 09/08/24 History magnesium 250 mg tablet 250 mg PO DAILY 08/31/23 04/15/25 09/08/24 History potassium chloride 20 mEq 20 meq PO DAILY 08/31/23 04/15/25 09/09/24 History tablet,extended release Held on 04/15/25. Instructions: Patient Condition hydroxyurea 500 mg capsule 500 mg PO Q12H 09/01/23 04/15/25 09/08/24 History tiotropium 2.5 mcg-olodaterol 2.5 1 puff inhalation BID 01/03/24 04/15/25 09/09/24 History mcg/actuation mist for inhalation (Stiolto Respimat) Allergies Allergy/AdvReac Type Severity Reaction Status Date / Time lisinopril Allergy Cough Verified 04/15/25 20:13 ibuprofen AdvReac Unknown Verified 04/15/25 20:13 Review of Systems Review of Systems: All systems reviewed & are unremarkable except as noted in HPI and below PMFSH Past Medical History Medical History Hypertension Postoperative abdominal hernia COPD (chronic obstructive pulmonary disease) BMI 32.0-32.9,adult HTN (hypertension) High cholesterol Osteoarthritis of knee right knee Gout Arthritis COPD (chronic obstructive pulmonary disease) Surgical History Surgical History H/O shoulder surgery Total knee replacement status History of umbilical hernia repair 07/20/20 Laparoscopic umbilical hernia repair with Symbotex mesh, da Marcos assisted 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 Dr Brower Family History Family History Sibling Hypertension Mother Hypertension Diabetes mellitus Father Leukemia Social History Social History Social History: Retired [employer]. Served in the [employer]. Smoking packs per day: 3 Smoking cigarettes per day: 60.0 Years smoked: 24 Smoking pack-years: 72.00 Smoking status: Former smoker Second hand tobacco smoke exposure: No Smoking end date: 07/27/81 Additional smoking assessment comments: QUIT 1980 Alcohol intake: current Drinks per week: 4 Alcohol use details: Drinks 6 mixed drinks of whiskey Substance use: never Substance use type: does not use Do You Feel Safe in your Home?: No Lack of Transportation: No Lack of Food: Never True Current Housing: I Have Housing Concerned About Future Housing: No Difficulty Paying Gas/Electric Bills: No Difficulty Paying for Meds: No Currently Unemployed: No Education: High School Diploma/GED Difficulty w/ Childcare or Family Care: No Living arrangements: with family Occupation/Education: retired Gender identity (if verbalized by the patient): Male Spiritual care concerns: No Exam Const: General: healthy appearing, no acute distress and alert Nutritional Appearance: well nourished and obese Orientation/consciousness: patient oriented x3 Limitations: no limitations Neck: Neck: normal visual inspection, no lymphadenopathy and no meningeal signs Chest: Chest palpation & inspection: normal inspection of the chest Resp: Effort & Inspection: normal respiratory effort Auscultation: clear to auscultation bilaterally Cardio: Rate: regular rate Rhythm: regular rhythm GI: GI Palp: Yes Soft to palpation Auscultation: normal bowel sounds Back/Spine/Pelvis: Back: no CVA tenderness Skin: General skin exam: normal color Rashes: no rashes Wounds: no wounds Neuro: General: patient oriented x3, moves all extremities and no meningeal signs Course Course Emergency Course: Medical decision making narrative: The patient was evaluated by myself in the emergency department. History obtained from the patient and family who is independent or Soarian physical exam performed and witnessed by the nurse. External medical records were reviewed at this time. Patient had labs performed which showed a potassium level of 3.8, which was initially the concern for what brought the patient in had an earlier blood draw which showed a potassium level 5.8. Patient is asymptomatic. Repeat assessment: Doing well on repeat exam with no acute distress Symptoms improved since arrival to the ED Repeat vitals are stable Patient agrees with discussion after shared medical decision making and agrees with discharge. All questions were answered to the patient and family satisfaction. Advised follow-up with primary care within 3 to 5 days. Vital Signs Vital signs: Vital Signs Pulse Oximetry 100 04/15/25 20:05 Temperature 36.4 C 04/15/25 20:13 Pulse Rate 68 04/15/25 20:15 Respiratory Rate 18 04/15/25 20:13 Blood Pressure 141/77 H 04/15/25 20:13 Pulse Oximetry 98 04/15/25 20:13 Oxygen Delivery Room Air 04/15/25 20:13 MDM - Recheck/Abnormal Lab/Rx Lab Data 04/15/25 20:18 Labs: Lab Results 04/15/25 Range/Units 20:18 Sodium 139 (137-145) mmol/L Potassium 3.8 (3.4-5.0) mmol/L Chloride 101 (98-107) mmol/L Carbon Dioxide 29 (22-30) mmol/L Anion Gap 9 (4-12) mmol/L BUN 11 (9-20) mg/dL Creatinine 1.34 H (0.7-1.3) mg/dL Estim Creat Clear Calc 40 ml/min Estimated GFR 50 L (59 - ) Glucose 93 (65-110) mg/dL Calculated Osmolality 287 (285-295) mOsm/kg Calcium 9.7 (8.4-10.2) mg/dL Total Bilirubin 0.8 (0.2-1.3) mg/dL AST 59 (17-59) U/L ALT 23 (6-50) U/L Alkaline Phosphatase 70 (38-126) U/L Total Protein 8.7 H (6.3-8.2) g/dL Albumin 4.6 (3.5-5.1) g/dL Critical Care Time Critical Care Time Critical Care Time: No Discharge Plan Discharge Clinical Impression: H/O hyperkalemia Patient Disposition: Home Condition: Stable Instructions: Antibiotic Form, Hyperkalemia (ED) Additional Instructions: Advised patient to keep all follow-up appointments with primary care physician and should see his primary within next 3 to 5 days for further evaluation. Patient Language: Spanish Prescriptions: No Action magnesium 250 mg Tablet 250 mg PO DAILY potassium chloride 20 mEq Tablet Extended Release 20 meq PO DAILY losartan 25 mg tablet 25 mg PO DAILY allopurinol 100 mg tablet 100 mg PO DAILY hydrochlorothiazide 12.5 mg capsule 12.5 mg PO DAILY loratadine 10 mg capsule 10 mg PO DAILY omeprazole 20 mg capsule,delayed release(DR/EC) 20 mg PO DAILY cholecalciferol (vitamin D3) 1,000 unit/drop drops 1,000 unit PO ONCE finasteride 5 mg tablet 5 mg PO QPM tamsulosin 0.4 mg capsule 0.4 mg PO DAILY simvastatin 40 mg tablet 40 mg PO QPM Stiolto Respimat 2.5-2.5 mcg/actuation mist 1 puff inhalation BID hydroxyurea 500 mg capsule 500 mg PO Q12H Follow-up/Referrals: Vini Woods MD [Primary Care Provider, Internal Medicine] Time of Disposition: 20:47
== END 2025-04-15 20:57 | disposition home or self-care (01) ==
PROVIDERS: Emergency Provider Emergency Medicine; PCP Internal Medicine
DX: E87.5 Hyperkalemia (principal); J44.9 Chronic obstructive pulmonary disease, unspecified; I10 Essential (primary) hypertension; Z79.899 Other long term (current) drug therapy
CPT/HCPCS: 36415; 80053; 85027; 85055; 93005; 99283

== ENCOUNTER 2025-04-27 11:36 | Outpatient (CLI) | payer MEDICARE, SELFPAY ==
--- OUTSIDE RECORDS SUMMARY | 2010-01-10 02:45 | XMS_ITS | Continuity of Care Document ---
Author Organization [facility] Address [address] [facility] [address] [place] [address] Phone Care Team Providers Care Police Communications Operator Name Role Phone Gonzalo Gonzales Unavailable Unavailable Procedures Procedure Date Office/outpatient Visit, Est Office/outpatient Visit, Est Office/outpatient Visit, Est Office/outpatient Visit, Est Office/outpatient Visit, Est Eye Exam & Treatment Refraction Eye Exam & Treatment No Script Eye Exam & Treatment Refraction Eye Exam & Treatment Refraction Advance Directives Directive Yes / No Effective Date File Name No Information Encounters Encounter Description Practice Location Reason(s) For Visit Diagnoses Date Provider Providers Copied on Encounter Office/outpat ient Visit, [facility], [address], [place], [place], [address], [place] tel:[phone] [facility] Corporate [place] No Information 0-201 0 Janet Sánchez. [address] [facility] [place] [address], [place], [address], [place]. tel:[phone] Office/outpat ient Visit, [facility], [address], [place], [place], [address], [place] tel:[phone] [facility] No Information Dec-0 6-201 0 Venice Hillman. [address], [place], [address], [place]. tel:[phone] [facility], [address], [place], [place], [address], [place] tel:[phone] [facility] No Information King-3 0-201 0 Krishnasamy Gonzalo. [address] [facility] [address], [place], [address], [place]. tel:[phone] Office/outpat ient Visit, [facility], [address] [place] [address] [address], [place], [place], [address], [place] tel:[phone] [facility] No Information King-1 5-201 0 Krishnasamy Gonzalo. [address] [address], [place], [facility], [place]. tel:[phone] Office/outpat ient Visit, [facility], [address] [place] [address] [address], [place], [place], [address], [place] tel:[phone] [facility] No Information King-0 9-201 0 Krishnasamy Gonzalo. [address] [facility] [address], [place], [address], [place]. tel:[phone] [facility], [address], [place], [place], [address], [place] tel:[phone] [facility] No Information Apr-2 1-201 0 Krishnasamy Gonzalo. [address] [facility] [place] [address], [place], [address], [place]. tel:[phone] [facility], [address], [place], [place], [address], [place] tel:[phone] [facility] No Information Apr-0 8-200 9 Krishnasamy Gonzalo. [address], [place], [address], [place]. tel:[phone] [facility], [address] [facility] [address], [place], [place], [address], [place] tel:[phone] [facility] No Information Mar-2 6-200 8 Janet Sánchez. [address] [facility] [address], [place], [address], [place]. tel:[phone] [facility], [address] [facility] [address], [place], [place], [address], [place] tel:[phone] [facility] No Information Mar-2 6-200 7 Wild Rios. [address] [facility], [address], [place], [place], [address], [place]. tel:[phone] Family History Family Member Type Diagnosis Age At Onset No Information Payers Payer name Insurance type Covered green party ID Authoriza [email or web address](s) [place] [id number] Social History Type Description Quantity Date Captured Comments Sex Male Smoking Status No Information Chief Complaint And Reason For Visit No Information Reason For Referral Reason For Referral No Information History Of Present Illness Encounter Date Complaint History Of Prese nt Illness No Information Functional Status Date Functional Assessmen t No Information Instructions Date Instruction Additional Infor mation No Information Assessments Type Assessment Date No Information Patient Care Teams Name Effective Dates (start - stop) Status Members No Information
[2025-04-27 12:27] LABS: Amylase 116 U/L (30-110); Anion Gap 8 mmol/L (4-12); Blood Urea Nitrogen 16 mg/dL (9-20); Calcium 9.7 mg/dL (8.4-10.2); Carbon Dioxide 29 mmol/L (22-30); Chloride 100 mmol/L (98-107); Estimated Glomerular Filt Rate 60; Glucose 93 mg/dL (65-110); Lipase 66 U/L (23-300); Potassium 4.5 mmol/L (3.4-5.0); Sodium 137 mmol/L (137-145)
--- OUTSIDE RECORDS SUMMARY | 2025-04-27 13:53 | XMS_ITS | Clinical Summary ---
Author Organization [facility] Address [address] [place] [address] Care Team Providers Care Earthmoving Labourer Name Role Phone Vini Woods MD Primary Care Provider [phone] Allergies Active Allergy Reactions Criticality Noted Date [...] Outpatient Ophthalmology follow-up in 2 weeks at [facility] - seen by ENT consult, plan [...] cord signal, advanced multilevel cervical spondylosis with gkhnlopx-kf-[id number] neuroforaminal stenosis and no high-grade spinal canal stenosis. - C-spine precautions. C-collar at all times. HOB<30. Log roll - upright x-rays including odontoid view (09/20): No significant interval change in mildly displaced odontoid fracture with anterior subluxation of C2 on C1. Unchanged mild anterolisthesis of C3 on C4. 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 Gender Identity Not on file Sexual Orientation Not on file Last Filed Vital Signs Vital Sign Reading Time Taken Comments Blood Pressure 154/71 04/09/2025 1:47 PM CDT Pulse 60 04/09/2025 1:47 PM CDT Temperature 36.8 C (98.2 F) 09/24/2023 11:30 AM CDT Respiratory Rate 18 09/24/2023 11:30 AM CDT Oxygen Saturation 96% 08/07/2024 9:58 AM SEARCH ADVERTISING STRATEGIST Inhaled Oxygen Concentration - - Weight 104.3 kg (230 lb) 08/07/2024 9:58 AM SEARCH ADVERTISING STRATEGIST Height 177.8 cm (5' 10) 08/07/2024 9:58 AM SEARCH ADVERTISING STRATEGIST Body Mass Index 33 08/07/2024 9:58 AM SEARCH ADVERTISING STRATEGIST Plan of Treatment Health Maintenance Due Date [...] in the left lower lobe. Dictated by: Erikcson Edouard MD The radiology attending physician has [...] LAB POCT ORDERABLES - DEVICE Final Result [facility] [place] [address] from Last 3 Months Insurance MEDICARE BLUE CROSS MEDICARE SUPPLEMENT MEDICARE [facility] MEDICARE Advance Directives For more information, please contact: [phone] * Full Code (Latest Code Status on File) Date Activated Date Inactivated Comments 09/20/2023 7:54 PM 09/24/2023 5:56 PM Care Teams Earthmoving Labourer Relationship Specialty Start Date End Date Vini Woods MD PCP - General 08/15/11
--- OUTSIDE RECORDS SUMMARY | 2025-04-27 13:53 | XMS_ITS | Clinical Summary ---
Author Organization [facility] Address [address] [place] [address] Care Team Providers Care Dramatic Director Name Role Phone Unavailable Primary Care Provider [...]
== END 2025-04-27 11:37 | disposition home or self-care (01) ==
PROVIDERS: PCP Internal Medicine; Visit Provider Surgery
DX: K80.20 Calculus of gallbladder without cholecystitis without obstruction (principal)
CPT/HCPCS: 36415; 80048; 82150; 83690

== ENCOUNTER 2025-05-03 00:22 | Day surgery (SDC) | payer MEDICARE, SELFPAY ==
--- OUTSIDE RECORDS SUMMARY | 2010-01-10 02:45 | XMS_ITS | Continuity of Care Document ---
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 [address] [facility] [place] [address], [place], [address], [place]. tel:[phone] Office/outpat ient Visit, [facility], [address], [place], [place], [address], [place] tel:[phone] [facility] No Information Dec-0 6-201 0 Venice Hillman. [address], [place], [address], [place]. tel:[phone] [facility], [address], [place], [place], [address], [place] tel:[phone] [facility] No Information King-3 0-201 0 Krishnasamy Gonzalo. [address] [facility] [address], [place], [address], [place]. tel:[phone] Office/outpat ient Visit, [facility], [address] [place] [address] [address], [place], [place], [address], [place] tel:[phone] SEC [facility] No Information King-1 5-201 0 Krishnasamy Gonzalo. [address] [address], [place], [place], [facility], [place]. tel:[phone] Office/outpat ient Visit, [facility], [address] [place] [address] [address], [place], [place], [address], [place] tel:[phone] [facility] No Information King-0 9-201 0 Krishnasamy Gonzalo. [address] [facility] 102, [place], [address], [place]. tel:[phone] [facility], [address], [place], [place], [address], [place] tel:[phone] [facility] No Information Apr-2 1-201 0 Krishnasamy Gonzalo. [address] [facility] [place] [address], [place], [address], [place]. tel:[phone] [facility], [address], [place], [place], [address], [place] tel:[phone] [facility] No Information Apr-0 8-200 9 Krishnasamy Gonzalo. [address], [place], [address], [place]. tel:[phone] [facility], [address] [facility] 150, [place], [place], [address], [place] tel:[phone] [facility] No Information Mar-2 6-200 8 Janet Sánchez. [address] [facility] 102, [place], [address], [place]. tel:[phone] [facility], [address] [facility], [place], [place], [address], [place] tel:[phone] [facility] No Information Mar-2 6-200 7 Wild Rios. [address] [facility], [address], [place], [place], [address], [place]. tel:[phone] Family History Family Member Type Diagnosis Age At Onset No Information Payers Payer name Insurance type Covered alliance party ID Authoriza tisampson(s) [place] [id number] Social History Type Description Quantity Date Captured [...]
--- OUTSIDE RECORDS SUMMARY | 2024-07-30 04:30 | XMS_ITS | Encounter Summary ---
Author Name [facility] [facility] [place] [facility] [place] Address [address] [place] [address] Care Team Providers Care Furniture Finisher Name Role Phone WHITNEY HOOVER Primary Care Provider Unavailabl e Insurance Providers: All historical and current Section Date Range: From patient's date of to the date document was created. This section includes the names of all active insurance providers for the patient. Insurance Provider Type of Coverage Plan Name Start of Policy Coverage End of Policy Coverage Group Number Member ID Insurance Provider's Telephone Number Policy Chacon's Name Patient's Relationship to Policy Chacon [place] SUPPLEMEN ANISHA MEDIC ARE SUPPL EMENT October 22, 2020 [id number] [phone] DELFINABE RNARD PATIENT ANTHEM [place] MEDICARE SUPPLEMEN ANISHA MEDIC ARE SUPPL EMENT October 22, 2020 [id number] [phone] CATHERINENIG,BE RNARD PATIENT ANTHE[place] MEDICARE SUPPLEMEN ANISHA MEDIC ARE SUPPL EMENT October 22, 2020 [id number] [phone] MANUEL MATHIS JR PATIENT [place] MEDICARE SUPPLEMEN ANISHA MEDIC ARE SUPPL EMENT October 22, 2020 [id number] [phone] CATHERINENIEzio,BE RNARD PATIENT MEDICARE (WNR) MEDICARE (M) PART A Jul 25, 2000 PART A [id number] MANUEL MATHIS JR PATIENT MEDICARE (WNR) MEDICARE (M) PART B Jul 25, 2000 PART B [id number] [phone] MANUEL MATHIS JR PATIENT MEDICARE (WNR) MEDICARE (M) PART A Jul 25, 2000 PART A [id number] MANUEL MATHIS JR PATIENT MEDICARE (WNR) MEDICARE (M) PART B Jul 25, 2000 PART B [id number] MANUEL MATHIS JR PATIENT Selected Encounter This section includes the information on record at [place] for the Encounter. Date/Time Encounter Type Encounter Description Reason Provider Source Jul 30, 2024 10:30 AM HEARING SERVICE AUDIOLOGY ICD-10-CM H90.3 Sensorineural hearing loss, bilateral VEST,SUZE A IHE Encounter Template Text not used by [place] Assessments - Encounter Diagnoses This section includes the primary and secondary diagnoses documented for the Encounter. Date/Time Primary/Secondary Diagnosis Diagnosis Name Provider Source Jul 30, 2024 10:55 AM PRIMARY Sensorineural hearing loss, bilateral VEST,SUZE A [facility] Plan of Treatment: Future Appointments (+ 6 months) and Future Tests (+/- 45 days) The Plan of Treatment section includes future care activities for the patient from all [place] treatmentfacilities. This section includes future appointments and future orders which are active, pending or scheduled. Future Appointments This section includes appointments that were scheduled to occur 6 months from the date of the Encounter, up to a maximum of 20 appointments. The data comes from all [place] treatment facilities. Appointment Date/Time Appointment Type Appointme nt Facility Name Aug 27, 2024 02:00 PM AMBULATORY - SURGERY [facility] Sep 25, 2024 10:00 AM AMBULATORY - NONE [facility] Sep 25, 2024 11:00 AM AMBULATORY - MEDICINE [facility] Sep 28, 2024 01:00 PM AMBULATORY - SURGERY [facility] November 06, 2024 01:45 PM AMBULATORY - SURGERY [facility] Kumar [facility] Encounter Notes: All associated encounter notes This section contains the clinical notes associated to the Encounter. Date/Time Encounter Note(s) Provider Source Jul 30, 2024 10:39 AM AUDIOLOGY E & M NO TE: LOCAL TITLE: AUDIO [facility] STANDARD TITLE: AUDIOLOGY E & M NOTE DATE OF NOTE: JUL 30, 2024@10:39 ENTRY DATE: JUL 30, 2024@10:39:25 AUTHOR: SUZE SCHROEDER COSIGNER: URGENCY: STATUS: COMPLETED SUBJECT: Audio AUDIO [facility] Has ADDENDA Purpose of appt: Hearing loss [x] patient initiated visit [] provider initiated visit via consult Case history: Initial audio. Pt here with his . He reports bilateral hearing loss and feels like it just keeps getting worse. He states he hears his talking; however he doesn't understand her. He purchased some hearing aids through [facility]; however doesn't feel they help very much. He reports constant tinnitus for both ears. 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 He had the procedure and noticed improvement. He denies any current dizziness; however uses a cane for off balance sensations when getting up and down. He denied any recent ear infections or any otosurgeries. He is going in next week to get a pacemaker. Otoscopic inspection revealed clear ear canals. RESULTS: Right Ear- Audiometry (air and/or bone conduction): Flat, mod-severe snhl. SRT: 70 WRS: 44% Tympanogram: As Reflexes: ipsi: Present 500-2000 Hz, absent 4000 Hz contra: Absent 500-4000 Hz Left Ear- Audiometry (air and/or bone conduction): Flat, severe to mod-severe snhl. SRT: 75 WRS: 48% Tympanogram: As Reflexes: ipsi: Present 500-2000 Hz, absent 4000 Hz contra: Present 500-1000 Hz, absent 2-4000 Hz Discussed test results with patient. He is interested in hearing aids and is a candidate through the [facility]. Hearing Aid Exam performed today: [] Monaural [x] Binaural Otoscopy reveals clear canals. Appropriate evaluation of patient leads to hearing aid order. Ear mold impression(s) taken. Hearing aid will be ordered and appointment requested for fitting. [] patient initiated visit [x] provider initiated visit [x] new user []experienced user-Pt wore Discussed aids with pt to include the following: STYLE: Showed pt various demo aids in clinic from canal through [employer] style. He wants to try canal aids. BATTERY TYPE: Rechargeable COLOR: clear/beige CONNECTIVITY: none MATRIX: P After discussion, pt and clinician chose: Justen Saha AI ITC R for both ears. Disclaimer for hearing aid selection: The [employer] Affairs does not support or endorse one private entity over another. rec: 1. HAF sched. /ramon/ Joe HOBBS Staff [place] Man[place]ga, Surgery Service Signed: 07/30/2024 11:21 10/05/2024 ADDENDUM STATUS: COMPLETED [place] completed and returned IOI-RODRIGUEZ survey measure. Score of 35. Outcomes entered in BEN. /ramon/ YVETTE KRISHNA Fire Protection Engineering Technician, HPT Signed: 10/05/2024 10:39 /ramon/ Joe HOBBS Staff [place] Man[place], Surgery Service Cosigned: 10/05/2024 11:17 SUZE SCHROEDER [facility]
--- OUTSIDE RECORDS SUMMARY | 2024-08-12 07:08 | XMS_ITS ---
Author Name [facility] [facility] [place] [facility] [place] Address [address] [place] [address] Care Team Providers Care Imaging Assistant Name Role Phone WHITNEY HOOVER Primary Care [...] MEDIC ARE SUPPL EMENT October 22, 2020 [id number] [phone] LORRAINE MATHIS RNARD PATIENT ANTHEM [place] MEDICARE SUPPLEMEN ANISHA MEDIC ARE SUPPL EMENT October 22, 2020 [id number] [phone] LORRAINE MATHIS RNARD PATIENT ANTHEM [place] MEDICARE SUPPLEMEN ANISHA MEDIC ARE SUPPL EMENT October 22, 2020 [id number] [phone] MANUEL MATHIS JR PATIENT BCBS [place] MEDICARE SUPPLEMEN ANISHA MEDIC ARE SUPPL EMENT October 22, 2020 [id number] [phone] LORRAINE MATHIS RNARD PATIENT MEDICARE (WNR) MEDICARE (M) PART A Jul 25, 2000 PART A [id number] MANUEL MATHIS JR PATIENT MEDICARE (WNR) MEDICARE (M) PART B Jul 25, 2000 PART B [id number] MANUEL MATHIS JR PATIENT MEDICARE (WNR) MEDICARE (M) PART A Jul 25, 2000 PART A [id number] MANUEL MATHIS JR PATIENT MEDICARE (WNR) MEDICARE (M) PART B Jul 25, 2000 PART B [id number] MANUEL MATHIS JR PATIENT Selected Encounter This section includes the information on record at [place] for the Encounter. Date/Time Encounter Type Encounter Description Reason Pro vider Source Aug 12, 2024 01:08 PM Outpatient Encounter ADMIN PAT ACTIVTIES (MASNONCT) IHE Encounter Template Text not used by [place] Plan of Treatment: Future Appointments (+ 6 months) and Future Tests (+/- 45 days) The Plan of Treatment section includes future care activities for the patient from all [place] treatmentfacilities. This section includes future appointments and future orders which are active, pending or scheduled. Future Appointments This section includes appointments that were scheduled to occur 6 months from the date of the Encounter, up to a maximum of 20 appointments. The data comes from all [place] treatment facilities. Appointment Date/Time Appointment Type Appointme nt Facility Name Aug 27, 2024 02:00 PM AMBULATORY - SURGERY [facility] Sep 25, 2024 10:00 AM AMBULATORY - NONE [facility] Sep 25, 2024 11:00 AM AMBULATORY - MEDICINE [facility] Sep 28, 2024 01:00 PM AMBULATORY - SURGERY [facility] November 06, 2024 01:45 PM AMBULATORY - SURGERY [facility] Encounter Notes: All associated encounter notes This section contains the clinical notes associated to the Encounter. Date/Time Encounter Note(s) Provider Source Aug 12, 2024 01:08 PM ADMINISTRATIVE NOT E: LOCAL TITLE: ADMINISTRATIVE STL STANDARD TITLE: ADMINISTRATIVE NOTE DATE OF NOTE: AUG 12, 2024@13:08 ENTRY DATE: AUG 12, 2024@13:08:58 AUTHOR: NERISSA SERRA EXP COSIGNER: URGENCY: STATUS: COMPLETED Contacted to inform and educate them on [facility] and the transition process to [employer] and [employer]. [place] did not answer. Voicemail and call back number is placed. /ramon/ NERISSA SERRA TELEHEALTH NETWORKING TECHNOLOGY INSTRUCTOR Signed: 08/12/2024 13:09 NERISSA SERRA [facility]
--- OUTSIDE RECORDS SUMMARY | 2024-08-27 08:00 | XMS_ITS ---
Author Name [facility] [place] [facility] [place] Address [address] [place] [address] Care Team Providers Care Certified Health Education Specialist Name Role Phone WHITNEY HOOVER Primary Care [...] MEDIC ARE SUPPL EMENT October 22, 2020 [id number] [phone] LORRAINE MATHIS RNARD PATIENT ANTHE[place] MED[place] SUPPLEMEN ANISHA MEDIC ARE SUPPL EMENT October 22, 2020 [id number] [phone] LORRAINE MATHIS RNARD PATIENT [place] MED[place] SUPPLEMEN ANISHA MEDIC ARE SUPPL EMENT October 22, 2020 [id number] MANUEL MATHIS JR PATIENT BC[place] MEDICARE SUPPLEMEN ANISHA MEDIC ARE SUPPL EMENT October 22, 2020 [id number] [phone] LORRAINE MATHIS RNARD PATIENT MEDICARE (WNR) MEDICARE (M) PART A Jul 25, 2000 PART A [id number] MANUEL MATHIS JR Darrick PATIENT MEDICARE (WNR) MEDICARE (M) PART B Jul 25, 2000 PART B [id number] MANUEL MATHIS JR PATIENT MEDICARE (WNR) MEDICARE (M) PART A Jul 25, 2000 PART A [id number] MANUEL MATHIS JR PATIENT MEDICARE (WNR) MEDICARE (M) PART B Jul 25, 2000 PART B [id number] MANUEL MATHIS JR PATIENT Selected Encounter This section includes the information on record at [place] for the Encounter. Date/Time Encounter Type Encounter Description Reason Provider Source Aug 27, 2024 02:00 PM HEARING AID SUP/ACCESS/DEV AUDIOLOGY ICD-10-CM H90.3 Sensorineural hearing loss, bilateral VEST,SUZE A IHE Encounter Template Text not used by [place] Assessments - Encounter Diagnoses This section includes the primary and secondary diagnoses documented for the Encounter. Date/Time Primary/Secondary Diagnosis Diagnosis Name Provider Source Aug 27, 2024 03:34 PM PRIMARY Sensorineural hearing loss, bilateral VEST,SUZE A [facility] Plan of Treatment: Future Appointments (+ 6 months) and Future Tests (+/- 45 days) The Plan of Treatment section includes future care activities for the patient from all [place] treatmentfacilities. This section includes future appointments and future orders which are active, pending or scheduled. Future Appointments This section includes appointments that were scheduled to occur 6 months from the date of the Encounter, up to a maximum of 20 appointments. The data comes from all [place] treatment facilities. Appointment Date/Time Appointment Type Appointme nt Facility Name Sep 25, 2024 10:00 AM AMBULATORY - NONE [facility] Sep 25, 2024 11:00 AM AMBULATORY - MEDICINE [facility] Sep 28, 2024 01:00 PM AMBULATORY - SURGERY [facility] November 06, 2024 01:45 PM AMBULATORY - SURGERY [facility] Encounter Notes: All associated encounter notes This section contains the clinical notes associated to the Encounter. Date/Time Encounter Note(s) Provider Source Aug 27, 2024 03:28 PM AUDIOLOGY NUTRITION WORKER NOTE: LOCAL TITLE: HEARING AIDS STL STANDARD TITLE: AUDIOLOGY NUTRITION WORKER NOTE DATE OF NOTE: AUG 27, 2024@15:28 ENTRY DATE: AUG 27, 2024@15:28:21 AUTHOR: SUZE SCHROEDER COSIGNER: URGENCY: STATUS: COMPLETED SUBJECT: Audio Pt was seen for fitting of new hearing aid(s). Otoscopy reveals clear ear canals. Aid(s) were programmed to First Fit and adjusted to NAL-NL2 prescriptive target. [x] provider initiated visit Family members were: [x] Present - [] Not present [x] Conformity eval completed [] Conformity eval unavailable [] Disposable batteries [x] Rechargeable batteries [] new user []Email and phone number verified with patient for VVC purposes. []Digital divide consult entered []Digital divide consult unnecessary. Patient has access to equipment. [x] experienced user of Miracle Ear aids Today, pt was fit with Justen Edge AI ITC R for both ears. The aids are programmed as: auto, MB=VC, no BT. right:[id number] left: [id number] trial period: 01-31-2025 The following standardized education was provided and the pt was able to demonstrate understanding after the education: o Introduction to aids (red/blue, right/left) o Parts of the aid o Batteries and heel seat filler, if applicable o Insertion/removal of aids. o Volume control, if applicable o Realistic expectations of aids. o Cleaning/maint of aids. Wax filters. [place]. o Review of the items: soft case, hard case o Review of the paperwork: battery reorder form, instruction manual, IOI survey, clinician name/number, L&D form o Review trial period and warranty o Bluetooth handout, if applicable Real-ear measures are within acceptable limits. Curves stored in [place]. Counseled pt on proper use and care of aids. Pt practiced insertion/removal of aids. Verbalized understanding of hearing aid care/maintenance. Ordered HearClear filters in ROES for patient. Rec: 1. Full-time hearing aid use to facilitate adjustment to amplification. 2. Contact [facility]iology Clinic [phone] or [phone] for repairs and/or adjustments as needed. 3. VVC appts currently unavailable. Pt to return completed IOI survey in 30 days. Time for appt: 45 min /ramon/ Joe HOBBS Staff Wool SackerHelga, Surgery Service Signed: 08/27/2024 15:34 SUZE SCHROEDER [facility]
--- OUTSIDE RECORDS SUMMARY | 2024-09-25 05:00 | XMS_ITS | Encounter Summary ---
Author Name [facility] [place] [facility] [place] [facility] [place] Address [address] [place] [address] Care Team Providers Care Field Operations Manager Name Role Phone JULISA HOOVER Primary Care [...] MEDIC ARE SUPPL EMENT October 22, 2020 [id number] [phone] LORRAINE MATHIS RNARD PATIENT ANTHEM [place] MEDICARE SUPPLEMEN ANISHA MEDIC ARE SUPPL EMENT October 22, 2020 [id number] [phone] LORRAINE MATHIS RNARD PATIENT ANTHEM [place] MEDICARE SUPPLEMEN ANISHA MEDIC ARE SUPPL EMENT October 22, 2020 [id number] [phone] MANUEL MATHIS JR PATIENT [place] MEDICARE SUPPLEMEN ANISHA MEDIC ARE SUPPL EMENT October 22, 2020 [id number] [phone] LORRAINE MATHIS RNARD PATIENT MEDICARE (WNR) MEDICARE (M) PART A Jul 25, 2000 PART A [id number] [phone] DELFINA JRMANUEL Hollingsworth PATIENT MEDICARE (WNR) MEDICARE (M) PART B Jul 25, 2000 PART B [id number] MNAUEL MATHIS JR Darrick PATIENT MEDICARE (WNR) MEDICARE (M) PART A Jul 25, 2000 PART A [id number] [phone] MANUEL MATHIS JR Darrick PATIENT MEDICARE (WNR) MEDICARE (M) PART B Jul 25, 2000 PART B [id number] MANUEL MATHIS JR Darrick PATIENT Selected Encounter This section includes the information on record at [place] for the Encounter. Date/Time Encounter Type Encounter Description Reason Provider Source Sep 25, 2024 11:00 AM OFFICE O/P EST MOD 30 MIN PRIMARY CARE/MEDICINE ICD-10-CM Z95.0 Presence of cardiac pacemaker JULISA HOOVER Ayana Encounter Template Text not used by [place] Assessments - Encounter Diagnoses This section includes the primary and secondary diagnoses documented for the Encounter. Date/Time Primary/Secondary Diagnosis Diagnosis Name Provider Source Sep 25, 2024 11:46 AM PRIMARY Presence of cardiac pacemaker JULISA HOOVER [facility] Sep 25, 2024 11:46 AM SECONDARY Abnormal results of liver function studies JULISA HOOVER [facility] Sep 25, 2024 11:46 AM SECONDARY Allergic rhinitis, unspecified JULISA HOOVER [facility] Sep 25, 2024 11:46 AM SECONDARY Benign prostatic hyperplasia without lower urinry tract symp JULISA HOOVER [facility] Sep 25, 2024 11:46 AM SECONDARY Chronic kidney disease, stage 3a JULISA HOOVER [facility] Sep 25, 2024 11:46 AM SECONDARY Chronic obstructive pulmonary disease, unspecified JULISA HOOVER [facility] Sep 25, 2024 11:46 AM SECONDARY Collapsed vertebra, NEC, cervical region, sqla JULISA HOOVER [facility] Sep 25, 2024 11:46 AM SECONDARY Dizziness and giddiness JULISA HOOVER [facility] Sep 25, 2024 11:46 AM SECONDARY Elevated prostate specific antigen [PSA] JULISA HOOVER [facility] Sep 25, 2024 11:46 AM SECONDARY Essential (primary) hypertension JULISA HOOVER [facility] Sep 25, 2024 11:46 AM SECONDARY Gastro-esophageal reflux disease without esophagitis JULISA HOOVER [facility] Sep 25, 2024 11:46 AM SECONDARY Gout, unspecified JULISA HOOVER [facility] Sep 25, 2024 11:46 AM SECONDARY Hyperlipidemia, unspecified JULISA HOOVER [facility] Sep 25, 2024 11:46 AM SECONDARY Hypokalemia JULISA HOOVER [facility] Sep 25, 2024 11:46 AM SECONDARY Low back pain, unspecified JULISA HOOVER [facility] Sep 25, 2024 11:46 AM SECONDARY Magnesium deficiency JULISA HOOVER [facility] Sep 25, 2024 11:46 AM SECONDARY Pain in right knee JULISA HOOVER [facility] Sep 25, 2024 11:46 AM SECONDARY Prediabetes JULISA HOOVER [facility] Sep 25, 2024 11:46 AM SECONDARY Rosacea, unspecified JULISA HOOVER [facility] Sep 25, 2024 11:46 AM SECONDARY Thrombocytosis, unspecified JULISA HOOVER [facility] Sep 25, 2024 11:46 AM SECONDARY Unspecified hearing loss, unspecified ear JULISA HOOVER [facility] Sep 25, 2024 11:46 AM SECONDARY Vitamin D deficiency, unspecified JULISA HOOVER [facility] Plan of Treatment: Future Appointments (+ 6 [...] 20 appointments. The data comes from all [facility] facilities. Appointment Date/Time Appointment Type Appointme nt Facility Name Sep 28, 2024 01:00 PM AMBULATORY - SURGERY [facility] November 06, 2024 01:45 PM AMBULATORY - SURGERY [facility] [place] [facility] Vital Signs: All taken on the encounter date This section contains inpatient and outpatient Vital Signs collected on the date of the Encounter. Date/Time Temperature Pulse Blood Pressure Respiratory Rate SP02 Pain Height Weight Body Mass Index Source Sep 25, 2024 10:45 AM 97.6 66 131/70 20 97 0 224.6 32 [facility] Social History: Smoking Status (Most current) and Tobacco Use (All prior to encounter date) This section includes the most current, and the historical, smoking and tobacco- related health factors from the [place] facility where the Encounter took place. Current Smoking Status This section includes the most current smoking, or tobacco-related health factor, from the [place] facility where the Encounter took place. Date/Time Current Smoking Status Comment Facil ity Sep 25, 2024 11:00 AM VA-TOBACCO NEVER U SED OTHER TYPE [facility] Tobacco Use History This section includes a history of the smoking, or tobacco-related health factors, that were collected on or before the date of the Encounter. The data comes from the [place] facility where the Encounter took place. Date/Time Smoking Status/Tobacco Use Comment F acility Sep 25, 2024 11:00 AM VA-TOBACCO USE FOR ASHLEY CIGARETTES [facility] Oct 01, 2023 02:30 PM VA-TOBACCO FORMER USER [facility] Oct 01, 2023 02:30 PM VA-TOBACCO QUIT 15 YRS OR MORE [facility] Oct 12, 2022 01:30 PM VA-TOBACCO FORMER USER [facility] Oct 12, 2022 01:30 PM VA-TOBACCO QUIT 15 YRS OR MORE [facility] Sep 27, 2020 10:30 AM VA-TOBACCO FORMER USER [facility] Sep 27, 2020 10:30 AM VA-TOBACCO QUIT 15 YRS OR MORE [facility] Aug 23, 2018 11:07 AM VA-TOBACCO FORMER USER [facility] Aug 23, 2018 11:07 AM VA-TOBACCO QUIT 15 YRS OR MORE [facility] Feb 05, 2017 10:22 AM LIFETIME NON-USER OF TOBACCO [facility] Jan 05, 2016 10:51 AM QUIT TOBACCO >7 YEARS AGO [facility] Nov 22, 2014 09:44 AM QUIT TOBACCO >7 YEARS AGO [facility] Dec 30, 2013 10:35 AM LIFETIME NON-USER OF TOBACCO [facility] October 28, 2012 09:58 AM QUIT TOBACCO >7 YEARS AGO [facility] Jun 19, 2006 08:59 AM QUIT TOBACCO >7 YEARS AGO [facility] Dec 11, 2005 02:24 PM CURRENT NON-TOBACC O USER-HX OF USE [facility] Dec 11, 2005 02:24 PM TOBACCO TERMINATION STAGE [facility] Jun 20, 2005 08:36 AM CURRENT NON-TOBACC O USER-HX OF USE [facility] Jun 20, 2005 08:36 AM TOBACCO TERMINATION STAGE [facility] Jan 16, 2005 02:56 PM CURRENT NON-TOBACC O USER-HX OF USE [facility] Jan 16, 2005 02:56 PM TOBACCO TERMINATION STAGE [facility] Mar 28, 2004 03:04 PM CURRENT NON-TOBACC O USER-HX OF USE [facility] Mar 28, 2004 03:04 PM TOBACCO TERMINATION STAGE [facility] Jun 23, 2003 01:01 PM CURRENT NON-TOBACC O USER-HX OF USE [facility] Jun 23, 2003 01:01 PM TOBACCO TERMINATION STAGE [facility] Sep 22, 2002 01:52 PM CURRENT NON-TOBACC O USER-HX OF USE [facility] November 11, 2001 02:51 PM LIFETIME NON-TOBACCO USER [facility] Dec 02, 2000 03:06 PM CURRENT NON-TOBACC O USER-HX OF USE stopped over 20 yrs ago [facility] May 22, 2000 03:27 PM CURRENT NON-TOBACC O USER-HX OF USE stopped 18 yrs ago [facility] Jan 18, 2000 03:26 PM CURRENT NON-TOBACC O USER-HX OF USE quit 15 years agpo [facility] Encounter Notes: All associated encounter notes This section contains the clinical notes associated to the Encounter. Date/Time Encounter Note(s) Provider Source Sep 25, 2024 11:07 AM PRIMARY CARE NOTE: LOCAL TITLE: PRIMARY CARE PROVIDER ESTABLISHED VISIT [facility] STANDARD TITLE: PRIMARY CARE NOTE DATE OF NOTE: SEP 25, 2024@11:07 ENTRY DATE: SEP 25, 2024@11:07:22 AUTHOR: JULISA HOOVERIGNER: URGENCY: STATUS: COMPLETED REASON FOR VISIT/CHIEF COMPLAINT: Evaluation and management of chronic medical conditions/My scheduled visit HPI: Patient is a 89 year old WHITE MALE who presents to [...] providers: -Dr. Vini Woods private PCP in [place], [place]. -Dr. Henrique Parekh private ENT in [place], [place]. -Dr. Cates private dividend deposit entry clerk. -Dr. Nic Singh dividend deposit entry clerk for pacemaker. -Dr. Nawaf Giles private urologist. -Dr. Abraham private yardmaster. -Dr. Aden private orthopedics. -Dr. Lacey Fernandez private orthopedics in ophthalmology. Reports this provider is leaving in November 2024. -Dr Rebolledo private supervisor keymodule assembly, reports this provider is retiring soon. #Syncopal episode. Pacemaker: -Permanent dual-chamber pacemaker device placed 09/09/24 at [facility]. -Rochelle had Holter monitor 06/2024 that showed evidence of variable degrees of AV block. -Denies concerns today. #HTN: -Medications: Losartan and HCTZ. -Reports compliance to medication regimen. -Reports having blood pressure machine at home. -Blood pressure readings at home: <130/80. -Denies CP, SOB, heart palpitations, headaches, blurred vision, dizziness/lightheadedness. #HLD: -Medication: Simvastatin. -Reports compliance with medication regimen. -Denies any new onset of myalgias. #Prediabetes: -Obtains labs in the private sector. -Diet: Regular. -Exercise: Denies. #CKD stage 3A: -Denies concerns today. #JERRY: -Reports nightly CPAP use. #Thrombocythemia: -Chronic. -Medication: Hydroxyurea. #GERD: -Medication: Omeprazole. -Reports compliance with medication regimen. -Denies concerns today. #Vertigo: -Patient reports being evaluated by private dividend deposit entry clerk for cardiac conditions that could cause vertigo was ruled out. -Patient seen by private sort worker in 2022. -Patient completed a balance test [...] patient. -This is managed per private urology. #YAKUTAT: -Chronic. Has associated tinnitus. -Has bilateral hearing [...] had cholecystitis 09/01/23 and was hospitalized at [facility]. Patient denies concerns today. Patient reports eating a low fat diet with improvement of his symptoms. #Vitamin D deficiency: -Reports compliance with supplementation. #Hypomagnesium: -Reports compliance with supplementation. #Fracture of cervical spine: -Patient fell 09/19/23 and developed an injury of neck fracture. -Patient was hospitalized at [facility] for this from 09/19/23-09/24/23. -Patient completed PT for this in 2023. -Patient had to have 30 stitches that were located right above the eye (these were removed September 2023). - evaluated by private NSURG for this in 2023. -Denies concerns today. #Rosacea: -Medication: Metronidazole cream. -Controlled per . SOURCE(S) OF HISTORY: Patient PAST MEDICAL HISTORY: 1) Benign essential hypertension 2) Gastroesophageal reflux disease 3) Hyperlipidemia 4) Low back pain 5) Chronic obstructive lung disease (SNOMED CT [id number]) 6) Hypokalemia 7) Allergic rhinitis 8) Elevated PSA 9) Gout (SNOMED CT [id number]) 10) Benign prostatic hyperplasia 11) Prediabetes 12) Vertigo 13) Right knee pain 14) Hearing loss 15) Chronic kidney disease stage 3A 16) Liver function tests outside reference range 17) Thrombocytosis 18) Vitamin D deficiency 19) Hypomagnesemia 20) Fracture of cervical spine SOCIAL HISTORY: Tobacco: Former smoker. Quit smoking in 1980 smoked from [id number] 3 PPD. Alcohol: Denies. Illicit: Denies. ALLERGIES: FELODIPINE, LISINOPRIL, DILTIAZEM ALLERGY REVIEW: Allergy list reviewed and remains current. MEDICATIONS: Active and Recently Outpatient Medications (excluding Supplies): Active Outpatient Medications Status 1) DICLOFENAC NA 1% TOP GEL APPLY 4 GM TO AFFECTED AREA(S) FOUR ACTIVE TIMES A DAY NEEDED FOR PAIN/INFLAMMATION; NOT MORE THAN 16 GRAMS DAILY TO ANY LOWER EXTREMITY JOINT. NOT MORE THAN 8 GRAMS DAILY TO ANY UPPER EXTREMITY JOINT. MAX 32GM/DAY OVER ALL JOINTS. (MEASURE DOSE WITH RULER ATTACHED INSIDE BOX) 2) GUAIFENESIN 400MG TAB TAKE ONE TABLET BY MOUTH EVERY 6 HOURS ACTIVE NEEDED TO THIN MUCUS. TAKE WITH 8 OUNCE GLASS OF WATER. 3) HYDROCHLOROTHIAZIDE 25MG TAB TAKE ONE-HALF TABLET BY MOUTH ACTIVE EVERY MORNING 4) LORATADINE 10MG TAB TAKE ONE TABLET BY MOUTH ONCE A DAY ON ACTIVE EMPTY STOMACH FOR ALLERGIES 5) LOSARTAN 50MG TAB TAKE ONE-HALF TABLET BY MOUTH ONCE A DAY ACTIVE TO LOWER BLOOD PRESSURE 6) OLODATEROL/TIOTROP 2.5MCG/ACTUAT 60D INH INHALE 1 PUFF BY ACTIVE ORAL INHALATION TWICE A DAY ADMINISTER AT SAME TIME EACH DAY FOR BREATHING 7) POTASSIUM CL 20MEQ SA TAB (DISPERSIBLE) TAKE ONE TABLET BY ACTIVE MOUTH ONCE A DAY 8) SIMVASTATIN 80MG TAB TAKE ONE-HALF TABLET BY MOUTH EVERY ACTIVE (S) EVENING TO LOWER CHOLESTEROL (REPORT ANY UNEXPLAINED MUSCLE PAIN, TENDERNESS OR WEAKNESS TO YOUR PRIMARY CARE PROVIDER) Inactive Outpatient Medications Status 1) OMEPRAZOLE 20MG EC CAP TAKE ONE CAPSULE BY MOUTH EVERY MORNING BEFORE A MEAL Active Non-VA Medications Status 1) Non-VA ALLOPURINOL 100MG TAB 100MG BY MOUTH ONCE A DAY ACTIVE Indication: FOR GOUT 2) Non-VA CHOLECALCIF 25MCG (D3-1,000UNIT) TAB 25MCG BY MOUTH ACTIVE ONCE A DAY Indication: FOR VITAMIN D DEFICIENCY 3) Non-VA FINASTERIDE 5MG TAB 5MG BY MOUTH ONCE A DAY ACTIVE 4) Non-VA HYDROXYUREA 500MG CAP 500MG BY MOUTH TWICE A DAY ACTIVE Indication: FOR ANEMIA 5) Non-VA MAGNESIUM OXIDE TAB 250 MG BY MOUTH ONCE A DAY ACTIVE Indication: FOR DIETARY MAGNESIUM SUPPLEMENTATION 6) Non-VA TAMSULOSIN HCL 0.4MG CAP 0.4MG BY MOUTH EVERY EVENING ACTIVE Indication: FOR BENIGN PROSTATIC HYPERPLASIA 15 Total Medications REVIEW OF SYSTEMS: Constitutional: Denies weight loss, fever, chills. Ears, Nose, Mouth, Throat: Denies nasal drainage or sore throat. Denies dizziness. Endocrinology: Denies heat or cold intolerance, polydipsia, polyuria, or polyphagia. Cardiovascular: Denies chest pain, palpitations, or dizziness. Respiratory: Denies cough or shortness of breath. ABD/GI: Denies abdominal pain, nausea, vomiting, constipation, diarrhea or incontinence. Musculoskeletal/Extremities: Denies edema. Denies pain. /PROGRAM MANAGER SLP: Denies frequency, hesitancy, urgency, or hematuria. Psychology: Denies insomnia or SI/HI. Denies anxiety or depression. Neurology: Denies RODRIGUEZ, tremors, neuropathy, or seizures. Skin: Denies rashes, skin lesions. PHYSICAL EXAMINATION: VITALS (most recent, as listed in the electronic record): Temperature: 97.6 F [36.4 C] (09/25/2024 10:45) BP: 131/70 (09/25/2024 10:45) Pulse: 66 (09/25/2024 10:45) Resp: 20 (09/25/2024 10:45) PulsOx: 97% (09/25/2024 10:45) Pain: 0 (09/25/2024 10:45) Weight: Measurement DT WEIGHT LB(KG)[BMI] 09/25/2024 10:45 224.6(101.88)[32*] 03/27/2024 10:30 226.4(102.69)[33*] 10/01/2023 14:13 218.8(99.25)[31*] HEENT: EOMI, PERRLA, Moist mucous membranes. No Scleral icterus or cervical lymphadenopathy. Lungs: Clear to auscultation bilaterally. No accessory muscle use. Cardiovascular: Regular rate and rhythm. No murmur. No JVD. Abdomen: Soft, nontender and non-distended. No palpable masses. Positive bowel sounds in all four quadrants. Extremities: No edema. Nontender. Full ROM to all joints. Gait steady with walker. : Deferred. Neurologic: No focal neurological deficits. [...] PSA: No PSA EO data found Result: Acceptable. Health maintenance: -Declines immunizations today. Immunization Series Date Facility Reaction Info INFLUENZA, HIGH-DOSE, TRIVALENT,* 03/27/2024 [facility] PNEUMOCOCCAL CONJUGATE PCV 13 11/22/2014 [...] [facility]* ZOSTER, UNSPECIFIED FORMULATION 1 02/27/2019 I[facility] IIS Colonoscopy: No longer recommended d/t age. PSA: Evaluation and management per private urologist. LDCT: No longer recommended d/t age. AAA screening: No longer recommended d/t age. Eye exam: Eye clinic contact information given. Obtains labs in the private sector. Records in [facility]. ASSESSMENT/PLAN: Syncopal episode/Pacemaker: -Evaluation and management per private cardiology. HTN: -Continue prescribed regimen. -Instructed patient to [...] and to avoid NSAIDs. -Reviewed lifestyle modifications. -Build Master contact information given. -Evaluation and management per private PCP. JERRY: -Continue using CPAP machine nightly. -Clean machine daily and replace filters q6m. -The patient has been advised that using CPAP regularly can decrease cardiac strain and help to control blood pressure. -Evaluation and management per private pulmonary. Thrombocythemia: -Continue medication regimen. -Evaluation and management per [facility] hematology. [place] hematology consult placed to forward to [facility] if appropriate. -Evaluation and management per private PCP. GERD: -Continue medication regimen. -Reviewed lifestyle modifications. -Educated to avoid triggering foods such as alcohol, caffeinated drinks, chocolate, coffee, spicy foods, citrus foods, tomatoes etc. -Evaluation and management per private PCP. Vertigo: -Stable. -Evaluation and management per private ENT. -Evaluation and management per private dividend deposit entry clerk. Right knee pain/Right leg sharif's cyst: -Continue [...] lifestyle modifications. -Evaluation and management per private yardmaster. Gout: -Continue current medication regimen. -Educated to [...] -Stable. -Evaluation and management per private urologist. YAKUTAT: -Audiology contact information given. -Educated to avoid [...] given. -Evaluation and management per private PCP. Rosacea: -Continue medication regimen. -Evaluation and management per private supervisor keymodule assembly. RETURN TO CLINIC: 6 months or earlier as needed. SUMMARY STATEMENT: Plan of care has been discussed with including expected therapeutic benefits and potential side effects of prescribed medication and treatments. verbalizes understanding and is in agreement with the plan of care. Patient was instructed to keep all scheduled appointments and contact triage specialist for any additional problems. Medication Reconciliation Opt STL: I have reviewed the patient's medication list (including active outpatient prescriptions dispensed from this [place] (local) and dispensed from another [place] or [place]D facility (remote) as well as inpatient orders (local pending and active), local clinic medications, locally documented non-VA medications, and local prescriptions that have or been discontinued in the past 90 days.) with the patient and/or his/her care-internal sales engineer. Handwritten corrections, additions and/or deletions were made to the list, as appropriate. Corrected Outpatient Medication List was provided to the patient/caregiver. Sexual Orientation - CP,L,N,P,PH,PS,S,U: The patient thinks of their sexual orientation as: Straight or Heterosexual /es/ Julisa Hoover DNP, SUPERVISOR SELF SERVICE STORE, GLOVE STITCHER-C Primary Care Nurse Practitioner Signed: 09/25/2024 11:46 JULISA HOOVER [facility] Sep 25, 2024 10:51 AM NURSING NOTE: LOCAL TITLE: V15 PACT FACE TO FACE NOTE STL STANDARD TITLE: NURSING NOTE DATE OF NOTE: SEP 25, 2024@10:51 ENTRY DATE: SEP 25, 2024@10:51:48 AUTHOR: SAMEER NUNEZ EXP COSIGNER: URGENCY: STATUS: COMPLETED Provider Visit: Patient Identifiers : Full Name Date of Reason for visit: Established Follow-Up Patient states he is here for a routine visit/had pacemaker placed on 09/09. Mode of Arrival: Assistive Device: cane Allergy Review: FELODIPINE, LISINOPRIL, DILTIAZEM Allergy list reviewed and remains current. Recent Vital Signs: Temperature: 97.6 F [36.4 C] (09/25/2024 10:45) Pulse: 66 (09/25/2024 10:45) Respiration: 20 (09/25/2024 10:45) B/P: 131/70 (09/25/2024 10:45) Pain: 0 (09/25/2024 10:45) Wt: 224.6 lb [101.88 kg] (09/25/2024 10:45) Ht: 70 in [177.8 cm] (04/12/2023 13:15) BMI: 32.3 POX: 97% (09/25/2024 10:45) PERSONAL HEALTH INVENTORY Notes: No data available for PHI note titles PERSONAL HEALTH INVENTORY - MAP: No data available for PHI MAP What matters most to you in your life right now? 's Response: being able to hear WHOLE HEALTH SHARED GOALS: PERSONAL HEALTH PLAN - SHARED GOALS: 09/27/2020 [facility] Shared Goals 08/31/2019 [facility] Shared Goals SHARED GOALS to be fit Would you like to discuss any personal problem, family problem, alcohol use, drug use, or a mental or emotional illness? No My [facility] ([facility]), please select appointment type: Face to face: Yes- Done Contact provided Primary Care phone number and encouraged to call if any questions or concerns. Review that after hours nurse line [phone] and emergency room are available 14/01 for patient use. Contact verbalized good understanding. Suicide Screen - V: C-SSRS Screening [place] Suicide Severity Rating Scale (C-SSRS) screener 1. Over the past month, have you wished you were or wished you could go to sleep and not wake up? No 2. Over the past month, have you had any actual thoughts of killing yourself? No 3. Over the past month, have you been thinking about how you might do this? Response not required due to responses to other questions. 4. Over the past month, have you had these thoughts and had some intention of acting on them? Response not required due to responses to other questions. 5. Over the past month, have you started to work out or worked out the details of how to kill yourself? Response not required due to responses to other questions. 6. If yes, at any time in the past month did you intend to carry out this plan? Response not required due to responses to other questions. 7. In your lifetime, have you ever done anything, started to do anything, or prepared to do anything to end your life (for example, collected pills, obtained a gun, gave away valuables, went to the roof but didn't jump)? No 8. If YES, was this within the past 3 months? Response not required due to responses to other questions. COVID-19 Immunization - L,N,P,PH,U: Refused Pfizer Monovalent COVID-19 vaccine Immunization: COVID-19 (PFIZER), MRNA, LNP-S, PF, ADE-SUCROSE, 30 MCG/0.3 ML (AGES 12+ YEARS) Refusal Reason: PATIENT DECISION Patient refuses all immunization(s) in the COVID-19 group Date Documented: 09/25/24 10:54 Alcohol Use Screen (AUDIT-C) - V: Alcohol Screen: SCREEN FOR ALCOHOL (AUDIT-C) An alcohol screening test (AUDIT-C) was negative (score=4). 1. How often did you have a drink containing alcohol in the past year? Consider a drink to be a 12 ounce can or bottle of regular beer, 8 ounces of malt liquor, a 5 ounce glass of table wine, or a 1.5 ounce shot of liquor (like scotch, gin, or vodka). Four or more times a week 2. How many drinks containing alcohol did you have on a typical day when you were drinking in the past year? One or two drinks 3. How often did you have six or more drinks on one occasion in the past year? Never Depression Screening - V: Perform PHQ-2 A PHQ-2 screen was performed. The score was 0 which is a negative screen for depression. Over the past two weeks, how often have you been bothered by the following problems? 1. Little interest or pleasure in doing things Not at all 2. Feeling down, depressed, or hopeless Not at all Tobacco Use Screening - AT,DE,L,M,N,P,PH,PS,RT,S,U: The patient is a former cigarette smoker. The patient has never used other types of tobacco. Learning Assessment: - * This patient's learning ABILITIES, BARRIERS to learning, CULTURAL and METHODIST beliefs, and learning PREFERENCES were assessed. Following are findings of note: Patient reads well. Patient has the following hearing/auditory barrier(s) to consider when teaching: Hard of hearing. Patient has the following speech barrier to consider when teaching: No speech barrier identified. LANGUAGE Patient reports that Japanese is preferred language for healthcare. Patient has the following language barrier to consider when teaching: No language barrier has been identified. Patient has the following vision barrier(s) to consider when teaching: Requires glasses/contacts for reading Patient has the following dexterity/mobility barrier(s) to consider when teaching: Patient ambulates with the assistance of a cane Patient has the following cognitive/memory barrier(s) to consider when teaching: No cognitive/memory barrier has been identified. Patient has the following emotional/psychological barrier(s) to consider when teaching: No emotional/psychosocial barrier has been identified. /es/ SAMEER NUNEZ LPN LICENSED PRACITCAL NURSE Signed: 09/25/2024 10:56 SAMEER NUNEZ [facility]
--- OUTSIDE RECORDS SUMMARY | 2024-09-28 07:00 | XMS_ITS | Encounter Summary ---
Author Name [facility] [facility] [place] [facility] [place] Address [address] [place] [address] Care Team Providers Care Small Parts Assembler Name Role Phone WHITNEY HOOVER Primary Care [...] MEDIC ARE SUPPL EMENT October 22, 2020 [id number] [phone] LORRAINE MATHIS RNARD PATIENT ANTHE[place] MEDICARE SUPPLEMEN ANISHA MEDIC ARE SUPPL EMENT October 22, 2020 [id number] [phone] GIUSEPPEEzioBE RNARD PATIENT AN[place] SUPPLEMEN ANISHA MEDIC ARE SUPPL EMENT October 22, 2020 [id number] [phone] MANUEL MATHIS JR PATIENT BCBS [place] MEDICARE SUPPLEMEN ANISHA MEDIC ARE SUPPL EMENT October 22, 2020 [id number] [phone] DELFINABE RNARD PATIENT MEDICARE (WNR) MEDICARE (M) PART A Jul 25, 2000 PART A [id number] MANUEL MATHIS JR PATIENT MEDICARE (WNR) MEDICARE (M) PART B Jul 25, 2000 PART B [id number] GIUSEPPEEzio WOODSONMANUEL Darrick PATIENT MEDICARE (WNR) MEDICARE (M) PART A Jul 25, 2000 PART A [id number] [phone] MANUEL MATHIS JR Darrick PATIENT MEDICARE (WNR) MEDICARE (M) PART B Jul 25, 2000 PART B [id number] DELFINA MANUEL Darrick PATIENT Selected Encounter This section includes the information on record at [place] for the Encounter. Date/Time Encounter Type Encounter Description Reason Provider Source Sep 28, 2024 01:00 PM HEARING AID FITTING/CHECKING AUDIOLOGY ICD-10-CM Z46.1 Encounter for fitting and adjustment of hearing aid MARIO ROSALES Ayana Encounter Template Text not used by [place] Assessments - Encounter Diagnoses This section includes the primary and secondary diagnoses documented for the Encounter. Date/Time Primary/Secondary Diagnosis Diagnosis Name Provider Source Sep 28, 2024 01:45 PM PRIMARY Encounter for fitting and adjustment of hearing aid MARIO ROSALES [facility] Sep 28, 2024 01:45 PM SECONDARY Sensorineural hearing loss, bilateral MARIO ROSALES [facility] Plan of Treatment: Future Appointments (+ 6 months) and Future Tests (+/- 45 days) The Plan of Treatment section includes future care activities for the patient from all [place] treatmentfacilities. This section includes future appointments and future orders which are active, pending or scheduled. Future Appointments This section includes appointments that were scheduled to occur 6 months from the date of the Encounter, up to a maximum of 20 appointments. The data comes from all [place] treatment facilities. Appointment Date/Time Appointment Type Appointme nt Facility Name November 06, 2024 01:45 PM AMBULATORY - SURGERY Kumar MARADIAGA [facility] Mar 30, 2025 11:30 AM AMBULATORY - MEDICINE [facility] Encounter Notes: All associated encounter notes This section contains the clinical notes associated to the Encounter. Date/Time Encounter Note(s) Provider Source Oct 06, 2024 04:03 PM ADDENDUM: LOCAL TITLE: Addendum STANDARD TITLE: ADDENDUM DATE OF NOTE: OCT 06, 2024@16:03:39 ENTRY DATE: OCT 06, 2024@16:03:39 AUTHOR: MARIO ROSALES EXP COSIGNER: URGENCY: STATUS: COMPLETED SUBJECT: Audio Called and spoke with his . Offered multiple OBs at [facility] and [facility], though none were compatible with 's schedule. 's inquired about [facility] clinic. RTC placed to schedule at [facility]. Mailing hearing aid so [place] can utilize both in the meantime; he confirmed understanding he will not have binaural streaming/volume synch until they are synched again. Mr. Melendez, please call [place] at to schedule [facility] appt. /es/ Joe Keene, [facility] Staff Reading Aide, Surgery Service Signed: 10/06/2024 16:05 Receipt Acknowledged By: 10/13/2024 09:32 /es/ AMBIKA MELENDEZ MSA === --- Original Document --- 09/28/24 HEARING AIDS STL: Hearing aid check performed today: CASE HISTORY: wore the following hearing devices: 08/27/[address] [facility] ITC R R [id number] 08/27/[address] [facility] ITC R L [id number] States his noticed a hole in the shell of his right hearing aid following a recent hospital stay. CLEANING/REPAIRS: General cleaning. Listening check OK. Large hole in the shell; will send for recase at swimming pool service technician given battery is not safe to put under UV light to cure an acrylic patch. DATALOGGING: Datalogging since 2024 reveals 10 hrs/day avg wear time bilaterally. Datalogging reset. PROGRAMMING: Increased overall gain binaurally 1 step per [place] preference. He confirmed comfort with volume. DISPOSITION: [place] left office wearing left hearing aid only. Advised he should receive his right hearing aid in 2 week(s.) Once repaired, will RTC due to age then be mailed to 's permanent address via [facility] [address] [place] [address] [place] [address] RECOMMENDATIONS: 1. Order Builder Loader repair of right hearing aid. 2. Contact [facility] [phone] for repairs and/or adjustments as needed. /Joe Schmidt, [facility] Staff Reading Aide, Surgery Service Signed: 09/28/2024 13:45 10/05/2024 ADDENDUM STATUS: COMPLETED Certified RT repair; swimming pool service technician unable to load settings; loaded last saved settings which removed binaural pairing; alerting provider who entered repair to follow-up with as needed. 09/28/24 [id number] SERV REQ - REP HB CLOSED [id number] [facility] AI ITC R /ramon/ CLARICE DELONG Staff Reading AideJOE, NEAL-A Signed: 10/05/2024 08:36 Receipt Acknowledged By: 10/05/2024 10:00 /Joe Schmidt, [facility] Staff Reading Aide, Surgery Service 10/05/2024 ADDENDUM STATUS: COMPLETED Please send hearing aids to [facility] through interoffice mail. /Joe Schmidt, [facility] Staff Reading Aide, Surgery Service Signed: 10/05/2024 10:00 Receipt Acknowledged By: 10/05/2024 10:03 /chidi DELONG Staff Reading Aide, AU.D., [facility] 10/05/2024 ADDENDUM STATUS: COMPLETED Hearing aids removed from mail and to be sent to [facility] via interoffice mail. /chidi [place] Reading Aide, AU.D., [facility] Signed: 10/05/2024 10:03 10/07/2024 ADDENDUM STATUS: COMPLETED [id number] /ramon/ Joe FUENTES Staff Reading Aide, Surgery Service Signed: 10/07/2024 14:39 MARIO ROSALES [facility] Oct 05, 2024 10:00 AM ADDENDUM: LOCAL TITLE: Addendum STANDARD TITLE: ADDENDUM DATE OF NOTE: OCT 05, 2024@10:00:24 ENTRY DATE: OCT 05, 2024@10:00:25 AUTHOR: MARIO ROSALES EXP COSIGNER: URGENCY: STATUS: COMPLETED Please send hearing aids to [facility] through interoffice mail. /ramon/ Joe Keene, [facility] Staff Reading Aide, Surgery Service Signed: 10/05/2024 10:00 Receipt Acknowledged By: 10/05/2024 10:03 /es/ CLARICE DELONG Staff Reading Aide, JOE, KRISTIAN === --- Original Document --- 09/28/24 HEARING AIDS STL: Hearing aid check performed today: CASE HISTORY: [place] wore the following hearing devices: 08/27/24 [employer] [facility] ITC R R [id number] 08/27/24 [facility] AI ITC R L [id number] States his noticed a hole in the shell of his right hearing aid following a recent hospital stay. CLEANING/REPAIRS: General cleaning. Listening check OK. Large hole in the shell; will send for recase at swimming pool service technician given battery is not safe to put under UV light to cure an acrylic patch. DATALOGGING: Datalogging since 2024 reveals 10 hrs/day avg wear time bilaterally. Datalogging reset. PROGRAMMING: Increased overall gain binaurally 1 step per preference. He confirmed comfort with volume. DISPOSITION: [place] left office wearing left hearing aid only. Advised he should receive his right hearing aid in 2 week(s.) Once repaired, will RTC due to age then be mailed to 's permanent address via [facility] [address] [place] [address] [place] [address] RECOMMENDATIONS: 1. Order Builder Loader repair of right hearing aid. 2. Contact [facility] Clinic [phone] for repairs and/or adjustments as needed. /Joe Schmidt, [facility]A Staff Reading Aide, Surgery Service Signed: 09/28/2024 13:45 10/05/2024 ADDENDUM STATUS: COMPLETED Certified RT repair; swimming pool service technician unable to load [place] settings; loaded last saved settings which removed binaural pairing; alerting provider who entered repair to follow-up with as needed. 09/28/24 [id number] SERV REQ - REP HB CLOSED [id number] ONI MURRELL R /es/ CLARICE DELONG Staff Reading AideJOE, NEAL-A Signed: 10/05/2024 08:36 Receipt Acknowledged By: 10/05/2024 10:00 /Joe Schmidt, [facility]-A Staff Reading Aide, Surgery Service 10/05/2024 ADDENDUM STATUS: COMPLETED Hearing aids removed from mail and to be sent to [facility] via interoffice mail. /chidi DELONG Staff Reading AideJOE, NEAL-A Signed: 10/05/2024 10:03 MARIO ROSALES [facility] Oct 05, 2024 08:27 AM ADDENDUM: LOCAL TITLE: Addendum STANDARD TITLE: ADDENDUM DATE OF NOTE: OCT 05, 2024@08:27:48 ENTRY DATE: OCT 05, 2024@08:27:49 AUTHOR: CLARICE DELONG EXP COSIGNER: URGENCY: STATUS: COMPLETED SUBJECT: Audio Certified RT repair; swimming pool service technician unable to load settings; loaded last saved settings which removed binaural pairing; alerting provider who entered repair to follow-up with [place] as needed. 09/28/24 [id number] SERV REQ - REP HB CLOSED [id number] ONI AYALA ITC R /es/ CLARICE DELONG Staff Reading AideJOE, NEAL-A Signed: 10/05/2024 08:36 Receipt Acknowledged By: 10/05/2024 10:00 /Joe Schmidt, [facility]-A Staff Reading Aide, Surgery Service === --- Original Document --- 09/28/24 HEARING AIDS STL: Hearing aid check performed today: CASE HISTORY: wore the following hearing devices: 08/27/24 [facility] ITC R R [id number] 08/27/24 [facility] ITC R L [id number] States his noticed a hole in the shell of his right hearing aid following a recent hospital stay. CLEANING/REPAIRS: General cleaning. Listening check OK. Large hole in the shell; will send for recase at swimming pool service technician given battery is not safe to put under UV light to cure an acrylic patch. DATALOGGING: Datalogging since 2024 reveals 10 hrs/day avg wear time bilaterally. Datalogging reset. PROGRAMMING: Increased overall gain binaurally 1 step per [place] preference. He confirmed comfort with volume. DISPOSITION: left office wearing left hearing aid only. Advised he should receive his right hearing aid in 2 week(s.) Once repaired, will RTC due to age then be mailed to [place]'s permanent address via [facility] [id number] [place] [id number] RECOMMENDATIONS: 1. Order Builder Loader repair of right hearing aid. 2. Contact [facility] Clinic [phone] for repairs and/or adjustments as needed. /Joe Schmidt, [facility] Staff Reading Aide, Surgery Service Signed: 09/28/2024 13:45 10/05/2024 ADDENDUM STATUS: COMPLETED Please send hearing aids to [facility] through interoffice mail. /Joe Schmidt, NE[facility]-A Staff Reading Aide, Surgery Service Signed: 10/05/2024 10:00 Receipt Acknowledged By: * AWAITING SIGNATURE * CLARICE DELONG [facility] Sep 28, 2024 01:22 PM AUDIOLOGY PETROLOGIST NOTE: LOCAL TITLE: HEARING AIDS STL STANDARD TITLE: AUDIOLOGY PETROLOGIST NOTE DATE OF NOTE: SEP 28, 2024@13:22 ENTRY DATE: SEP 28, 2024@13:22:27 AUTHOR: MARIO ROSALES EXP COSIGNER: URGENCY: STATUS: COMPLETED SUBJECT: Audio HEARING AIDS STL Has ADDENDA Hearing aid check performed today: CASE HISTORY: wore the following hearing devices: 08/27/24 [facility] ITC R R [id number] 08/27/24 [facility] ITC R L [id number] States his noticed a hole in the shell of his right hearing aid following a recent hospital stay. CLEANING/REPAIRS: General cleaning. Listening check OK. Large hole in the shell; will send for recase at swimming pool service technician given battery is not safe to put under UV light to cure an acrylic patch. DATALOGGING: Datalogging since 2024 reveals 10 hrs/day avg wear time bilaterally. Datalogging reset. PROGRAMMING: Increased overall gain binaurally 1 step per preference. He confirmed comfort with volume. DISPOSITION: [place] left office wearing left hearing aid only. Advised he should receive his right hearing aid in 2 week(s.) Once repaired, will RTC due to age then be mailed to 's permanent address via [facility] [place] [address] RECOMMENDATIONS: 1. Order Builder Loader repair of right hearing aid. 2. Contact [facility] [phone] for repairs and/or adjustments as needed. /Joe Schmidt, CCC-A Staff Reading Aide, Surgery Service Signed: 09/28/2024 13:45 10/05/2024 ADDENDUM STATUS: COMPLETED Certified RT repair; swimming pool service technician unable to load [place] settings; loaded last saved settings which removed binaural pairing; alerting provider who entered repair to follow-up with as needed. 09/28/24 [id number] SERV REQ - REP HB CLOSED [id number] ONI AYALA ITC R /ramon/ CLARICE DELONG Staff Reading Aide, JOE, CCC-A Signed: 10/05/2024 08:36 Receipt Acknowledged By: 10/05/2024 10:00 /Joe Schmidt, CCC-A Staff Reading Aide, Surgery Service 10/05/2024 ADDENDUM STATUS: COMPLETED Please send hearing aids to through interoffice mail. /ramon/ Joe Keene, KRISTIAN Staff Reading Aide, Surgery Service Signed: 10/05/2024 10:00 Receipt Acknowledged By: 10/05/2024 10:03 /ramon/ CLARICE [place] Reading AideJOE, KRISTIAN 10/05/2024 ADDENDUM STATUS: COMPLETED Hearing aids removed from mail and to be sent to [facility] via interoffice mail. /ramon/ CLARICE [place] Reading Aide, AU.D., KRISTIAN Signed: 10/05/2024 10:03 10/06/2024 ADDENDUM STATUS: COMPLETED Called and spoke with his . Offered multiple OBs at [facility] and , though none were compatible with 's schedule. 's inquired about [facility] clinic. RTC placed to schedule at [facility]. Mailing hearing aid so [place] can utilize both in the meantime; he confirmed understanding he will not have binaural streaming/volume synch until they are synched again. Mr. Melendez, please call [place] at to schedule [facility] appt. /ramon/ Joe Keene, KRISTIAN Staff Reading Aide, Surgery Service Signed: 10/06/2024 16:05 Receipt Acknowledged By: * AWAITING SIGNATURE * AMBIKA MELENDEZ 10/07/2024 ADDENDUM STATUS: COMPLETED [id number] /ramon/ Joe FUENTES Staff Reading Aide, Surgery Service Signed: 10/07/2024 14:39 MARIO ROSALES [facility]
--- OUTSIDE RECORDS SUMMARY | 2024-10-09 01:24 | XMS_ITS | Encounter Summary ---
Author Name [facility] [place] [facility] [place] Address [address] [place] [address] Care Team Providers Care Floor Covering Printer Name Role Phone JULISA HOOVER Primary Care [...] MEDIC ARE SUPPL EMENT October 22, 2020 [id number] [phone] DELFINABE RNARD PATIENT ANTHE[place] MED[place]ARE SUPPLEMEN ANISHA MEDIC ARE SUPPL EMENT October 22, 2020 [id number] [phone] CATHERINENIEzio,BE RNARD PATIENT AN[place] MED[place] SUPPLEMEN ANISHA MEDIC ARE SUPPL EMENT October 22, 2020 [id number] [phone] MANUEL MATHIS JR PATIENT BC[place] MEDICARE SUPPLEMEN ANISHA MEDIC ARE SUPPL EMENT October 22, 2020 [id number] [phone] DELFINA,BE RNARD PATIENT MEDICARE (WNR) MEDICARE (M) PART A Jul 25, 2000 PART A [id number] [phone] MANUEL MATHIS JR D PATIENT MEDICARE (WNR) MEDICARE (M) PART B Jul 25, 2000 PART B [id number] MANUEL MATHIS JR PATIENT MEDICARE (WNR) MEDICARE (M) PART A Jul 25, 2000 PART A [id number] MANUEL MATHIS JR PATIENT MEDICARE (WNR) MEDICARE (M) PART B Jul 25, 2000 PART B [id number] [phone] MANUEL MATHIS JR Darrick PATIENT Selected Encounter This section includes the [place] on [place] at [place] for the Encounter. Date/Time Encounter Type Encounter Description Reason Pro vider Source Oct 09, 2024 07:24 AM Outpatient Encounter COMMUNITY CARE CONSULT IHE Encounter Template Text not used by [place] Plan of Treatment: Future Appointments (+ 6 months) and Future Tests (+/- 45 days) The Plan of Treatment section includes future care activities for the patient from all [place] treatmentfacilities. This section includes future appointments and future orders which are active, pending or scheduled. Future Appointments This section includes appointments that were scheduled to occur 6 months from the date of the Encounter, up to a maximum of 20 appointments. The data comes from all [place] treatment facilities. Appointment Date/Time Appointment Type Appointme nt Facility Name November 06, 2024 01:45 PM AMBULATORY - SURGERY [facility] Mar 30, 2025 11:30 AM AMBULATORY - MEDICINE [facility] Social History: Smoking Status (Most current) and Tobacco Use (All prior to encounter date) This section includes the most current, and the historical, smoking and tobacco- related health factors from the [facility] facility where the Encounter took place. Current Smoking Status This section includes the most current smoking, or tobacco-related health factor, from the [place] facility where the Encounter took place. Date/Time Current Smoking Status Comment Facil ity Aug 22, 2000 12:34 PM CURRENT NON-TOBACC O USER-HX OF USE [facility] Encounter Notes: All associated encounter notes This section contains the clinical notes associated to the Encounter. Date/Time Encounter Note(s) Provider Source Oct 09, 2024 07:24 AM NONVA NOTE: LOCAL TITLE: COMMUNITY CARE-REQUEST FOR SERVICE NOTE STL STANDARD TITLE: NONVA NOTE DATE OF NOTE: OCT 09, 2024@07:24 ENTRY DATE: OCT 09, 2024@07:24:07 AUTHOR: ALIYA HARPER EXP COSIGNER: URGENCY: STATUS: COMPLETED COMMUNITY CARE-REQUEST FOR SERVICE NOTE STL Has ADDENDA Request for Services (RFS) documentation has been scanned to [facility] Community Care Consult: COMMUNITY CARE-Oncology Consult No: [id number] Date scanned: Sep A Request for Service (RFS) form [id number] has been received which includes the following: Care Requested: 's previous CC Hem/Onc consult has . CC Provider sent request for new referral/auth for continuity of care. copy of RFS/notes sent to [facility]. Alerting [place] PCP, Oncology and [facility] nurse for review and disposition. ICD-10 Dx code: D69.6 Date VA received request: Sep Date service required: Sep Requesting Community Provider Information: Name of Ordering Provider: Dr. Sai Gaffney Office:[facility] Address, [facility] State: [address] [place] [address] /ramon/ ALIYA HARPER MSN RN REGISTERED NURSE Signed: 10/09/2024 07:28 Receipt Acknowledged By: 10/13/2024 10:00 /ramon/ GALEN EMERSON GREEN CHAINER CCDS REFERRAL COORDINATION TRIAGE NURSE 10/12/2024 16:01 /raomn/ Julisa Hoover DNP, HOMER, DRUM SANDER-C Primary Care Nurse Practitioner 10/09/2024 08:48 /es/ Jose David Dunbar MD Staff Physician 10/20/2024 06:43 /es/ KYARA SANDOVAL GREEN CHAINER REGISTERED NURSE 10/12/2024 ADDENDUM STATUS: COMPLETED [facility] hematology/oncology consult placed 09/25/24. requested to cancel the consult as he chooses to use his private insurance to receive care in the community. Thank you! /chidi Hoover DNP, HOMER, DRUM SANDER-C Primary Care Nurse Practitioner Signed: 10/12/2024 16:02 ALIYA HARPER [facility]
--- OUTSIDE RECORDS SUMMARY | 2024-10-13 04:16 | XMS_ITS | Encounter Summary ---
Author Name [facility] [place] Organization [facility] [place] Address [address] [place] [address] Care Team Providers Care Hand Spinner Name Role Phone WHITNEY HOOVER Primary Care [...] MEDIC ARE SUPPL EMENT October 22, 2020 [id number] [phone] DELFINABE RNARD PATIENT ANTHEM BCBS [place] MEDICARE SUPPLEMEN ANISHA MEDIC ARE SUPPL EMENT October 22, 2020 [id number] [phone] CATHERINENIEzio,BE RNARD PATIENT ANTHEM BCBS [place] MEDICARE SUPPLEMEN ANISHA MEDIC ARE SUPPL EMENT October 22, 2020 [id number] [phone] MANUEL MATHIS JR PATIENT [place] MEDICARE SUPPLEMEN ANISHA MEDIC ARE SUPPL EMENT October 22, 2020 [id number] [phone] DELFINA,BE RNARD PATIENT MEDICARE (WNR) MEDICARE (M) PART A Jul 25, 2000 PART A [id number] [phone] MANUEL MATHIS JR Darrick PATIENT MEDICARE (WNR) MEDICARE (M) PART B Jul 25, 2000 PART B [id number] [phone] MANUEL MATHIS JR PATIENT MEDICARE (WNR) MEDICARE (M) PART A Jul 25, 2000 PART A [id number] [phone] MANUEL MATHIS JR PATIENT MEDICARE (WNR) MEDICARE (M) PART B Jul 25, 2000 PART B [id number] MANUEL MATHIS JR PATIENT Selected Encounter This section includes the information on record at [place] for the Encounter. Date/Time Encounter Type Encounter Description Reason Pro vider Source Oct 13, 2024 10:16 AM Outpatient Encounter COMMUNITY CARE CONSULT IHE Encounter Template Text not used by [place] Plan of Treatment: Future Appointments (+ 6 months) and Future Tests (+/- 45 days) The Plan of Treatment section includes future care activities for the patient from all [place] treatmentfacilities. This section includes future appointments and future orders which are active, pending or scheduled. Future Appointments This section includes appointments that were scheduled to occur 6 months from the date of the Encounter, up to a maximum of 20 appointments. The data comes from all [place] treatment facilities. Appointment Date/Time Appointment Type Appointme nt Facility Name November 06, 2024 01:45 PM AMBULATORY - SURGERY [facility] Mar 30, 2025 11:30 AM AMBULATORY - MEDICINE [facility] Social History: Smoking Status (Most current) and Tobacco Use (All prior to encounter date) This section includes the most current, and the historical, smoking and tobacco- related health factors from the [facility] facility where the Encounter took place. Current Smoking Status This section includes the most current smoking, or tobacco-related health factor, from the [place] facility where the Encounter took place. Date/Time Current Smoking Status Comment Facil ity Aug 22, 2000 12:34 PM CURRENT NON-TOBACC O USER-HX OF USE [facility] Encounter Notes: All associated encounter notes This section contains the clinical notes associated to the Encounter. Date/Time Encounter Note(s) Provider Source Oct 13, 2024 10:16 AM LETTERS: LOCAL TITLE: COMMUNITY CARE-REQUEST FOR SERVICES (RFS) LETTER ST STANDARD TITLE: LETTERS DATE OF NOTE: OCT 13, 2024@10:16 ENTRY DATE: OCT 13, 2024@10:16:27 AUTHOR: ALIYA HARPER EXP COSIGNER: URGENCY: STATUS: COMPLETED [facility] [address] [place] [address] [facility] [place] Attn: Dr. Sai Gaffney [address] [place] [address] Dear Provider, [place] Information: Patient Name: LUCIA MATHIS Date of : Jul [facility] PCP/Oncology Team has received the request new referral/auth - oncology from you for services that were not originally authorized in the [facility] Administration for this . Upon review, the following determination has been made: Service request has been forwarded to Primary Care provider for consideration. [place] requested to cancel the requested response/new consult as he chooses to use his private insurance to receive care in the community. Should you have questions, please contact us at [facility] P: [phone] to speak with a patient water softener service supervisor. As a reminder, if applicable, return medical records within 30 days for routine services. Sincerely, Sincerely, ALIYA HARPER MSN RN REGISTERED NURSE ALIYA HARPER [facility]
--- OUTSIDE RECORDS SUMMARY | 2025-04-09 07:19 | XMS_ITS | Continuity of Care Document ---
Author Name [facility] Organization 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 Unavailable Unavailable Problems Combined list of problems from Department of Defense and [facility] Affairs facilities. It does not include entries that were removed or entered in error. Problem Status Onset Date Problem Type Date of Resolution Comments Source Cardiac pacemaker in situ Active 5 Condition [facility] Allergic rhinitis Active Condition [facility] Benign essential hypertension Active Condition [facility] Benign prostatic hyperplasia Active Condition [facility] Cholecystitis Active Condition [facility] Chronic kidney disease stage 3A Active Condition [facility] Chronic obstructive lung disease (SNOMED CT 26677140) Active Condition [facility] Elevated PSA Active Condition [facility] Fracture of cervical spine Active Condition [facility] Gastroesophageal reflux disease Active Condition [facility] Gout (SNOMED CT 65338326) Active Condition [facility] Hearing loss Active Condition [facility] Hyperlipidemia Active Condition [facility] Hypokalemia Active Condition [facility] Hypomagnesemia Active Condition [facility] Liver function tests outside reference range Active Condition [facility] Low back pain Active Condition [facility] Prediabetes Active Condition [facility] Right knee pain Active Condition [facility] Rosacea Active Condition [facility] Thrombocytosis Active Condition [facility] Vertigo Active Condition [facility] Vitamin D deficiency Active Condition [facility] Actinic Keratosis Inactive Condition 04/14/2023 [facility] Diverticulosis, Colonic Inactive Condition 04/14/2023 [facility] Impotence of organic origin Inactive Condition 04/14/2023 [facility] Osteoarthritis Inactive Condition 04/14/2023 [facility] Sleep Apnea (ICD-9-CM 780.57) Inactive Condition 04/14/2023 [facility] Vertigo Inactive Condition 04/14/2023 [facility] Diagnosis: ICD-10-CM Z95.0 Presence of cardiac pacemaker Active Diagnosis [facility] Diagnosis: ICD-10-CM H90.3 Sensorineural hearing loss, bilateral Active Diagnosis [facility] Diagnosis: ICD-10-CM Z46.1 Encounter for fitting and adjustment of hearing aid Active Diagnosis [facility] Diagnosis: ICD-10-CM Z13.9 Encounter for screening, unspecified Active Diagnosis [facility] Diagnosis: ICD-10-CM Z13.5 Encounter for screening for eye and ear disorders Active Diagnosis [facility] Diagnosis: ICD-10-CM I10 Essential (primary) hypertension Active Diagnosis [facility] Medications Combined list of outpatient medications from Department of Defense and Veterans Affairs facilities.Medications provided include 1) outpatient medications from the last 15 months, and 2) patient-reported medications. Medication Details Route Status Indication(s) Patie nt Instructions Prescription Expires Prescription Number Last Dispense Date Ordering Provider Order Date Order Qty Source ALLOPURINOL 100MG TAB TAKE ONE TABLET BY MOUTH ONCE A DAY ORAL ACTIVE KIKOMOHINI AAYUSH R 2023 [facility] DICLOFENAC NA 1% GEL,TOP APPLY 4 GM TO AFFECTED AREA(S) FOUR TIMES A DAY NEEDED FOR PAIN/INF LAMMATIO N; NOT MORE THAN 16 GRAMS DAILY TO ANY LOWER EXTREMIT Y JOINT. NOT MORE THAN 8 GRAMS DAILY TO ANY UPPER EXTREMIT Y JOINT. MAX 32GM/DAY OVER ALL JOINTS. (MEASURE DOSE WITH RULER ATTACHED INSIDE BOX) TOPICA L ACTIVE 09/23/2025 [id number] KIKOMOHINI AAYUSH R 2024 300 [facility] DICLOFENAC NA 1% GEL,TOP APPLY 4 GM TO AFFECTED AREA(S) FOUR TIMES A DAY NEEDED FOR PAIN/INF LAMMATIO N; NOT MORE THAN 16 GRAMS DAILY TO ANY LOWER EXTREMIT Y JOINT. NOT MORE THAN 8 GRAMS DAILY TO ANY UPPER EXTREMIT Y JOINT. MAX 32GM/DAY OVER ALL JOINTS. (MEASURE DOSE WITH RULER ATTACHED INSIDE BOX) LORENZO Crowder DISCONT INUED 03/17/2025 [id number] 5 MOHINI HOOVER AAYUSH R 2023 100 [facility] FINASTERIDE 5MG TAB TAKE ONE TABLET BY MOUTH ONCE A DAY ORAL ACTIVE ADDI PACE MD 2018 [facility] GUAIFENESIN 400MG TAB TAKE ONE TABLET BY MOUTH EVERY 6 HOURS NEEDED TO THIN MUCUS. TAKE WITH 8 OUNCE GLASS OF WATER. ORAL ACTIVE 03/31/2026 [id number] 5 KIKOMOHINI AAYUSH R 2024 360 [facility] GUAIFENESIN 400MG TAB TAKE ONE TABLET BY MOUTH EVERY 6 HOURS NEEDED TO THIN MUCUS. TAKE WITH 8 OUNCE GLASS OF WATER. ORAL DISCONT INUED 03/28/2025 [id number] 4 KIKOMOHINI AAYUSH R 2023 360 [facility] HYDROCHLORO THIAZIDE 25MG TAB TAKE ONE-HALF TABLET BY MOUTH EVERY MORNING ORAL ACTIVE 03/31/2026 [id number] 5 KIKOMOHINI AAYUSH R 2024 45 [facility] HYDROCHLORO THIAZIDE 25MG TAB TAKE ONE-HALF TABLET BY MOUTH EVERY MORNING ORAL DISCONT INUED 03/28/2025 [id number] 5 HOOVERMOHINI AAYUSH R 2023 45 [facility] HYDROXYUREA 500MG CAP TAKE 1 CAPSULE BY MOUTH TWICE A DAY ORAL ACTIVE KIKOMOHINI AAYUSH Moore 2023 [facility] LORATADINE 10MG TAB TAKE ONE TABLET BY MOUTH ONCE A DAY ON EMPTY STOMACH FOR ALLERGIE S ORAL ACTIVE 03/31/2026 [id number] 5 KIKOSHE LBY R 2024 90 [facility] LORATADINE 10MG TAB TAKE ONE TABLET BY MOUTH ONCE A DAY ON EMPTY STOMACH FOR ALLERGIE S ORAL DISCONT INUED 03/28/2025 [id number] 5 KIKO,MOHINI LBY R 2023 90 [facility] LORATADINE 10MG TAB TAKE ONE TABLET BY MOUTH ONCE A DAY ON EMPTY STOMACH FOR ALLERGIE S ORAL DISCONT INUED 04/08/2024 [id number] ADDI PACE MD 2022 90 [facility] LOSARTAN 50MG TAB TAKE ONE-HALF TABLET BY MOUTH ONCE A DAY TO LOWER BLOOD PRESSURE ORAL ACTIVE 03/31/2026 [id number] 5 KIKO,MOHINI LBY R 2024 45 [facility] LOSARTAN 50MG TAB TAKE ONE-HALF TABLET BY MOUTH ONCE A DAY TO LOWER BLOOD PRESSURE ORAL DISCONT INUED 03/28/2025 [id number] 5 KIKO,MOHINI RUTLEDGEY R 2023 45 [facility] LOSARTAN 50MG TAB TAKE ONE-HALF TABLET BY MOUTH ONCE A DAY TO LOWER BLOOD PRESSURE ORAL DISCONT INUED 04/10/2024 [id number] 4 KIKO,MOHINI LBY R 2022 45 [facility] MAGNESIUM OXIDE TAB TAKE 250 MG BY MOUTH ONCE A DAY ORAL ACTIVE MOHINI HOOVERY R 2023 [facility] METRONIDAZO LE 0.75% GEL,TOP APPLY LIGHTLY TO AFFECTED AREA(S) TWICE A DAY (TOPICAL USE ONLY) TOPICA L ACTIVE 03/31/2026 [id number] KIKO,MOHINI LBY R 2024 45 [facility] OLODATEROL 2.5MCG/TIOT ROPIUM 2.5MCG/ACTU AT INHL,ORAL,6 0D,4GM INHALE 1 PUFF BY ORAL INHALATI ON TWICE A DAY ADMINIST ER AT SAME TIME EACH DAY FOR BREATHIN G RESPIR ATORY (INHAL ATION) ACTIVE 03/31/2026 [id number] 5 KIKO,MOHINI LOONEY R 2024 3 [facility] OLODATEROL 2.5MCG/TIOT ROPIUM 2.5MCG/ACTU AT INHL,ORAL,6 0D,4GM INHALE 1 PUFF BY ORAL INHALATI ON TWICE A DAY ADMINIST ER AT SAME TIME EACH DAY FOR BREATHIN G RESPIR ATORY (INHAL ATION) DISCONT INUED 03/28/2025 [id number] 5 KIKO,MOHINI LOONEY R 2023 3 [facility] OLODATEROL 2.5MCG/TIOT ROPIUM 2.5MCG/ACTU AT INHL,ORAL,6 0D,4GM INHALE 1 PUFF BY ORAL INHALATI ON TWICE A DAY ADMINIST ER AT SAME TIME EACH DAY FOR BREATHIN G RESPIR ATORY (INHAL ATION) DISCONT INUED 07/04/2024 [id number] 4 KIKO,MOHINI LOONEY R 2023 3 [facility] OMEPRAZOLE 20MG CAP,EC TAKE ONE CAPSULE BY MOUTH EVERY MORNING BEFORE A MEAL ORAL ACTIVE 09/26/2025 [id number] 5 KIKO,MOHINI LOONEY R 2024 90 [facility] OMEPRAZOLE 20MG CAP,EC TAKE ONE CAPSULE BY MOUTH EVERY MORNING BEFORE A MEAL ORAL 09/11/2024 [id number] 4 KIKO,MOHINI LOONEY R 2023 90 [facility] POTASSIUM CHLORIDE 20MEQ TAB,SA (DISPERSIBL E) TAKE ONE TABLET BY MOUTH ONCE A DAY ORAL SUSPEND ED 03/31/2026 [id number] 5 KIKO,MOHINI RUTLEDGEY R 2024 90 [facility] POTASSIUM CHLORIDE 20MEQ TAB,SA (DISPERSIBL E) TAKE ONE TABLET BY MOUTH ONCE A DAY ORAL DISCONT INUED 03/28/2025 [id number] 5 KIKO,MOHINI RUTLEDGEY R 2023 90 [facility] POTASSIUM CHLORIDE 20MEQ TAB,SA (DISPERSIBL E) TAKE ONE TABLET BY MOUTH ONCE A DAY ORAL DISCONT INUED 09/11/2024 [id number] 4 MOHINI HOOVER R 2023 90 [facility] SIMVASTATIN 80MG TAB TAKE ONE-HALF TABLET BY MOUTH EVERY EVENING TO LOWER CHOLESTE ROL (REPORT ANY UNEXPLAI RUFINO MUSCLE PAIN, TENDERNE SS OR WEAKNESS TO YOUR PRIMARY CARE PROVIDER ) ORAL ACTIVE 03/31/2026 [id number] 5 MOHINI HOOVER R 2024 45 [facility] SIMVASTATIN 80MG TAB TAKE ONE-HALF TABLET BY MOUTH EVERY EVENING TO LOWER CHOLESTE ROL (REPORT ANY UNEXPLAI RUFINO MUSCLE PAIN, TENDERNE SS OR WEAKNESS TO YOUR PRIMARY CARE PROVIDER ) ORAL DISCONT INUED 03/28/2025 [id number] 5 MOHINI HOOVER R 2023 45 [facility] SIMVASTATIN 80MG TAB TAKE ONE-HALF TABLET BY MOUTH EVERY EVENING TO LOWER CHOLESTE ROL (REPORT ANY UNEXPLAI RUFINO MUSCLE PAIN, TENDERNE SS OR WEAKNESS TO YOUR PRIMARY CARE PROVIDER ) ORAL DISCONT INUED 04/08/2024 [id number] ADDI PACE MD 2022 45 [facility] TAMSULOSIN HCL 0.4MG CAP TAKE 1 CAPSULE BY MOUTH EVERY EVENING ORAL ACTIVE MOHINI HOOVER R 2023 [facility] Allergies, Adverse Reactions, Alerts Combined list of allergies from Department of Defense and Veterans Affairs facilities. It does not include entries that were removed or entered in error. Substance Category Reaction Severity Reaction type Status Date Reported Comments Source DILTIAZEM Propensity to adverse reactions to drug (finding) Swelling active 8 [facility] FELODIPINE Propensity to adverse reactions to drug (finding) SWELLING (NON-SPECI FIC) active 3 [facility] LISINOPRIL Propensity to adverse reactions to drug (finding) Cough active 8 [facility] Immunizations Combined list of available immunizations from the Department of Defense and Veterans Affairs facilities. Immunization Series Date Given Administered By Site Reaction Lot Number CVX Code Drug Reinforcing Rod Layer Status Comments Source INFLUENZA, ADJUVANTED, TRIVALENT, PF 2024 VIDYA NUNEZL Y C LEFT DELTO ID [id number] 168 complet ed [facility] INFLUENZA, HIGH-DOSE, TRIVALENT, PF 2023 MAYRAVIDYAL Y C RIGHT DELTO ID [id number] 135 complet ed [facility] TDAP 2 2023 115 complet ed HISTORICA L INFORMATI ON - FROM OTHER [facility], [facility] INFLUENZA, HIGH-DOSE, QUADRIVALENT 2022 GARTH AGUILAR A RIGHT DELTO ID [id number] 197 complet ed Completed Series, [facility] INFLUENZA, UNSPECIFIED FORMULATION 2021 88 complet ed HISTORICA L INFORMATI ON - SOURCE UNSPECIFI ED, [facility] INFLUENZA, UNSPECIFIED FORMULATION 2019 88 complet ed [facility] ZOSTER RECOMBINANT 2 2019 187 complet ed [facility] INFLUENZA, INJECTABLE, QUADRIVALENT, PRESERVATIVE FREE 1 2018 150 complet ed HISTORICA L INFORMATI ON - FROM OTHER [facility], [facility] INFLUENZA, UNSPECIFIED FORMULATION 2018 88 complet ed ILLINOI S TDAP 2018 115 complet ed Left Deltoid [facility] ZOSTER RECOMBINANT 1 2018 187 complet ed [facility] ZOSTER, UNSPECIFIED FORMULATION 1 2018 188 complet ed HISTORICA L INFORMATI ON - FROM OTHER [facility], [facility] INFLUENZA, INJECTABLE, QUADRIVALENT, PRESERVATIVE FREE 1 2017 150 complet ed HISTORICA L INFORMATI ON - FROM OTHER [facility], [facility] INFLUENZA, INJECTABLE, QUADRIVALENT 1 2016 158 complet ed HISTORICA L INFORMATI ON - FROM OTHER [facility], [facility] INFLUENZA, UNSPECIFIED FORMULATION 2016 88 complet ed ILLINOI S INFLUENZA, INJECTABLE, QUADRIVALENT 1 2015 158 complet ed HISTORICA L INFORMATI ON - FROM OTHER REGISTRY, [facility] INFLUENZA, UNSPECIFIED FORMULATION 2015 88 complet ed [facility] PNEUMOCOCCAL POLYSACCHARID E PPV23 2 2015 33 complet ed HISTORICA L INFORMATI ON - FROM OTHER REGISTRY, [facility] INFLUENZA, SEASONAL, INJECTABLE 1 2014 141 complet ed HISTORICA L INFORMATI ON - FROM OTHER REGISTRY, [facility] N PNEUMOCOCCAL CONJUGATE PCV 13 2014 133 complet ed [facility] INFLUENZA, UNSPECIFIED FORMULATION 2014 88 complet ed [facility] INFLUENZA, UNSPECIFIED FORMULATION 2014 88 complet ed ILLINOI S INFLUENZA, INJECTABLE, QUADRIVALENT 1 2013 158 complet ed HISTORICA L INFORMATI ON - FROM OTHER REGISTRY, [facility] INFLUENZA, UNSPECIFIED FORMULATION 2013 88 complet ed [facility] INFLUENZA, UNSPECIFIED FORMULATION 2013 88 complet ed [facility] INFLUENZA, HIGH DOSE SEASONAL 1 2012 135 complet ed HISTORICA L INFORMATI ON - FROM OTHER REGISTRY, [facility] INFLUENZA, UNSPECIFIED FORMULATION 2012 88 complet ed [facility] INFLUENZA, UNSPECIFIED FORMULATION 2011 88 complet ed [facility] INFLUENZA, HIGH DOSE SEASONAL 1 2011 135 complet ed HISTORICA L INFORMATI ON - FROM OTHER REGISTRY, [facility] N INFLUENZA, UNSPECIFIED FORMULATION 2011 88 complet ed [facility] PNEUMOCOCCAL POLYSACCHARID E PPV23 1 2010 33 complet ed HISTORICA L INFORMATI ON - FROM OTHER REGISTRY, [facility] N PNEUMOCOCCAL, UNSPECIFIED FORMULATION 2010 109 complet ed [facility] INFLUENZA, UNSPECIFIED FORMULATION 2010 88 complet ed [facility] INFLUENZA, UNSPECIFIED FORMULATION 2010 88 complet ed [facility] TD(ADULT) UNSPECIFIED FORMULATION 2008 139 complet ed Left Deltoid [facility] INFLUENZA, UNSPECIFIED FORMULATION 2007 88 complet ed [facility] INFLUENZA, UNSPECIFIED FORMULATION 2007 88 complet ed per patient [facility] INFLUENZA, UNSPECIFIED FORMULATION 2005 88 complet ed [facility] INFLUENZA (HISTORICAL) 2002 88 complet ed [facility] PNEUMOCOCCAL, UNSPECIFIED FORMULATION 2001 109 complet ed [facility] INFLUENZA, UNSPECIFIED FORMULATION 1998 88 complet ed [facility] TETANUS TOXOID, UNSPECIFIED FORMULATION 1998 TOBIAS VIRGEN 112 complet ed [facility] Vital Signs Combined list of inpatient and outpatient Vital Signs from Department of Defense and Veterans Affairs, ranging from 12 months to all on record, depending upon the facility. Vital Sign Value Date Comments Source SYSTOLIC BLOOD PRESSURE 137 03/30/2025 11:16:04 [facility] DIASTOLIC BLOOD PRESSURE 73 03/30/2025 11:16:04 [facility] PULSE OXIMETRY 98 % 03/30/2025 11:16:04 [place] [facility] WEIGHT 218 03/30/2025 11:16:04 [facility] BMI 31 kg/m2 03/30/2025 11:16:04 [facility] PAIN 0 03/30/2025 11:16:04 [facility] TEMPERATURE 97.9 03/30/2025 11:16:04 [facility] PULSE 70 03/30/2025 11:16:04 [facility] RESPIRATION 18 03/30/2025 11:16:04 [facility] SYSTOLIC BLOOD PRESSURE 131 09/25/2024 10:45:39 [facility] DIASTOLIC BLOOD PRESSURE 70 09/25/2024 10:45:39 [facility] PULSE OXIMETRY 97 09/25/2024 10:45:39 S Red MOLINA [facility] WEIGHT 224.6 09/25/2024 10:45:[address] [facility] [facility] BMI 32 kg/m2 09/25/2024 10:45:[address] [facility] PAIN 0 09/25/2024 10:45:[address] [facility] TEMPERATURE 97.6 09/25/2024 10:45:39 [facility] PULSE 66 09/25/2024 10:45:[address] [facility] RESPIRATION 20 09/25/2024 10:45:39 [facility] Encounters Combined list of: 1) Encounters from Department of [facility] Affairs facilities going backup to the last 18 months, not all [place] inpatient encounters are included; 2) Encounters from the Department of [facility] facilities going backup to 280 months. Location Location Details Encounter Type Encounter Number Reason For Visit Attending Provider ADM Date DC Date Status Disposition Source [facility] Outpatient Encounter [id number] 10/30 [facility] Outpatient Encounter [id number] NICOLÁS MILNER 11/10 [facility] Outpatient Encounter [id number] 03/25 [facility] Outpatient Encounter [id number] EMA NUNEZ 03/26 [facility] OFFICE O/P EST MOD 30 MIN [id number] Diagnos is: ICD-10- CM I10 Essenti al (primar y) hyperte NADER Henry 03/27 [facility] Outpatient Encounter [id number] SARAH HARPER A L 03/30 [facility] Outpatient Encounter [id number] 03/31 [facility] Outpatient Encounter [id number] 04/14 [facility] HEARING SERVICE [id number] Diagnos is: 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, SUZE Weber A 07/30 [facility] Outpatient Encounter [id number] 08/12 [facility] HEARING AID SUP/ACCESS /DEV [id number] Diagnos is: 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, FREDO WeberCY A 08/27 [facility] Outpatient Encounter [id number] 09/25 [facility] IMG RTA DETCJ/MNTR DS STAFF [id number] Diagnos is: ICD-10- CM Z13.5 Encount er for screeni ng for eye and ear disorde SA MASHA Camara 09/25 [facility] Outpatient Encounter [id number] Diagnos is: ICD-10- CM Z13.9 Encount er for screeni ng, unspeci Ovi Nolan 09/25 [facility] OFFICE O/P EST MOD 30 MIN [id number] Diagnos is: ICD-10- CM Z95.0 Presenc e of cardiac pacemak NADER Rojo BY Teresa 09/25 [facility] HEARING AID FITTING/CH ECKING [id number] Diagnos is: ICD-10- CM Z46.1 Encount er for fitting and adjustm ent of hearing aid MARIO ROSALES 09/28 [facility] Outpatient Encounter [id number] 10/09 [facility] Outpatient Encounter [id number] 10/13 [facility] HEARING AID FITTING/CH ECKING [id number] Diagnos is: 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, MIGUEL Parker 11/06 [facility] Outpatient Encounter [id number] 01/25 [facility] OFFICE O/P EST MOD 30 MIN [id number] Diagnos is: ICD-10- CM Z95.0 Presenc e of cardiac pacemak NADER Rojo BY Teresa 03/30 [facility] Social History Combined list of available smoking, tobacco, and other social history from Department of Defense and Veterans Affairs facilities. Social History Type Response Date Comment Source Tobacco smoking status [facility] VA-TOBACCO USE FORMER CIGARETTES 09/25/2024 [facility] History of tobacco use VA-TOBACCO NEVER USED OTHER TYPE 09/25/2024 [facility] History of tobacco use VA-TOBACCO FORMER USER 10/01/2023 [facility] History of tobacco use VA-TOBACCO FORMER USER 10/12/2022 [facility] History of tobacco use VA-TOBACCO FORMER USER 09/27/2020 [facility] History of tobacco use VA-TOBACCO QUIT 15 YRS OR MORE 08/23/2018 [facility] History of tobacco use LIFETIME NON-USER OF TOBACCO 02/05/2017 [facility] History of tobacco use QUIT TOBACCO >7 YEARS AGO 01/05/2016 [facility] History of tobacco use QUIT TOBACCO >7 YEARS AGO 11/22/2014 [facility] History of tobacco use LIFETIME NON-USER OF TOBACCO 12/30/2013 [facility] History of tobacco use QUIT TOBACCO >7 YEARS AGO 10/28/2012 [facility] History of tobacco use QUIT TOBACCO >7 YEARS AGO 06/19/2006 [facility] History of tobacco use CURRENT NON-TOBACCO USER-HX OF USE 12/11/2005 [facility] History of tobacco use CURRENT NON-TOBACCO USER-HX OF USE 06/20/2005 [facility] History of tobacco use CURRENT NON-TOBACCO USER-HX OF USE 01/16/2005 [facility] History of tobacco use CURRENT NON-TOBACCO USER-HX OF USE 03/28/2004 [facility] History of tobacco use CURRENT NON-TOBACCO USER-HX OF USE 06/23/2003 [facility] History of tobacco use CURRENT NON-TOBACCO USER-HX OF USE 09/22/2002 [facility] History of tobacco use LIFETIME NON-TOBACCO USER 11/11/2001 [facility] History of tobacco use CURRENT NON-TOBACCO USER-HX OF USE 12/02/2000 stopped over 20 yrs ago [facility] History of tobacco use CURRENT NON-TOBACCO USER-HX OF USE 08/22/[address] [facility] History of tobacco use CURRENT NON-TOBACCO USER-HX OF USE 05/22/2000 stopped 18 yrs ago [facility] History of tobacco use CURRENT NON-TOBACCO USER-HX OF USE 01/18/2000 quit 15 years agpo [facility] Plan of Care List of future care activities from Department of [facility] Affairs facilities. Additional future care activities may be listed in the Assessment and Plan section. Date/Time Care Activity Care Activity Detail Facili ty 09/29/2025 AMBULATORY - MEDICINE AMBULATORY - MEDICI [facility]
[2025-04-22 15:28] VITALS: BMI 31.3
--- NOTE | 2025-04-22 15:43 | PC.NURSE ---
[facility] has started construction of its new state of the art ER which will open Spring 2026. With this, we anticipate parking may be a challenge for some our surgical patients and families. Parking spaces are limited but are available for all Surgical, obstetrics, and ER patients sharing this lot. If you arrive and find you are having a hard time finding a parking space, please note that we understand the challenges, please drive around the hospital and park near Hospital Entrance 1. When you enter this entrance, you can ask a volunteer to direct or take you back to the surgical waiting area to check in. We appreciate everyone?s understanding of these expected challenges while we build for your future. Report to the Outpatient Waiting Room, entrance under the green pavilion located off [address], at time _1000am on date 05/03/25 . Planned Procedure Time: _1200pm .? Time changes happen often and if your time is changed the preop area will call you the afternoon before. - You and your visitor will be asked to self-screen and do not enter if you have any COVID symptoms. Please call surgeon if you need to reschedule. - A mask is optional within the hospital at this time. Patients may have clear liquids (water, carbonated beverages, clear teas, apple juice) until 3 hours prior to surgery with a maximum of 20 ounces. - No food from midnight until time of surgery and no smoking, or chewing tobacco (or any form of nicotine). No chewing gum, candy or mints. (0800am) Take only the following medications with a SIP of water on the morning of surgery: ___Stiolto Inhaler DO NOT STOP ANY OF YOUR OTHER PRESCRIPTION MEDICATIONS PRIOR TO SURGERY EXCEPT THE FOLLOWING Hold all vitamins and supplements for 3 days per anesthesiologist. Medications to discontinue per physician NONE Date to take last dose NONE Please no make-up, nail macanese, hairspray, perfume, deodorant, or body powder the day of surgery.? No jewelry (including any body piercings) or valuables the day of surgery, leave them at home.? Please take a shower or bath the night before, or the morning of, surgery with an antibacterial soap.? DIAL SOAP Wear comfortable, loose fitting clothing.? - Jewelry must be removed prior to entering the operating room.? Rings and piercings that are not removed may be cut off. - The hospital will not accept responsibility for valuables.? - Please leave all valuables, including medications, at home the day of surgery. If you are going home after surgery, a licensed road oiling truck driver must drive you home.? - NO public transportation without another adult if you receive anesthesia. - We recommend that an adult stay with you for 24 hours following discharge. - We also recommend that you do not drive, make important decision, drink alcoholic beverages, or take any drugs that were not prescribed by your health care provider for at least 24 hours after your discharge time. Follow any additional instructions given to you from your surgeon. Telephone instructions given to _Wife and asked if any additional questions and then verbalized understanding. Patient advised to call surgeon office or pre surgery nurse liaison [phone] if any additional questions.
[2025-05-03] VITALS (9 sets, daily range): BP systolic 121–149; BP diastolic 58–74; PULSE 65–82; RESP 14–20; TEMP 36.2–36.6; O2SAT 96–100; BMI 31.5
--- OUTSIDE RECORDS SUMMARY | 2025-05-03 00:24 | XMS_ITS | Clinical Summary ---
Author Organization [facility] Address [address] [place] [address] Care Team Providers Care Teacher Vocational Training Name Role Phone Unavailable Primary Care Provider [...]
--- OUTSIDE RECORDS SUMMARY | 2025-05-03 00:25 | XMS_ITS | Clinical Summary ---
Author Organization [facility] Address [address] [place] [address] Care Team Providers Care Veterinary Bacteriologist Name Role Phone Vini Woods MD Primary Care Provider [phone] Allergies Active Allergy Reactions Criticality Noted Date [...] Outpatient Ophthalmology follow-up in [address] [facility] - seen by ENT consult, plan [...] cord signal, advanced multilevel cervical spondylosis with [id number]-ls-fmkixr neuroforaminal stenosis and no high-grade spinal canal stenosis. - C-spine precautions. C-collar at all times. HOB<30. Log roll - upright x-rays including odontoid view (09/20): No significant interval change in mildly displaced odontoid fracture with anterior subluxation of C2 on C1. Unchanged mild anterolisthesis of C3 on C4. 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 Gender Identity Not on file Sexual Orientation Not on file Last Filed Vital Signs Vital Sign Reading Time Taken Comments Blood Pressure 154/71 04/09/2025 1:47 PM CDT Pulse 60 04/09/2025 1:47 PM CDT Temperature 36.8 C (98.2 F) 09/24/2023 11:30 AM CDT Respiratory Rate 18 09/24/2023 11:30 AM CDT Oxygen Saturation 96% 08/07/2024 9:58 AM HEALTH UNIT SUPERVISOR Inhaled Oxygen Concentration - - Weight 104.3 kg (230 lb) 08/07/2024 9:58 AM HEALTH UNIT SUPERVISOR Height 177.8 cm (5' 10) 08/07/2024 9:58 AM HEALTH UNIT SUPERVISOR Body Mass Index 33 08/07/2024 9:58 AM HEALTH UNIT SUPERVISOR Plan of Treatment Health Maintenance Due [...] LAB POCT ORDERABLES - DEVICE Final Result [facility] Department [place] [address] from Last 3 Months Insurance MEDICARE BLUE CROSS MEDICARE SUPPLEMENT MEDICARE [facility] MEDICARE Advance Directives For more information, please contact: [phone] * Full Code (Latest Code Status on File) Date Activated Date Inactivated Comments 09/20/2023 7:54 PM 09/24/2023 5:56 PM Care Teams Veterinary Bacteriologist Relationship Specialty Start Date End Date Vini Woods MD PCP - General 08/15/11
--- OUTSIDE RECORDS SUMMARY | 2025-05-03 00:25 | XMS_ITS | Patient Health Record ---
Author Organization [facility] Address [address] [place], [place] [address] Care Team Providers Care Pollution Control Technician Name Role Phone DENTON Acuña Unavailable [phone] Vini Woods Unavailable Unavailable Reason For Referral No Information Social History Social History Additional Details Category Social Info Options Details Migrated Social History Migrated Social History Alcohol intake : , History of tobacco use : , Smoking Status : Former tobacco user Plan Of Treatment No Information Insurance Providers Payer Name Payer Address Payer Phone Subscriber Number Group Number Insured Name Patient Relationship to Insured Coverage Start Date Coverage End Date Medicare Part B [place] [address] [place] [address] [id number] LUCIA MATHIS JR Self - patient is the insured [facility] ([facility]) ATTN CLAIMS [address] [place] [address] [id number] LUCIA MATHIS JR Self - patient is the insured
[2025-05-03] MEDS: LACTATED RINGERS 1,000 ML 30 ML IV CONT ×2 (11:00→15:24)
[2025-05-03] MEDS: ACETAMINOPHEN 500 MG TABLET 1000 MG PO (11:04)
[2025-05-03] MEDS: KETOROLAC 15 MG/ML VIAL (*BKC) IV PUSH (11:04)
--- NOTE | 2025-05-03 11:57 | WPDHPUPDATE1 ---
History and Physical Update Update Date/Time: 05/03/25 11:57 History and Physical has been reviewed, including an updated exam of the patient. There are NO changes in the patient's condition. Risks, benefits, and alternatives have been discussed and questions answered. Patient agrees to proceed with procedure.
--- NOTE | 2025-05-03 12:10 | WPDANESEPPF ---
Anes - Initial Pre Proc Eval Procedure: Operation Date: 05/03/25 12:00 Proposed Procedures p Laparoscopic Cholecystectomy, Possible Open - Jose Gatica MD Date/Time: 05/03/25 12:10 Surgeon: Jose Gatica MD Pre Op Diagnosis: symptomatic cholelithiasis Patient Data Age: 89 Gender: M Height: 1.78 m Weight: 99 kg Allergies Allergy/AdvReac Type Severity Reaction Status Date / Time lisinopril Allergy Cough Verified 04/27/25 10:44 ibuprofen AdvReac Unknown Verified 05/03/25 10:42 Home Medications ?Medication ?Instructions ?Recorded ?Confirmed ?Type allopurinol 100 mg tablet 100 mg PO DAILY 06/09/19 04/30/25 History cholecalciferol (vitamin D3) 25 1,000 unit PO ONCE 06/09/19 04/30/25 History mcg/drop (1,000 unit/drop) oral drops finasteride 5 mg tablet 5 mg PO QPM 06/09/19 04/30/25 History hydrochlorothiazide 12.5 mg capsule 12.5 mg PO DAILY 06/09/19 04/30/25 History loratadine 10 mg capsule 10 mg PO DAILY 06/09/19 04/30/25 History losartan 25 mg tablet 25 mg PO DAILY 06/09/19 04/30/25 History omeprazole 20 mg capsule,delayed 20 mg PO DAILY 06/09/19 04/30/25 History release simvastatin 40 mg tablet 40 mg PO QPM 08/16/22 04/30/25 History tamsulosin 0.4 mg capsule 0.4 mg PO DAILY 01/04/23 04/30/25 History magnesium 250 mg tablet 250 mg PO DAILY 08/31/23 04/30/25 History hydroxyurea 500 mg capsule 500 mg PO Q12H 09/01/23 04/30/25 History tiotropium 2.5 mcg-olodaterol 2.5 1 puff inhalation BID 01/03/24 04/30/25 History mcg/actuation mist for inhalation (Stiolto Respimat) Patient hx anesthesia problems: none Family hx anesthesia problems: none Results Review: All pre-operative results and documents have been reviewed as part of the pre-operative evaluation. [facility] Past Medical History Medical History Hypertension Postoperative abdominal hernia COPD (chronic obstructive pulmonary disease) BMI 32.0-32.9,adult HTN (hypertension) High cholesterol Osteoarthritis of knee right knee Gout Arthritis COPD (chronic obstructive pulmonary disease) Surgical History Surgical History H/O shoulder surgery Total knee replacement status History of umbilical hernia repair 07/20/20 Laparoscopic umbilical hernia repair with Symbotex mesh, da Marcos assisted 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 Dr Brower Family History Family History Sibling Hypertension Mother Hypertension Diabetes mellitus Father Leukemia Social History Social History Social History: Retired [employer]. Served in the [employer]. Smoking packs per day: 3 Smoking cigarettes per day: 60.0 Years smoked: 24 Smoking pack-years: 72.00 Smoking status: Former smoker Tobacco type: cigarettes Second hand tobacco smoke exposure: No Smoking end date: 06/24/81 Additional smoking assessment comments: QUIT 1981 Alcohol intake: current Drinks per week: 14 Alcohol use details: Drinks 6 mixed drinks of whiskey Substance use: never Substance use type: does not use Do You Feel Safe in your Home?: No Lack of Transportation: No Lack of Food: Never True Current Housing: I Have Housing Concerned About Future Housing: No Difficulty Paying Gas/Electric Bills: No Difficulty Paying for Meds: No Currently Unemployed: No Education: High School Diploma/GED Difficulty w/ Childcare or Family Care: No Living arrangements: with family Additional living arrangements comments: Occupation/Education: retired Gender identity (if verbalized by the patient): Male Spiritual care concerns: No Anes - Eval Final PreProcedure Day of Procedure 05/03/25 12:10 Patient weight: obese Heart: regular rate and rhythm Lungs: clear to auscultation Airway: Mallampati scale class II Neurological: alert and oriented Last oral intake: >/= 8 hours ASA classification: III Emergent: no Anesthetic plan: proceed Anesthesia type and monitoring: general ETT and standard monitoring Results Review: All pre-operative results and documents have been reviewed as part of the pre-operative evaluation. Informed Consent: The patient's anesthetic plan and its attendant risks and benefits were discussed with the patient/family/POA. Questions were solicited and answers provided to the satisfaction of the patient/family/POA.
[2025-05-03] MEDS: ceFAZolin 2 GM in SODIUM CHLORIDE 0.9% IV 50 ML 100 ML IVPB (13:46)
[2025-05-03] MEDS: BUPivacaine HCL 0.5% 10 ML AMP 30 ML INFILTRATE (14:33)
[2025-05-03] MEDS: LIDO 1%/EPINEPHRINE 1:100,000 20 ML VIAL 30 ML INFILTRATE (14:34)
--- NOTE | 2025-05-03 14:57 | S_PTH ---
PATIENT: Wong Sethi Jr. LOC: [facility] U#:[id number] AGE/SX: 89/M ROOM: RE05/03/[address]: Jose Gatica MD : 1935 BED: DIS: 05/03/2025 SPEC #: [id number] RECD: 05/04/25 07:25 STATUS: BETI REQ #: [id number] ORESTES: 05/03/25 14:[address]: Jose Gatica DEPT: [facility] Surgical RECD BY: Jose Roberto Downey ENTERED: 05/04/25 07:25 SP TYPE: Surgical OTHR DR: Vini Woods MD Tissues: A - Gallbladder Procedures: Hematoxylin and Eosin Stain Gross and Microscopic Level 3
--- NOTE | 2025-05-03 15:32 | W.PM.PROC2 ---
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 He was managed non operatively and set up for an interval scopic cholecystectomy. However he did not pass cardiac clearance at that time and needed a pacemaker placed. That was done and is now cleared to proceed with elective laparoscopic cholecystectomy. Findings The gallbladder was distended and had some mild thickening of the gallbladder wall. There were no adhesions of the omentum, duodenum, stomach, or colon to the gallbladder. There were small gallstones within the gallbladder. Description of Procedure After informed consent was obtained patient brought to the operating room where he was placed supine position and general endotracheal anesthesia was administered. The abdomen is then prepped and draped usual sterile fashion. A time-out was then performed correctly identifying the patient as well as procedure to be performed. He was given perioperative IV antibiotics. I then proceeded into the abdomen left upper quadrant utilizing a 5mm Optiview port. Once inside the abdomen insufflated to adequate pneumoperitoneum of 15mm of mercury with CO2. There were no adhesions around the area the umbilicus SI placed a 5mm periumbilical trocar port and then looking at the upper portions of the abdomen placed a 10mm epigastric trocar port as well as 2 more 5mm right subcostal trocar ports all under direct visualization. The gallbladder was visualized and it was distended and covered with a generous amount of visceral adipose tissue. A laparoscopic grasper to the gallbladder at the dome and the gallbladder was elevated over the right half liver towards the right shoulder. A 2nd grasper used the gallbladder infundibulum. I then stripped off the layer of visceral fat to identify the wall the gallbladder bed that with lateral traction on the infundibular gallbladder continued to strip down the visceral fat to identify the cystic duct. The cystic duct was then dissected out circumferentially. The cystic artery was identified dissected out circumferentially as well. Posterior wall the gallbladder at the infundibulum dissected free liver into the critical view was obtained. At this point I then placed 2 clips proximally cystic duct and 2 clips distally high on infundibular gallbladder. The cystic duct was divided Endo Elliott. In a similar fashion the cystic artery clipped and divided as well. The gallbladder was then resected off liver electrocautery. During the dissection I small amount of bile did spill from the gallbladder. No stones spilled from the gallbladder. Once the gallbladder was free from the liver was then placed into Endo-Catch bag and brought out through the epigastric port site. The gallbladder and the stones within were sent to pathology for examination. I then irrigated out the right upper quadrant the abdomen gallbladder fossa copious sterile saline solution. I irrigated and aspirated until the fluid was relatively clear and no longer really bile-stained. The gallbladder bed was treated electrocautery to achieve hemostasis in 1 area where there was a small amount of oozing of blood. The clips were all in good position on the cystic artery and cystic duct stumps. I then aspirated the fluid from the pelvis. All the port sites were then removed from the abdomen under direct visualization all port sites appeared hemostatic. The abdomen was allowed to decompress. I then irrigated out the port sites sterile saline solution. Hemostasis was good. The 10mm epigastric trocar port fascial defect was then closed utilizing 0 Vicryl suture at the fascial level. The skin edges in all the port sites were then approximated utilizing a running subcuticular 4 Monocryl suture. The incisions were then cleaned the skin glue was applied. The patient tolerated the procedure well no complications. All sponges, needles, and instrument counts were correct at the end procedure. EBL was _25__cc. The patient was awakened and taken to recovery in stable and satisfactory condition. Implants None Estimated Blood Loss 25 Drains No Packing No Pathology Yes (Gallbladder and gallstones sent to pathology) Complications No immediate complications Condition Stable Disposition PACU [facility] Billing Surgery - Charge Forward: Surgery Billing
[2025-05-03] MEDS: HYDROcodone/acetaminophen (*CRX) 5-325 MG TABLET 1 TAB PO (16:56)
== END 2025-05-03 17:35 | disposition home or self-care (01) ==
PROVIDERS: PCP Internal Medicine; Visit Provider Surgery
PROC: 0FT44ZZ Resection of Gallbladder, Percutaneous Endoscopic Approach (ICD-10-PCS; CPT 47562; principal; 2025-05-03 12:00)
DX: K80.10 Calculus of gallbladder with chronic cholecystitis without obstruction (principal); I10 Essential (primary) hypertension; J44.9 Chronic obstructive pulmonary disease, unspecified; E78.00 Pure hypercholesterolemia, unspecified; M17.11 Unilateral primary osteoarthritis, right knee; E66.9 Obesity, unspecified; Z68.31 Body mass index [BMI] 31.0-31.9, adult; Z79.51 Long term (current) use of inhaled steroids; Z98.890 Other specified postprocedural states; Z95.0 Presence of cardiac pacemaker; Z87.891 Personal history of nicotine dependence; Z80.6 Family history of leukemia
CPT/HCPCS: 47562; 88304; J0690; A9270; J1171; J1885; J2004; J3010; J7120

== ENCOUNTER 2025-05-26 10:09 | Outpatient (CLI) | payer MEDICARE, SELFPAY ==
[2025-05-26 10:47] LABS: Hematocrit 34.9 % (37.0-46.0); Hemoglobin 11.7 g/dL (12.4-15.3); Mean Corpuscular HGB Conc 33.5 g/dL (32-36); Mean Corpuscular Hemoglobin 38.0 pg (27.0-31.0); Mean Corpuscular Volume 113.3 fL (78.0-102.0); Platelet Count Result 358 K/mm3 (150-420); Red Blood Count 3.08 M/mm3 (4.70-6.10); White Blood Count 2.6 K/mm3 (4.8-10.8)
--- OUTSIDE RECORDS SUMMARY | 2025-05-26 11:25 | XMS_ITS | Patient Health Record ---
Author Organization [facility] Address [address] [place], [place] [id number] Care Team Providers Care Inlayer Silver Name Role Phone DENTON Acuña Unavailable [phone] Vini Woods Unavailable Unavailable Reason For Referral [...] Date Coverage End Date Medicare Part B [place] [address] [place] [address] [id number] LUCIA MATHIS JR Self - patient is the insured [facility] ([facility]) ATTN CLAIMS [address] [place] [address] [id number] LUCIA MATHIS JR Self - patient is the insured
--- OUTSIDE RECORDS SUMMARY | 2025-05-26 11:25 | XMS_ITS | Clinical Summary ---
Author Organization [facility] Address [address] [place] [address] Care Team Providers Care Fire Extinguisher Installer Name Role Phone Unavailable Primary Care Provider [...]
--- OUTSIDE RECORDS SUMMARY | 2025-05-26 11:26 | XMS_ITS | Clinical Summary ---
Author Organization [facility] Address [address] [place] [address] Care Team Providers Care Improvement Lead Name Role Phone Vini Woods MD Primary Care Provider [phone] Allergies Active Allergy Reactions Criticality Noted Date [...] Outpatient Ophthalmology follow-up in 2 weeks at [facility] - [...] cord signal, advanced multilevel cervical spondylosis with dyjqhxvq-gj-xjgcdh neuroforaminal stenosis and no high-grade spinal canal stenosis. - C-spine precautions. C-collar at all times. HOB<30. Log roll - upright x-rays including odontoid view (09/20): No significant interval change in mildly displaced odontoid fracture with anterior subluxation of C2 on C1. Unchanged mild anterolisthesis of C3 on C4. 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 Gender Identity Not on file Sexual Orientation Not on file Last Filed Vital Signs Vital Sign Reading Time Taken Comments Blood Pressure 154/71 04/09/2025 1:47 PM CDT Pulse 60 04/09/2025 1:47 PM CDT Temperature 36.8 C (98.2 F) 09/24/2023 11:30 AM CDT Respiratory Rate 18 09/24/2023 11:30 AM CDT Oxygen Saturation 96% 08/07/2024 9:58 AM DRY ICE MACHINE OPERATOR Inhaled Oxygen Concentration - - Weight 104.3 kg (230 lb) 08/07/2024 9:58 AM DRY ICE MACHINE OPERATOR Height 177.8 cm (5' 10) 08/07/2024 9:58 AM DRY ICE MACHINE OPERATOR Body Mass Index 33 08/07/2024 9:58 AM DRY ICE MACHINE OPERATOR Plan of Treatment Health Maintenance Due [...] LAB POCT ORDERABLES - DEVICE Final Result [facility] [place] [address] from Last 3 Months Insurance MEDICARE BLUE CROSS MEDICARE SUPPLEMENT MEDICARE [facility] MEDICARE Advance Directives For more information, please contact: [phone] * Full Code (Latest Code Status on File) Date Activated Date Inactivated Comments 09/20/2023 7:54 PM 09/24/2023 5:56 PM Care Teams Improvement Lead Relationship Specialty Start Date End Date Vini Woods MD PCP - General 08/15/11
[2025-05-26 11:37] LABS: Neutrophils Percent Manual 52 % (46-73)
[2025-05-26 11:38] LABS: Basophils Absolute Manual 0.07 K/mm3 (0-0.1); Basophils Percent Manual 3 % (0-1); Eosinophils Absolute Manual 0.07 K/mm3 (0.02-0.50); Eosinophils Percent Manual 3 % (1-6); Lymphocytes Absolute Manual 1.11 K/mm3 (1.1-4.5); Lymphocytes Percent Manual 43 % (18-44); Monocytes Absolute Manual 0.41 K/mm3 (0.1-0.90); Monocytes Percent Manual 16 % (3-9)
== END 2025-05-26 10:10 | disposition home or self-care (01) ==
PROVIDERS: PCP Internal Medicine; Visit Provider Internal Medicine Hematology
DX: D69.6 Thrombocytopenia, unspecified (principal)
CPT/HCPCS: 36415; 85025